=== PATIENT | female | born 1955 | race Caucasian/White ===

== ENCOUNTER 2019-12-06 | Outpatient (CLI) | payer MEDICARE, MEDICAID, SELFPAY ==
[2019-12-06 17:43] LABS: SARS-CoV-2 RNA PCR Negative
== END 2019-12-06 00:01 | disposition home or self-care (01) ==
LOC: ANHCOVIDDT 00:01
PROVIDERS: PCP Internal Medicine; Visit Provider Urology
DX: Z01.818 Encounter for other preprocedural examination (principal); Z11.59 Encounter for screening for other viral diseases
CPT/HCPCS: 87635; C9803; U0003

== ENCOUNTER 2019-12-06 08:00 | Outpatient (CLI) | payer MEDICARE, MEDICAID, SELFPAY ==
[2019-12-10 01:36] LABS: Carbamazepine Tegretol 8.7 mcg/mL (4.0-12.0)
== END 2019-12-06 08:01 | disposition home or self-care (01) ==
LOC: ANHSURGERY 08:05
PROVIDERS: Anesthesiology; PCP Internal Medicine; Visit Provider Urology
DX: Z01.818 Encounter for other preprocedural examination (principal); Z51.81 Encounter for therapeutic drug level monitoring; Z11.59 Encounter for screening for other viral diseases; N81.6 Rectocele
CPT/HCPCS: 36415; 80156; 87635; C9803; U0003

== ENCOUNTER 2019-12-08 01:36 | Day surgery (SDC) | payer MEDICARE, MEDICAID, SELFPAY ==
[2019-11-29 07:56] VITALS: BMI 50.3
[2019-12-08] VITALS (9 sets, daily range): BP systolic 100–151; BP diastolic 44–95; PULSE 77–92; RESP 10–20; TEMP 36.1–36.9; O2SAT 93–100
--- NOTE | 2019-12-08 07:19 | WPDHPUPDATE1 ---
History and Physical Update Update Date/Time: 12/08/19 07:19 History and Physical has been reviewed, including an updated exam of the patient. There are NO changes in the patient's condition. Risks, benefits, and alternatives have been discussed and questions answered. Patient agrees to proceed with procedure.
--- NOTE | 2019-12-08 07:38 | WPDANESEPP ---
Anes - Eval Pre Procedure Procedure: Operation Date: 12/08/19 09:30 Proposed Procedures p Rectocele Repair - Huseyin Hogue MD Date/Time: 12/08/19 07:38 Pre Op Diagnosis: Rectocele Patient Data Age: 64 Gender: F Height: 1.57 m Weight: 124.74 kg Allergies Allergy/AdvReac Type Severity Reaction Status Date / Time Penicillins AdvReac Unknown Unknown Verified 11/29/19 07:58 Home Medications Medication Instructions Recorded Confirmed Type blood sugar diagnostic #100 each 05/26/19 11/21/19 Rx blood sugar diagnostic #10 each 06/08/19 11/21/19 History blood-glucose meter #1 each 06/08/19 11/21/19 History carbamazepine 400 mg 400 mg PO BID 06/08/19 11/29/19 History tablet,extended release,12 hr cholecalciferol (vitamin D3) 125 5,000 unit PO DAILY 06/08/19 11/29/19 History mcg (5,000 unit) capsule lancets #50 each 06/08/19 11/21/19 History naproxen 500 mg tablet 500 mg PO BID PRN 06/08/19 11/29/19 History trazodone 100 mg tablet 100 mg PO QPM tablet 06/08/19 11/29/19 History duloxetine 30 mg capsule,delayed 60 mg PO QPM #180 cap 11/21/19 11/29/19 Rx release lisinopril 40 mg tablet 40 mg PO DAILY #90 tablet 11/21/19 11/29/19 Rx rosuvastatin 40 mg tablet 40 mg PO DAILY #90 tablet 11/21/19 11/29/19 Rx fluticasone propionate 50 1 spray NASAL DAILY #18.2 ml 11/23/19 11/29/19 Rx mcg/actuation nasal spray,suspension ascorbic acid (vitamin C) [Vitamin 1 g PO DAILY 11/29/19 11/29/19 History C] bimatoprost [Lumigan] 1 drp OPHTHALMIC (EYE) HS 11/29/19 11/29/19 History omega 7-aru-egs-fish oil [Fish Oil] 1 cap PO DAILY 11/29/19 11/29/19 History vitamins A,C,Y-qfvw-ekfepd 1 tablet PO DAILY 11/29/19 11/29/19 History [PreserVision AREDS] Patient hx anesthesia problems: none Family hx anesthesia problems: none PMFSH Past Medical History Medical History (Updated 12/08/19 @ 07:40 by Liam Preicado CRNA) Depression Diverticulitis Epilepsy Foot drop Former smoker GERD (gastroesophageal reflux disease) Hyperlipidemia Hypertension Knee pain Obesity Post-menopausal Prediabetes RSD (reflex sympathetic dystrophy) Seizure Vitamin D deficiency Surgical History Surgical History H/O neck surgery 1999 Family History Family History Mother Diabetes mellitus Hypertension Parkinsons disease Father Diabetes mellitus Hypertension Social History Social History Smoking status: Former smoker Alcohol intake: never Exam Day of Procedure 12/08/19 07:38
--- NOTE | 2019-12-08 08:28 | WPDANESEPPF ---
Anes - Initial Pre Proc Eval Procedure: Operation Date: 12/08/19 09:30 Proposed Procedures p Rectocele Repair - Huseyin Hogue MD Date/Time: 12/08/19 08:28 Surgeon: Huseyin Hogue MD Pre Op Diagnosis: Rectocele Patient Data Age: 64 Gender: F Height: 5 ft 2 in Weight: 124.74 kg Allergies Allergy/AdvReac Type Severity Reaction Status Date / Time Penicillins AdvReac Unknown DIVERTICULI Verified 12/08/19 08:27 TIS Home Medications Medication Instructions Recorded Confirmed Type blood sugar diagnostic #100 each 05/26/19 11/21/19 Rx blood sugar diagnostic #10 each 06/08/19 11/21/19 History blood-glucose meter #1 each 06/08/19 11/21/19 History carbamazepine 400 mg 400 mg PO BID 06/08/19 12/08/19 History tablet,extended release,12 hr cholecalciferol (vitamin D3) 125 5,000 unit PO DAILY 06/08/19 12/08/19 History mcg (5,000 unit) capsule lancets #50 each 06/08/19 11/21/19 History naproxen 500 mg tablet 500 mg PO BID PRN 06/08/19 12/08/19 History trazodone 100 mg tablet 100 mg PO QPM tablet 06/08/19 12/08/19 History duloxetine 30 mg capsule,delayed 60 mg PO QPM #180 cap 11/21/19 12/08/19 Rx release lisinopril 40 mg tablet 40 mg PO DAILY #90 tablet 11/21/19 12/08/19 Rx rosuvastatin 40 mg tablet 40 mg PO DAILY #90 tablet 11/21/19 12/08/19 Rx fluticasone propionate 50 1 spray NASAL DAILY #18.2 ml 11/23/19 12/08/19 Rx mcg/actuation nasal spray,suspension ascorbic acid (vitamin C) [Vitamin 1 g PO DAILY 11/29/19 12/08/19 History C] bimatoprost [Lumigan] 1 drp OPHTHALMIC (EYE) HS 11/29/19 12/08/19 History omega 2-zyo-xra-fish oil [Fish Oil] 1 cap PO DAILY 11/29/19 12/08/19 History vitamins A,C,P-nfda-bugmdt 1 tablet PO DAILY 11/29/19 12/08/19 History [PreserVision AREDS] Patient hx anesthesia problems: none Family hx anesthesia problems: none [facility] Past Medical History Medical History (Updated 12/08/19 @ 07:40 by Liam Preciado CRNA) Depression Diverticulitis Epilepsy Foot drop Former smoker GERD (gastroesophageal reflux disease) Hyperlipidemia Hypertension Knee pain Obesity Post-menopausal Prediabetes RSD (reflex sympathetic dystrophy) Seizure Vitamin D deficiency Surgical History Surgical History H/O neck surgery 1999 Family History Family History Mother Diabetes mellitus Hypertension Parkinsons disease Father Diabetes mellitus Hypertension Social History Social History Smoking status: Former smoker Alcohol intake: never Anes - Eval Final PreProcedure Day of Procedure 12/08/19 08:28 Patient weight: super morbidly obese Heart: regular rate and rhythm Lungs: clear to auscultation Airway: Mallampati scale class III Neurological: alert and oriented Last oral intake: >/= 8 hours ASA classification: IV Emergent: no Anesthetic plan: proceed Anesthesia type and monitoring: general LMA and standard monitoring Informed Consent: The patient's anesthetic plan and its attendant risks and benefits were discussed with the patient/family/POA. Questions were solicited and answers provided to the satisfaction of the patient/family/POA.
[2019-12-08] MEDS: LACTATED RINGERS 1,000 ML 30 ML IV CONT (08:45)
[2019-12-08] MEDS: KETOROLAC 30 MG/ML VIAL (*BKC) IV PUSH (09:24)
[2019-12-08] MEDS: BUPIVACAINE/EPINEPHRINE 0.25% 50 ML VIAL INFILTRATE (09:26)
--- NOTE | 2019-12-08 09:48 | P.OP_ITS ---
Procedure Note - Detailed Date of procedure: 12/08/19 Pre-op diagnosis: Rectocele Rectocele Female perineal laxity Post-op diagnosis: same Procedure performed: Rectocele repair/posterior colporrhaphy Perineal plasty Description of procedure: She understands the risks of bleeding, infection, damage to surrounding organs, dyspareunia, and recurrence of prolapse. She agrees to proceed. She was correctly identified and informed consent was obtained. She is brought to the operating room. She was given general anesthesia. She was placed in the dorsal lithotomy position. She was prepped and draped in a sterile fashion. She was given appropriate perioperative antibiotics. A time-out was performed. A [place] retractor was placed. A Jones catheter was in place. I grasped the rectocele with Allis clamps. I infiltrated the subcutaneous tissues with local mixed with saline. I made a midline incision on the posterior vaginal wall. I dissected the mucosa off the underlying fascial structures out laterally. And then ports he apex. There is no sign of any violation to surrounding organs. I then performed a standard rectocele repair. I used interrupted 0 Vicryl sutures. This reduced the rectocele. I then trimmed excess vaginal mucosa. I then closed the mucosa with a running 2 0 Vicryl suture. There was excellent hemostasis. There was reduction of the rectocele. I then marked out a dino- shaped area of skin in the perineum. I anesthetize this area of skin. I removed the skin. I then performed a perineoplasty with 0 Vicryl sutures. I used a 2 0 Vicryl to close the mucosa. There is excellent support of the perineum without undue narrowing of the vagina. I then removed the [place] retractor. A rectal exam confirmed no injury to the rectum. Implants: None Anesthesia: GLMA Surgeon: Huseyin Hogue MD Estimated blood loss (mL): 30 Drains: No Packing: No Pathology: none sent Complications: No immediate complications Condition: stable Disposition: PACU
[2019-12-08 10:29] LABS: Glucose Point of Care 114 (65-105)
--- NOTE | 2019-12-08 10:33 | SUR.PHASEI ---
BROTHER KAITLIN MENDEZ. UNABLE TO VISUALIZE SURGICAL SITE.
== END 2019-12-08 12:10 | disposition home or self-care (01) ==
PROVIDERS: PCP Internal Medicine; Visit Provider Urology
PROC: 0JQC0ZZ Repair Pelvic Region Subcutaneous Tissue and Fascia, Open Approach (ICD-10-PCS; CPT 45560; principal; 2019-12-08 09:30)
DX: N81.6 Rectocele (principal); I10 Essential (primary) hypertension; E78.5 Hyperlipidemia, unspecified; R73.03 Prediabetes; G40.909 Epilepsy, unspecified, not intractable, without status epilepticus; E55.9 Vitamin D deficiency, unspecified; G90.50 Complex regional pain syndrome I, unspecified; K21.9 Gastro-esophageal reflux disease without esophagitis; F32.9 Major depressive disorder, single episode, unspecified; E66.01 Morbid (severe) obesity due to excess calories; Z68.42 Body mass index [BMI] 45.0-49.9, adult; Z87.891 Personal history of nicotine dependence
CPT/HCPCS: 57250; A9270; J1100; J1885; J2250; J2405; J2704; J3010; J7030; J7120

== ENCOUNTER 2020-01-27 11:27 | Emergency (ER) | payer MEDICARE, MEDICAID, SELFPAY ==
--- NOTE | ~2020-01-27 | XR_ITS ---
XR foot RT min 3V DATE: 01/27/2020 12:32 INDICATION: Fall. Right foot injury, pain TECHNIQUE: 4 views COMPARISON: None FINDINGS: Plantar calcaneal enthesopathy. There is soft tissue swelling of the dorsum of the foot. No fracture or dislocation, periosteal reaction or bone destruction is detected. IMPRESSION: No fracture or dislocation Reviewed, dictated and finalized at location A. IMPRESSION: No fracture or dislocation
--- NOTE | ~2020-01-27 | XR_ITS ---
XR knee RT 3V DATE: 01/27/2020 12:32 INDICATION: Fall. Right knee injury, pain TECHNIQUE: Portable crosstable lateral, AP and oblique views COMPARISON: None FINDINGS: There is mild suprapatellar knee joint effusion. There is prominent patellofemoral joint periarticular spurring consistent with osteoarthritis. No fracture or dislocation, periosteal reaction or bone destruction. No radiopaque intra-articular lo ose body or chondrocalcinosis. IMPRESSION: Suprapatellar knee joint effusion Osteoarthritis involving primarily the patellofemoral joint Reviewed, dictated and finalized at location A.
--- NOTE | ~2020-01-27 | XR_ITS ---
XR shoulder LT min 2V DATE: 01/27/2020 14:05 INDICATION: Fall. Left shoulder pain. TECHNIQUE: 4 views COMPARISON: None FINDINGS: There is joint space narrowing and spurring at the acromion clavicular joint consistent wit h degenerative change. No apparent fracture or dislocation of the left shoulder is evident. No periosteal reaction or bone d estruction. IMPRESSION: Degenerative changes acromioclavicular joint Reviewed, dictated and finalized at location A.
--- NOTE | ~2020-01-27 | CT_ITS ---
CT lumbar spine wo con DATE: 01/27/2020 12:36 INDICATION: Low back pain following a fall TECHNIQUE: Axial views from T11 through the sacrum, sagittal and coronal reconstructions. Exam dose: 1343.16 mGy-cm total exam DLP. COMPARISON: 04/22/2019 MRI lumbar spine FINDINGS: There is borderline primary lumbar spinal stenosis. There is severe degenerative disc disease at L1-2, L2-3 and L5-S1. There is moderate degenerative dis c disease at L3-4 and L4-5. There is prominent degenerative change at the apophyseal joints, with associated grade 1 anterolisthe sis at L4-5. There is mild retrolisthesis at L2-3 and L5-S1 associated with degenerative disc disease. No recent fracture or bone destruction is evident. The sacroiliac joints are intact. IMPRESSION: Multilevel severe degenerative disc disease Reviewed, dictated and finalized at Location A. Reviewed, dictated and finalized at location A.
--- NOTE | ~2020-01-27 | XR_ITS ---
XR ankle RT min 3V DATE: 01/27/2020 12:32 INDICATION: Fall. Right ankle injury, pain TECHNIQUE: 4 views COMPARISON: None FINDINGS: There is prominent calcaneal enthesopathy. No fracture or dislocation of the ankle or disruption of the ankle mortise is detected. IMPRESSION: No fracture or dislocation detected Reviewed, dictated and finalized at location A.
--- NOTE | ~2020-01-27 | XR_ITS ---
XR elbow LT min 3V DATE: 01/27/2020 12:32 INDICATION: Fall. Left elbow injury, pain TECHNIQUE: 4 views COMPARISON: None FINDINGS: No fracture or dislocation or joint effusion. No periosteal reaction or bone destruction. T here is osteoarthritic change. IMPRESSION: No fracture or dislocation or joint effusion Reviewed, dictated and finalized at location A.
[2020-01-27 11:30] VITALS: BP 132/56; PULSE 80; RESP 18; TEMP 37.1; O2SAT 99
--- NOTE | 2020-01-27 12:10 | ECG_ITS ---
Measurements Intervals [place] Rate: 80 P: 9 RI: 173 QRS: 1 QRSD: 83 T: 23 QT: 352 QTc: 406 Interpretive Statements SINUS RHYTHM LOW QRS VOLTAGE IN PRECORDIAL LEADS VOLTAGE CRITERIA FOR LVH BORDERLINE ECG Electronically Signed On 01-27-2020 13:47:06 CDT by Sarabjit Childs D.O.
[2020-01-27] MEDS: SODIUM CHLORIDE 0.9% IV 1,000 ML 999 ML IV CONT ×2 (12:16→13:51)
[2020-01-27] MEDS: MECLIZINE HCL 25 MG TABLET PO (12:25)
[2020-01-27 12:31] LABS: Basophils Percent Auto 0.7 % (0.2-1.2); Eosinophils Absolute Auto 0.1 K/mm3 (0-0.3); Eosinophils Percent Auto 2.1 % (0-4.4); Hematocrit 37.3 % (37.0-47.0); Hemoglobin 11.7 g/dL (12.0-15.0); Immature Granulocyte Absolute 0.03 K/mm3 (0.00-0.031); Immature Granulocyte Percent A 0.5 % (0-0.5); Lymphocytes Percent Auto 29.7 % (18.3-44.2); Mean Corpuscular HGB Conc 31.4 g/dl (32-36); Mean Corpuscular Hemoglobin 30.1 pg (26-34); Mean Corpuscular Volume 95.9 fl (80-100); Mean Platelet Volume 10.6 fl (7.4-10.4); Monocytes Absolute Auto 0.6 K/mm3 (0.1-0.6); Monocytes Percent Auto 10.2 % (2.6-8.5); Neutrophils Absolute Auto 3.4 K/mm3 (1.3-6.7); Neutrophils Percent Auto 56.8 % (45.5-73.1); Platelet Count Result 198 k/mm3 (150-375); Red Blood Count 3.89 M/mm3 (4.2-5.4); Red Cell Distribution Width 14.4 % (11.5-14.5); White Blood Count 6.1 K/mm3 (4.5-10.0)
--- NOTE | 2020-01-27 12:31 | ED.FALL ---
HPI - Fall General Chief Complaint: Fall <HOLLEY Hernandez Last Filed: 01/27/20 15:55> Stated Complaint: fall, dizziness <HOLLEY Hernandez Last Filed: 01/27/20 15:55> Time Seen by Provider: 01/27/20 11:33 <HOLLEY Hernandez Last Filed: 01/27/20 15:55> Source: patient <HOLLEY Hernandez Last Filed: 01/27/20 15:55> Mode of arrival: ambulatory <HOLLEY Hernandez Last Filed: 01/27/20 15:55> Limitations: no limitations <HOLLEY Hernandez Last Filed: 01/27/20 15:55> History of Present Illness HPI Narrative: Patient is a 64-year-old female who presents to emergency department for evaluation of skeletal injuries and dizziness patient notes for the last 4 days she has been dizzy was ambulating when she had experienced dizziness also has a history of right dropfoot causing her to fall patient notes she injured the foot ankle and right knee. Also noting left elbow pain. Patient also notes she has had increasing low back pain during this. Noting that she fell to the right side patient lied on the ground for 45 minutes and was able to get herself up patient denies any syncope headache head injury neck pain and presents per private vehicle has not taken anything for her symptoms patient notes that she lives by herself. Patient notes history of dizziness and notes that she thought possibly it was related to bilateral ear discomfort but denies other URI symptoms <HOLLEY Hernandez Last Filed: 01/27/20 15:55> Related Data Home Medications: Home Medications Medication Instructions Recorded Confirmed carbamazepine 400 mg 400 mg PO BID 06/08/19 12/08/19 tablet,extended release,12 hr cholecalciferol (vitamin D3) 125 5,000 unit PO DAILY 06/08/19 12/08/19 mcg (5,000 unit) capsule naproxen 500 mg tablet 500 mg PO BID PRN 06/08/19 12/08/19 trazodone 100 mg tablet 100 mg PO QPM tablet 06/08/19 12/08/19 Lumigan 1 drp OPHTHALMIC (EYE) HS 11/29/19 12/08/19 PreserVision AREDS 1 tablet PO DAILY 11/29/19 12/08/19 ascorbic acid (vitamin C) [Vitamin 1 g PO DAILY 11/29/19 12/08/19 C] omega 7-axp-vhf-fish oil [Fish Oil] 1 cap PO DAILY 11/29/19 12/08/19 <Ludwig Rodriguez PA-C - Last Filed: 01/27/20 15:55> Allergies/Adverse Reactions: Allergies Allergy/AdvReac Type Severity Reaction Status Date / Time Penicillins AdvReac Unknown DIVERTICULI Verified 01/27/20 11:36 TIS <Ludwig Rodriguez PA-C - Last Filed: 01/27/20 15:55> Review of Systems Review of Systems: All systems reviewed & are unremarkable except as noted in HPI and below <Ludwig Rodriguez PA-C - Last Filed: 01/27/20 15:55> [facility] Past Medical History Medical History: Medical History Depression Diverticulitis Epilepsy Foot drop Former smoker GERD (gastroesophageal reflux disease) Hyperlipidemia Hypertension Knee pain Obesity Post-menopausal Prediabetes RSD (reflex sympathetic dystrophy) Seizure Vitamin D deficiency <Ludiwg Rodriguez PA-C - Last Filed: 01/27/20 15:55> Surgical History Surgical History: Surgical History H/O neck surgery 1999 <Ludwig Rodriguez PA-C - Last Filed: 01/27/20 15:55> Social History Social History: Social History Smoking status: Former smoker Alcohol intake: never <Ludwig Rodriguez PA-C - Last Filed: 01/27/20 15:55> Exam Narrative: Exam Narrative: GENERAL: Well-appearing, obese, and in no acute distress. HEAD: Normocephalic, atraumatic. EYES: PERRLA and EOMI. ENT: Nares clear, no rhinorrhea or epistaxis. Mucous membranes moist. Oropharynx without tonsillar hypertrophy exudate or other lesions. NECK: Supple. No adenopathy or masses. CHEST: Clear to auscultation. No respiratory distress. No wheezes rales or rhonchi HEART: Regular ra
[2020-01-27 12:45] LABS: Alanine Aminotransferase 16 U/L (4-35); Alkaline Phosphatase 77 U/L (38-126); Anion Gap 10.9 mmol/L (7-16); Aspartate Amino Transferase 27 U/L (14-36); Bilirubin,Total 0.3 mg/dL (0.2-1.3); Blood Urea Nitrogen 27 mg/dL (7-17); Calcium 8.9 mg/dL (8.4-10.2); Carbon Dioxide 30 mmol/L (22-30); Chloride 99 mmol/L (98-107); Creatine Kinase 172 U/L (30-135); Estimated CRCL calculation 79 ml/min; Estimated Glomerular Filt Rate > 60; Glucose 92 mg/dL (65-105); Lipase 85 U/L (23-300); Potassium 4.9 mmol/L (3.4-5.0); Sodium 135 mmol/L (137-145)
[2020-01-27 12:46] LABS: Prothrombin Time 12.8 Seconds (11.1-14.7)
[2020-01-27 12:48] LABS: Partial Thromboplastin Time 24.3 SECONDS (22.3-36.8)
[2020-01-27 13:13] LABS: Add Urine Microscopic? NO; Appearance Urine Clear (Clear); Bilirubin Urine Negative (Negative); Blood Urine Negative (Negative); Color Urine Straw (Yellow); Glucose Urine UA Negative (Negative); Ketones Urine Negative (Negative); Leukocyte Esterase Ur Negative LEU/UL (Negative); Nitrate Urine Negative (Negative); Protein Urine Negative (Negative); Specific Grav Ur 1.011 (1.001-1.035); Urobilinogen Urine Negative mg/dL (<2.0)
[2020-01-27 13:35] VITALS: BP 141/59; PULSE 81
[2020-01-27 13:37] VITALS: BP 157/88; PULSE 87
[2020-01-27 13:40] VITALS: BP 165/84; PULSE 85
[2020-01-27 16:02] VITALS: BP 158/76; PULSE 79; RESP 18; O2SAT 99
== END 2020-01-27 16:04 | disposition home or self-care (01) ==
PROVIDERS: Emergency Medicine Emergency Medical Services; Emergency Provider General Practice; PCP Internal Medicine
DX: M25.571 Pain in right ankle and joints of right foot (principal); M25.561 Pain in right knee; S50.02XA Contusion of left elbow, initial encounter; E86.0 Dehydration; R42 Dizziness and giddiness; G40.909 Epilepsy, unspecified, not intractable, without status epilepticus; F32.9 Major depressive disorder, single episode, unspecified; Z87.891 Personal history of nicotine dependence; K21.9 Gastro-esophageal reflux disease without esophagitis; E78.5 Hyperlipidemia, unspecified; I10 Essential (primary) hypertension; E66.9 Obesity, unspecified; Z68.43 Body mass index [BMI] 50.0-59.9, adult; R73.03 Prediabetes; E55.9 Vitamin D deficiency, unspecified; M51.36 Other intervertebral disc degeneration, lumbar region; M51.37 Other intervertebral disc degeneration, lumbosacral region; R94.31 Abnormal electrocardiogram [ECG] [EKG]; M21.371 Foot drop, right foot; W18.39XA Other fall on same level, initial encounter
CPT/HCPCS: 36415; 51701; 72131; 73030; 73080; 73562; 73610; 73630; 80053; 81003; 82550; 83690; 85025; 85610; 85730; 93005; 96361; 96374; 99284; A9270; J0131; J7030

== ENCOUNTER 2020-03-29 09:01 | Outpatient (CLI) | payer MEDICARE, MEDICAID, SELFPAY | END 2020-03-29 09:02 | disposition home or self-care (01) | LOC: ANHAUDIO 09:03 | PROVIDERS: PCP Internal Medicine; Visit Provider Otolaryngology | DX: H90.3 Sensorineural hearing loss, bilateral (principal) | CPT/HCPCS: 92557; 92567 ==

== ENCOUNTER 2020-05-13 08:27 | Outpatient (CLI) | payer MEDICARE, MEDICAID, SELFPAY ==
--- NOTE | 2020-06-14 13:57 | WPDHOMESLEEP ---
Sleep Study - Home Unattended Date of Study: 05/13/20 Ordering Provider: Scott Delvalle MD Interpreting Physician: Ce Hughes MD Home Sleep Study Type: Apnea Link Air Height: 1.55 m Weight: 130.181 kg Body Mass Index: 54.2 Neck Circumference (inches): 18 Central: 3 Reason for Sleep Study loud snoring, waking at night shaking and with a red face Sleep History Camille Orozco is a 65 year old female who says that while she is sleeping her face becomes red. She wakes up from loud snoring and she feels shaky. She has been snoring loudly for years. There is a family history with 2 brothers and 2 sons and her father all having sleep apnea. She has use trazodone to help initiate sleep. She constantly awakens at night with coughing. She does not awaken from sleep feeling short of breath. She rarely has trouble sleeping with a cold. She does not gasp for breath at night. She does not have breathing problems at night observed by others. She rarely sweats excessively at night. She does not notice her heart pounding or beating irregularly at night. She rarely falls asleep during the day. She does not fall asleep involuntarily, while driving or during physical effort. She does not have loss of muscle tone was drawn motion. She does not have daytime difficulties due to excessive sleepiness. She rarely feels paralyzed on waking or falling asleep and rarely has vivid dreamlike scenes upon awakening or falling asleep. She is not afraid to go to sleep. She occasionally has nightmares. She frequently remembers her dreams. She constantly has racing thoughts through her mind. She does not feel sad, depressed, anxious and does not have muscular tension. She constantly notices parts of her body jerking. She denies kicking at night. She does not have crawling and aching feelings in her legs. She occasionally has leg pain at night. She does not have morning jaw pain. She frequently grinds her teeth during sleep. She occasionally is bothered by pain during the day, occasionally awakened by pain at night and occasionally wakes up feeling stiff in the morning. She frequently wakes up with sore achy muscles and pain in her neck and spine. She has memory problems and concentration difficulties. She has nightmares and headaches. Normal bedtime is 9:00 p.m. falling asleep within 15 minutes waking multiple times at night. While awake, she will go to the bathroom. She returns to sleep a few minutes later. She wakes in the morning between 6 and 7:00 a.m. She takes naps. A short nap may be refreshing. She is drowsy in the morning for 1 hour or longer. Habits: Quit tobacco years ago. Caffeine - 1 soda a day. No alcohol. [facility] Past Medical History Medical History Depression Diverticulitis Epilepsy Foot drop Former smoker GERD (gastroesophageal reflux disease) Hyperlipidemia Hypertension Knee pain Obesity Post-menopausal Prediabetes RSD (reflex sympathetic dystrophy) Seizure Vitamin D deficiency Surgical History Surgical History H/O neck surgery 1999 Family History Family History Mother Diabetes mellitus Hypertension Parkinsons disease Father Diabetes mellitus Hypertension Social History Social History Smoking status: Former smoker Alcohol intake: never Medications Home Medications Medication Instructions Recorded Confirmed Type carbamazepine 400 mg 400 mg PO BID 06/08/19 01/29/20 History tablet,extended release,12 hr cholecalciferol (vitamin D3) 125 5,000 unit PO DAILY 06/08/19 01/29/20 History mcg (5,000 unit) capsule naproxen 500 mg tablet 500 mg PO BID PRN 06/08/19 01/29/20 History trazodone 100 mg tablet 100 mg PO QPM tablet 06/08/19 01/29/20 History Lumigan 1 drp OPHTHALMIC (EYE) H
[2020-06-14 14:18] VITALS: BMI 54.2
== END 2020-05-13 08:28 | disposition home or self-care (01) ==
LOC: ANHCSM 08:27
PROVIDERS: PCP Internal Medicine; Visit Provider Internal Medicine Critical Care Medicine
DX: G47.33 Obstructive sleep apnea (adult) (pediatric) (principal); R06.83 Snoring
CPT/HCPCS: 95806

== ENCOUNTER 2020-05-13 09:00 | Outpatient (RCR) | payer MEDICAID, SELFPAY | END 2020-05-13 23:59 | disposition home or self-care (01) | LOC: ANHAUDIO 09:00 | PROVIDERS: PCP Internal Medicine; Visit Provider Internal Medicine | DX: Z46.1 Encounter for fitting and adjustment of hearing aid (principal) | CPT/HCPCS: 99199; V5160; V5261 ==

== ENCOUNTER 2020-07-06 01:28 | Outpatient (CLI) | payer MEDICARE, MEDICAID, SELFPAY ==
[2020-07-06 20:09] LABS: SARS-CoV-2 RNA PCR Negative
== END 2020-07-06 01:29 | disposition home or self-care (01) ==
LOC: ANHCOVIDDT 01:28
PROVIDERS: PCP Internal Medicine; Visit Provider Internal Medicine Critical Care Medicine
DX: Z01.812 Encounter for preprocedural laboratory examination (principal); Z20.822 Contact with and (suspected) exposure to COVID-19
CPT/HCPCS: C9803; U0003

== ENCOUNTER 2020-07-09 09:21 | Outpatient (CLI) | payer MEDICARE, MEDICAID, SELFPAY ==
--- NOTE | 2020-08-14 10:29 | WPDSLEEPSTUD ---
Sleep Study Date of Study: 07/09/20 Ordering Provider: Scott Delvalle MD; primary is Mike Gautam MD Interpreting Physician: Ce Hughes MD Sleep Study Type: BiPAP Titration Height: 1.55 m Weight: 130.181 kg Body Mass Index: 54.2 Neck Circumference: 45.72 cm [place]: 3 Reason for Sleep Study Severe LANA on home sleep test May 13, 2020; returns for titration Sleep History Camille Oroczo is a 65 year old female who had a home sleep test on May 13, 2020. The AHI was 48, mainly obstructive events with loud snoring. Unfortunately the oximetry channel and heart rate channel did not work so the degree of desaturation was not clear. She returns at this time for CPAP titration which turned into a BiPAP titration. She has reported that while sleeping, her face becomes red. She wakes up from loud snoring, waking up feeling shaky. She has been snoring loudly for years. There is a family history with 2 brothers, 2 sons and her father all having sleep apnea. She has use trazodone to help initiate sleep. She constantly awakens at night with coughing. She does not awaken from sleep feeling short of breath. She rarely has trouble sleeping with a cold. She does not gasp for breath at night. She does not have breathing problems at night observed by others. She rarely sweats excessively at night. She does not notice her heart pounding or beating irregularly at night. She rarely falls asleep during the day. She does not fall asleep involuntarily, while driving or during physical effort. She does not have loss of muscle tone was drawn motion. She does not have daytime difficulties due to excessive sleepiness. She rarely feels paralyzed on waking or falling asleep and rarely has vivid dreamlike scenes upon awakening or falling asleep. She is not afraid to go to sleep. She occasionally has nightmares. She frequently remembers her dreams. She constantly has racing thoughts through her mind. She does not feel sad, depressed, anxious and does not have muscular tension. She constantly notices parts of her body jerking. She denies kicking at night. She does not have crawling and aching feelings in her legs. She occasionally has leg pain at night. She does not have morning jaw pain. She frequently grinds her teeth during sleep. She occasionally is bothered by pain during the day, occasionally awakened by pain at night and occasionally wakes up feeling stiff in the morning. She frequently wakes up with sore achy muscles and pain in her neck and spine. She has memory problems and concentration difficulties. She has nightmares and headaches. Normal bedtime is 9:00 p.m. falling asleep within 15 minutes waking multiple times at night. While awake, she will go to the bathroom. She returns to sleep a few minutes later. She wakes in the morning between 6 and 7:00 a.m. She takes naps. A short nap may be refreshing. She is drowsy in the morning for 1 hour or longer. Habits: Quit tobacco years ago. Caffeine - 1 soda a day. No alcohol. [facility] Past Medical History Medical History Depression Diverticulitis Epilepsy Essential (primary) hypertension Foot drop Former smoker GERD (gastroesophageal reflux disease) Hyperlipidemia Hyperlipidemia Hypertension Knee pain Obesity Post-menopausal Prediabetes RSD (reflex sympathetic dystrophy) Seizure Vitamin D deficiency Surgical History Surgical History H/O neck surgery 1999 Family History Family History Mother Diabetes mellitus Hypertension Parkinsons disease Father Diabetes mellitus Hypertension Social History Social History Smoking status: Former smoker Alcohol intake: never Medications Home Medications Medication Instructions Recorded Confirmed Typ
[2020-08-14 11:49] VITALS: BMI 54.2
== END 2020-07-09 09:22 | disposition home or self-care (01) ==
LOC: ANHCSM 09:27
PROVIDERS: PCP Internal Medicine; Visit Provider Internal Medicine Critical Care Medicine
DX: G47.33 Obstructive sleep apnea (adult) (pediatric) (principal)
CPT/HCPCS: 95811

== ENCOUNTER 2020-09-17 18:45 | Inpatient (IN) | payer MEDICARE, MEDICAID, SELFPAY ==
--- NOTE | ~2020-09-17 | CT_ITS ---
EXAMINATION: CT abdomen pelvis w con DATE: 09/17/2020 22:27 INDICATION: Generalized abdominal pain and distention TECHNIQUE: Computed tomography (CT) of the abdomen and pelvis was performed with 100 cc Omnipaque 350 intravenous contrast. Automated exposure control and iterative reconstruction technique were employe d. Exam dose: 1529.41 mGy-cm total exam DLP. COMPARISON: 04/14/2013 CT abdomen pelvis FINDINGS: Mild bilateral lower lobe dependent infiltrate and/or atelectasis. Heart size is within normal range. No pericardial or pleural effusion. Status post cholecystectomy. There is mild prominence of the common bile duct, likely due to the post cholecystectomy state. No pancreatic duct dilatation or abnormal pancreatic calcification. No hepatic, splenic, pancreatic, or adrenal space-occupying mass lesion is detected. There is a small exophytic cyst of the right kidney. Probable 8 mm lower pole left renal cyst. No urinary tract calculus or hydroureteronephrosis. Normal caliber abdominal aorta. No intraperitoneal or retroperitoneal or pelvic mass lesion or adenop athy or ascites. Status post hysterectomy. The urinary bladder is unremarkable, largely evacuated. Up to 2.8 cm diameter of multiple fluid containing small bowel segments with scattered air-fluid leve l. Findings may be due to enteritis or mild adynamic ileus, less likely partial obstruction. There is mild free fluid in the lower abdomen. Minimal perihepatic fluid. No evidence of appendicitis. There are numerous diverticula of the sigmoid colon and to a lesser extent descending colon; no CT ev idence of diverticulitis. Small fat and fluid containing umbilical hernia. Diffuse idiopathic skeletal hyperostosis of the thoracic spine. Severe multilevel degenerative disc disease of lumbar spine and prominent degenerative change at the apophyseal joints of the lumbar and lumbosacral area, with associated grade 1 anterolisthesis at L4-5 . IMPRESSION: Nonspecific fluid-containing nondilated small bowel segments with air-fluid levels; diff erential diagnosis includes enteritis, adynamic ileus, less likely partial small bowel obstruction Mild free fluid in the lower abdomen, minimal perihepatic fluid Diverticulosis of the sigmoid and descending colon; no CT evidence of diverticulitis is appreciated. Status post cholecystectomy Status post hysterectomy Small bilateral renal cysts Reviewed, dictated and finalized at [facility] Reviewed, dictated and finalized at [facility]. IMPRESSION: Nonspecific fluid-containing nondilated small bowel segments with air-fluid levels; differential diagnosis includes enteritis, adynamic ileus, le ss likely partial small bowel obstruction Mild free fluid in the lower abdomen, minimal perihepatic fluid Diverticulosis of the sigmoid and descending colon; no CT evidence of diverticu litis is appreciated. Status post cholecystectomy Status post hysterectomy Small bilateral renal cysts
[2020-09-17 18:56] VITALS: BP 125/84; PULSE 105; RESP 16; TEMP 36.2; O2SAT 95
[2020-09-17 21:50] VITALS: BP 130/60; PULSE 89; RESP 18; O2SAT 98
[2020-09-17 21:50] LABS: Basophils Absolute Auto 0.1 K/mm3 (0.0-0.1); Basophils Percent Auto 0.5 % (0.2-1.2); Eosinophils Absolute Auto 0.1 K/mm3 (0-0.3); Eosinophils Percent Auto 1.5 % (0-4.4); Hematocrit 40.2 % (37.0-47.0); Hemoglobin 12.9 g/dL (12.0-15.0); Immature Granulocyte Absolute 0.05 K/mm3 (0.00-0.031); Immature Granulocyte Percent A 0.5 % (0-0.5); Lymphocytes Absolute Auto 2.49 K/mm3 (0.9-3.2); Lymphocytes Percent Auto 26.8 % (18.3-44.2); Mean Corpuscular HGB Conc 32.1 g/dl (32-36); Mean Corpuscular Hemoglobin 30.8 pg (26-34); Mean Corpuscular Volume 95.9 fl (80-100); Mean Platelet Volume 10.7 fl (7.4-10.4); Monocytes Absolute Auto 0.7 K/mm3 (0.1-0.6); Monocytes Percent Auto 7.9 % (2.6-8.5); Neutrophils Absolute Auto 5.8 K/mm3 (1.3-6.7); Neutrophils Percent Auto 62.8 % (45.5-73.1); Platelet Count Result 196 k/mm3 (150-375); Red Blood Count 4.19 M/mm3 (4.2-5.4); Red Cell Distribution Width 14.1 % (11.5-14.5); White Blood Count 9.3 K/mm3 (4.5-10.0)
[2020-09-17 21:54] LABS: Add Urine Microscopic? YES; Appearance Urine Cloudy (Clear); Bacteria Urine Trace /hpf; Bilirubin Urine Negative (Negative); Blood Urine Negative (Negative); Color Urine Amber (Yellow); Glucose Urine UA Negative (Negative); Ketones Urine Trace mg/dL (Negative); Leukocyte Esterase Ur 2+ LEU/UL (Negative); Mucus Urine Moderate /lpf; Nitrate Urine Negative (Negative); Protein Urine 1+ mg/dL (Negative); Specific Grav Ur 1.018 (1.001-1.035); Squamous Epithelial Cell Urine Many /hpf (Few); WBC Urine 21-30 /hpf
[2020-09-17 22:00] LABS: Alanine Aminotransferase 17 U/L (4-35); Albumin Level 4.2 g/dL (3.5-5.1); Alkaline Phosphatase 84 U/L (38-126); Anion Gap 8 mmol/L (8-16); Aspartate Amino Transferase 24 U/L (14-36); Bilirubin,Total 0.3 mg/dL (0.2-1.3); Blood Urea Nitrogen 16 mg/dL (7-17); Calcium 9.5 mg/dL (8.4-10.2); Carbon Dioxide 28 mmol/L (22-30); Chloride 101 mmol/L (98-107); Estimated CRCL calculation 70 ml/min; Estimated Glomerular Filt Rate > 60; Glucose 112 mg/dL (65-105); Lipase 55 U/L (23-300); Potassium 4.1 mmol/L (3.4-5.0); Sodium 137 mmol/L (137-145)
[2020-09-17 22:01] VITALS: BP 133/110; PULSE 89; RESP 15; O2SAT 94
[2020-09-18] VITALS (10 sets, daily range): BP systolic 122–155; BP diastolic 50–76; PULSE 87–101; RESP 16–20; TEMP 36.4–37.3; O2SAT 95–100; BMI 52.0
--- NOTE | 2020-09-18 00:13 | ED.GENADULT ---
HPI - General Adult General Chief complaint: Unspecified Stated complaint: abd pain Time Seen by Provider: 09/17/20 20:34 Source: patient Mode of arrival: ambulatory History of Present Illness HPI narrative: 65-year-old with a history of hypertension hyperlipidemia here with complaints of abdominal bloating sensation associated with alternating bowel habits for last few days today she states that her abdomen is bloated and having a lot of pressure-like symptoms. Patient denies any nausea or vomiting. She states that she had a bowel movement early this morning. Patient states that symptoms started when she was started on oxybutynin. She denies any fever or chills. Onset (ago): day(s) (1) Location: abdomen Radiation: non-radiation Severity: moderate Quality: aching Pain Consistency: constant Relieving factors: none Exacerbating factors: none Associated symptoms: denies other symptoms Related Data Home Medications Medication Instructions Recorded Confirmed carbamazepine 400 mg 400 mg PO BID 06/08/19 09/10/20 tablet,extended release,12 hr cholecalciferol (vitamin D3) 125 5,000 unit PO DAILY 06/08/19 09/10/20 mcg (5,000 unit) capsule naproxen 500 mg tablet 500 mg PO BID PRN 06/08/19 09/10/20 trazodone 100 mg tablet 100 mg PO QPM tablet 06/08/19 09/10/20 Lumigan 1 drp OPHTHALMIC (EYE) HS 11/29/19 09/10/20 PreserVision AREDS 1 tablet PO DAILY 11/29/19 09/10/20 gabapentin 100 mg capsule 100 mg PO DAILY 02/15/20 09/10/20 Allergies Allergy/AdvReac Type Severity Reaction Status Date / Time Penicillins AdvReac Unknown DIVERTICULI Verified 09/17/20 21:01 TIS Review of Systems Review of Systems: All systems reviewed & are unremarkable except as noted in HPI and below Constitutional: Constitutional: Reports no additional constitutional complaints Eyes: Eyes: Reports no additional eye complaints ENT: Reports system reviewed and no additional complaints, except as documented Cardiovascular: Cardiovascular: Reports no additional cardiovascular complaints Respiratory: Respiratory: Reports as per HPI Gastrointestinal: Gastrointestinal: Reports as per HPI Genitourinary: Genitourinary: Reports no additional female genitourinary complaints Musculoskeletal: Musculoskeletal: Reports no additional musculoskeletal complaints [facility] Past Medical History Medical History Depression Epilepsy Essential (primary) hypertension Foot drop Former smoker GERD (gastroesophageal reflux disease) Hyperlipidemia Hyperlipidemia Hypertension Knee pain Obesity Post-menopausal Prediabetes RSD (reflex sympathetic dystrophy) Seizure Vitamin D deficiency Surgical History Surgical History H/O neck surgery 1999 Family History Family History Mother Diabetes mellitus Hypertension Parkinsons disease Father Diabetes mellitus Hypertension Social History Social History Smoking status: Former smoker Alcohol intake: never Exam Narrative: Exam Narrative: GENERAL: Well-appearing, Obese, and in no acute distress. HEAD: Normocephalic, atraumatic. EYES: PERRLA and EOMI. NECK: Supple. CHEST: Clear to auscultation. No respiratory distress. HEART: Regular rate and rhythm. No murmur heard. Normal peripheral pulses. ABDOMEN: Soft, diffuse tenderness , nondistended, normal active bowel sounds. EXTREMITIES: Normal range of motion. No edema. SKIN: Warm, dry, no rash. NEURO: No focal deficits. Alert and oriented x3. PSYCH: Normal mood and affect. Course Course Emergency Course: I discussed the lab and CT findings with the patient. Will admit to the hospital for observation meanwhile we will give her IV Rocephin for a UTI. Will consult surgery in the morning. Vital Signs Vital signs: Vital Signs Temperature
--- NOTE | 2020-09-18 01:11 | PM.IMHP ---
H&P: HPI History of Present Illness Date/Time: 09/18/20 01:11 Chief Complaint: Constipation with Abdominal distension and abdominal pain Narrative: This is a morbidly obese 65-year-old female with known history of RSD, diverticulosis, hypertension, and epilepsy who presented to the hospital with a complaint constipation for the past month as well as bloating and abdominal distension. The patient complains that she has had significant constipation ever since she started taking oxybutynin. She reports having very small amount of stool when she has a bowel movement. Over the past few days she has had significantly worsening abdominal bloating and abdominal distension. She presented to the hospital tonight with abdominal discomfort although she denies any recent nausea or vomiting. The patient complains that her abdomen is firm and uncomfortable. She denies any rectal bleeding, fever, chills, chest pain, palpitations, dysuria, hematuria, or rectal bleeding. The patient underwent abdominal pelvic CT in the ER tonight which showed nonspecific fluid containing nondilated small bowel segments with air-fluid levels which could signify an ileus versus a partial small-bowel obstruction. She does have a history of cholecystectomy and hysterectomy. She denies any past history of bowel obstructions. The patient's last bowel movement was this morning and was a very small amount. ER provider has consulted General surgery. We have been asked to admit the patient to the hospital for ongoing care. She has no other complaints this time. Review of Systems Review of Systems: All systems reviewed & are unremarkable except as noted in HPI and below PMFSH Past Medical History Medical History Depression Epilepsy Essential (primary) hypertension Foot drop Former smoker GERD (gastroesophageal reflux disease) Hyperlipidemia Hyperlipidemia Hypertension Knee pain Obesity Post-menopausal Prediabetes RSD (reflex sympathetic dystrophy) Seizure Vitamin D deficiency Surgical History Surgical History H/O neck surgery 1999 Family History Family History Mother Diabetes mellitus Hypertension Parkinsons disease Father Diabetes mellitus Hypertension Social History Social History Smoking status: Former smoker Alcohol intake: never Meds Home Medications and Allergies Home Medications Medication Instructions Recorded Confirmed Type carbamazepine 400 mg 400 mg PO BID 06/08/19 09/10/20 History tablet,extended release,12 hr cholecalciferol (vitamin D3) 125 5,000 unit PO DAILY 06/08/19 09/10/20 History mcg (5,000 unit) capsule naproxen 500 mg tablet 500 mg PO BID PRN 06/08/19 09/10/20 History trazodone 100 mg tablet 100 mg PO QPM tablet 06/08/19 09/10/20 History Lumigan 1 drp OPHTHALMIC (EYE) HS 11/29/19 09/10/20 History PreserVision AREDS 1 tablet PO DAILY 11/29/19 09/10/20 History meclizine 25 mg tablet 25 mg PO BID PRN #30 tablet 01/29/20 09/10/20 Rx gabapentin 100 mg capsule 100 mg PO DAILY 02/15/20 09/10/20 History fluticasone propionate 50 1 spray NASAL DAILY #18.2 ml 05/13/20 09/10/20 Rx mcg/actuation nasal spray,suspension furosemide 20 mg tablet 20 mg PO QAM #15 tablet 08/15/20 09/10/20 Rx rosuvastatin 40 mg tablet 40 mg PO DAILY #90 tablet 08/29/20 09/10/20 Rx duloxetine 30 mg capsule,delayed 60 mg PO QPM #180 cap 09/10/20 09/10/20 Rx release lisinopril 40 mg tablet 40 mg PO DAILY #90 tablet 09/10/20 09/10/20 Rx ondansetron HCl 4 mg tablet 4 mg PO Q6H PRN #30 tablet 09/10/20 09/10/20 Rx cyclosporine [Restasis MultiDose] drp 09/18/20 History cyclosporine [Restasis MultiDose] drp 09/18/20 09/18/20 History Allergies Allergy/AdvReac Type Severity Reaction Status Date / Time Penicillins AdvReac U
--- NOTE | 2020-09-18 01:42 | ADMGEN ---
This patient, Camille Orozco, was admitted to 2 Medical Room 243-01. Patient/family oriented to hospital policies and general routines including ID bracelet, bed and alarms, visiting hours, pain management, procedures, bathroom and other care routines, personal items, smoking policy, room service/diet, and visiting hours. Information on how to activate the Rapid Response Team has been discussed. Patient/Family are encouraged to report perceived risks to care and to ask questions if they do not understand what they are told or what they should do.
[2020-09-18] MEDS: SODIUM CHLORIDE 0.9% IV 1,000 ML 75 ML IV CONT ×2 (02:06→15:31)
[2020-09-18 02:14] LABS: Glucose Point of Care 128 (65-105)
[2020-09-18 08:20] LABS: Glucose Point of Care 103 (65-105)
--- NOTE | 2020-09-18 09:19 | PM.CNGS ---
Assessment and Plan Assessment and plan (1) Ileus: Code(s): K56.7 - Ileus, unspecified Status: Acute Assessment and Plan: CT suggesting ileus versus partial small bowel obstruction. There was no significantly dilated small bowel on the CT. She is moving her bowels and abdominal exam is benign. She is clinically improving already after having multiple bowel movements. There is no signs of a bowel obstruction at this time. Okay to start advancing her diet as tolerated and restart her home medications. Will initiate Miralax as a gentle laxative since she has started moving her bowels. Since there is no surgical indication, we will sign off the case. Thank you for allowing us to see the patient in consultation. Please let us know if there are any surgical needs in the future. (2) Abdominal pain: Qualifiers: Abdominal location: generalized Qualified Code(s): R10.84 - Generalized abdominal pain Code(s): R10.9 - Unspecified abdominal pain Status: Acute Assessment and Plan: She has been dealing with this abdominal pain for 8 weeks and seems to be associated with her constipation. She is already improving clinically after having multiple bowel movements. See plan above. (3) Abnormal urinalysis: Code(s): R82.90 - Unspecified abnormal findings in urine Status: Acute Assessment and Plan: Urinalysis abnormal in the ER. Patient has been asymptomatic. Could be a contaminate. Awaiting urine culture results. Currently receiving IV Rocephin for treatment of possible UTI. Management per Hospitalist. (4) Obstructive sleep apnea: Code(s): G47.33 - Obstructive sleep apnea (adult) (pediatric) Status: Chronic (5) Morbid obesity with BMI of 50.0-59.9, adult: Code(s): E66.01 - Morbid (severe) obesity due to excess calories; Z68.43 - Body mass index [BMI] 50.0-59.9, adult Status: Acute (6) Essential (primary) hypertension: Code(s): I10 - Essential (primary) hypertension Status: Chronic (7) Foot drop: Qualifiers: Laterality: bilateral Qualified Code(s): M21.371 - Foot drop, right foot; M21.372 - Foot drop, left foot Code(s): M21.379 - Foot drop, unspecified foot Status: Acute Additional Plan I discussed the patient's case and plan of care with Dr. Dalton. History of Present Illness Consult details Consult date: 09/18/20 Reason for consult: other (Ileus versus partial small bowel obstruction) Requesting physician: Amari Mauricio MD Narrative: This is a 65-year-old obese female who presented to the emergency department with complaints of constipation and abdominal cramping. She reports having onset of constipation about 8 weeks ago when starting oxybutynin for an overactive bladder. She ended up stopping the medication, but the constipation continued. She has seen her primary care physician twice for this in the past 2 months. She was started on a fiber supplement and stool softeners, with little relief. She reports taking Ex-Lax 2 weeks ago and subsequently having multiple large bowel movements. She states her symptoms resolved following this, but returned over the next few days. She also reports associated bloating and intermittent nausea, but no vomiting. She has has low oral intake due to the intermittent nausea and bloating sensation. Due to her persistent symptoms, she presented to the ER yesterday for further evaluation. CT scan of abdomen and pelvis showed nonspecific fluid containing nondilated small bowel with air-fluid levels, which could indicate enteritis, adynamic ileus, or less likely a partial small-bowel obstruction. Labs showed a normal white blood cell count and were otherwise unremarkable. Urinalysis showed 2+ leukocytes, 6-10 RBC, 21-30 WBC, trace bacteria, and many squamous epithelial cells. Her urine was sent for a culture and she was started on IV Rocephin. The patient was admitted to the hospitalist and made NPO. O
[2020-09-18] MEDS: polyethylene glycoL 3350 17 GM POWD.PACK PO (09:52)
[2020-09-18] MEDS: BETAMETHASONE/CLOTRIMAZOLE CR 15 GM TUBE 1 APPLIC TOPICAL ×2 (09:52→21:06)
[2020-09-18 09:55] LABS: Hematocrit 36.2 % (37.0-47.0); Hemoglobin 11.5 g/dL (12.0-15.0); Mean Corpuscular HGB Conc 31.8 g/dl (32-36); Mean Corpuscular Hemoglobin 30.3 pg (26-34); Mean Corpuscular Volume 95.3 fl (80-100); Mean Platelet Volume 10.6 fl (7.4-10.4); Platelet Count Result 189 k/mm3 (150-375); Red Cell Distribution Width 14.1 % (11.5-14.5); White Blood Count 7.7 K/mm3 (4.5-10.0)
[2020-09-18 10:04] LABS: Anion Gap 8 mmol/L (8-16); Blood Urea Nitrogen 14 mg/dL (7-17); Calcium 8.7 mg/dL (8.4-10.2); Carbon Dioxide 25 mmol/L (22-30); Chloride 104 mmol/L (98-107); Estimated CRCL calculation 79 ml/min; Estimated Glomerular Filt Rate > 60; Glucose 95 mg/dL (65-105); Sodium 137 mmol/L (137-145)
[2020-09-18 11:36] LABS: Glucose Point of Care 89 (65-105)
--- NOTE | 2020-09-18 14:24 | PM.PNGS ---
Progress Note: A&P Assessment and Plan (1) Constipation: Code(s): K59.00 - Constipation, unspecified Status: Acute Assessment and Plan: Improving since admission with numerous bowel movements and abdominal pain has improved. Recommend MiraLax daily dominique I. Consider GI consultation and colonoscopy. Do not see any suggestion of bowel obstruction or indication for surgery. We will sign off. (2) Abdominal pain: Qualifiers: Abdominal location: generalized Qualified Code(s): R10.84 - Generalized abdominal pain Code(s): R10.9 - Unspecified abdominal pain Status: Acute Assessment and Plan: Improving with bowel movement. Please see above. (3) Morbid obesity with BMI of 50.0-59.9, adult: Code(s): E66.01 - Morbid (severe) obesity due to excess calories; Z68.43 - Body mass index [BMI] 50.0-59.9, adult Status: Acute (4) Seizure: Code(s): R56.9 - Unspecified convulsions Status: Chronic Subjective Subjective Date/Time Seen: 09/18/20 14:24 Patient reports: feels better and bowel movement Interval history: Patient is a 65-year-old woman who came to the emergency room yesterday with abdominal pain and 2 month history of constipation. She had been taking numerous laxatives and other per get his trying to have a bowel movement. Her CT scan did not show much in the way of stool but did show fluid in the small intestine with some wall thickening suggestive most likely of enteritis. CT also was read as possibly a small bowel obstruction so we have been asked to see the patient. She has had several bowel movements since being admitted. She feels quite a bit better. She has had a previous appendectomy and hysterectomy. Medically, she has seizure disorder and extreme morbid obesity with BMI 52.1 Review of Systems Review of Systems: All systems reviewed & are unremarkable except as noted in HPI and below Constitutional: Constitutional: Denies body ache(s), Denies chills, Denies fever(s) and Denies headache(s) Cardiovascular: Cardiovascular: Denies chest pain and Denies dyspnea Respiratory: Respiratory: Denies cough and Denies dyspnea Gastrointestinal: Gastrointestinal: Reports as per HPI, Reports abdominal pain, Reports change in bowel habits, Reports constipation and Reports GI cramping Neurologic: Denies confusion and Denies headache(s) Exam Const: General: comfortable and no acute distress; No confusion Orientation/consciousness: patient oriented x3 and No confusion GI: Inspection: obesity (Protuberant) GI Palp: Yes Soft to palpation, Yes Tenderness to palpation present (GI) (Diffusely tender but no peritoneal signs), No Guarding due to palpation present (GI), Yes No hepatosplenomegaly present, No Hernia present, No Palpable mass present and No Rebound tenderness present Auscultation: normal bowel sounds Neuro: General: patient oriented x3, no focal motor deficits and No confusion Extrem: General: no calf tenderness and no edema Psych: Affect: normal affect Insight: Good insight present (Psych) Judgement: Good judgement present (Psych) Objective Data Vital Signs Vital Signs: Vital Signs - 24 hr 09/17/20 18:56 09/17/20 21:50 09/17/20 22:01 Temperature 36.2 C L Pulse Rate 105 H 89 89 Respiratory Rate 16 18 15 Blood Pressure 125/84 130/60 133/110 H Pulse Oximetry 95 98 94 09/18/20 01:00 09/18/20 02:00 09/18/20 05:54 Temperature 36.4 C L 36.5 C 36.4 C Pulse Rate 89 94 89 Respiratory Rate 16 20 20 Blood Pressure 130/76 122/50 L 148/63 H Pulse Oximetry 99 96 95 09/18/20 09:53 09/18/20 10:00 09/18/20 14:00 Temperature 36.8 C 36.8 C Pulse Rate 88 101 H Respiratory Rate 20 16 18 Blood Pressure 154/54 H 145/65 H Pulse Oximetry 96 98 96 Intake/Output Intake/Output: Intake & Output 09/15/20 09/16/20 09/17/20 09/18/20 23:59 23:59 23:59 23:59 Intake Total 50 Balance 50 Meds/Results Medications: Active Medications
--- NOTE | 2020-09-18 16:17 | PM.IMPN ---
Progress Note: A&P Assessment and Plan (1) Abdominal pain: Qualifiers: Abdominal location: generalized Qualified Code(s): R10.84 - Generalized abdominal pain Code(s): R10.9 - Unspecified abdominal pain Status: Acute Assessment and Plan: She presented with abdominal pain and bloating for several days. CT abdomen/pelvis showed dilated fluid-containing bowel segments. There is no evidence of obstruction or ileus. Pain is felt to be related to constipation and has improved after having several bowel movements. She has been seen in consultation by General surgery. No need for any further surgical evaluation or intervention at this time. Analgesics and antiemetics as needed Advance to full liquid diet. Monitor with serial exams. (2) Constipation: Code(s): K59.00 - Constipation, unspecified Status: Acute Assessment and Plan: Resolving. she has had several bowel movements today. Continue scheduled MiraLax and Colace She will need to remain on long-term bowel regimen (3) Abnormal urinalysis: Code(s): R82.90 - Unspecified abnormal findings in urine Status: Acute Assessment and Plan: Urinalysis abnormal upon presentation with 2+ leuk esterase and 21-30 WBC. Also with many squamous cells, therefore has potential for contamination. She denies urinary symptoms. She is afebrile and does not have leukocytosis. Continue IV Rocephin while awaiting urine culture results. Tailor antibiotics accordingly. (4) Essential (primary) hypertension: Code(s): I10 - Essential (primary) hypertension Status: Chronic Assessment and Plan: BP was significantly elevated upon presentation but has improved. Last BP 145/65. Continue lisinopril Monitor BP trends. Adjust medication regimen as needed (5) Obstructive sleep apnea: Code(s): G47.33 - Obstructive sleep apnea (adult) (pediatric) Status: Chronic Assessment and Plan: Continue CPAP titrated to home settings (6) Seizure: Code(s): R56.9 - Unspecified convulsions Status: Chronic Assessment and Plan: She reports she has not had a seizure in >25 years Continue carbamazepine (7) Diverticulosis large intestine w/o perforation or abscess w/bleeding: Code(s): K57.31 - Diverticulosis of large intestine without perforation or abscess with bleeding Status: Acute Assessment and Plan: Noted on CT abdomen/pelvis without evidence of diverticulitis. No evidence of acute infection at this time. She should follow-up with GI and will benefit from colonoscopy Subjective Date/time seen: 09/18/20 16:17 Interval history: Date of service: 09/18/2020 Camille Orozco is a 65-year-old female with history of reflex sympathetic dystrophy, seizure disorder, hypertension, and hyperlipidemia who is seen in follow-up for abdominal pain most likely related to constipation. She had previously been complaining of diffuse cramping abdominal pain. She has had several bowel movements today and her pain has improved. She reports looser stools. No nausea or vomiting. No fever or chills. Denies urinary symptoms. She has been NPO. She complains of a headache, concentrated behind her right eye which has improved with analgesics. She denies shortness of breath, chest pain, or palpitations. Review of Systems Review of Systems: All systems reviewed & are unremarkable except as noted in HPI and below Exam Narrative: Exam Narrative: Ms. Orozco is an obese, well-appearing 65-year-old female who is lying in the right lateral decubitus position in bed. She appears comfortable and is in NARD. Neuro: awake, alert and oriented x4, speech clear, no focal neuro deficits noted HEENMT: normocephalic, atraumatic, EOMI, sclerae anicteric, moist oral mucosa, tongue midline, nares patent Neck: supple, no lymphadenopathy Respiratory: clear to auscultatio
[2020-09-18] MEDS: DULoxetine HCL 60 MG CAPSULE.DR PO (17:50)
[2020-09-18] MEDS: CARBAMAZEPINE XR 200 MG TAB.ER.12H 400 MG PO (21:05)
[2020-09-18] MEDS: GABAPENTIN 300 MG CAPSULE 600 MG PO (21:06)
[2020-09-18] MEDS: LATANOPROST 0.005% OP SOLN 2.5 ML BTL 1 DROP EACH EYE (22:07)
[2020-09-18 22:28] LABS: Glucose Point of Care 101 (65-105)
[2020-09-18] MEDS: MORPHINE SULFATE (*CRX) 4 MG/ML INJ IV PUSH (23:24)
[2020-09-19] VITALS: BP 144/66; PULSE 87; RESP 16; TEMP 36.9; O2SAT 91
[2020-09-19 04:00] VITALS: BP 148/78; PULSE 103; RESP 20; TEMP 37.2; O2SAT 94
[2020-09-19 05:29] LABS: Hematocrit 33.5 % (37.0-47.0); Hemoglobin 10.6 g/dL (12.0-15.0); Mean Corpuscular HGB Conc 31.6 g/dl (32-36); Mean Corpuscular Hemoglobin 29.9 pg (26-34); Mean Corpuscular Volume 94.4 fl (80-100); Mean Platelet Volume 10.7 fl (7.4-10.4); Platelet Count Result 184 k/mm3 (150-375); Red Blood Count 3.55 M/mm3 (4.2-5.4); Red Cell Distribution Width 13.7 % (11.5-14.5); White Blood Count 6.1 K/mm3 (4.5-10.0)
[2020-09-19 06:01] LABS: Anion Gap 5 mmol/L (8-16); Blood Urea Nitrogen 12 mg/dL (7-17); Carbon Dioxide 24 mmol/L (22-30); Chloride 106 mmol/L (98-107); Estimated CRCL calculation 79 ml/min; Estimated Glomerular Filt Rate > 60; Glucose 99 mg/dL (65-105); Potassium 4.1 mmol/L (3.4-5.0); Sodium 135 mmol/L (137-145)
[2020-09-19] MEDS: ROSUVASTATIN 10 MG TABLET 40 MG PO (08:21)
[2020-09-19] MEDS: CHOLECALCIFEROL 1,000 UNITS TABLET 5000 UNITS PO (08:22)
[2020-09-19] MEDS: DOCUSATE SODIUM 100 MG CAPSULE PO (08:24)
[2020-09-19] MEDS: CARBAMAZEPINE XR 200 MG TAB.ER.12H 400 MG PO (08:24)
[2020-09-19] MEDS: polyethylene glycoL 3350 17 GM POWD.PACK PO (08:24)
[2020-09-19] MEDS: lisinopriL 20 MG TABLET 40 MG PO (08:24)
[2020-09-19] MEDS: BETAMETHASONE/CLOTRIMAZOLE CR 15 GM TUBE 1 APPLIC TOPICAL (08:25)
[2020-09-19] MEDS: SODIUM CHLORIDE 0.9% IV 1,000 ML 75 ML IV CONT (08:26)
[2020-09-19 10:59] VITALS: BP 127/75; PULSE 90; RESP 18; TEMP 36.3; O2SAT 97
[2020-09-19 14:52] VITALS: BP 136/56; PULSE 82; RESP 16; TEMP 36.4; O2SAT 98
--- NOTE | 2020-09-19 15:30 | PM.DS ---
DS: Admitting Diagnosis Admitting Diagnosis Admitting Diagnosis: Constipation DS: Discharge Diagnosis Discharge Diagnosis (1) Abdominal pain: Qualifiers: Abdominal location: generalized Qualified Code(s): R10.84 - Generalized abdominal pain Code(s): R10.9 - Unspecified abdominal pain Status: Acute Assessment and Plan: She presented with abdominal pain and bloating for several days. CT abdomen/pelvis showed dilated fluid-containing bowel segments. There wass no evidence of obstruction or ileus. Pain was felt to be related to constipation and improved after having several bowel movements. She was seen in consultation by General Surgery with no need for any further surgical evaluation or intervention. Diet was slowly advanced and she was able to tolerate bland diet. (2) Constipation: Code(s): K59.00 - Constipation, unspecified Status: Acute Assessment and Plan: Resolved. This was the source of her abdominal pain. She had several bowel movements following initiation of MiraLax and Colace. She should remain on long-term bowel regimen. Continue MiraLax and Colace with goal of soft, formed bowel movement every 1-2 days. She stated her constipation began at the time of her starting oxybutynin. Oxybutynin is not on her home medication list and she states she is no longer taking this. (3) Abnormal urinalysis: Code(s): R82.90 - Unspecified abnormal findings in urine Status: Acute Assessment and Plan: Urinalysis abnormal upon presentation with 2+ leuk esterase and 21-30 WBC. Also with many squamous cells, therefore likely contaminated. She did not have any urinary symptoms. She was afebrile and did not have leukocytosis. She was started on IV Rocephin, however this was discontinued following negative urine culture. (4) Essential (primary) hypertension: Code(s): I10 - Essential (primary) hypertension Status: Chronic Assessment and Plan: BP was significantly elevated upon presentation but improved with her usual BP regimen. Blood pressure stable, mostly in the 140s systolic. Continue lisinopril. (5) Obstructive sleep apnea: Code(s): G47.33 - Obstructive sleep apnea (adult) (pediatric) Status: Chronic Assessment and Plan: CPAP provided during hospitalization. (6) Seizure: Code(s): R56.9 - Unspecified convulsions Status: Chronic Assessment and Plan: She reports she has not had a seizure in >25 years. Continue carbamazepine (7) Diverticulosis large intestine w/o perforation or abscess w/bleeding: Code(s): K57.31 - Diverticulosis of large intestine without perforation or abscess with bleeding Status: Acute Assessment and Plan: Noted on CT abdomen/pelvis without evidence of diverticulitis. No evidence of acute infection at this time. She should follow-up with primary and will benefit from colonoscopy and referral to GI. DS: Summary Hospital Course Reason for hospitalization: Abdominal pain Hospital Course: Date of admission: 09/18/2020 Date of discharge: 09/19/2020 Camille Orozco is a 65-year-old female with history of reflex sympathetic dystrophy, seizure disorder, hypertension, and hyperlipidemia who presented to emergency department on 09/18/2020 with complaints of abdominal bloating for several days without associated nausea or vomiting. Upon presentation to the emergency department, her blood pressure was elevated with additional vital signs stable, CBC and BMP unremarkable, urinalysis abnormal with 2+ leuk esterase, and CT abdomen/pelvis with nonspecific fluid containing nondilated small bowel segments with air-fluid levels and diverticulosis of the sigmoid and descending colon without diverticulitis. She was admitted to the hospitalist service for further evaluation and management and seen in consultation by General surgery. Please see above for further details.
== END 2020-09-19 18:02 | disposition home or self-care (01) | DRG 391 ==
LOC: ANHED 09-18 00:19 → ANH2MED 09-18 08:29
PROVIDERS: Admitting Provider Family Medicine; Emergency Provider Family Medicine; PCP Internal Medicine; Visit Provider Physician Assistant
DX: R10.84 Generalized abdominal pain (principal); K57.31 Diverticulosis of large intestine without perforation or abscess with bleeding; Z68.43 Body mass index [BMI] 50.0-59.9, adult; G90.50 Complex regional pain syndrome I, unspecified; G40.909 Epilepsy, unspecified, not intractable, without status epilepticus; E66.01 Morbid (severe) obesity due to excess calories; K59.00 Constipation, unspecified; R82.90 Unspecified abnormal findings in urine; I10 Essential (primary) hypertension; G47.33 Obstructive sleep apnea (adult) (pediatric); E78.5 Hyperlipidemia, unspecified; Z79.899 Other long term (current) drug therapy; Z87.891 Personal history of nicotine dependence; Z88.0 Allergy status to penicillin
CPT/HCPCS: 36415; 74177; 80048; 80053; 81001; 82948; 83690; 85025; 85027; 87086; 87088; 97110; 97116; 97161; 99285; A9270; J0131; J0696; J2270; J7030; Q9967

== ENCOUNTER 2021-02-17 03:11 | Day surgery (SDC) | payer MEDICARE, MEDICAID, SELFPAY ==
[2021-02-06 11:55] VITALS: BMI 53.2
[2021-02-17] MEDS: LACTATED RINGERS 1,000 ML 150 ML IV CONT (11:09)
[2021-02-17 11:13] VITALS: BP 133/54; PULSE 92; RESP 18; TEMP 36.2; O2SAT 97; BMI 50.8
--- NOTE | 2021-02-17 11:22 | PM.HPGS ---
History of Present Illness History of Present Illness Consent: Risks, benefits, and alternatives have been discussed and questions answered. Patient agrees to proceed with procedure. Chief complaint: neoplasm screening Narrative: Camille Orozco is a 66 year old female with constipation, tried linzess but cause more diarrhea. She is due to have another colonoscopy. Review of Systems Constitutional: Constitutional: Denies headache(s) and Denies weakness Eyes: Eyes: Denies blurry vision ENT: Reports Normal hearing present, Denies headache(s) and Denies neck pain Cardiovascular: Cardiovascular: Denies chest pain and Denies dyspnea Respiratory: Respiratory: Denies dyspnea Gastrointestinal: Gastrointestinal: Reports no additional gastrointestinal complaints Genitourinary: Genitourinary: Denies dysuria Musculoskeletal: Musculoskeletal: Denies neck pain Integumentary/Breasts: Skin/Breast: Denies dry skin Neurologic: Reports Normal hearing present, Denies headache(s) and Denies weakness Psychiatric: Psychiatric: Denies anxiety Endocrine: Endocrine: Denies change in body appearance Hematologic/Lymphatic: Hematologic/Lymphatic: Denies easy bleeding Allergic/Immunologic: Allergic/Immunologic: Denies urticaria PMFSH Past Medical History Medical History Colon cancer screening Depression Epilepsy Essential (primary) hypertension Foot drop Former smoker GERD (gastroesophageal reflux disease) Hyperlipidemia Knee pain Obesity Post-menopausal Prediabetes RSD (reflex sympathetic dystrophy) Vitamin D deficiency Surgical History Surgical History H/O neck surgery 1999 History of cholecystectomy Laparoscopic cholecystectomy History of hysterectomy Partial hysterectomy History of repair of rectocele 12/08/19 rectocele repair/posterior colporrhaphy, perineal plasty Family History Family History Mother Diabetes mellitus Hypertension Parkinsons disease Heart attack Father Diabetes mellitus Hypertension Renal failure Heart attack Cerebrovascular accident Social History Social History Social History: Lives at home alone. Uses a walker for ambulation due to foot drop/decreased mobility. Smoking packs per day: 0.5 Smoking cigarettes per day: 10.0 Years smoked: 9 Smoking pack-years: 4.50 Smoking status: Former smoker Tobacco type: cigarettes Alcohol intake: never Substance use: current Substance use type: marijuana Other substance usage details: SMOKES MARIJUANA AND OILS FOR GLAUCOMA Living arrangements: alone Spiritual care concerns: No Meds Home Medications and Allergies Home Medications Medication Instructions Recorded Confirmed Type carbamazepine 400 mg 400 mg PO HS 06/08/19 02/06/21 History tablet,extended release,12 hr cholecalciferol (vitamin D3) 125 5,000 unit PO DAILY 06/08/19 02/06/21 History mcg (5,000 unit) capsule naproxen 500 mg tablet 500 mg PO DAILY PRN 06/08/19 02/06/21 History trazodone 100 mg tablet 100 mg PO QPM tablet 06/08/19 02/06/21 History Lumigan 1 drp OPHTHALMIC (EYE) HS 11/29/19 02/06/21 History PreserVision AREDS 1 tablet PO DAILY 11/29/19 02/06/21 History rosuvastatin 40 mg tablet 40 mg PO DAILY #90 tablet 08/29/20 02/06/21 Rx lisinopril 40 mg tablet 40 mg PO DAILY #90 tablet 09/10/20 02/06/21 Rx Restasis MultiDose 2 drp EACH EYE TID 09/18/20 02/06/21 History betamethasone valerate 1 applic TOPICAL TID 09/18/20 02/06/21 History cyclobenzaprine 5 mg PO BID 09/18/20 02/06/21 History estradiol 1 applic VAGINAL HS 09/18/20 02/06/21 History blood sugar diagnostic #100 ea 09/23/20 01/27/21 Rx blood-glucose meter #1 ea 09/23/20 01/27/21 Rx lancets 28 gauge #100 ea 09/23/20 01/27/21 Rx duloxetine 30 mg capsule,delayed 60
--- NOTE | 2021-02-17 11:22 | WPDANESEPPF ---
Anes - Initial Pre Proc Eval Procedure: Operation Date: 02/17/21 11:45 Proposed Procedures p Screening Colonoscopy - Jr Edouard MD Date/Time: 02/17/21 11:22 Surgeon: Jr Edouard MD Pre Op Diagnosis: neoplasm screening Patient Data Age: 66 Gender: F Height: 1.57 m Weight: 126 kg Last Vital Signs Temp 36.2 C L 02/17/21 11:13 Pulse 92 02/17/21 11:13 Resp 18 02/17/21 11:13 BP 133/54 L 02/17/21 11:13 Pulse Ox 97 02/17/21 11:13 Allergies Allergy/AdvReac Type Severity Reaction Status Date / Time Penicillins AdvReac Unknown DIVERTICULI Verified 02/17/21 11:10 TIS Home Medications Medication Instructions Recorded Confirmed Type carbamazepine 400 mg 400 mg PO HS 06/08/19 02/06/21 History tablet,extended release,12 hr cholecalciferol (vitamin D3) 125 5,000 unit PO DAILY 06/08/19 02/06/21 History mcg (5,000 unit) capsule naproxen 500 mg tablet 500 mg PO DAILY PRN 06/08/19 02/06/21 History trazodone 100 mg tablet 100 mg PO QPM tablet 06/08/19 02/06/21 History Lumigan 1 drp OPHTHALMIC (EYE) HS 11/29/19 02/06/21 History PreserVision AREDS 1 tablet PO DAILY 11/29/19 02/06/21 History rosuvastatin 40 mg tablet 40 mg PO DAILY #90 tablet 08/29/20 02/06/21 Rx lisinopril 40 mg tablet 40 mg PO DAILY #90 tablet 09/10/20 02/06/21 Rx Restasis MultiDose 2 drp EACH EYE TID 09/18/20 02/06/21 History betamethasone valerate 1 applic TOPICAL TID 09/18/20 02/06/21 History cyclobenzaprine 5 mg PO BID 09/18/20 02/06/21 History estradiol 1 applic VAGINAL HS 09/18/20 02/06/21 History blood sugar diagnostic #100 ea 09/23/20 01/27/21 Rx blood-glucose meter #1 ea 09/23/20 01/27/21 Rx lancets 28 gauge #100 ea 09/23/20 01/27/21 Rx duloxetine 30 mg capsule,delayed 60 mg PO QPM #180 cap 10/22/20 02/06/21 Rx release fluticasone propionate 50 1 spray NASAL HS #16 g 01/07/21 02/06/21 Rx mcg/actuation nasal spray,suspension linaclotide 72 mcg capsule 72 mcg PO DAILY #30 cap 01/16/21 02/06/21 Rx Patient hx anesthesia problems: none Family hx anesthesia problems: none PMFSH Past Medical History Medical History Colon cancer screening Depression Epilepsy Essential (primary) hypertension Foot drop Former smoker GERD (gastroesophageal reflux disease) Hyperlipidemia Knee pain Obesity Post-menopausal Prediabetes RSD (reflex sympathetic dystrophy) Vitamin D deficiency Surgical History Surgical History H/O neck surgery 1999 History of cholecystectomy Laparoscopic cholecystectomy History of hysterectomy Partial hysterectomy History of repair of rectocele 12/08/19 rectocele repair/posterior colporrhaphy, perineal plasty Family History Family History Mother Diabetes mellitus Hypertension Parkinsons disease Heart attack Father Diabetes mellitus Hypertension Renal failure Heart attack Cerebrovascular accident Social History Social History Social History: Lives at home alone. Uses a walker for ambulation due to foot drop/decreased mobility. Smoking packs per day: 0.5 Smoking cigarettes per day: 10.0 Years smoked: 9 Smoking pack-years: 4.50 Smoking status: Former smoker Tobacco type: cigarettes Alcohol intake: never Substance use: current Substance use type: marijuana Other substance usage details: SMOKES MARIJUANA AND OILS FOR GLAUCOMA Living arrangements: alone Spiritual care concerns: No Anes - Eval Final PreProcedure Day of Procedure 02/17/21 11:22 Patient weight: morbidly obese Heart: regular rate and rhythm Lungs: clear to auscultation Airway: Mallampati scale class II Neurological: alert and oriented Last oral intake: >/= 8 hours ASA classification: III Emergent: no Anesthetic plan: proceed Anes
[2021-02-17 12:00] VITALS: BP 145/68; PULSE 79; RESP 23; O2SAT 99
[2021-02-17 12:10] VITALS: BP 144/67; PULSE 78; RESP 20; O2SAT 99
[2021-02-17 12:18] VITALS: BP 147/60; PULSE 78; RESP 23; O2SAT 100
== END 2021-02-17 12:48 | disposition home or self-care (01) ==
PROVIDERS: PCP Internal Medicine; Visit Provider Internal Medicine Gastroenterology
PROC: 0DJD8ZZ Inspection of Lower Intestinal Tract, Via Natural or Artificial Opening Endoscopic (ICD-10-PCS; CPT 45378; principal; 2021-02-17 11:45)
DX: Z12.11 Encounter for screening for malignant neoplasm of colon (principal); D12.0 Benign neoplasm of cecum; D12.3 Benign neoplasm of transverse colon; K57.30 Diverticulosis of large intestine without perforation or abscess without bleeding; K64.8 Other hemorrhoids; F32.9 Major depressive disorder, single episode, unspecified; M21.379 Foot drop, unspecified foot; I10 Essential (primary) hypertension; K21.9 Gastro-esophageal reflux disease without esophagitis; E78.5 Hyperlipidemia, unspecified; R73.03 Prediabetes; E55.9 Vitamin D deficiency, unspecified; G90.50 Complex regional pain syndrome I, unspecified; Z87.891 Personal history of nicotine dependence; F12.90 Cannabis use, unspecified, uncomplicated; E66.01 Morbid (severe) obesity due to excess calories; Z68.43 Body mass index [BMI] 50.0-59.9, adult
CPT/HCPCS: 45385; 88305; J2001; J2704; J7120

== ENCOUNTER 2021-03-23 12:07 | Observation (INO) | payer MEDICARE, MEDICAID, SELFPAY ==
--- NOTE | ~2021-03-23 | US_ITS ---
EXAMINATION: US carotid duplex BI DATE: 03/24/2021 14:12 INDICATION: Acute confusion. TECHNIQUE: Grayscale, color Doppler, and pulsed Doppler images of the cervical carotid arteries were obtained. The degree of vessel stenosis is placed in one of the following categories: normal, <50%, 5 0-69%, >=70% but less than near-occlusion, near-occlusion, or total occlusion. Note that percent sten osis relative to normal distal artery lumen diameter is indirectly measured from velocity measurement s as described by Diallo, et al. Radiology 2003; [id number]. COMPARISON: None. FINDINGS: RIGHT: The right common carotid artery (CCA) peak systolic velocity (PSV) is 67 cm/s. The right internal car otid artery (ICA) PSV is 82 cm/s. The right ICA end-diastolic velocity (EDV) is 23 cm/s. The right IC A/CCA PSV ratio is 1.2. Grayscale and color Doppler images yield an estimate of <50% diameter reducti on from plaque in the ICA. There is antegrade flow in the right vertebral artery. LEFT: The left CCA PSV is 95 cm/s. The left ICA PSV is 67 cm/s. The left ICA EDV is 20 cm/s. The left ICA/C CA PSV ratio is 0.7. Grayscale and color Doppler images yield an estimate of <50% diameter reduction from plaque in the ICA. There is antegrade flow in the left vertebral artery. IMPRESSION: 1. <50% stenosis in the right internal carotid artery. 2. <50% stenosis in the left internal carotid artery. Reviewed, dictated and finalized at location A.
--- NOTE | ~2021-03-23 | US_ITS ---
EXAMINATION: US arterial ankle brachial ind EXAM DATE: 03/24/2021 14:10 INDICATION: Leg discoloration bilaterally, left side worse. TECHNIQUE: Segmental pressures and plethysmographic and Doppler waveforms of the brachial and lower e xtremity arteries were obtained. There is no prior study for comparison. FINDINGS: Right and left brachial artery pressures of 151 mm Hg and 143 mm Hg, respectively, are concordant (no rmal difference <= 30 mmHg). RIGHT LEG: The ankle-brachial index (HUE) is 1.13 (normal >= 0.9-1). The great toe-brachial index (TBI) is 0.89 (normal >= 0.65). The lower extremity ratios, segmental pressure gradients as follows; Dorsalis pedis: 1.09 (164 mmHg). Posterior tibial: 1.13 (170 mmHg). (Normal gradients <= 20-30 mmHg between adjacent levels on the same leg or the same levels on the two legs). Arterial waveforms are biphasic. LEFT LEG: The ankle-brachial index (HUE) is 1.20 (normal >= 0.9-1). The great toe-brachial index (TBI) is 0.77 (normal >= 0.65). The lower extremity ratios, segmental pressure gradients as follows; Dorsalis pedis: 1.10 (166 mmHg). Posterior tibial: 1.20 (181 mmHg). (Normal gradients <= 20-30 mmHg between adjacent levels on the same leg or the same levels on the two legs). Arterial waveforms are biphasic PT, monophasic DP. IMPRESSION: 1. Right ankle-brachial index 1.13, normal. 2. Left ankle-brachial index 1.20, normal. 3. Segmental pressures as above. Reviewed, dictated and finalized at location B.
--- NOTE | ~2021-03-23 | US_ITS ---
EXAMINATION: US venous doppler [facility] EXAM DATE: 03/24/2021 14:10 INDICATION: Lateral leg swelling. TECHNIQUE: Multiple grayscale, color flow and Doppler images of the lower extremity deep venous syste ms bilaterally were obtained and reviewed. Comparison is made to prior examination from 09/11/2016. FINDINGS: Right side: The right common femoral, femoral and profunda veins demonstrate normal color flow, respi ratory variation, augmentation and compressibility. Compressibility, color flow confirmed within the right popliteal, posterior tibial, peroneal, and greater saphenous veins. Left side: The left common femoral, femoral and profunda veins demonstrate normal color flow, respira tory variation, augmentation and compressibility. Compressibility, color flow confirmed within the l eft popliteal, posterior tibial, peroneal, and greater saphenous veins. IMPRESSION: 1. No lower extremity deep venous thrombosis bilaterally. Reviewed, dictated and finalized at location B.
--- NOTE | ~2021-03-23 | MR_ITS ---
EXAMINATION: MR brain/brain stem wo/w con DATE: 03/24/2021 13:16 INDICATION: Acute confusion. TECHNIQUE: Magnetic resonance imaging (MRI) of the brain and brainstem was performed without and with 20 mL MultiHance intravenous contrast. Sequences included sagittal and axial T1-weighted FSE, axial diffusion-weighted FS EPI, axial T2*-weighted GRE, axial T2-weighted FLAIR Propeller, and axial T2-we ighted Propeller. Postcontrast sequences included axial and coronal T1-weighted FSE. Apparent diffusi on coefficient (ADC) maps were created. COMPARISON: Head CT 03/23/2021 FINDINGS: There is no intracranial hemorrhage, acute infarction, or abnormal intracranial mass lesion . The ventricles are normal in size. There are likely changes of ocular lens replacement surgeries. T here is mild mucosal thickening in the paranasal sinuses. There are trace mastoid effusions. IMPRESSION: 1. Normal brain. Reviewed, dictated and finalized at location A. IMPRESSION: 1. Normal brain.
--- NOTE | ~2021-03-23 | CT_ITS ---
EXAMINATION: CT brain wo con INDICATION: Acute confusion COMPARISON: 06/23/2010 TECHNIQUE: Standard unenhanced head CT. The dose-length product (DLP) was 605.33 mGy-cm. The mA was a djusted according to patient size. Iterative reconstruction technique was employed. FINDINGS: There is no acute intraparenchymal hemorrhage. No evidence of mass lesion. No evidence of a cute infarction. There is mild periventricular and subcortical hypodensity probably related to small vessel ischemic disease. There is mild prominence of the sulci and ventricles related to cerebral atr ophy. Intracranial calcified cerebral atherosclerosis is noted. There are no extra-axial collections. There is no mass effect or midline shift. Changes in the globes are likely from ocular lens surgery. There is mild mucosal thickening of the paranasal sinuses. IMPRESSION: 1. No acute intracranial abnormality. 2. Age related findings. Reviewed, dictated and finalized at location A.
--- NOTE | ~2021-03-23 | XR_ITS ---
EXAMINATION: XR chest 1V portable INDICATION: Altered mental status TECHNIQUE: Portable AP chest at 1306 hours COMPARISON: 08/21/2015 FINDINGS: The lungs are free of acute opacities. There is no pleural effusion or pneumothorax. The ca rdiomediastinal silhouette is normal. Surgical changes are noted at the cervicothoracic junction. IMPRESSION: 1. No acute cardiopulmonary abnormality. Reviewed, dictated and finalized at location A.
[2021-03-23 12:10] VITALS: BP 168/82; PULSE 92; RESP 20; TEMP 36.6; O2SAT 98
--- NOTE | 2021-03-23 12:20 | ECG_ITS ---
Measurements Intervals [place] Rate: 84 P: 42 DC: 189 QRS: -9 QRSD: 86 T: 14 QT: 339 QTc: 401 Interpretive Statements SINUS RHYTHM LOW QRS VOLTAGE IN PRECORDIAL LEADS VOLTAGE CRITERIA FOR LVH BASELINE ARTIFACT- I, III, AVL, AVF BORDERLINE ECG Electronically Signed On 03-23-2021 13:14:39 CDT by Sarabjit Childs D.O.
--- NOTE | 2021-03-23 12:58 | ED.AMS ---
HPI - Altered Mental Status General Chief Complaint: Altered Mental Status Stated Complaint: confused Time Seen by Provider: 03/23/21 12:26 Source: patient, family and RN notes reviewed Mode of arrival: EMS Limitations: altered mental status History of Present Illness HPI narrative: This is a 66 year old female with history of morbid obesity, foot drop, seizures, and hypertension who presents for evaluation of altered mental status. Patient's brother is presents at bedside to assist with history. He states patient lives with a friend and he was told this morning she seemed to be having worsening confusion. They report she slept most of the day yesterday so she may have been confused yesterday. Patient is oriented to self, place, age but states she is getting confused again when asked the month. Patient admits to recently start smoking marijuana with her friends but denies other drug use. She also reports drinking alcohol but she denies drinking alot. She denies chest pain, sob but reports chronic cough. She also reports mild headache that start while she has been in ER. She denies any recent falls or head injuries. Related Data Home Medications Medication Instructions Recorded Confirmed carbamazepine 400 mg 400 mg PO HS 06/08/19 03/23/21 tablet,extended release,12 hr cholecalciferol (vitamin D3) 125 5,000 unit PO DAILY 06/08/19 03/23/21 mcg (5,000 unit) capsule naproxen 500 mg tablet 500 mg PO DAILY PRN 06/08/19 03/23/21 trazodone 100 mg tablet 100 mg PO QPM tablet 06/08/19 03/23/21 Lumigan 1 drp OPHTHALMIC (EYE) HS 11/29/19 03/23/21 PreserVision AREDS 1 tablet PO DAILY 11/29/19 03/23/21 Restasis MultiDose 1 drp EACH EYE HS 09/18/20 03/23/21 cyclobenzaprine 5 mg PO HS 09/18/20 03/23/21 fluticasone propionate [Flonase 1 spray NASAL DAILY 03/23/21 03/23/21 Allergy Relief] gabapentin 600 mg PO DAILY 03/23/21 03/23/21 rosuvastatin [Crestor] 40 mg PO HS 03/23/21 03/23/21 Allergies Allergy/AdvReac Type Severity Reaction Status Date / Time Penicillins AdvReac Unknown DIVERTICULI Verified 03/23/21 16:12 TIS Review of Systems Review of Systems: All systems reviewed & are unremarkable except as noted in HPI and below PMFSH Past Medical History Medical History (Updated 03/23/21 @ 23:00 by Aleja Goss MD) Anxiety Arthritis Bilateral foot-drop Depression Diverticulitis Essential hypertension Former smoker Gastroesophageal reflux disease Glaucoma History of rheumatic fever as a child Hyperlipidemia Macular degeneration Morbid obesity Obstructive sleep apnea Noncompliant with BiPAP. Prediabetes Hemoglobin A1c was 6.5% in January 2021. Reflex sympathetic dystrophy Seizure disorder Spinal stenosis Vitamin D deficiency Surgical History Surgical History (Updated 03/23/21 @ 16:33 by Savi Gonsales PA-C) History of bilateral breast reduction surgery History of bilateral cataract extraction History of colonoscopy with polypectomy History of fusion of cervical spine (1999) History of laparoscopic cholecystectomy History of partial hysterectomy History of repair of rectocele (12/08/19) Rectocele repair/posterior colporrhaphy and perineoplasty. History of sinus surgery History of tonsillectomy Family History Family History Mother Diabetes mellitus Hypertension Parkinsons disease Heart attack Father Diabetes mellitus Hypertension Renal failure Heart attack Cerebrovascular accident Social History Social History (Updated 03/23/21 @ 16:35 by Savi Gonsales PA-C) Social History: The patient lives in her own home in [place]. A friend is currently staying with her. She has 2 grown children. Ambulates with a walker or cane due to footdrop and decreased mobility. 5 pack-year smoking history, quit 1977. She drinks 1 to 2 glasses of wine a week. Smokes marijuana couple of times a week. She designates her son Ousmane
[2021-03-23 13:38] LABS: Basophils Absolute Auto 0.1 K/mm3 (0.0-0.1); Basophils Percent Auto 0.9 % (0.2-1.2); Eosinophils Absolute Auto 0.1 K/mm3 (0-0.3); Eosinophils Percent Auto 1.5 % (0-4.4); Hematocrit 40.8 % (37.0-47.0); Hemoglobin 12.9 g/dL (12.0-15.0); Immature Granulocyte Absolute 0.05 K/mm3 (0.00-0.031); Immature Granulocyte Percent A 0.9 % (0-0.5); Lymphocytes Absolute Auto 1.85 K/mm3 (0.9-3.2); Lymphocytes Percent Auto 31.6 % (18.3-44.2); Mean Corpuscular HGB Conc 31.6 g/dl (32-36); Mean Corpuscular Hemoglobin 30.6 pg (26-34); Mean Corpuscular Volume 96.7 fl (80-100); Mean Platelet Volume 10.4 fl (7.4-10.4); Monocytes Absolute Auto 0.4 K/mm3 (0.1-0.6); Monocytes Percent Auto 6.8 % (2.6-8.5); Neutrophils Absolute Auto 3.4 K/mm3 (1.3-6.7); Neutrophils Percent Auto 58.3 % (45.5-73.1); Platelet Count Result 211 k/mm3 (150-375); Red Blood Count 4.22 M/mm3 (4.2-5.4); Red Cell Distribution Width 14.1 % (11.5-14.5); White Blood Count 5.9 K/mm3 (4.5-10.0)
[2021-03-23 13:42] LABS: Add Urine Microscopic? YES; Appearance Urine Clear (Clear); Bilirubin Urine Negative (Negative); Blood Urine Negative (Negative); Color Urine Yellow (Yellow); Glucose Urine UA Negative (Negative); Ketones Urine 1+ mg/dL (Negative); Leukocyte Esterase Ur Negative LEU/UL (Negative); Nitrate Urine Negative (Negative); Protein Urine Negative (Negative); Specific Grav Ur 1.012 (1.001-1.035); Squamous Epithelial Cell Urine Rare /hpf (Few); Urobilinogen Urine Negative mg/dL (<2.0)
[2021-03-23 13:49] LABS: INR 0.9; Prothrombin Time 11.9 Seconds (11.1-14.7)
[2021-03-23 13:49] LABS: Alanine Aminotransferase 23 U/L (4-35); Albumin Level 4.5 g/dL (3.5-5.1); Alkaline Phosphatase 78 U/L (38-126); Anion Gap 7 mmol/L (8-16); Aspartate Amino Transferase 32 U/L (14-36); Bilirubin,Total 0.4 mg/dL (0.2-1.3); Blood Urea Nitrogen 13 mg/dL (7-17); Calcium 9.3 mg/dL (8.4-10.2); Carbon Dioxide 28 mmol/L (22-30); Chloride 104 mmol/L (98-107); Estimated CRCL calculation 76 ml/min; Estimated Glomerular Filt Rate > 60; Ethanol < 10 mg/dL (<10); Glucose 102 mg/dL (65-110); Potassium 4.4 mmol/L (3.4-5.0); Sodium 139 mmol/L (137-145)
[2021-03-23 13:50] LABS: Partial Thromboplastin Time 23.3 SECONDS (22.3-36.8)
[2021-03-23 13:55] LABS: Amphetamine Screen Urine Negative (Negative); Barbiturate Screen Urine Negative (Negative); Benzodiazepines Screen Urine Negative (Negative); Cannabinoid Screen Urine Positive (Negative); Cocaine Screen Urine Negative (Negative); Methadone Screen Urine Negative (Negative); Opiate Screen Urine Negative (Negative); Phencyclidine Screen Urine Negative (Negative)
[2021-03-23 14:00] LABS: Troponin I < 0.012 ng/mL (0.000-0.034)
--- NOTE | 2021-03-23 15:00 | PM.IMHP ---
H&P: HPI History of Present Illness Date/Time: 03/23/21 15:00 Chief Complaint: Altered mental status. Narrative: This is a pleasant 66-year-old female with history of seizures, prediabetes, hypertension, hyperlipidemia, untreated sleep apnea, morbid obesity, glaucoma, and macular degeneration who presented to the emergency department earlier today via EMS from home for evaluation of altered mental status. The patient is able to provide a fair history though her brother assists with to help fill in the gaps, with the patient's permission. She admits that she has developed mild short-term memory loss last couple of years however she was quite confused this morning prompting her friend call 911. It is my understanding that the patient slept nearly all day yesterday and when she woke this morning she seemed off, somewhat disoriented, and repetitive while not recalling the events of yesterday or this morning. Her workup in the emergency department has thus far been unrevealing although her urine drug screen was positive for cannabinoids. With further questioning she admits that she started smoking marijuana within the past couple of months as she thought it would perhaps help her with her vision. Typically she smokes marijuana a couple of times a week but 2 evenings ago on Wednesday she tried a THC pen for the 1st time though she was not told exactly what will it contained. She does not recall going to bed that evening nor does she recall any of the events that transpired yesterday, having slept the day away. In the emergency department she seems a bit disoriented and does repeat questions quite often. She did not recall coming to the ER in the ambulance and did not remember being CT scan earlier. Aside from marijuana she has also recently started taking a supplement called Focus Factor within the past 4 days ?to help my memory.? At this time the patient denies fever, chills, sweats, headache, vertigo, auditory and visual changes, focal weakness, paresthesias, facial droop, dysarthria, and dysphagia. She has chronic bilateral footdrop which is unchanged. No near syncope, syncope, recent falls, or head trauma. She has not had a seizure for over 20 years. No significant alcohol use, typically drinks 1 to 2 glasses of wine on the weekend. She does not believe that she took any extra medication than prescribed in goes on to say that she rarely takes cyclobenzaprine. Review of Systems Review of Systems: Twelve systems were reviewed with pertinent positives and negatives as per HPI. No recent cold or flu symptoms. She was vaccinated for COVID-19. No known exposure to those positive for COVID 19. She denies chest pain, pleuritic pain, palpitations, orthopnea, and PND. She has chronic lower extremity edema which is unchanged. She wears braces in uses a cane when out and about though she mainly uses a walker at home. Reports mild nausea but no vomiting. No diarrhea. She has had mild dysuria and reports having a difficult time urinating while down the emergency department, feeling as though she is unable to empty her bladder. She is not on any medication for her diabetes with a recent A1c of 6.5%. Patient admits to not checking her glucose at home. Except as documented, all other systems were reviewed and are negative. [facility] Past Medical History Medical History (Updated 03/23/21 @ 16:50 by Savi Gonsales PA-C) Anxiety Arthritis Bilateral foot-drop Depression Diverticulitis Essential hypertension Former smoker Gastroesophageal reflux disease Glaucoma History of rheumatic fever as a child Hyperlipidemia Macular degeneration Morbid obesity Obstructive sleep apnea Noncompliant with BiPAP. Prediabetes Hemoglobin A1c was 6.5% in January 2021. Reflex sympathetic dystrophy Seizure disorder Spinal stenosis Vitamin D deficiency Surgical History Surgical History (Updated 03/23/21 @ 16:33 by Savi Gonsales PA-C) History of bilateral breast reduction surgery History of
[2021-03-23 15:35] VITALS: BP 149/123; PULSE 98; RESP 16; O2SAT 95
--- NOTE | 2021-03-23 15:51 | ADMGEN ---
This patient, Camille Orozco, was admitted to 2 Medical Room 251-01. Patient/family oriented to hospital policies and general routines including ID bracelet, bed and alarms, visiting hours, pain management, procedures, bathroom and other care routines, personal items, smoking policy, room service/diet, and visiting hours. Information on how to activate the Rapid Response Team has been discussed. Patient/Family are encouraged to report perceived risks to care and to ask questions if they do not understand what they are told or what they should do.
[2021-03-23 16:00] VITALS: PULSE 93
--- NOTE | 2021-03-23 17:08 | PC.NURSE ---
Pt medication bottles have labels which are . [facility] called, pharmacist states they have filled only Clindamycin this year and that prescription should be also. Pt medication bottles reflect scripts from [facility]. These medications cannot be verified safely at this time. Attempts will be made with family or friends to obtain an accuate list of meds or will call [facility] mail-order tomorrow to clarify.
[2021-03-23 17:23] LABS: Ammonia < 9 umol/L (9-30)
[2021-03-23 18:05] LABS: Glucose Point of Care 87 mg/dl (65-105)
[2021-03-23 18:13] LABS: Alveolar/Arterial O2 Gradient 34.1 mmHg; Base Excess ABG 1.8 mEq/l (+/-2.0); Carboxyhemoglobin 0.2 % THb (0-2.0); Device ROOM AIR; Fractional Inspired Oxygen 21 %; HCO3 ABG 24.7 mEq/l (22.0-26.0); Methemoglobin ABG 0.3 %THb (0-1.5); Modified Allen's Test Pass; Oxygen Content ABG 16.6 %vol (16.0-22.0); Oxygen Saturation ABG 96.2 % (95.0-100.0); Oxyhemoglobin 94.4 % THb (90.0-100.0); PCO2 ABG 33.2 mmHg (35.0-45.0); PO2 ABG 75.9 mmHg (80.0-100.0); PO2 FiO2 Ratio Arterial Blood 3.61 %; Reduced Hemoglobin 5.1 %THb (0-5.0); Site Drawn LEFT RADIAL; Total Hemoglobin 12.5 g/dL (12.0-18.0); pH ABG 7.489 (7.350-7.450)
[2021-03-23 20:00] VITALS: PULSE 117
[2021-03-23 20:10] LABS: Glucose Point of Care 107 mg/dl (65-105)
[2021-03-23] MEDS: ACETAMINOPHEN 325 MG TABLET 650 MG PO (20:14)
[2021-03-23 22:00] VITALS: BP 150/68; PULSE 84; RESP 18; TEMP 36.5; O2SAT 94
[2021-03-24] VITALS (8 sets, daily range): BP systolic 150–151; BP diastolic 61–62; PULSE 73–122; RESP 16–18; TEMP 36.6–37; O2SAT 96–100
[2021-03-24] MEDS: LATANOPROST 0.005% OP SOLN 2.5 ML BTL 1 DROP EACH EYE (01:56)
[2021-03-24] MEDS: DULoxetine HCL 60 MG CAPSULE.DR PO (01:57)
[2021-03-24] MEDS: cycloSPORINE 0.4 ML OPHTH SOLUTION 1 DROP EACH EYE (01:57)
[2021-03-24] MEDS: ROSUVASTATIN 10 MG TABLET 40 MG PO (01:57)
[2021-03-24] MEDS: CARBAMAZEPINE XR 200 MG TAB.ER.12H 400 MG PO (01:57)
[2021-03-24] MEDS: traZODone HCL 50 MG TABLET 100 MG PO (01:57)
[2021-03-24] MEDS: ACETAMINOPHEN 325 MG TABLET 650 MG PO (05:10)
[2021-03-24 05:49] LABS: Anion Gap 6 mmol/L (8-16); Blood Urea Nitrogen 13 mg/dL (7-17); Calcium 9.3 mg/dL (8.4-10.2); Carbon Dioxide 29 mmol/L (22-30); Chloride 102 mmol/L (98-107); Estimated CRCL calculation 69 ml/min; Estimated Glomerular Filt Rate > 60; Glucose 117 mg/dL (65-110); Potassium 4.3 mmol/L (3.4-5.0); Sodium 137 mmol/L (137-145)
[2021-03-24] MEDS: CYANOCOBALAMIN INJ 1,000 MCG/ML VIAL 1000 MCG IM (06:28)
[2021-03-24] MEDS: GABAPENTIN 300 MG CAPSULE 600 MG PO (09:36)
[2021-03-24] MEDS: OPTI-GEN TAB 1 TABLET PO (09:37)
[2021-03-24] MEDS: ENOXAPARIN 40 MG/0.4 ML SYRINGE SUB-Q (09:37)
[2021-03-24] MEDS: CHOLECALCIFEROL 1,000 UNITS TABLET 5000 UNITS PO (09:37)
[2021-03-24] MEDS: lisinopriL 20 MG TABLET 40 MG PO (09:38)
--- NOTE | 2021-03-24 12:25 | WPDNEURCNPN ---
Assessment and Plan Additional Plan continue treat ment as such Consult date: 04/11/21 Time Seen: 09:21 HPI: Camille Orozco is a 66 year old female admitted to the hospital for the complaints of change in the mental status in addition to the ongoing diagnosis of 1. Seizures 2. Hypertension 3. Hyperlipidemia 4. Untreated sleep apnea 5. Morbid obesity 6. Glaucoma with macular degeneration and 7. Prediabetes as per the information available she slept all day day before and woke up in the morning somewhat disoriented and had difficulties in recalling the events of yesterday in the emergency room her urine was positive for cannabinoids she had started smoking marijuana within the past couple of months 2 evenings ago on Wednesday she tried a THC panel for the 1st time she did not recall going to the bed the evening before but she slept whole day and was noted Florian disoriented she has recently started taking a supplement called focus Factor within the last 4 days to help her memory there was no history of any other generalized symptomatology she has not had any seizures there is no history of alcohol significant use and her past history is also indicative of spinal stenosis, Donze deficiency, GERD, and history of rheumatic fever as a child evaluation up until now documented the negative x-ray of the chest, normal CT scan of the brain, Review of Systems Review of Systems: All systems reviewed & are unremarkable except as noted in HPI and below PMFSH Past Medical History Medical History Anxiety Arthritis Bilateral foot-drop Depression Diabetes mellitus type 2 in obese Diverticulitis Essential hypertension Former smoker Gastroesophageal reflux disease Glaucoma History of rheumatic fever as a child Hyperlipidemia Macular degeneration Morbid obesity Obstructive sleep apnea Noncompliant with BiPAP. Prediabetes Hemoglobin A1c was 6.5% in January 2021. Reflex sympathetic dystrophy Seizure disorder Spinal stenosis Vitamin D deficiency Surgical History Surgical History History of bilateral breast reduction surgery History of bilateral cataract extraction History of colonoscopy with polypectomy History of fusion of cervical spine (1999) History of laparoscopic cholecystectomy History of partial hysterectomy History of repair of rectocele (12/08/19) Rectocele repair/posterior colporrhaphy and perineoplasty. History of sinus surgery History of tonsillectomy Family History Family History Mother Diabetes mellitus Hypertension Parkinsons disease Heart attack Father Diabetes mellitus Hypertension Renal failure Heart attack Cerebrovascular accident Social History Social History (Updated 04/08/21 @ 09:28 by Georgie Cruz) Social History: The patient lives in her own home in [place]. A friend is currently staying with her. She has 2 grown children. Ambulates with a walker or cane due to footdrop and decreased mobility. 5 pack-year smoking history, quit 1977. She drinks 1 to 2 glasses of wine a week. Smokes marijuana couple of times a week. She designates her son Ousmane Orozco and her brother Mike Orozco as her surrogate decision makers and she wishes to be a full code. 1 cup caffeine daily Smoking status: Smoker, status unknown Alcohol intake: current Alcohol use details: rarely Meds Home Medications and Allergies Home Medications Medication Instructions Recorded Confirmed Type carbamazepine 400 mg 400 mg PO HS 06/08/19 04/08/21 History tablet,extended release,12 hr cholecalciferol (vitamin D3) 125 5,000 unit PO DAILY 06/08/19 04/08/21 History mcg (5,000 unit) capsule naproxen 500 mg tablet 500 mg PO DAILY PRN 06/08/19 04/08/21 History trazodone 100 mg tablet 100 mg PO QPM tablet 06/08/19 04/08/21 History Lucie 1 drp OPHTHALMIC (EYE) HS 11/29/19 1
[2021-03-24] MEDS: CYANOCOBALAMIN 1,000 MCG TABLET 1000 MCG PO (12:30)
[2021-03-24] MEDS: FLUTICASONE PROPIONATE 0.05% NA SPR 16 GM BTL (*BKC) 1 SPRAY NASAL (12:31)
--- NOTE | 2021-03-24 13:35 | PCOTNOTE ---
Attempted OT evaluation, Patient is currently off the unit for MRI, will follow and attempt at later time.
[2021-03-24] MEDS: PERFLUTREN LIPID MICROSPHERES 1.5 ML VIAL DILUTED TO 10 ML TOTAL VOLUME IV PUSH (15:30)
--- NOTE | 2021-03-24 16:53 | ECHO_ITS ---
Patient Info Name: Camille Orozco Age: 66 years : 1955 Gender: Female Ht: 62 in Wt: 270 lbs BSA: 2.39 m2 HR: 75 bpm BP: 151 / 61 mmHg Technical Quality: Poor Exam Date: 03/24/2021 2:33 PM Exam Location: [facility] Patient Status: Outpatient Admit Date: 03/23/2021 Staff Ordering Physician: Savi Gonsales PA-C Clinical Quality Assurance Specialist: Debi Peguero RDCS Attending Provider: My Penny PA-C Referring Physician: Dru BALLARD; Exam Type: CA echo dop color flow w con Study Info Indications I10 - Essential (primary) hypertension Complete two-dimensional, color flow and Doppler transthoracic echocardiogram is performed with contrast to opacify the left ventricle and to improve the deliniation of the left ventricle endocardial borders. Contrast/Agitated Saline Contrast/Ag. Saline: Definity Amount: 2.00 ml Administered By: Kandi Espitia RN New IV Access: Antecubital Space Site Condition: No extravasation Reason for Poor Study: patient body habitus Summary 1. Technically suboptimal study due to poor sonographic images. 2. Definity contrast administered improved wall motion interpretation. 3. Left ventricular chamber dimension is normal. 4. Left ventricular systolic function is normal, estimated at 55-60%. 5. The left ventricular diastolic function is grade II diastolic dysfunction. 6. E/e' 8 is minimally elevated. 7. There is trace mitral valve regurgitation. 8. No pulmonary hypertension, estimated pulmonary arterial systolic pressure is 16 mmHg. Left Ventricle E/e' 8 is minimally elevated. Definity contrast administered improved wall motion interpretation. Technically suboptimal study due to poor sonographic images. Left ventricular chamber dimension is normal. Left ventricular systolic function is normal, estimated at 55-60%. The left ventricular diastolic function is grade II diastolic dysfunction. Right Ventricle Right ventricular chamber dimension is normal. Right ventricular systolic function is normal. Left Atria Left atrial chamber dimension is normal. Right Atria Right atrial chamber dimension is normal. Aortic Valve The aortic valve is trileaflet. There is no aortic valve stenosis. There is no aortic valve regurgitation. Pulmonic Valve There is no pulmonic regurgitation. Mitral Valve There is no mitral valve stenosis. There is trace mitral valve regurgitation. Tricuspid Valve There is no tricuspid valve regurgitation. No pulmonary hypertension, estimated pulmonary arterial systolic pressure is 16 mmHg. Pericardium/Pleural There is no pericardial effusion. Inferior Vena Cava Normal inferior vena cava with >50% collapse upon inspiration consistent with normal right atrial pressure, 5 mmHg. Aorta The aortic root size at the sinus of Valsalva is normal. Left Ventricular Outflow Tract Name Value Normal LVOT 2D LVOT Diameter 2.05 cm LVOT Doppler LVOT Peak Gradient 4 mmHg LVOT Mean Gradient 3 mmHg LVOT VTI 23.7
--- NOTE | 2021-03-24 18:06 | PM.DS ---
DS: Admitting Diagnosis Discharge Date 03/24/21 Admitting Diagnosis Acute confusion DS: Discharge Diagnosis Discharge Diagnosis (1) Acute confusion: Code(s): R41.0 - Disorientation, unspecified Status: Acute (2) Essential hypertension: Code(s): I10 - Essential (primary) hypertension Status: Acute (3) Prediabetes: Code(s): R73.03 - Prediabetes Status: Acute (4) Obstructive sleep apnea: Code(s): G47.33 - Obstructive sleep apnea (adult) (pediatric) Status: Chronic (5) History of marijuana use: Code(s): Z87.898 - Personal history of other specified conditions Status: Acute (6) Seizure disorder: Code(s): G40.909 - Epilepsy, unspecified, not intractable, without status epilepticus Status: Acute DS: Summary Hospital Course Hospital Course: Date of service 03/24/2021 Patient is a 66-year-old female who was brought to the emergency room 03/23/21 for confusion and lethargy. Patient states that she did not take her Flexeril but did take her trazodone Wednesday night, drinks some alcohol this weekend, smoked marijuana and slept all day the next day. She was also noted to be confused when she woke up so she was brought to the emergency room. Vitals in the ER were temperature 98? F, pulse 92, respiratory rate 20, blood pressure 160/82, pulse ox 98 on room air. CBC and BMP within normal limits. UA not suspicious of UTI and she had no complaints of dysuria. Drug screen was positive for cannabis. Alcohol level less than 10. Chest x-ray was negative. CT of the brain was negative. Patient was admitted for observation and had no further symptoms. The next day she was alert oriented x4 with no neurological deficits. She underwent a brain MRI which was negative. She also was noted to have a bluish left foot that she said is chronic but it was slightly cold so a venous Doppler and HUE was performed which were normal. Carotid ultrasound done which showed less than 50% stenosis bilaterally. Echocardiogram was performed which showed grade 2 diastolic dysfunction and systolic function was normal. Day of discharge patient with no further symptoms throughout her hospital stay. Workup essentially negative. She did have low B12 which has been replaced. I recommend that she start taking 81 mg of aspirin daily and stop smoking marijuana and be cognisant about of her medications. She is to follow up with the neurologist in 6 weeks. She is to come back to emergency room if she has any additional symptoms or confusion. I spoke with Dr. Flynn, Neurology, who agrees with this plan. Time Spent with Patient Time attestation: Total time spent providing and/or coordinating discharge services: 38 minutes Exam Narrative: General: Overweight patient resting comfortably in bed in no acute distress HEENT: normocephalic Neck: supple Neuro: Alert and oriented x4. Cranial nerves 2-12 intact. Equal strength in the upper extremities. Sensation intact. Foot drop noted CV:RRR Resp:CTA, slightly decreased breath sounds likely due to body habitus Abd: Soft, non distended. No pain to palpation. Positive bowel sounds Extremities: Lower extremity chronic swelling. Some blue tenting to both legs. Left leg was cold but pulses were palpated. See above DS: Data Data Completed and Pending Labs on day of discharge: Labs from last 24 hours 03/24/21 03/24/21 03/23/21 05:23 05:23 20:08 Puncture Site ABG pH ABG pCO2 ABG pO2 ABG PO2/FiO2 Ratio ABG HCO3 ABG O2 Saturation ABG O2 Content ABG Base Excess A-a Gradient Oxyhemoglobin Carboxyhemoglobin Methemoglobin Reduced Hemoglobin Total Hemoglobin O2 Delivery Device O2 Liters/Min FiO2 Sodium 137 Potassium 4.3 Chloride 102 Carbon Dioxide 29 Anion Gap 6 L BUN 13 Creatinine 0.90 Estim Creat Clear Calc 69 Estimated GFR > 60 Glucose 117 H POC Capillary
[2021-03-28 09:03] LABS: Methylmalonic Acid 190 nmol/L (87-318)
[2021-03-28 23:04] LABS: Carbamazepine Tegretol 7.2 mcg/mL (4.0-12.0)
--- NOTE | 2021-04-08 11:10 | PC.NURSE ---
Methylmalonic acid- 190, Tegretol level- 7.2.
== END 2021-03-24 19:00 | disposition home or self-care (01) ==
LOC: ANHED 12:26 → ANH2MED 15:09
PROVIDERS: Family Medicine; Physician Assistant; Admitting Provider Internal Medicine; Emergency Provider General Practice; PCP Internal Medicine; Visit Provider Internal Medicine
DX: R41.82 Altered mental status, unspecified (principal); R73.03 Prediabetes; I10 Essential (primary) hypertension; E78.5 Hyperlipidemia, unspecified; E66.01 Morbid (severe) obesity due to excess calories; G47.33 Obstructive sleep apnea (adult) (pediatric); G40.909 Epilepsy, unspecified, not intractable, without status epilepticus; H53.8 Other visual disturbances; M21.372 Foot drop, left foot; M21.371 Foot drop, right foot; M79.89 Other specified soft tissue disorders; Z68.42 Body mass index [BMI] 45.0-49.9, adult; Z91.19 Patient's noncompliance with other medical treatment and regimen
CPT/HCPCS: 36415; 36600; 51701; 70450; 70553; 71045; 80048; 80053; 80156; 80307; 81001; 82140; 82375; 82607; 82805; 82948; 83050; 83735; 83921; 84443; 84484; 85025; 85610; 85730; 93005; 93880; 93922; 93970; 96372; 96374; 97165; 99285; A9270; A9577; C8929; G0378; J1650; J3420; Q9957

== ENCOUNTER 2021-03-27 22:21 | Emergency (ER) | payer MEDICARE, MEDICAID, SELFPAY ==
[2021-03-27] VITALS (10 sets, daily range): BP systolic 110–134; BP diastolic 54–71; PULSE 74–102; RESP 16–23; TEMP 36.4; O2SAT 93–97
[2021-03-27] MEDS: FAMOTIDINE 20 MG/2 ML VIAL IV PUSH (22:48)
[2021-03-27] MEDS: methylPREDNISolone SOD SUCC 125 MG VIAL IV PUSH (22:48)
[2021-03-27] MEDS: LORATADINE 10 MG TABLET PO (22:48)
--- NOTE | 2021-03-27 22:55 | ED.ALLEREA ---
HPI - Allergic Reaction General Chief complaint: Allergic Reaction Stated complaint: POSSIBLE ALLERGIC REACTION TO MACROBID Time Seen by Provider: 03/27/21 22:23 History of Present Illness HPI narrative: Patient is a 66-year-old female who presents ER with reports of allergic reaction. Reports she took her first dose of Macrobid this evening at 9 PM. An hour later she began feeling itchy across her back and her knees. She also feels like her voice is hoarse. No difficulty breathing or swallowing. No previous known allergic reaction to Macrobid. Reports she can to not take Benadryl because she had a petit mall seizure related to it. Patient does have known epilepsy and last seizure was 25 years ago. Patient reports she has been able to take other antihistamines such as Claritin. Related Data Home Medications Medication Instructions Recorded Confirmed carbamazepine 400 mg 400 mg PO HS 06/08/19 03/25/21 tablet,extended release,12 hr cholecalciferol (vitamin D3) 125 5,000 unit PO DAILY 06/08/19 03/25/21 mcg (5,000 unit) capsule naproxen 500 mg tablet 500 mg PO DAILY PRN 06/08/19 03/25/21 trazodone 100 mg tablet 100 mg PO QPM tablet 06/08/19 03/25/21 Lumigan 1 drp OPHTHALMIC (EYE) HS 11/29/19 03/25/21 PreserVision AREDS 1 tablet PO DAILY 11/29/19 03/25/21 Restasis MultiDose 1 drp EACH EYE HS 09/18/20 03/25/21 cyclobenzaprine 5 mg PO HS 09/18/20 03/25/21 fluticasone propionate [Flonase 1 spray NASAL DAILY 03/23/21 03/25/21 Allergy Relief] gabapentin 600 mg PO DAILY 03/23/21 03/25/21 rosuvastatin [Crestor] 40 mg PO HS 03/23/21 03/25/21 Allergies Allergy/AdvReac Type Severity Reaction Status Date / Time Penicillins AdvReac Unknown DIVERTICULI Verified 03/27/21 22:38 TIS diphenhydramine AdvReac Seizure Verified 03/27/21 22:38 [From Benadryl] Review of Systems Review of Systems: All systems reviewed & are unremarkable except as noted in HPI and below Constitutional: Constitutional: Denies chills, Denies fever(s) and Denies weakness ENT: Denies nasal congestion and Denies sore throat Comments: Hoarseness Cardiovascular: Cardiovascular: Denies chest pain, Denies rapid heart rate and Denies radiating jaw, neck or arm pain Respiratory: Respiratory: Denies cough and Denies dyspnea Integumentary/Breasts: Skin/Breast: Reports pruritus, Reports erythema and Denies skin ulcer PMFSH Past Medical History Medical History Anxiety Arthritis Bilateral foot-drop Depression Diverticulitis Essential hypertension Former smoker Gastroesophageal reflux disease Glaucoma History of rheumatic fever as a child Hyperlipidemia Macular degeneration Morbid obesity Obstructive sleep apnea Noncompliant with BiPAP. Prediabetes Hemoglobin A1c was 6.5% in January 2021. Reflex sympathetic dystrophy Seizure disorder Spinal stenosis Vitamin D deficiency Surgical History Surgical History History of bilateral breast reduction surgery History of bilateral cataract extraction History of colonoscopy with polypectomy History of fusion of cervical spine (1999) History of laparoscopic cholecystectomy History of partial hysterectomy History of repair of rectocele (12/08/19) Rectocele repair/posterior colporrhaphy and perineoplasty. History of sinus surgery History of tonsillectomy Family History Family History Mother Diabetes mellitus Hypertension Parkinsons disease Heart attack Father Diabetes mellitus Hypertension Renal failure Heart attack Cerebrovascular accident Social History Social History Social History: The patient lives in her own home in [place]. A friend is currently staying with her. She has 2 grown children. Ambulates with a walker or cane due to footdrop and decreased mobility
[2021-03-27] MEDS: EPINEPHrine HCL INJ 1 MG/ML AMPUL 0.3 MG IM (22:57)
--- NOTE | 2021-03-27 23:01 | PC.NURSE ---
Pt reported trouble swallowing when taken PO claritin, began sounding increasingly hoarse. Dr Saldana aware, placed order for injection of Epi.
[2021-03-28 00:06] LABS: Add Urine Microscopic? YES; Appearance Urine Clear (Clear); Bacteria Urine Trace /hpf; Bilirubin Urine Negative (Negative); Blood Urine 1+ (Negative); Color Urine Straw (Yellow); Glucose Urine UA Negative (Negative); Ketones Urine Negative (Negative); Leukocyte Esterase Ur 2+ LEU/UL (Negative); Nitrate Urine Negative (Negative); Protein Urine Negative (Negative); RBC Urine 0-2 /hpf (0-2); Specific Grav Ur 1.009 (1.001-1.035); Squamous Epithelial Cell Urine Occasional /hpf (Few); Urobilinogen Urine Negative mg/dL (<2.0); WBC Urine 31-50 /hpf
[2021-03-28 01:06] VITALS: BP 130/51; PULSE 92; RESP 16; O2SAT 94
[2021-03-28 05:11] VITALS: BP 144/67; PULSE 89; RESP 14; O2SAT 97
== END 2021-03-28 03:32 | disposition home or self-care (01) ==
PROVIDERS: Emergency Provider Emergency Medicine; PCP Internal Medicine
DX: T88.6XXA Anaphylactic reaction due to adverse effect of correct drug or medicament properly administered, initial encounter (principal); T37.8X5A Adverse effect of other specified systemic anti-infectives and antiparasitics, initial encounter; L29.9 Pruritus, unspecified; N39.0 Urinary tract infection, site not specified; G40.909 Epilepsy, unspecified, not intractable, without status epilepticus; I10 Essential (primary) hypertension; E78.5 Hyperlipidemia, unspecified; H35.30 Unspecified macular degeneration; G47.33 Obstructive sleep apnea (adult) (pediatric); R73.03 Prediabetes; K21.9 Gastro-esophageal reflux disease without esophagitis; G90.50 Complex regional pain syndrome I, unspecified; F41.9 Anxiety disorder, unspecified; E55.9 Vitamin D deficiency, unspecified; Z98.42 Cataract extraction status, left eye; Z98.41 Cataract extraction status, right eye; Z98.1 Arthrodesis status; M21.379 Foot drop, unspecified foot
CPT/HCPCS: 81001; 87077; 87086; 87088; 87186; 96372; 96374; 96375; 99284; A9270; J0171; J2930

== ENCOUNTER 2021-04-09 10:41 | Outpatient (CLI) | payer MEDICARE, MEDICAID, SELFPAY ==
--- NOTE | ~2021-04-09 | XR_ITS ---
XR foot RT min 3V DATE: 04/09/2021 11:17 INDICATION: Right leg pain TECHNIQUE: 4 views COMPARISON: None FINDINGS: There is soft tissue swelling of the right foot. There is plantar and posterior calcaneal enthesopathy. There is osteoarthritis at the first metatarsophalangeal joint and tarsal and tarsometatarsal joints. IMPRESSION: Soft tissue swelling Polyarticular osteoarthritis Plantar and posterior calcaneal enthesopathy Reviewed, dictated and finalized at location A.
--- NOTE | ~2021-04-09 | XR_ITS ---
XR foot LT min 3V DATE: 04/09/2021 11:17 INDICATION: Right foot pain TECHNIQUE: 4 views COMPARISON: None FINDINGS: There is soft tissue swelling. There is mild plantar calcaneal enthesopathy. No fracture or dislocation, periosteal reaction or bone destruction. IMPRESSION: Mild plantar calcaneal enthesopathy Soft tissue swelling Reviewed, dictated and finalized at location A.
== END 2021-04-09 10:42 | disposition home or self-care (01) ==
PROVIDERS: PCP Internal Medicine; Visit Provider Internal Medicine
DX: M77.32 Calcaneal spur, left foot (principal); M79.89 Other specified soft tissue disorders; M77.31 Calcaneal spur, right foot; M19.071 Primary osteoarthritis, right ankle and foot
CPT/HCPCS: 73630

== ENCOUNTER 2021-04-24 10:09 | Outpatient (CLI) | payer MEDICARE, SELFPAY ==
[2021-04-24 10:48] LABS: Hemoglobin A1C 6.1 % (<5.7)
== END 2021-04-24 10:10 | disposition home or self-care (01) ==
PROVIDERS: PCP Internal Medicine; Visit Provider Clinical Nurse Specialist
DX: R73.09 Other abnormal glucose (principal)
CPT/HCPCS: 36415; 83036

== ENCOUNTER 2021-05-28 08:50 | Outpatient (CLI) | payer OTHER, SELFPAY ==
--- NOTE | 2021-05-28 11:00 | NEURO_ITS ---
Impression: # Complains of inability to move feet. History of trauma long time ago. # No motor responses with no motor unit potentials on needle/EMG exam. # No acute or chronic neurogenic changes noted. 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 Nerve Conduction Studies Anti Sensory Summary Table Stim Site NR Peak (ms) P-T Amp (?V) Site1 Site2 Delta-P (ms) Dist (cm) Froylan (m/s) Left Sup Fibular Anti Sensory Run #3 (Ant Lat Mall) 14 cm 4.2 20.6 14 cm Ant Lat Mall 4.2 16.0 38 Right Sup Fibular Anti Sensory (Ant Lat Mall) 14 cm 4.0 15.1 14 cm Ant Lat Mall 4.0 16.0 40 Left Sural Anti Sensory (Lat Mall) Calf 3.8 7.4 Calf Lat Mall 3.8 16.0 42 Right Sural Anti Sensory (Lat Mall) Calf 3.6 10.9 Calf Lat Mall 3.6 16.0 44 Motor Summary Table Stim Site NR Onset (ms) O-P Amp (mV) Site1 Site2 Delta-0 (ms) Dist (cm) Froylan (m/s) Left Peroneal Motor (Vastus Med) NO RESPONSE Ankle NR Popit NR Right Peroneal Motor (Vastus Med) NO RESPONSE Ankle NR Popit NR Left Tibial Motor (Abd Roy Brev) NO RESPONSE Ankle NR Knee NR Right Tibial Motor (Abd Roy Brev) NO RESPONSE Ankle NR Knee NR F Wave Studies NR F-Lat (ms) L-R F-Lat (ms) Left Peroneal (Mrkrs) (EDB) NO RESPONSE NR Right Peroneal (Mrkrs) (EDB) DISPERSED RESPONSE NR Left Tibial (Mrkrs) (Abd Hallucis) NO RESPONSE NR Right Tibial (Mrkrs) (Abd Hallucis) NO RESPONSE NR EMG Side Muscle Nerve Root Ins Act Fibs Amp Dur Recrt Comment Right AntTibialis Dp Br Fibular L4-5 Nml Nml Nml Nml Nml Right Gastroc Tibial S1-2 Nml Nml Nml Nml Nml Right Fibularis Long Sup Br Fibular L5-S1 Nml Nml Nml Nml Nml Right Flex Dig Long Tibial L5-S2 Nml Nml Nml Nml Nml Right Ext Dig Brev Dp Br Fibular L5, S1 Nml Nml Nml Nml Nml Left AntTibialis Dp Br Fibular L4-5 Nml Nml Nml Nml Nml Left Gastroc Tibial S1-2 Nml Nml Nml Nml Nml Left Fibularis Long Sup Br Fibular L5-S1 Nml Nml Nml Nml Nml Left Flex Dig Long Tibial L5-S2 Nml Nml Nml Nml Nml Left Ext Dig Brev Dp Br Fibular L5, S1 Nml Nml Nml Nml Nml MTDD
== END 2021-05-28 08:51 | disposition home or self-care (01) ==
PROVIDERS: PCP Internal Medicine; Visit Provider Internal Medicine
DX: M21.379 Foot drop, unspecified foot (principal)
CPT/HCPCS: 95886; 95910

== ENCOUNTER 2021-08-26 09:17 | Outpatient (CLI) | payer MEDICARE, MEDICAID, SELFPAY ==
--- NOTE | ~2021-08-26 | MR_ITS ---
EXAMINATION: MR lumbar spine wo con DATE: 08/26/2021 10:52 INDICATION: Lumbago. Radiculopathy. TECHNIQUE: Magnetic resonance imaging (MRI) of the lumbar spine was performed without intravenous con trast. Sequences included sagittal T2-weighted FSE, sagittal T2-weighted FS FSE, sagittal T1-weighted FSE, and axial T2-weighted FSE. COMPARISON: 04/12/2019 FINDINGS: 2 mm retrolisthesis L2 on L3, 2 mm anterolisthesis L4 on L5 and 3 mm retrolisthesis L5 on S1. Vertebr al body heights are normal. Severe disc height loss with fibrovascular and degenerative endplate wolf ges at L2-L3. Moderate disc height loss at L1-L2. Severe disc height loss at L5-S1, also with degener ative fibrovascular endplate changes. Mild disc height loss of at L3 -L4 and L4-L5. Disc desiccation and new mild disc height loss at T11-T12. T1 and T2 hyperintense hemangioma at L5. Marrow signal is o therwise normal. The conus medullaris terminates at L2. There is normal signal in the caudal spinal c ord. Paravertebral soft tissues are unremarkable. The following disc levels are specifically discuss ed: T12-L1: The disc does not extend beyond the endplate margin. There is mild left and moderate right fa cet joint osteoarthritis. There is no neural foraminal stenosis. There is no central canal stenosis. L1-L2: Diffuse disc bulge with annular fissure and small right paracentral disc extrusion extending 5 mm cephalad from the inferior endplate of L1. There is severe bilateral facet joint osteoarthritis. There is moderate bilateral neural foraminal stenosis. There is moderate to severe central canal sten osis. L2-L3: Disc is bulging with annular fissure and prominent L2 inferior endplate osteophyte in the left paracentral region. There is severe bilateral facet joint osteoarthritis. There is moderate right an d moderate to severe left neural foraminal stenosis. There is moderate central canal stenosis. L3-L4: Disc is bulging. There is hypertrophy of the ligamentum flavum. There is severe bilateral face t joint osteoarthritis. There is moderate bilateral neural foraminal stenosis. There is moderate to s evere central canal stenosis. L4-L5: Disc is bulging with annular fissure and small left paracentral disc extrusion extending 3 mm cephalad to the inferior endplate of L4. There is hypertrophy of the ligamentum flavum. There is sev ere bilateral facet joint osteoarthritis. There is moderate bilateral neural foraminal stenosis. Ther e is severe central canal stenosis. L5-S1: Disc is bulging with annular fissure. There is severe bilateral facet joint osteoarthritis. Th ere is severe right and moderate to severe left neural foraminal stenosis. There is moderate central canal stenosis. IMPRESSION: 1. Mild progression of severe lumbar spondylosis. Reviewed, dictated and finalized at location A. [employer] SUPERVISOR
== END 2021-08-26 09:18 | disposition home or self-care (01) ==
LOC: ANHIMG 09:18
PROVIDERS: PCP Internal Medicine; Visit Provider Nurse Practitioner Family
DX: M47.25 Other spondylosis with radiculopathy, thoracolumbar region (principal); M48.05 Spinal stenosis, thoracolumbar region; M47.27 Other spondylosis with radiculopathy, lumbosacral region; M48.07 Spinal stenosis, lumbosacral region
CPT/HCPCS: 72148

== ENCOUNTER 2021-09-04 09:42 | Outpatient (CLI) | payer MEDICARE, MEDICAID, SELFPAY ==
[2021-09-04 10:24] LABS: Alanine Aminotransferase 18 U/L (4-35); Alkaline Phosphatase 83 U/L (38-126); Anion Gap 7 mmol/L (8-16); Aspartate Amino Transferase 24 U/L (14-36); Bilirubin,Total 0.3 mg/dL (0.2-1.3); Blood Urea Nitrogen 22 mg/dL (7-17); Calcium 8.8 mg/dL (8.4-10.2); Carbon Dioxide 26 mmol/L (22-30); Chloride 105 mmol/L (98-107); Cholesterol 285 mg/dL (0-200); Estimated Glomerular Filt Rate > 60; Glucose 107 mg/dL (65-110); HDL Direct 67 mg/dL; Potassium 4.6 mmol/L (3.4-5.0); Sodium 138 mmol/L (137-145); Triglycerides 96 mg/dL (<150)
[2021-09-04 10:36] LABS: LDL Cholesterol Direct 147 mg/dL
[2021-09-04 11:03] LABS: Vitamin D 25 Hydroxy 36.1 ng/mL
[2021-09-04 11:14] LABS: Basophils Percent Auto 0.7 % (0.2-1.2); Eosinophils Absolute Auto 0.2 K/mm3 (0-0.3); Eosinophils Percent Auto 3.5 % (0-4.4); Hematocrit 36.6 % (37.0-47.0); Hemoglobin 11.7 g/dL (12.0-15.0); Immature Granulocyte Absolute 0.05 K/mm3 (0.00-0.031); Immature Granulocyte Percent A 0.9 % (0-0.5); Lymphocytes Absolute Auto 1.69 K/mm3 (0.9-3.2); Lymphocytes Percent Auto 30.7 % (18.3-44.2); Mean Corpuscular Hemoglobin 31.4 pg (26-34); Mean Corpuscular Volume 98.1 fl (80-100); Mean Platelet Volume 10.3 fl (7.4-10.4); Monocytes Absolute Auto 0.5 K/mm3 (0.1-0.6); Monocytes Percent Auto 8.9 % (2.6-8.5); Neutrophils Percent Auto 55.3 % (45.5-73.1); Platelet Count Result 254 k/mm3 (150-375); Red Blood Count 3.73 M/mm3 (4.2-5.4); Red Cell Distribution Width 15.2 % (11.5-14.5); White Blood Count 5.5 K/mm3 (4.5-10.0)
[2021-09-04 11:29] LABS: Hemoglobin A1C 5.6 % (<5.7)
== END 2021-09-04 09:43 | disposition home or self-care (01) ==
LOC: ANHLAB 09:45
PROVIDERS: PCP Internal Medicine; Visit Provider Clinical Nurse Specialist
DX: E55.9 Vitamin D deficiency, unspecified (principal); E11.9 Type 2 diabetes mellitus without complications; I10 Essential (primary) hypertension
CPT/HCPCS: 36415; 80053; 80061; 82306; 83036; 85025

== ENCOUNTER 2021-09-22 12:40 | Emergency (ER) | payer MEDICARE, MEDICAID, SELFPAY ==
--- NOTE | ~2021-09-22 | XR_ITS ---
EXAMINATION: XR shoulder LT min 2V EXAM DATE: 09/22/2021 18:00 INDICATION: Fall 1 week ago persistent pain. TECHNIQUE: The following left shoulder projections obtained: frontal projection with internal rotatio n, frontal projection with external rotation, Grashey, and scapular Y view (4+ views). Comparison is made to prior examination from 01/27/2020. FINDINGS: No evidence of left shoulder rotator cuff calcific tendinosis. There is mild glenohumera l joint, moderate acromioclavicular joint primary osteoarthritis. There are no acute fractures or dis locations identified. There is no subcutaneous gas. The soft tissue is unremarkable. There are no radiopaque foreign bodies. IMPRESSION: No acute osseous findings. Osteoarthritis. Reviewed, dictated and finalized at location G.
--- NOTE | ~2021-09-22 | XR_ITS ---
EXAMINATION: XR tibia fibula RT 2V EXAM DATE: 09/22/2021 18:00 INDICATION: fall 1 WK, parker pain, Contusion To Mid Lle, Swelling/Redness . TECHNIQUE: Right tibia/fibula portable frontal and lateral projections obtained and reviewed. There is no prior study for comparison. FINDINGS: Fibular tip excluded from frontal projection. Right tibial and fibular shafts unremarkable. There is soft tissue swelling anterior to the lower 3rd of the tibia. There are no acute fractures i dentified. No radiopaque foreign bodies identified. IMPRESSION: Focal swelling anterior lower aspect right leg which could be edema or hematoma. No fract ure. Reviewed, dictated and finalized at location G. IMPRESSION: Focal swelling anterior lower aspect right leg which could be edema or hematoma. No fracture.
[2021-09-22 12:58] VITALS: BP 152/71; PULSE 83; RESP 16; TEMP 36.5; O2SAT 100
--- NOTE | 2021-09-22 17:18 | PC.NURSE ---
Dr. Restrepo at bedside for pt assessment.
--- NOTE | 2021-09-22 17:45 | PC.NURSE ---
xray at bedside.
--- NOTE | 2021-09-22 18:36 | ED.FALL ---
HPI - Fall General Chief Complaint: Fall Stated Complaint: Multiple Complaints - leg wound, shoulder pain Time Seen by Provider: 09/22/21 17:15 Source: patient History of Present Illness HPI Narrative: Patient presents after a fall. Patient reports she tripped on her walker approximately 1 week ago was trying to monitor her symptoms at home however she continued to have left shoulder pain and some redness on her right parker so she was convinced to come to the ER for further evaluation. Denies striking her head or any loss of consciousness. Her pain in her left shoulder is achy, constant, worse with moving the joint, no radiation. Patient also reports pain and erythema to the wound on her right parker she reports she did strike her parker on the heel. She also reports ecchymoses to the right lower abdomen but her pain has now resolved. Denies any focal numbness or weakness Related Data Home Medications Medication Instructions Recorded Confirmed carbamazepine 400 mg 400 mg PO HS 06/08/19 09/12/21 tablet,extended release,12 hr cholecalciferol (vitamin D3) 125 5,000 unit PO DAILY 06/08/19 09/12/21 mcg (5,000 unit) capsule trazodone 100 mg tablet 100 mg PO QPM tablet 06/08/19 09/12/21 Lumigan 1 drp OPHTHALMIC (EYE) HS 11/29/19 09/12/21 PreserVision AREDS 1 tablet PO DAILY 11/29/19 09/12/21 Restasis MultiDose 1 drp EACH EYE HS 09/18/20 09/12/21 cyclobenzaprine 5 mg PO HS 09/18/20 09/12/21 fluticasone propionate [Flonase 1 spray NASAL DAILY 03/23/21 09/12/21 Allergy Relief] rosuvastatin [Crestor] 40 mg PO HS 03/23/21 09/12/21 Allergies Allergy/AdvReac Type Severity Reaction Status Date / Time nitrofurantoin Allergy Hives Verified 04/08/21 09:33 [From Macrobid] Penicillins AdvReac Unknown DIVERTICULI Verified 04/08/21 09:30 TIS diphenhydramine AdvReac Seizure Verified 04/08/21 09:30 [From Benadryl] Review of Systems Review of Systems: CONSTITUTIONAL: Denies fever, chills, or sweats. EYES: Denies visual changes, redness, or discharge. ENT: Denies rhinorrhea, congestion, sore throat, or otalgia. CARDIOVASCULAR: Denies chest pain, palpitations, or edema. RESPIRATORY: Denies cough or dyspnea. GASTROINTESTINAL: Denies abdominal pain, nausea, vomiting, or diarrhea. GENITOURINARY: Denies dysuria or hematuria. SKIN: Denies rash or itching. MUSCULOSKELETAL: Denies back pain, or myalgia. NEUROLOGIC: Denies headache, numbness, dizziness, or weakness. PSYCHIATRIC: Denies anxiety or depression. [facility] Past Medical History Medical History Anxiety Arthritis Bilateral foot-drop Depression Diabetes mellitus type 2 in obese Diverticulitis Essential hypertension Former smoker Gastroesophageal reflux disease Glaucoma History of rheumatic fever as a child Hyperlipidemia Macular degeneration Morbid obesity Obstructive sleep apnea Noncompliant with BiPAP. Prediabetes Hemoglobin A1c was 6.5% in January 2021. Reflex sympathetic dystrophy Seizure disorder Spinal stenosis Vitamin D deficiency Surgical History Surgical History History of bilateral breast reduction surgery History of bilateral cataract extraction History of colonoscopy with polypectomy History of fusion of cervical spine (1999) History of laparoscopic cholecystectomy History of partial hysterectomy History of repair of rectocele (12/08/19) Rectocele repair/posterior colporrhaphy and perineoplasty. History of sinus surgery History of tonsillectomy Family History Family History Mother Diabetes mellitus Hypertension Parkinsons disease Heart attack Father Diabetes mellitus Hypertension Renal failure Heart attack Cerebrovascular accident Social History Social History Social History: The patient lives in her own home in [facility]
[2021-09-22 19:06] VITALS: BP 111/96; PULSE 84; RESP 18; O2SAT 99
== END 2021-09-22 19:10 | disposition home or self-care (01) ==
PROVIDERS: Emergency Provider Emergency Medicine; PCP Internal Medicine
DX: S49.92XA Unspecified injury of left shoulder and upper arm, initial encounter (principal); L03.115 Cellulitis of right lower limb; E11.9 Type 2 diabetes mellitus without complications; I10 Essential (primary) hypertension; E78.5 Hyperlipidemia, unspecified; G40.909 Epilepsy, unspecified, not intractable, without status epilepticus; K21.9 Gastro-esophageal reflux disease without esophagitis; H40.9 Unspecified glaucoma; H35.30 Unspecified macular degeneration; E66.01 Morbid (severe) obesity due to excess calories; G90.50 Complex regional pain syndrome I, unspecified; E55.9 Vitamin D deficiency, unspecified; Z98.42 Cataract extraction status, left eye; Z98.41 Cataract extraction status, right eye; Z98.1 Arthrodesis status; Z87.891 Personal history of nicotine dependence; F41.9 Anxiety disorder, unspecified; F32.A Depression, unspecified; M19.012 Primary osteoarthritis, left shoulder; W18.09XA Striking against other object with subsequent fall, initial encounter
CPT/HCPCS: 73030; 73590; 99284

== ENCOUNTER 2021-09-25 11:58 | Emergency (ER) | payer MEDICARE, MEDICAID, SELFPAY ==
[2021-09-25 12:07] VITALS: BP 119/67; PULSE 96; RESP 17; TEMP 36.3; O2SAT 95
[2021-09-25 13:01] LABS: Basophils Absolute Auto 0.1 K/mm3 (0.0-0.1); Basophils Percent Auto 0.7 % (0.2-1.2); Eosinophils Absolute Auto 0.2 K/mm3 (0-0.3); Hematocrit 35.3 % (37.0-47.0); Hemoglobin 11.1 g/dL (12.0-15.0); Immature Granulocyte Absolute 0.04 K/mm3 (0.00-0.031); Immature Granulocyte Percent A 0.6 % (0-0.5); Lymphocytes Absolute Auto 1.48 K/mm3 (0.9-3.2); Lymphocytes Percent Auto 21.1 % (18.3-44.2); Mean Corpuscular HGB Conc 31.4 g/dl (32-36); Mean Corpuscular Hemoglobin 31.3 pg (26-34); Mean Corpuscular Volume 99.4 fl (80-100); Mean Platelet Volume 9.8 fl (7.4-10.4); Monocytes Absolute Auto 0.6 K/mm3 (0.1-0.6); Monocytes Percent Auto 7.8 % (2.6-8.5); Neutrophils Absolute Auto 4.7 K/mm3 (1.3-6.7); Neutrophils Percent Auto 66.8 % (45.5-73.1); Platelet Count Result 230 k/mm3 (150-375); Red Blood Count 3.55 M/mm3 (4.2-5.4); Red Cell Distribution Width 14.8 % (11.5-14.5)
--- NOTE | 2021-09-25 13:02 | ED.LOWEXIN ---
HPI - Extremity Injury (Lower) General Chief Complaint: Extremity Injury, Lower Stated Complaint: cellulitis Time Seen by Provider: 09/25/21 12:11 History of Present Illness HPI Narrative: Patient is a 66-year-old female who presents ER with concerns for infection to her right parker. She was seen a couple days ago for evaluation of swelling after having a fall over a week ago. She was diagnosed with cellulitis. She has been taking cephalexin 4 times a day. She followed up with her PCP today and reported to them that it had been worsening so she was referred to the ER for further evaluation. Denies fevers or chills or sweats. She reports she does not really know what the wound looks like because she has very poor eyesight. No significant increase in pain. Patient is able to walk. Has history of chronic foot drop bilaterally. Related Data Home Medications Medication Instructions Recorded Confirmed carbamazepine 400 mg 400 mg PO HS 06/08/19 09/25/21 tablet,extended release,12 hr cholecalciferol (vitamin D3) 125 5,000 unit PO DAILY 06/08/19 09/25/21 mcg (5,000 unit) capsule trazodone 100 mg tablet 100 mg PO QPM tablet 06/08/19 09/25/21 Lumigan 1 drp OPHTHALMIC (EYE) HS 11/29/19 09/25/21 PreserVision AREDS 1 tablet PO DAILY 11/29/19 09/25/21 Restasis MultiDose 1 drp EACH EYE HS 09/18/20 09/25/21 cyclobenzaprine 5 mg PO HS 09/18/20 09/25/21 fluticasone propionate [Flonase 1 spray NASAL DAILY 03/23/21 09/25/21 Allergy Relief] rosuvastatin [Crestor] 40 mg PO HS 03/23/21 09/25/21 Allergies Allergy/AdvReac Type Severity Reaction Status Date / Time nitrofurantoin Allergy Hives Verified 09/25/21 12:28 [From Macrobid] Penicillins AdvReac Unknown DIVERTICULI Verified 09/25/21 12:28 TIS diphenhydramine AdvReac Seizure Verified 09/25/21 12:28 [From Benadryl] Review of Systems Review of Systems: All systems reviewed & are unremarkable except as noted in HPI and below Constitutional: Constitutional: Denies chills, Denies fever(s) and Denies weakness ENT: Denies nasal congestion and Denies sore throat Gastrointestinal: Gastrointestinal: Denies abdominal pain, Reports bloating, Reports diarrhea (Since starting antibiotics), Denies nausea and Denies vomiting Genitourinary: Genitourinary: Denies nocturia and Denies dysuria Integumentary/Breasts: Skin/Breast: Reports system reviewed and no additional complaints, except as docu [facility] Past Medical History Medical History Anxiety Arthritis Bilateral foot-drop Depression Diabetes mellitus type 2 in obese Diverticulitis Essential hypertension Former smoker Gastroesophageal reflux disease Glaucoma History of rheumatic fever as a child Hyperlipidemia Macular degeneration Morbid obesity Obstructive sleep apnea Noncompliant with BiPAP. Prediabetes Hemoglobin A1c was 6.5% in January 2021. Reflex sympathetic dystrophy Seizure disorder Spinal stenosis Vitamin D deficiency Surgical History Surgical History History of bilateral breast reduction surgery History of bilateral cataract extraction History of colonoscopy with polypectomy History of fusion of cervical spine (1999) History of laparoscopic cholecystectomy History of partial hysterectomy History of repair of rectocele (12/08/19) Rectocele repair/posterior colporrhaphy and perineoplasty. History of sinus surgery History of tonsillectomy Family History Family History Mother Diabetes mellitus Hypertension Parkinsons disease Heart attack Father Diabetes mellitus Hypertension Renal failure Heart attack Cerebrovascular accident Social History Social History Social History: The patient lives in her own home in [place]. A friend is currently staying with her. She has 2 grown
[2021-09-25 13:11] LABS: Anion Gap 4 mmol/L (8-16); Blood Urea Nitrogen 18 mg/dL (7-17); Calcium 8.4 mg/dL (8.4-10.2); Carbon Dioxide 31 mmol/L (22-30); Chloride 100 mmol/L (98-107); Estimated CRCL calculation 71 ml/min; Estimated Glomerular Filt Rate > 60; Glucose 136 mg/dL (65-110); Potassium 3.9 mmol/L (3.4-5.0); Sodium 135 mmol/L (137-145)
== END 2021-09-25 14:45 | disposition home or self-care (01) ==
PROVIDERS: Emergency Provider Emergency Medicine; PCP Internal Medicine
DX: S80.11XA Contusion of right lower leg, initial encounter (principal); L03.115 Cellulitis of right lower limb; E11.9 Type 2 diabetes mellitus without complications; G40.909 Epilepsy, unspecified, not intractable, without status epilepticus; I10 Essential (primary) hypertension; K21.9 Gastro-esophageal reflux disease without esophagitis; H40.9 Unspecified glaucoma; E78.5 Hyperlipidemia, unspecified; H35.30 Unspecified macular degeneration; G47.33 Obstructive sleep apnea (adult) (pediatric); E66.01 Morbid (severe) obesity due to excess calories; Z68.42 Body mass index [BMI] 45.0-49.9, adult; M19.90 Unspecified osteoarthritis, unspecified site; E55.9 Vitamin D deficiency, unspecified; G90.50 Complex regional pain syndrome I, unspecified; Z87.891 Personal history of nicotine dependence; Z98.42 Cataract extraction status, left eye; Z98.41 Cataract extraction status, right eye; Z98.1 Arthrodesis status; M21.379 Foot drop, unspecified foot; W19.XXXA Unspecified fall, initial encounter
CPT/HCPCS: 36415; 80048; 85025; 99283

== ENCOUNTER 2021-10-17 13:25 | Outpatient (CLI) | payer MEDICARE, MEDICAID, SELFPAY ==
[2021-10-17 14:10] LABS: Alanine Aminotransferase 17 U/L (4-35); Albumin Level 4.3 g/dL (3.5-5.1); Alkaline Phosphatase 56 U/L (38-126); Anion Gap 6 mmol/L (8-16); Aspartate Amino Transferase 29 U/L (14-36); Bilirubin,Total 0.3 mg/dL (0.2-1.3); Blood Urea Nitrogen 25 mg/dL (7-17); Calcium 9.1 mg/dL (8.4-10.2); Carbon Dioxide 27 mmol/L (22-30); Chloride 99 mmol/L (98-107); Estimated Glomerular Filt Rate > 60; Glucose 103 mg/dL (65-110); Sodium 132 mmol/L (137-145)
[2021-10-17 14:13] LABS: Rheumatoid Factor < 8.6 IU/ML (<12)
[2021-10-17 15:05] LABS: Erythrocyte Sedimentation Rate > 140 mm/hr (0-20)
== END 2021-10-17 13:26 | disposition home or self-care (01) ==
PROVIDERS: PCP Internal Medicine; Visit Provider Clinical Nurse Specialist
DX: M35.3 Polymyalgia rheumatica (principal); I10 Essential (primary) hypertension
CPT/HCPCS: 36415; 80053; 85652; 86038; 86430

== ENCOUNTER 2022-01-14 09:46 | Outpatient (CLI) | payer MEDICARE, MEDICAID, SELFPAY ==
[2022-01-14 10:30] LABS: Anion Gap 3 mmol/L (8-16); Blood Urea Nitrogen 22 mg/dL (7-17); Calcium 9.2 mg/dL (8.4-10.2); Carbon Dioxide 31 mmol/L (22-30); Chloride 100 mmol/L (98-107); Cholesterol 213 mg/dL (0-200); Estimated Glomerular Filt Rate > 60; Glucose 98 mg/dL (65-110); HDL Direct 75 mg/dL; Sodium 134 mmol/L (137-145); Triglycerides 81 mg/dL (<150)
[2022-01-14 10:40] LABS: LDL Cholesterol Direct 71 mg/dL
[2022-01-14 13:40] LABS: Hemoglobin A1C 5.9 % (<5.7)
== END 2022-01-14 09:47 | disposition home or self-care (01) ==
LOC: ANHLAB 09:50
PROVIDERS: PCP Internal Medicine; Visit Provider Clinical Nurse Specialist
DX: E78.5 Hyperlipidemia, unspecified (principal); E66.9 Obesity, unspecified; E11.69 Type 2 diabetes mellitus with other specified complication
CPT/HCPCS: 36415; 80048; 80061; 83036

== ENCOUNTER 2022-02-27 10:04 | Outpatient (CLI) | payer MEDICARE, MEDICAID, SELFPAY ==
[2022-02-27 19:23] LABS: Basophils Percent Auto 0.6 % (0.2-1.2); Eosinophils Absolute Auto 0.2 K/mm3 (0-0.3); Eosinophils Percent Auto 3.2 % (0-4.4); Hemoglobin 11.6 g/dL (12.0-15.0); Immature Granulocyte Absolute 0.03 K/mm3 (0.00-0.031); Immature Granulocyte Percent A 0.5 % (0-0.5); Lymphocytes Percent Auto 29.1 % (18.3-44.2); Mean Corpuscular HGB Conc 30.5 g/dl (32-36); Mean Corpuscular Hemoglobin 29.7 pg (26-34); Mean Corpuscular Volume 97.4 fl (80-100); Mean Platelet Volume 11.3 fl (7.4-10.4); Monocytes Absolute Auto 0.5 K/mm3 (0.1-0.6); Monocytes Percent Auto 8.3 % (2.6-8.5); Neutrophils Absolute Auto 3.8 K/mm3 (1.3-6.7); Neutrophils Percent Auto 58.3 % (45.5-73.1); Platelet Count Result 207 k/mm3 (150-375); Red Cell Distribution Width 14.8 % (11.5-14.5); White Blood Count 6.5 K/mm3 (4.5-10.0)
[2022-02-27 19:31] LABS: Alanine Aminotransferase 14 U/L (6-35); Albumin Level 4.1 g/dL (3.5-5.1); Alkaline Phosphatase 80 U/L (38-126); Anion Gap 7 mmol/L (8-16); Aspartate Amino Transferase 28 U/L (14-36); Bilirubin,Total 0.3 mg/dL (0.2-1.3); Blood Urea Nitrogen 19 mg/dL (7-17); Calcium 9.1 mg/dL (8.4-10.2); Carbon Dioxide 30 mmol/L (22-30); Chloride 99 mmol/L (98-107); Estimated Glomerular Filt Rate > 60; Glucose 98 mg/dL (65-110); Potassium 4.8 mmol/L (3.4-5.0); Sodium 136 mmol/L (137-145)
== END 2022-02-27 10:05 | disposition home or self-care (01) ==
LOC: ANHGOSHLAB 10:10
PROVIDERS: PCP Internal Medicine; Visit Provider Clinical Nurse Specialist
DX: I10 Essential (primary) hypertension (principal); E55.9 Vitamin D deficiency, unspecified; E66.9 Obesity, unspecified; E11.69 Type 2 diabetes mellitus with other specified complication
CPT/HCPCS: 36415; 80053; 82306; 84443; 85025

== ENCOUNTER 2022-03-28 22:16 | Emergency (ER) | payer MEDICARE, MEDICAID, SELFPAY ==
--- NOTE | ~2022-03-28 | XR_ITS ---
XR tibia fibula LT 2V 03/29/2022 01:36 INDICATION: Left leg pain PROCEDURE: 2 views left tibia/fibula COMPARISON: 04/09/2021 FINDINGS: Fracture, dislocation or subluxation is not identified. There is soft tissue swelling media lly and anteriorly. There is osteoarthritis of the left knee and ankle. No acute fracture, subluxatio n or dislocation. No foreign bodies. IMPRESSION: 1: NO ACUTE BONE OR JOINT ABNORMALITY IDENTIFIED. Reviewed, dictated and finalized at location A.
[2022-03-28 22:31] VITALS: BP 148/74; PULSE 87; RESP 17; TEMP 36.8; O2SAT 97
--- NOTE | 2022-03-29 00:32 | PC.NURSE ---
Patient assisted to the bathroom via airframe technician.
--- NOTE | 2022-03-29 01:23 | ED.LOWEXIN ---
HPI - Extremity Injury (Lower) General Chief Complaint: Extremity Injury, Lower Stated Complaint: L leg injury Time Seen by Provider: 03/29/22 01:11 Source: patient Mode of arrival: wheelchair Limitations: no limitations History of Present Illness HPI Narrative: This is a 67 year old female that presents to the ER for left lower extremity laceration sustained tonight. Reports a refrigerator door that was filled with soda cans. It hit her left parker. Reports a laceration to the area with bleeding. She is up-to-date on tetanus. Denies numbness. Related Data Home Medications Medication Instructions Recorded Confirmed carbamazepine 400 mg 400 mg PO HS 06/08/19 02/27/22 tablet,extended release,12 hr (Tegretol XR) cholecalciferol (vitamin D3) 125 5,000 unit PO DAILY 06/08/19 02/27/22 mcg (5,000 unit) capsule trazodone 100 mg tablet 100 mg PO QPM 06/08/19 02/27/22 bimatoprost 0.01 % eye drops 1 drp ophthalmic (eye) HS 11/29/19 02/27/22 (Lumigan) vitamins A,C,W-dkih-etljhz 2,148 1 tablet PO DAILY 11/29/19 02/27/22 mcg-113 mg-45 mg-17.4 mg tablet (PreserVision AREDS) cyclobenzaprine 5 mg tablet 5 mg PO HS 09/18/20 02/27/22 cyclosporine 0.05 % eye drops 1 drp EACH EYE HS 09/18/20 02/27/22 (Restasis MultiDose) fluticasone propionate 50 1 spray intranasal DAILY 03/23/21 02/27/22 mcg/actuation nasal spray,suspension (Flonase Allergy Relief) Allergies Allergy/AdvReac Type Severity Reaction Status Date / Time cephalexin [From Keflex] Allergy Itching Verified 02/27/22 09:16 Head nitrofurantoin Allergy Hives Verified 02/27/22 09:16 [From Macrobid] Penicillins AdvReac Unknown DIVERTICULI Verified 02/27/22 09:16 TIS diphenhydramine AdvReac Seizure Verified 02/27/22 09:16 [From Benadryl] Review of Systems Review of Systems: CONSTITUTIONAL: Denies fever SKIN: Reports laceration All systems reviewed & are unremarkable except as noted in HPI and below PMFSH Past Medical History Medical History Anxiety Arthritis Bilateral foot-drop Depression Diabetes mellitus type 2 in obese Diverticulitis Elevated erythrocyte sedimentation rate Essential hypertension Former smoker Gastroesophageal reflux disease Glaucoma History of rheumatic fever as a child Hyperlipidemia Macular degeneration Morbid obesity Obstructive sleep apnea Noncompliant with BiPAP. Prediabetes Hemoglobin A1c was 6.5% in January 2021. Reflex sympathetic dystrophy Seizure disorder Spinal stenosis Vitamin D deficiency Surgical History Surgical History History of bilateral breast reduction surgery History of bilateral cataract extraction History of colonoscopy with polypectomy History of fusion of cervical spine (1999) History of laparoscopic cholecystectomy History of partial hysterectomy History of repair of rectocele (12/08/19) Rectocele repair/posterior colporrhaphy and perineoplasty. History of sinus surgery History of tonsillectomy Family History Family History Mother Diabetes mellitus Hypertension Parkinsons disease Heart attack Father Diabetes mellitus Hypertension Renal failure Heart attack Cerebrovascular accident Social History Social History Social History: The patient lives in her own home in [place]. A friend is currently staying with her. She has 2 grown children. Ambulates with a walker or cane due to footdrop and decreased mobility. 5 pack-year smoking history, quit 1977. She drinks 1 to 2 glasses of wine a week. Smokes marijuana couple of times a week. She designates her son Ousmane Orozco and her brother Mike Orozco as her surrogate decision makers and she wishes to be a full code. 1 cup caffeine daily Smoking status: Former smoker Alcohol intake:
--- NOTE | 2022-03-29 01:56 | PC.NURSE ---
Verbal order per EDP Lisa Hernandez, I need 1% Lido with epi and a Lac tray and 3.0 Ethilon sutures.
[2022-03-29 03:25] VITALS: BP 157/77; PULSE 82; RESP 18; O2SAT 98
== END 2022-03-29 03:32 | disposition home or self-care (01) ==
PROVIDERS: Emergency Provider Emergency Medicine; PCP Internal Medicine
DX: S81.812A Laceration without foreign body, left lower leg, initial encounter (principal); E11.9 Type 2 diabetes mellitus without complications; I10 Essential (primary) hypertension; E78.5 Hyperlipidemia, unspecified; G40.909 Epilepsy, unspecified, not intractable, without status epilepticus; K21.9 Gastro-esophageal reflux disease without esophagitis; H40.9 Unspecified glaucoma; H35.30 Unspecified macular degeneration; G47.33 Obstructive sleep apnea (adult) (pediatric); E55.9 Vitamin D deficiency, unspecified; Z98.42 Cataract extraction status, left eye; Z98.41 Cataract extraction status, right eye; Z98.1 Arthrodesis status; Z90.711 Acquired absence of uterus with remaining cervical stump; Z87.891 Personal history of nicotine dependence; W22.8XXA Striking against or struck by other objects, initial encounter
CPT/HCPCS: 12001; 73590; 99283

== ENCOUNTER 2022-06-22 10:42 | Outpatient (CLI) | payer MEDICARE, MEDICAID, SELFPAY ==
[2022-06-22 19:02] LABS: Cholesterol 206 mg/dL (0-200); HDL Direct 83 mg/dL; Triglycerides 63 mg/dL (<150)
[2022-06-22 19:11] LABS: Hemoglobin A1C 6.2 % (<5.7)
[2022-06-22 19:13] LABS: LDL Cholesterol Direct 77 mg/dL
[2022-06-26 11:58] LABS: Carbamazepine Tegretol 8.2 mcg/mL (4.0-12.0)
== END 2022-06-22 10:43 | disposition home or self-care (01) ==
LOC: ANHGOSHLAB 10:46
PROVIDERS: PCP Internal Medicine; Visit Provider Clinical Nurse Specialist
DX: E11.69 Type 2 diabetes mellitus with other specified complication (principal); E66.9 Obesity, unspecified; G40.909 Epilepsy, unspecified, not intractable, without status epilepticus
CPT/HCPCS: 36415; 80061; 80156; 83036

== ENCOUNTER 2022-08-11 13:28 | Outpatient (CLI) | payer MEDICARE, MEDICAID, SELFPAY ==
--- NOTE | ~2022-08-11 | CT_ITS ---
EXAMINATION: CT abdomen pelvis wo con DATE: 08/11/2022 13:55 INDICATION: Left lower quadrant abdominal pain. TECHNIQUE: Computed tomography (CT) of the abdomen and pelvis was performed without intravenous contr ast. Automated exposure control and iterative reconstruction technique were employed. The dose-length product was 1541.20 mGy-cm. COMPARISON: CT abdomen and pelvis 09/17/2020 FINDINGS: The visualized portions of the lung bases demonstrate mild atelectasis. No pleural effusion . The heart size is normal. There are coronary artery calcifications. No pericardial effusion. There is a small sliding hiatal hernia. The liver is normal. There are changes of cholecystectomy. The sple en, pancreas, and adrenal glands are normal. There are cysts in the kidneys measuring up to 12 mm on the right. There is no urolithiasis. There are scattered diverticula in the colon. There is wall thic kening of the sigmoid colon. The appendix is normal. There are no dilated loops of bowel. There are n o pathologically enlarged lymph nodes. There is no free intraperitoneal fluid. There is severe lumbar spondylosis. IMPRESSION: 1. Wall thickening of the sigmoid colon, consistent with colitis. Reviewed, dictated and finalized at location A. PRESIDENT
== END 2022-08-11 13:29 | disposition home or self-care (01) ==
PROVIDERS: PCP Internal Medicine; Visit Provider Nurse Practitioner
DX: K57.92 Diverticulitis of intestine, part unspecified, without perforation or abscess without bleeding (principal); R10.9 Unspecified abdominal pain
CPT/HCPCS: 74176

== ENCOUNTER 2023-02-02 16:20 | Outpatient (CLI) | payer MEDICARE, MEDICAID, SELFPAY ==
--- NOTE | ~2023-02-02 | XR_ITS ---
EXAMINATION: XR chest 2V Exam Date/Time: 02/02/2023 16:30 CDT HISTORY: R05.9 - Cough, unspecified X 4 WEEKS Comparison: 03/23/2021. RESULT: Lines, tubes, and devices: Uncomplicated appearing ACDF hardware. Lungs and pleura: Clear. Cardiomediastinal silhouette: Stable. Other: No acute osseous or upper abdominal finding. IMPRESSION: No acute cardiopulmonary process. Reviewed, dictated and finalized at location K.
== END 2023-02-02 16:21 | disposition home or self-care (01) ==
PROVIDERS: PCP Internal Medicine; Visit Provider Otolaryngology
DX: R05.9 Cough, unspecified (principal)
CPT/HCPCS: 71046

== ENCOUNTER 2023-05-14 13:56 | Outpatient (CLI) | payer MEDICARE, MEDICAID, SELFPAY | END 2023-05-14 13:57 | disposition home or self-care (01) | LOC: ANHAUDIO 13:57 | PROVIDERS: PCP Internal Medicine; Visit Provider Clinical Nurse Specialist | DX: H90.3 Sensorineural hearing loss, bilateral (principal) | CPT/HCPCS: 92557; 92567 ==

== ENCOUNTER 2023-06-23 10:38 | Outpatient (CLI) | payer MEDICARE, MEDICAID, SELFPAY ==
--- NOTE | ~2023-06-23 | MMUS_ITS ---
EXAMINATION: MM diagnostic annetta BI w eric, US breast RT limited HISTORY: Right breast lump TECHNIQUE: ML, MLO and CC Tomosynthesis images of both breasts were performed and synthetic 2-D image s were generated. CAD analysis was submitted and interpreted. High resolution targeted right breast u ltrasound examination at the area of clinical complaint of breast lump was performed. COMPARISON: None BREAST PARENCHYMAL COMPOSITION: The breasts are almost entirely fatty. FINDINGS: MAMMOGRAPHIC FINDINGS: No suspicious mass or architectural distortion, malignant calcification, skin thickening or retractio n is detected. ULTRASOUND: Real-time imaging targeted at 12:00 at the area of complaint of breast lump reveals no abnormal mass lesion, shadowing, cyst or other sylvian sonographic abnormality. IMPRESSION: 1. No mammographic or sonographic evidence of malignancy 2. Routine annual mammographic screening is recommended BI-RADS Category 1: Negative Reviewed, dictated and finalized at location A. IOTHERAPY PRACTICE MANAGER IMPRESSION: 1. No mammographic or sonographic evidence of malignancy 2. Routine annual mammographic screening is recommended BI-RADS Category 1: Negative
== END 2023-06-23 10:39 | disposition home or self-care (01) ==
LOC: ANHIMG 10:39
PROVIDERS: PCP Internal Medicine; Visit Provider Clinical Nurse Specialist
DX: N63.10 Unspecified lump in the right breast, unspecified quadrant (principal); R92.8 Other abnormal and inconclusive findings on diagnostic imaging of breast
CPT/HCPCS: 76642; 77062; 77066; G0279

== ENCOUNTER 2023-09-22 08:16 | Outpatient (CLI) | payer MEDICARE, MEDICAID, SELFPAY ==
--- NOTE | ~2023-09-22 | NM_ITS ---
EXAMINATION: NM becca stress w perfusion DATE: 09/22/2023 10:52 CDT INDICATION: Shortness of breath TECHNIQUE: Rest images were obtained following intravenous administration of 10.5 mCi Tc99m tetrofosm in (Myoview). The patient was infused intravenously with Lexiscan (regadenoson). Then, 33 mCi Tc99m t etrofosmin (Myoview) was administered intravenously, and stress images were obtained. Data was recons tructed into short axis and horizontal and vertical long axis SPECT images. Gated SPECT images were a lso obtained. COMPARISON: None. FINDINGS: There is no definite reversible or fixed perfusion abnormality to suggest ischemia or infar ction. There is no segmental wall motion abnormality. Left ventricular ejection fraction measures 7 5%. IMPRESSION: 1. No definite ischemia or infarct. 2. Normal left ventricular ejection fraction measuring 75%. Reviewed, dictated and finalized at location A.
--- NOTE | 2023-09-22 08:25 | EST_ITS ---
Patient Info Name: Camille Orozco Age: 68 years : 1955 Gender: Female Ht: 62 in Wt: 230 lbs BSA: 2.20 m2 HR: 74 bpm BP: 155 / 82 mmHg Exam Date: 09/22/2023 9:23 AM Exam Location: [facility] Patient Status: Outpatient Admit Date: 09/22/2023 Staff Ordering Physician: Jelena Red Attending Provider: Jelena Red Exercise Technologist: Kiah Gallegos RDCS Exercise Physician: Sarabjit Childs DO Exam Type: CA stress becca w NM Study Info A regadenoson stress test was performed. Summary 1. 1. Negative lexiscan stress test for ischemic ST changes by ECG criteria. 2. 2. Baseline hypertension. 3. 3. Nuclear scan to follow and will be reported separately. Please correlate with it. 4. 4. Patient informed of the above results. Protocol: Lexiscan Stress ECG Details Stage: REST Duration (min): 2 min : 27 sec HR (bpm): 74 SBP (mmHg): 155 DBP (mmHg): 82 Stage: REST Duration (min): 10 min : 42 sec HR (bpm): 75 SBP (mmHg): 155 DBP (mmHg): 82 Stage: STAGE 1 Duration (min): 0 min : 59 sec HR (bpm): 94 SBP (mmHg): 141 DBP (mmHg): 64 Stage: RECOVERY Duration (min): 1 min : 0 sec HR (bpm): 98 SBP (mmHg): 141 DBP (mmHg): 64 Stage: RECOVERY Duration (min): 2 min : 0 sec HR (bpm): 91 SBP (mmHg): 141 DBP (mmHg): 64 Stage: RECOVERY Duration (min): 3 min : 0 sec HR (bpm): 94 SBP (mmHg): 138 DBP (mmHg): 73 Stage: RECOVERY Duration (min): 4 min : 0 sec HR (bpm): 98 SBP (mmHg): 138 DBP (mmHg): 73 Stage: RECOVERY Duration (min): 4 min : 11 sec HR (bpm): 93 SBP (mmHg): 138 DBP (mmHg): 73 Rest HR: 75 bpm Peak HR: 98 bpm Rest Sys BP: 155 mmHg Peak Sys BP: 141 mmHg Max Pred HR: 152 bpm % Max Pred HR: 64 % Target HR: 129 bpm Max RPP: 13,818 bpm*mmHg Termination Reason: Completed protocol Cardiac Symptoms: Shortness of breath Total Time: 1 min : 0 sec Rest Langston BP: 82 mmHg Peak Langston BP: 64 mmHg Total Dose: 0.4 mg Resting ECG Sinus rhythm. Stress ECG No ST changes. Arrhythmias None. Report Signatures
== END 2023-09-22 08:17 | disposition home or self-care (01) ==
PROVIDERS: PCP Clinical Nurse Specialist; Visit Provider Clinical Nurse Specialist
DX: R06.02 Shortness of breath (principal); I10 Essential (primary) hypertension; M21.379 Foot drop, unspecified foot; M13.80 Other specified arthritis, unspecified site
CPT/HCPCS: 78452; 93017; A9502; J2785

== ENCOUNTER 2023-10-15 09:19 | Outpatient (CLI) | payer MEDICARE, MEDICAID, SELFPAY ==
[2023-10-15 10:15] LABS: Basophils Percent Auto 0.7 % (0.2-1.2); Eosinophils Absolute Auto 0.2 K/mm3 (0-0.3); Eosinophils Percent Auto 2.7 % (0-4.4); Hematocrit 37.5 % (37.0-47.0); Immature Granulocyte Absolute 0.02 K/mm3 (0.00-0.031); Immature Granulocyte Percent A 0.4 % (0-0.5); Lymphocytes Absolute Auto 1.66 K/mm3 (0.9-3.2); Lymphocytes Percent Auto 30.3 % (18.3-44.2); Mean Corpuscular Hemoglobin 30.9 pg (26-34); Mean Corpuscular Volume 96.6 fl (80-100); Mean Platelet Volume 10.5 fl (7.4-10.4); Monocytes Absolute Auto 0.5 K/mm3 (0.1-0.6); Monocytes Percent Auto 9.5 % (2.6-8.5); Neutrophils Absolute Auto 3.1 K/mm3 (1.3-6.7); Neutrophils Percent Auto 56.4 % (45.5-73.1); Platelet Count Result 221 k/mm3 (150-375); Red Blood Count 3.88 M/mm3 (4.2-5.4); Red Cell Distribution Width 13.5 % (11.5-14.5); White Blood Count 5.5 K/mm3 (4.5-10.0)
[2023-10-15 10:28] LABS: Alanine Aminotransferase 19 U/L (6-35); Albumin Level 4.6 g/dL (3.5-5.1); Alkaline Phosphatase 75 U/L (38-126); Anion Gap 4 mmol/L (4-12); Aspartate Amino Transferase 29 U/L (14-36); Bilirubin,Total 0.5 mg/dL (0.2-1.3); Blood Urea Nitrogen 25 mg/dL (7-17); Calcium 9.4 mg/dL (8.4-10.2); Carbon Dioxide 29 mmol/L (22-30); Chloride 101 mmol/L (98-107); Cholesterol 207 mg/dL (0-200); Estimated Glomerular Filt Rate > 60; Glucose 103 mg/dL (65-110); HDL Direct 78 mg/dL; Potassium 4.8 mmol/L (3.4-5.0); Sodium 134 mmol/L (137-145); Triglycerides 108 mg/dL (<150)
[2023-10-15 10:29] LABS: Hemoglobin A1C 5.4 % (<5.7)
[2023-10-15 10:39] LABS: LDL Cholesterol Direct 92 mg/dL
[2023-10-15 10:45] LABS: Creatinine Urine 77.9 mg/dL
[2023-10-15 10:52] LABS: MALB Creatinine Ratio < 7.7 mg/g (0-30); Microalbumin Urine Random < 6.0 mg/L (0-16.7)
== END 2023-10-15 09:20 | disposition home or self-care (01) ==
PROVIDERS: PCP Clinical Nurse Specialist; Visit Provider Clinical Nurse Specialist
DX: R06.02 Shortness of breath (principal); I10 Essential (primary) hypertension; E11.69 Type 2 diabetes mellitus with other specified complication; E87.1 Hypo-osmolality and hyponatremia; E66.9 Obesity, unspecified; Z68.42 Body mass index [BMI] 45.0-49.9, adult
CPT/HCPCS: 36415; 80053; 80061; 82043; 83036; 84443; 85025

== ENCOUNTER 2023-11-23 14:20 | Emergency (ER) | payer MEDICARE, MEDICAID, SELFPAY ==
--- NOTE | ~2023-11-23 | CT_ITS ---
EXAMINATION: CT brain wo con DATE: 11/23/2023 14:57 INDICATION: Ground-level fall. Struck face and frontal area. TECHNIQUE: Computed tomography (CT) of the head was performed without intravenous contrast. The mA wa s adjusted according to patient size. Iterative reconstruction technique was employed. Exam dose: 60 5.33 mGy-cm total exam DLP. COMPARISON: 03/24/2021 MR brain/brainstem 03/23/2021 CT brain FINDINGS: Bilateral carotid siphon internal carotid artery calcifications are noted. No intracranial mass lesion or hemorrhage or cerebrovascular accident. No midline shift or mass effec t. Normal ventricular size. No subdural or epidural hematoma is detected. No fracture or bone destruction of the cranial vault. The mastoid air cells and paranasal sinuses are normally developed and aerated. The orbital contents are unremarkable. IMPRESSION: No skull fracture or acute intracranial finding Reviewed, dictated and finalized at [facility]. Reviewed, dictated and finalized at location [facility].
--- NOTE | ~2023-11-23 | CT_ITS ---
EXAMINATION: CT cervical spine wo con DATE: 11/23/2023 14:58 INDICATION: Head injury. TECHNIQUE: Computed tomography (CT) of the cervical spine was performed without intravenous contrast. Automated exposure control and iterative reconstruction technique were employed. The dose-length pro duct was 529.48 mGy-cm. COMPARISON: None FINDINGS: There are small bilateral mastoid effusions. There is hypolordosis of cervical spine. There are changes of anterior fusion procedure from C5 to C7 with healed interbody bone graft, C6 corpecto my, interbody device, and anterior plate and screws. There is severely decreased disc height at C2-C3 , C3-C4, C4-C5, and C7-T1. The following disc levels are specifically discussed: C2-C3: There is mild right and severe left uncovertebral joint osteoarthritis. There is ankylosis of the facet joints with moderate hypertrophy. There is mild bilateral neural foraminal stenosis. There is no central canal stenosis. C3-C4: There is ankylosis of the uncovertebral joints with severe hypertrophy. There is ankylosis of the facet joints with severe hypertrophy. There is moderate bilateral neural foraminal stenosis. Ther e is mild bilateral central canal stenosis. C4-C5: There is severe bilateral uncovertebral joint osteoarthritis. There is severe bilateral facet joint osteoarthritis. There is moderate bilateral neural foraminal stenosis. There is mild central ca nal stenosis. C5-C6: There is severe bilateral uncovertebral joint hypertrophy. There is mild bilateral facet joint hypertrophy. There is mild bilateral neural foraminal stenosis. There is mild central canal stenosis . C6-C7: There is severe bilateral uncovertebral joint hypertrophy. There is mild bilateral facet joint hypertrophy. There is moderate bilateral neural foraminal stenosis. There is mild central canal sten osis. C7-T1: There is mild bilateral uncovertebral joint osteoarthritis. There is ankylosis of the facet con ints with mild hypertrophy. There is mild bilateral neural foraminal stenosis. There is no central ca nal stenosis. IMPRESSION: 1. No fracture. 2. Severe cervical spondylosis. 3. Anterior fusion procedure from C5 to C7. Reviewed, dictated and finalized at location A.
[2023-11-23 14:38] VITALS: BP 138/56; PULSE 72; RESP 16; TEMP 36.1; O2SAT 99
--- NOTE | 2023-11-23 17:45 | ED.FALL ---
HPI - Fall General Chief Complaint: Fall Stated Complaint: fall Time Seen by Provider: 11/23/23 15:40 History of Present Illness HPI Narrative: Patient states that she was being clumsy and had tripped and fell hitting her face. She had no loss of consciousness, is not on blood thinners. No nausea or vomiting. She noticed that her forehead was bleeding. Related Data Home Medications Medication Instructions Recorded Confirmed carbamazepine 400 mg 400 mg PO HS 06/08/19 11/11/23 tablet,extended release,12 hr (Tegretol XR) cholecalciferol (vitamin D3) 125 5,000 unit PO DAILY 06/08/19 11/11/23 mcg (5,000 unit) capsule trazodone 100 mg tablet 100 mg PO QPM 06/08/19 11/11/23 bimatoprost 0.01 % eye drops 1 drp ophthalmic (eye) HS 11/29/19 11/11/23 (Lumigan) vitamins A,C,P-tysm-umtbrg 2,148 1 tablet PO DAILY 11/29/19 11/11/23 mcg-113 mg-45 mg-17.4 mg tablet (PreserVision AREDS) Allergies Allergy/AdvReac Type Severity Reaction Status Date / Time cephalexin [From Keflex] Allergy Itching Verified 11/23/23 15:33 Head nitrofurantoin Allergy Hives Verified 11/23/23 15:33 [From Macrobid] Penicillins AdvReac Unknown DIVERTICULI Verified 11/11/23 11:30 TIS diphenhydramine AdvReac Seizure Verified 11/23/23 15:33 [From Benadryl] Review of Systems Review of Systems: All systems reviewed & are unremarkable except as noted in HPI and below PMFSH Past Medical History Medical History Abdominal pain Abscess Acute UTI Altered mental status Altered mental status Anxiety Arthritis Bilateral foot-drop Bilateral sacroiliitis BPPV (benign paroxysmal positional vertigo) Callus of heel Depression Diabetes mellitus type 2 in obese Diverticulitis Diverticulosis large intestine w/o perforation or abscess w/bleeding Elevated erythrocyte sedimentation rate Elevated glucose level Essential hypertension Fatigue Former smoker Gastroesophageal reflux disease Glaucoma History of marijuana use History of rheumatic fever as a child Hospital discharge follow-up Hyperlipidemia Hypocalcemia Ileus Inflammatory arthritis Lump of breast, right Macular degeneration Marijuana use Morbid obesity Morbid obesity with BMI of 45.0-49.9, adult Morbid obesity with BMI of 50.0-59.9, adult Obstructive sleep apnea Noncompliant with BiPAP. Post-menopausal Prediabetes Hemoglobin A1c was 6.5% in January 2021. Rectocele Reflex sympathetic dystrophy Seizure Seizure disorder Shoulder pain, left Spinal stenosis Vitamin D deficiency Surgical History Surgical History History of bilateral breast reduction surgery History of bilateral cataract extraction History of colonoscopy with polypectomy History of fusion of cervical spine (1999) History of laparoscopic cholecystectomy History of partial hysterectomy History of repair of rectocele (12/08/19) Rectocele repair/posterior colporrhaphy and perineoplasty. History of sinus surgery History of tonsillectomy Family History Family History Mother Diabetes mellitus Hypertension Parkinsons disease Heart attack Father Diabetes mellitus Hypertension Renal failure Heart attack Cerebrovascular accident Social History Social History Social History: The patient lives in her own home in [place]. A friend is currently staying with her. She has 2 grown children. Ambulates with a walker or cane due to footdrop and decreased mobility. 5 pack-year smoking history, quit 1977. She drinks 1 to 2 glasses of wine a week. Smokes marijuana couple of times a week. She designates her son Ousmane Orozco and her brother Mike Orozco as her surrogate decision makers and she wishes to be a full code. 1 cup caffeine daily Smoking status: Former smoker Smo
== END 2023-11-23 17:06 | disposition home or self-care (01) ==
PROVIDERS: Emergency Provider Emergency Medicine; PCP Clinical Nurse Specialist
DX: S01.81XA Laceration without foreign body of other part of head, initial encounter (principal); W01.0XXA Fall on same level from slipping, tripping and stumbling without subsequent striking against object, initial encounter; F41.8 Other specified anxiety disorders; E11.9 Type 2 diabetes mellitus without complications; E66.9 Obesity, unspecified; Z68.37 Body mass index [BMI] 37.0-37.9, adult; I10 Essential (primary) hypertension; K21.9 Gastro-esophageal reflux disease without esophagitis; E78.5 Hyperlipidemia, unspecified; G47.33 Obstructive sleep apnea (adult) (pediatric); G40.909 Epilepsy, unspecified, not intractable, without status epilepticus; E55.9 Vitamin D deficiency, unspecified; Z87.891 Personal history of nicotine dependence
CPT/HCPCS: 12011; 70450; 72125; 99284

== ENCOUNTER 2024-02-09 13:04 | Outpatient (CLI) | payer MEDICARE, MEDICAID, SELFPAY ==
--- NOTE | ~2024-02-09 | MR_ITS ---
MRI of the lumbar spine Clinical History: Back pain Technique: Axial T2-weighted images, and sagittal T1-weighted, T2-weighted, and and T2 fat-sat images were acquired. COMPARISON: 08/26/2021 Findings: No acute fracture seen. Stable minimal grade 1 retrolisthesis of L2 over L3, and of L5 over S1. No suspicious bone marrow signal abnormality seen. There are reactive marrow signal changes due to underlying degenerative disc disease. At L1-L2, there is advanced degenerative disc 9. There is mild diffuse disc bulge and severe facet ar thropathy. There is mild central canal stenosis and moderate to advanced bilateral neural foraminal n arrowing. At L2-L3, there is severe degenerative disc narrowing. There is diffuse disc bulge with probable left foraminal protrusion, and severe facet arthropathy. There is minimal central canal stenosis. There i s severe left neural foraminal compromise, and moderate to severe right neural foraminal, otherwise. At L3-L4, there is diffuse disc bulge and severe facet arthropathy, which result in severe spinal can al stenosis/thecal sac compression. There is severe bilateral neural foraminal narrowing. At L4-L5, there is disc bulge and severe facet arthropathy, resulting in severe spinal canal stenosis /thecal sac compression. There is severe bilateral neural foraminal compress. At L5-S1, there is severe degenerative disc narrowing. Disc osteophyte complex and severe facet arthr opathy result in moderate spinal canal stenosis. There is severe bilateral neural foraminal, right. Paravertebral soft tissues are unremarkable. Impression: Severe degenerative spondylosis throughout the lumbar spine, with multilevel severe spinal canal sten osis and multilevel severe neural foraminal narrowing, as detailed above. Reviewed, dictated and finalized at [facility] Impression: Severe degenerative spondylosis throughout the lumbar spine, with multilevel se kayleigh spinal canal stenosis and multilevel severe neural foraminal narrowing, as detailed above.
== END 2024-02-09 13:05 | disposition home or self-care (01) ==
PROVIDERS: PCP Clinical Nurse Specialist; Visit Provider Nurse Practitioner Family
DX: M54.50 Low back pain, unspecified (principal); M43.06 Spondylolysis, lumbar region; M48.061 Spinal stenosis, lumbar region without neurogenic claudication
CPT/HCPCS: 72148

== ENCOUNTER 2024-04-19 09:00 | Outpatient (CLI) | payer MEDICARE, MEDICAID, SELFPAY ==
[2024-04-19 17:18] LABS: Anion Gap 6 mmol/L (4-12); Blood Urea Nitrogen 23 mg/dL (7-17); Calcium 8.9 mg/dL (8.4-10.2); Carbon Dioxide 31 mmol/L (22-30); Chloride 99 mmol/L (98-107); Estimated Glomerular Filt Rate > 60; Glucose 89 mg/dL (65-110); Potassium 4.4 mmol/L (3.4-5.0); Sodium 136 mmol/L (137-145)
[2024-04-19 22:03] LABS: Hemoglobin A1C 5.6 % (<5.7)
== END 2024-04-19 09:01 | disposition home or self-care (01) ==
LOC: ANHGOSHLAB 09:02
PROVIDERS: PCP Internal Medicine; Visit Provider Clinical Nurse Specialist
DX: R73.03 Prediabetes (principal); I10 Essential (primary) hypertension; R73.9 Hyperglycemia, unspecified
CPT/HCPCS: 36415; 80048; 83036

== ENCOUNTER 2024-09-19 11:45 | Outpatient (CLI) | payer MEDICARE, MEDICAID, SELFPAY ==
[2024-09-19 12:40] LABS: Anion Gap 10 mmol/L (4-12); Blood Urea Nitrogen 17 mg/dL (7-17); Calcium 9.3 mg/dL (8.4-10.2); Carbon Dioxide 27 mmol/L (22-30); Chloride 98 mmol/L (98-107); Estimated Glomerular Filt Rate > 60; Glucose 103 mg/dL (65-110); Potassium 4.4 mmol/L (3.4-5.0); Sodium 135 mmol/L (137-145)
[2024-09-19 13:11] LABS: Hemoglobin A1C 5.5 % (<5.7)
--- OUTSIDE RECORDS SUMMARY | 2024-09-19 13:22 | XMS_ITS | Clinical Summary ---
Author Organization [facility] Address [address] [place] [address] Care Team Providers Care Jacker Feeder Name Role Phone Mike Gautam DO Primary Care Provider [phone] Source Comments [facility],non-owned Affiliates and Associated Physician Practices is amultiple site organization consisting of ambulatory clinics and hospital sitesin [place], [place], [place] and [place]. This disclosure is being madepursuant to the Care Everywhere program and may not contain all information available regarding this patient. 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 Family History Medical History Relation Name Comments Diabetes Brother Diabetes Father Heart Disease Father Diabetes Mother Macular Degeneration Mother Relation Name Status Comments Brother Father Mother Social History Tobacco Use Types Packs/Day Years Used Date Smoking Tobacco: Former Cigarettes Q uit: 07/05/1979 Alcohol Use Standard Drinks/Week Comments No 0 (1 standard drink = 0.6 oz pur e alcohol) Sex and Gender Information Value Date Recorded Sex Assigned at Not on file Gender Identity Not on file Sexual Orientation Not on file Plan of Treatment Health Maintenance Due Date Last Done Comments BONE DENSITY TESTING 1955 COLOGUARD (AGES 45-75) - COL ON CA SCREENING [address] COLONOGRAPHY - COLON CA SCREENING 1955 FIT - COLON CA SCREENING 1955 FLEX SIG - COLON CA SCREENING 1955 LIPID TESTING 1955 MAMMOGRAM 1955 MEDICARE AWV 12 MONTHS 1955 HEPATITIS C SCREENING 01/30/1973 DTAP/TDAP/TD VACCINES (1 - Tdap) 1974 PNEUMOCOCCAL VACCINE 50+ (1 of 1 - PCV) 2005 ZOSTER VACCINE (1 of 2) 2005 COVID-19 VACCINE (1 - 2023-2 5 season) 2024 INFLUENZA VACCINE (#1) 2024 DEPRESSION SCREENING 07/05/2024 MEDICARE AWV CALENDAR YEAR 2024 Respiratory Syncytial Virus (RSV) Vaccine Pt: or over 60 yrs (1 - 1-dose 75+ series) 2030 COLONOSCOPY - COLON CA SCREENING 11/22/2031 11/22/19 22 Colorectal Cancer Screening 11/22/2031 HEPATITIS B VACCINE Aged Out No longe r eligible based on patient's age to complete this topic HIB VACCINE Aged Out No longer eligi ble based on patient's age to complete this topic HPV VACCINE Aged Out No longer eligi ble based on patient's age to complete this topic MENINGOCOCCAL (Group B) VACC INE SHARED DECISION-MAKING Aged Out No longer eligibl e based on patient's age to complete this topic MENINGOCOCCAL GROUPS A/C/Y/W VACCINE Aged Out No longer eligible b ased on patient's age to complete this topic Care Teams Jacker Feeder Relationship Specialty Start Date End Date Mike Gautam DO PCP - General 05/08/15
--- OUTSIDE RECORDS SUMMARY | 2024-09-19 13:22 | XMS_ITS | Clinical Summary ---
Author Organization [facility] Address [address] [place] [address] Care Team Providers Care Manager Global Communications Name Role Phone Mike Gautam DO Primary Care Provider [phone] Allergies Active Allergy Reactions Criticality Noted Date Comments Diphenhydramine Seizures High 09/28/2021 Pt state she took at home and had seizure Penicillins Diarrhea Low 03/29/2018 Vancomycin Itching Low 09/28/2021 Medications LUMIGAN 0.01 % ophthalmic drops 03/14/2018 Active lisinopril (PRINIVIL,ZESTR IL) 40 mg tablet 03/16/2018 Active rosuvastatin (CRESTOR) 5 mg tablet 03/26/2018 Active naproxen (NAPROSYN) 500 mg tablet 02/14/[address] (CYMBALTA) 30 mg capsule 12/21/2017 Active glucosamine-cho ndroit-vit C-Mn capsule Take by mouth. Active cholecalciferol (VITAMIN D-3) 1,000 unit tablet Take 1,000 Units by mouth daily. Active vitamin A-vitamin C-vit E-min tablet Take by mouth. Active ondansetron (ZOFRAN) 4 mg tablet Take 1 tablet (4 mg total) by mouth every 8 (eight) hours as needed for nausea or vomiting 20 tablet 10/03/2021 Active carBAMazepine (TEGretol) 200 mg tablet Take 2 tablets (400 mg total) by mouth 2 (two) times a day 120 tablet 10/03/2021 Active pregabalin (LYRICA) 75 mg capsule 10/11/2021 Active sodium, potassium & mag sulfates (SUPREP BOWEL KIT) 17.5-3.13-1.6 gram recon solnIndications :Bowel Evacuation Mix 1 bottle with water and take at 6 pm the day before test. Drink 2nd bottle 4 hours prior to arrival. 354 mL 10/16/2021 Active traZODone (DESYREL) 50 mg tablet Take 50 mg by mouth nightly Active polyethylene glycol (MIRALAX) 17 gram/dose powder Take 17 g by mouth 2 (two) times a day 507 g 1 08/17/2022 Active docusate sodium (COLACE) 100 mg capsuleIndicati ons:constipatio n Take 1 capsule (100 mg total) by mouth every 12 (twelve) hours 60 capsule 08/17/2022 Active Active Problems Problem Noted Date Diagnosed Date Diverticulosis of colon 10/16/2021 Overview (10/16/2021): Added automatically from request for surgery [id number] Diverticulitis 10/16/2021 Overview (10/16/2021): Added automatically from request for surgery [id number] Colitis 09/27/2021 Immunizations Immunization Administration Dates Next Due Tdap 09/28/2021 Surgical History Surgery Date Site/Laterality Comments CATARACT EXTRACTION 07/05/2012 - 07/04/2013 cataract surgery OTHER SURGICAL HISTORY Cataracts: Cataract extraction AUGMENTATION MAMMOPLASTY Breast Augmentation NECK SURGERY neck surgery TONSILLECTOMY Tonsillectomy CHOLECYSTECTOMY Cholecystectomy APPENDECTOMY GALLBLADDER SURGERY HYSTERECTOMY 07/05/1978 - 07/04/1979 Hysterectomy CATARACT EXTRACTION REDUCTION MAMMAPLASTY NECK SURGERY COLONOSCOPY 04/04/2021 - 05/04/2021 change in bowel habits. OTHER SURGICAL HISTORY prolapse bowel surgery Medical History Medical History Date Comments Hx Other Medical diverticulitis Hx Other Medical rsds Epilepsy (HCC) epilepsy Hx Other Medical foot drop bilat eral feet Hypertension Hypertension Hyperlipidemia Hyperlipidemia Hx Other Medical Cataracts Arthritis Arthritis Hx Other Medical Neurological pr oblems Heart murmur Osteoporosis Diverticulitis Blind Sleep apnea Family History Medical History Relation Name Comments Diabetes Father Heart disease Father Kidney failure Father Diabetes Mother Heart disease Mother Diabetes Other 1 Family history of Diabetes mellitus; Heart disease Other 2 Family history of Heart disease; Stroke Other 3 Family history of Stroke; Depression Other 4 Family history of Depression; Relation Name Status Comments Father Mother Other 1 Other 2 Other 3 Other 4 Social History Tobacco Use Types Packs/Day Years Used Date Smoking Tobacco: Former Smokeless Tobacco: Never Alcohol Use Standard Drinks/Week Comments No 0 (1 standard drink = 0.6 oz pur e alcohol) Social Connection and Isolat ion Panel [NHANES] Answer Date Recorded In a typical week, how many times do you talk on the phone with family, friends, or neighbors? More than three times a week 09/29/2021 How often do you get togethe r with friends or relatives? More than three times a week 09/29/2021 How often do you attend chur ch or islam services? More than 4 times per year 09/29/2021 Do you belong to any clubs o r organizations such as nondenominational groups, unions, fraternal or athletic groups, or school groups? No 09/29/2021 How often do you attend meet ings of the clubs or organizations you belong to? Never 09/29/2021 Are you , , di vorced, , never , or living with a partner? 09/29/2021 AUDIT-C Answer Date Recorded Q1: How often do you have a drink containing alc ohol? Never 11/21/2021 Average Number of Drinks Not on file 022 Frequency of Binge Drinking Not on file 11/03 Overall Financial Resource Strain (CARDIA) Answe r Date Recorded How hard is it for you to pa y for the very basics like food, housing, medical care, and heating? Somewhat hard 09/29/2021 PHQ-2 Answer Date Recorded PHQ-2 Total Score (If total score is 3 or more points, staff should administer the PHQ-9) 0 10/16/2021 Hunger Vital Sign Answer Date Recorded Within the past 12 months, y ou worried that your food would run out before you got the money to buy more. Never true 09/30/19 22 Within the past 12 months, t he food you bought just didn't last and you didn't have money to get more. Never true 09/29/2021 PRAPARE - Transportation Answer Date Re corded In the past 12 months, has l ack of transportation kept you from medical appointments or from getting medications? No 09/03 In the past 12 months, has l ack of transportation kept you from meetings, work, or from getting things needed for daily living? No 09/29/2021 Housing Stability Vital Sign Answer Papito e Recorded In the last 12 months, was t here a time when you were not able to pay the mortgage or rent on time? No 09/29/2021 In the last 12 months, how many places have you lived? 1 09/29/2021 In the last 12 months, was t here a time when you did not have a steady place to sleep or slept in a penitentiary (including now)? No 09/29/2021 Comments No Sex and Gender Information Value Date Recorded Sex Assigned at Not on file Legal Sex Female 12:14 AM BARYTES GRINDER Gender Identity Not on file Sexual Orientation Not on file Obstetrics History Para Term AB IAB SAB Ectopic Multiple Livin g Live Births 2 2 2 2 2 Date Outcome GA Total Labor Labor/2nd/3rd Weight Sex Type Anes PTL Polina A1 A5 Name Clin Term Vag-S pont Living Term Vag-S pont Living Last Filed Vital Signs Vital Sign Reading Time Taken Comments Blood Pressure 160/98 08/17/2022 9:38 AM BARYTES GRINDER Pulse 83 08/17/2022 9:38 AM BARYTES GRINDER Temperature 37 C (98.6 F) 08/17/2022 9:38 AM BARYTES GRINDER Respiratory Rate 18 08/17/2022 9:38 AM BARYTES GRINDER Oxygen Saturation 95% 08/17/2022 9:38 AM BARYTES GRINDER Inhaled Oxygen Concentration - - Weight 120.7 kg (266 lb) 08/17/2022 9:38 AM BARYTES GRINDER Height 154.9 cm (5' 1 ) 08/17/2022 9:38 AM BARYTES GRINDER Body Mass Index 50.26 08/17/2022 9:38 AM BARYTES GRINDER Plan of Treatment Health Maintenance Due Date Last Done Comments Breast Cancer Screening-Mammogram 1955 Hepatitis C Screening 1955 Osteoporosis Screening-Bone Density Scan 1955 Hepatitis B Screening 1973 Well Visit 65+ 02/05/2020 Pneumococcal vaccine 65+ (3 of 3 - PCV20 or PCV21) 03/02/2022 03/02/2017, 06/07/2012 Depression Screening 10/16/2022 10/16/2021 Fall Risk Assessment 11/21/2022 11/21/2021 Covid-19 Vaccine (4 - 2023-2 5 season) 2024 07/28/2021, 09/28/2020, 08/30/2020 Influenza Vaccine (#1) 2024 , 03/08/2020, 03/13/2019, Additional history exists DTaP/Tdap/Td Vaccine (3 - Td or Tdap) 09/29/2031 09/28/2021, 12/21/2014 Colon Cancer Screening-Colonoscopy 11/22/2031 11/21/2021, 09/21/2013 Zoster Vaccine Completed 05/11/2019, 01/31/2019 Colon Cancer Screening-CT Colonography Discontinued 11/21/2021, 09/21/2013 Colon Cancer Screening-DNA Stool Discontinued 11/22/19, 09/21/2013 Colon Cancer Screening-FIT Discontinued 11/21/2021, Colon Cancer Screening-Sigmoidoscopy Discontinued 11/21/2021, 09/21/2013 Medical Devices Implanted Type Area Credit Card Analyst Device Identifier Shelf Expiration Date Model / Serial / Lot Integra MENA PRESTIGE Earl [id number] Integra 5x4in Mesh Dressing Biological Bovine Collagen - [id number] Implanted:Qty: 1 on 09/29/2021 by Leo Boone Jr., MD at [facility] Right: Leg Integra [employer] Earl 06/03/2022 [id number] / / [id number] Procedures Procedure Name Priority Date/Time Associated Diagnosis Comments COLONOSCOPY 11/21/2021 9:21 AM CDT from Last 3 Months or Most Recently Relevant to Health Maintenance Results * COLONOSCOPY (11/21/2021 9:21 AM CDT) Anatomical Region Laterality Modality Other Narrative Procedure Note Zenon Barcenas MD - 11/21/2021 9:21 AM CDT - [facility] Endoscopy Lab Patient Name: Camille Orozco Procedure Date: 11/21/2021 9:21 AM Date of : 1955 Admit Type: Outpatient Age: 66 Gender: Female Note Status: Finalized Attending MD: Zenon Barcenas M.D. Procedure Date: 11/21/2021 Procedure: Colonoscopy Indications: Screening for colorectal malignant neoplasm Patient Profile: This is a 66 year old female. History of diverticulosis. No family history of coloncancer. Providers: Zenon Barcenas M.D., Jaycob Marin MD, PHD (Anesthesia Staff), Nina Hedrick RN, Beena Kathleen RN Referring MD: Mike Gautam DO Medicines: Monitored Anesthesia Care Complications: No immediate complications. Estimated Blood Loss: Estimated blood loss was minimal. Procedure: Pre-Anesthesia Assessment: - ASA Grade Assessment: II - A patient with mild systemic disease. - The risks and benefits of the procedure and the sedation options and risks were discussed with the patient. All questions were answered and informed consent was obtained. After I obtained informed consent, the scope was passed under direct vision. Throughout theprocedure, the patient's blood pressure, pulse, and oxygen saturations were monitored continuously. The scopewas passed under direct vision. The Colonoscope was introduced through the anus and advanced to thececum, identified by appendiceal orifice and ileocecalvalve. The colonoscopy was performed without difficulty.The patient tolerated the procedure well. The qualityof the bowel preparation was evaluated using the BBPS ([place] Bowel Preparation Scale) with scores of:Right Colon = 3, Transverse Colon = 3 and Left Colon = 3 (entire mucosa seen well with no residual staining, small fragments of stool or opaque liquid). Thetotal BBPS score equals 9. The quality of the bowel preparation was good. The bowel preparation usedwas SUPREP via extended prep with split doseinstruction. Bowel prep was administered using a split dose. Findings: The perianal and digital rectal examinations were normal. Scattered small and large-mouthed diverticula were found in the descending colon. Three sessile polyps were found in the cecum. The polyps were 4 to 6mm in size. These polyps were removed with a jumbo cold forceps.Resection and retrieval were complete. The retroflexed view of the distal rectum and anal verge was normaland showed no anal or rectal abnormalities. Impression: - Diverticulosis in the descending colon. - Three 4 to 6 mm polyps in the cecum, removed witha jumbo cold forceps. Resected and retrieved. - The distal rectum and anal verge are normal on retroflexion view. Recommendation: - Discharge patient to home. - Await pathology results. - Repeat colonoscopy in 3 years for surveillance. Electronically signed by Zenon Barcenas MD Zenon Barcenas M.D. 11/21/2021 10:12:58 AM Number of Addenda: 0 Note Initiated On: 11/21/2021 9:21 AM Zenon Barcenas MD ENDOSCOPY PROCEDURES Final Re sult from Last 3 Months or Most Recently Relevant to Health Maintenance Additional Health Concerns Infection Onset Date Last Indicated MDR gram neg/ESBL Comment:Backloaded April 23, 2011 01/29/2007 01/29/2007 Insurance MEDICARE [place] MEDICARE [facility] MEDICARE [facility] MEDICARE [place] Advance Directives For more information, please contact: [phone] * Full Code (Latest Code Status on File) Date Activated Date Inactivated Comments 09/27/2021 11:16 PM 10/03/2021 7:15 PM Care Teams Manager Global Communications Relationship Specialty Start Date End Date Mike Gautam DO PCP - General 09/27/21
--- OUTSIDE RECORDS SUMMARY | 2024-09-19 13:23 | XMS_ITS | Referral Summary ---
Author Organization [facility] Address [address] [place] [address] Care Team Providers Care Carpet Repairer Name Role Phone Mike Gautam DO Primary Care Provider [phone]- [phone] Allergies Active Allergy Reactions Criticality Noted Date [...] (10/16/2021): Added automatically from request for surgery [id number] Diverticulitis 10/16/2021 Overview (10/16/2021): Added automatically from request for surgery [id number] Colitis 09/27/2021 Immunizations Immunization Administration Dates Next Due Tdap 09/28/2021 Social History Tobacco Use Types Packs/Day Years [...] often do you attend chur ch or anabaptism services? More than 4 times per year 09/29/2021 Do you belong to any clubs o r organizations such as spiritism groups, unions, fraternal or athletic groups, or [...] place to sleep or slept in a custodial (including now)? No 09/29/2021 Comments No Sex and Gender Information Value Date Recorded Sex Assigned at Not on file Legal Sex Female 12:14 AM SENIOR CISCO NETWORK ENGINEER Gender Identity Not on file Sexual Orientation Not on file Last Filed Vital Signs Vital Sign Reading Time Taken Comments Blood Pressure 160/98 08/17/2022 9:38 AM SENIOR CISCO NETWORK ENGINEER Pulse 83 08/17/2022 9:38 AM SENIOR CISCO NETWORK ENGINEER Temperature 37 C (98.6 F) 08/17/2022 9:38 AM SENIOR CISCO NETWORK ENGINEER Respiratory Rate 18 08/17/2022 9:38 AM SENIOR CISCO NETWORK ENGINEER Oxygen Saturation 95% 08/17/2022 9:38 AM SENIOR CISCO NETWORK ENGINEER Inhaled Oxygen Concentration - - Weight 120.7 kg (266 lb) 08/17/2022 9:38 AM SENIOR CISCO NETWORK ENGINEER Height 154.9 cm (5' 1 ) 08/17/2022 9:38 AM SENIOR CISCO NETWORK ENGINEER Body Mass Index 50.26 08/17/2022 9:38 AM SENIOR CISCO NETWORK ENGINEER Plan of Treatment Not on file Medical Devices Implanted Type Area Nipple Maker Device Identifier Shelf Expiration Date Model / Serial / Lot Integra [employer] [id number] Integra 5x4in Mesh Dressing Biological Bovine Collagen - [id number] Implanted:Qty: 1 on 09/29/2021 by Leo Boone Jr., MD at [facility] Right: Leg Integra [employer] Earl 06/03/2022 [id number] / / [id number] Procedures Procedure Name Priority Date/Time Associated Diagnosis Comments COLONOSCOPY 11/21/2021 9:21 AM CDT from Last 3 Months or Most Recently Relevant to Health Maintenance Results * COLONOSCOPY (11/21/2021 9:21 AM CDT) Anatomical Region Laterality Modality Other Narrative Procedure Note Zenon Barcenas MD - 11/21/2021 9:21 AM CDT [facility] Endoscopy Lab Patient Name: Camille Orozco Procedure [...] Jaycob Marin MD, PHD (Anesthesia Staff), Nina Hedrick, JOSEPH, Beena Kathleen RN Referring MD: Mike Gautam [...] bowel preparation was evaluated using the BBPS ([place] Bowel Preparation Scale) with scores of:Right Colon [...] April 23, 2011 01/29/2007 01/29/2007 Insurance MEDICARE [facility] MEDICARE [facility] [employer] MEDICARE [facility] Advance Directives For more information, please contact: [phone] * Full Code (Latest Code Status on File) Date Activated Date Inactivated Comments 09/27/2021 11:16 PM 10/03/2021 7:15 PM Care Teams Carpet Repairer Relationship Specialty Start Date End Date Mike Gautam DO PCP - General 09/27/21
== END 2024-09-19 11:46 | disposition home or self-care (01) ==
LOC: ANHLAB 11:47
PROVIDERS: PCP Internal Medicine; Visit Provider Clinical Nurse Specialist
DX: R73.01 Impaired fasting glucose (principal); R94.4 Abnormal results of kidney function studies
CPT/HCPCS: 36415; 80048; 83036

== ENCOUNTER 2024-10-11 12:39 | Emergency (ER) | payer MEDICARE, MEDICAID, SELFPAY ==
[2024-10-11] VITALS (10 sets, daily range): BP systolic 135–157; BP diastolic 72–81; PULSE 78–98; RESP 12–24; TEMP 36.6; O2SAT 94–98
--- NOTE | ~2024-10-11 | CT_ITS ---
EXAMINATION: CT abdomen pelvis w con DATE: 10/11/2024 13:56 INDICATION: Left lower quadrant abdominal pain TECHNIQUE: Computed tomography (CT) of the abdomen and pelvis was performed with 100 mL Omnipaque-350 intravenous contrast. Automated exposure control and iterative reconstruction technique were employe d. The dose-length product was 1234.92 mGy-cm. COMPARISON: 08/11/2022 FINDINGS: Lung bases are clear. Heart size is normal. Aortic valve calcific location. No pericardial or pleural effusion. Unchanged mild dilation the common bile duct likely related to prior cholecystectomy with cholecystectomy clips at the gallbladder fossa. Spleen, pancreas and bilateral adrenal glands are nor mal. There are bilateral renal cysts, the largest on the left measuring 1.5 cm. Normal appendix. Pers istent wall thickening along the sigmoid colon where there are numerous diverticula in this could be related to acute colitis or more likely scarring related to chronic diverticulitis. No surrounding in flammatory stranding to suggest acute diverticulitis. No bowel obstruction. Bladder is normal. The ut erus is not identified and has likely been surgically resected. Bilateral ovaries are unremarkable. N o free intraperitoneal gas or fluid. No pathologically enlarged abdominal or pelvic lymphadenopathy. Small fat-containing umbilical hernia. Moderate lower thoracic and severe lumbar spondylosis. IMPRESSION: 1. Persistent wall thickening along the sigmoid colon where there are numerous diverticula in this co uld represent either acute colitis or scarring related to chronic diverticulitis. Reviewed, dictated and finalized at location B. IMPRESSION: 1. Persistent wall thickening along the sigmoid colon where there are numerous diverticula in this could represent either acute colitis or scarring related to chronic diverticulitis.
[2024-10-11 12:58] LABS: Basophils Percent Auto 0.6 % (0.2-1.2); Eosinophils Absolute Auto 0.1 K/mm3 (0-0.3); Eosinophils Percent Auto 2.1 % (0-4.4); Hematocrit 33.5 % (37.0-47.0); Hemoglobin 10.8 g/dL (12.0-15.0); Immature Granulocyte Absolute 0.03 K/mm3 (0.00-0.031); Immature Granulocyte Percent A 0.5 % (0-0.5); Lymphocytes Absolute Auto 1.64 K/mm3 (0.9-3.2); Lymphocytes Percent Auto 26.1 % (18.3-44.2); Mean Corpuscular HGB Conc 32.2 g/dl (32-36); Mean Corpuscular Hemoglobin 30.8 pg (26-34); Mean Corpuscular Volume 95.4 fl (80-100); Mean Platelet Volume 9.4 fl (7.4-10.4); Monocytes Absolute Auto 0.6 K/mm3 (0.1-0.6); Monocytes Percent Auto 9.6 % (2.6-8.5); Neutrophils Absolute Auto 3.8 K/mm3 (1.3-6.7); Neutrophils Percent Auto 61.1 % (45.5-73.1); Platelet Count Result 225 k/mm3 (150-375); Red Blood Count 3.51 M/mm3 (4.2-5.4); Red Cell Distribution Width 12.7 % (11.5-14.5); White Blood Count 6.3 K/mm3 (4.5-10.0)
--- NOTE | 2024-10-11 12:59 | ED.ABDPAIN ---
HPI - Abdominal Pain General Chief Complaint: Abdominal Pain Stated Complaint: ?diverticulitis Time Seen by Provider: 10/11/24 12:58 Source: patient and family Mode of arrival: ambulatory Limitations: no limitations History of Present Illness HPI narrative: 69 YEARS OLD WHITE FEMALE CAME FROM HOME BY PRIVATE CAR COMPLAINING OF LOWER ABDOMINAL PAIN MAINLY ON THE LEFT SIZE OFTEN ON FOR THE LAST 4 DAYS ASSOCIATED WITH INTERMITTENT NAUSEA. SHE DENIES ANY FEVER OR CHILLS OR VOMITING OR DIARRHEA OR CONSTIPATION. HISTORY OF DIVERTICULITIS, HYPERTENSION, HYPERLIPIDEMIA, DEPRESSION, CHOLECYSTECTOMY AND APPENDECTOMY. Related Data Home Medications ?Medication ?Instructions ?Recorded ?Confirmed ?Last Taken ?Type carbamazepine 400 mg 400 mg PO HS 06/08/19 09/29/24 02/16/21 History tablet,extended release,12 hr (Tegretol XR) cholecalciferol (vitamin D3) 125 5,000 unit PO DAILY 06/08/19 09/29/24 02/16/21 History mcg (5,000 unit) capsule trazodone 100 mg tablet 100 mg PO QPM 06/08/19 09/29/24 02/16/21 History bimatoprost 0.01 % eye drops 1 drp ophthalmic (eye) HS 11/29/19 09/29/24 02/16/21 History (Lumigan) vitamins A,C,E-lwcm-gptcha 2,148 1 tablet PO DAILY 11/29/19 09/29/24 02/16/21 History mcg-113 mg-45 mg-17.4 mg tablet (PreserVision AREDS) Allergies Allergy/AdvReac Type Severity Reaction Status Date / Time cephalexin (From Keflex) Allergy Itching Verified 10/11/24 12:40 Head nitrofurantoin (From Allergy Hives Verified 10/11/24 12:40 Macrobid) Penicillins AdvReac Unknown DIVERTICULI Verified 10/11/24 12:40 TIS diphenhydramine (From AdvReac Seizure Verified 10/11/24 12:40 Benadryl) Review of Systems Review of Systems: All systems reviewed & are unremarkable except as noted in HPI and below PMFSH Past Medical History Medical History Post-menopausal Lump of breast, right Abdominal pain Inflammatory arthritis Bilateral sacroiliitis Elevated erythrocyte sedimentation rate Morbid obesity with BMI of 45.0-49.9, adult Shoulder pain, left Callus of heel Diabetes mellitus type 2 in obese Hospital discharge follow-up Marijuana use Altered mental status Seizure disorder History of marijuana use Altered mental status Anxiety Spinal stenosis Arthritis Diverticulitis Obstructive sleep apnea Noncompliant with BiPAP. Glaucoma Macular degeneration History of rheumatic fever as a child Morbid obesity Gastroesophageal reflux disease Reflex sympathetic dystrophy Essential hypertension Bilateral foot-drop BPPV (benign paroxysmal positional vertigo) Hypocalcemia Abscess Fatigue Elevated glucose level Diverticulosis large intestine w/o perforation or abscess w/bleeding Morbid obesity with BMI of 50.0-59.9, adult Acute UTI Ileus Former smoker Seizure Rectocele Prediabetes Hemoglobin A1c was 6.5% in January 2021. Depression Hyperlipidemia Vitamin D deficiency Surgical History Surgical History History of sinus surgery History of tonsillectomy History of bilateral cataract extraction History of bilateral breast reduction surgery History of colonoscopy with polypectomy History of laparoscopic cholecystectomy History of partial hysterectomy History of fusion of cervical spine (1999) History of repair of rectocele (12/08/19) Rectocele repair/posterior colporrhaphy and perineoplasty. Family History Family History Mother Diabetes mellitus Hypertension Parkinsons disease Heart attack Father Diabetes mellitus Hypertension Renal failure Heart attack Cerebrovascular accident Social History Social History Social History: The patient lives in her own home in [place]. A friend is currently staying with her. She has 2 grown children. Ambulates with a walker or cane due to footdrop and decreased mobility. 5 pack-year smoking history, quit 1977. She drinks 1 to 2 glasses of wine a week. Smokes marijuana couple of times a week. She designates her son Ousmane Orozco and her brother Mike Orozco as her surrogate decision makers and she wishes to be a full code. 1 cup caffeine daily Smoking status: Former smoker Smoking end date: 07/05/78 Alcohol intake: former Substance use: current Substance use type: marijuana Lack of Transportation: No Lack of Food: Never True Current Housing: I Have Housing Concerned About Future Housing: No Difficulty Paying Gas/Electric Bills: No Difficulty Paying for Meds: No Currently Unemployed: No Education: Grade School Difficulty w/ Childcare or Family Care: No Living arrangements: alone Exam Narrative: GENERAL APPEARANCE: WELL-DEVELOPED, WELL-NOURISHED SKIN: NORMAL COLOR HEAD: NORMOCEPHALIC, NONTRAUMATIC EYES: CLEAR CONJUNCTIVA ENT: OROPHARYNX NORMAL, EARS NORMAL, NOSE NORMAL NECK: SUPPLE, NONTENDER CHEST AND RESPIRATORY: AIRWAY PATENT, NO RESPIRATORY DISTRESS, NO ACCESSORY MUSCLE USE HEART: REGULAR RATE/RHYTHM ABDOMEN: SOFT, DIFFUSE TENDERNESS LOWER ABDOMEN MAINLY LEFT LOWER QUADRANT, NO GUARDING OR REBOUND, NO ORGANOMEGALY, QUIET BOWEL SOUNDS VASCULAR: NORMAL PERIPHERAL PULSES, NORMAL CAPILLARY REFILL. MUSCULOSKELETAL: NORMAL RANGE OF MOTION, NONTENDER BACK NEUROLOGIC: ALERT AND ORIENTED ?3, SYSTEMS INTEGRATION ANALYST IS NORMAL TESTED, NO GROSS MOTOR DEFICIT Course Vital Signs Vital signs: Vital Signs Temperature 36.6 C 10/11/24 12:45 Pulse Rate 98 10/11/24 12:45 Respiratory Rate 16 10/11/24 12:45 Blood Pressure 138/75 10/11/24 12:45 Pulse Oximetry 98 10/11/24 12:45 Oxygen Delivery Room Air 10/11/24 12:45 Temperature 36.6 C 10/11/24 12:45 Pulse Rate 98 10/11/24 12:45 Respiratory Rate 16 10/11/24 12:45 Blood Pressure 138/75 10/11/24 12:45 Pulse Oximetry 98 10/11/24 12:45 Oxygen Delivery Room Air 10/11/24 12:45 MDM - Abdominal Pain MDM Narrative Medical decision making narrative: PATIENT PRESENTS WITH LOWER ABDOMINAL PAIN VITAL SIGNS ARE STABLE PHYSICAL EXAMINATION CONSISTENT WITH LEFT LOWER QUADRANT TENDERNESS DIFFERENTIAL DIAGNOSIS INCLUDE DIVERTICULITIS, URINARY TRACT INFECTION, CONSTIPATION BLOOD WORKUP TODAY INCLUDES CBC, CMP, LIPASE SHOWED WBC OF 6.3, HEMOGLOBIN 10.8, SODIUM 130, OTHERWISE WITHIN NORMAL LIMIT URINALYSIS SHOWED NO EVIDENCE OF INFECTION CT ABDOMEN AND PELVIS WITH IV CONTRAST SHOWED DIVERTICULITIS DIAGNOSIS DIVERTICULITIS DISCHARGED ON LEVAQUIN, FLAGYL, CLEAR LIQUID DIET THE PT WAS DISCHARGED TO HOME.THE PT,S CONDITION UPON DISCHARGE WAS FAIR,EDUCATION WAS PROVIDED TO THE PT IN REFERENCE TO THE FINAL IMPRESSION,DISCHARGE STUDY RESULTS,TREATMENT,PROGNOSIS AND NEED FOR FOLLOW UP . Differential Diagnosis Differential diagnosis: Likely other ( ABOVE) Medical Records Attestation: I reviewed the patient's medical records. Lab Data Attestation: I reviewed the patient's lab results. 10/11/24 12:53 10/11/24 12:53 Labs: Lab Results 10/11/24 10/11/24 Range/Units 12:53 13:23 WBC 6.3 (4.5-10.0) K/mm3 RBC 3.51 L (4.2-5.4) M/mm3 Hgb 10.8 L (12.0-15.0) g/dL Hct 33.5 L (37.0-47.0) % MCV 95.4 (80-100) fl MCH 30.8 (26-34) pg MCHC 32.2 (32-36) g/dl RDW 12.7 (11.5-14.5) % Plt Count 225 (150-375) k/mm3 MPV 9.4 (7.4-10.4) fl Immature Gran % (Auto) 0.5 (0-0.5) % Neut % (Auto) 61.1 (45.5-73.1) % Lymph % (Auto) 26.1 (18.3-44.2) % [place] % (Auto) 9.6 H (2.6-8.5) % Eos % (Auto) 2.1 (0-4.4) % Baso % (Auto) 0.6 (0.2-1.2) % Lymph # (Auto) 1.64 (0.9-3.2) K/mm3 [place] # (Auto) 0.6 (0.1-0.6) K/mm3 Eos # (Auto) 0.1 (0-0.3) K/mm3 Baso # (Auto) 0.0 (0.0-0.1) K/mm3 Abs Immat Gran (auto) 0.03 (0.00-0.031) K/mm3 Absolute Neuts (auto) 3.8 (1.3-6.7) K/mm3 Absolute Nucleated RBC 0.000 (0.0-0.012) K/mm3 Nucleated RBC % 0.0 (0.0-0.2) % Sodium 130 L (137-145) mmol/L Potassium 4.3 (3.4-5.0) mmol/L Chloride 96 L (98-107) mmol/L Carbon Dioxide 25 (22-30) mmol/L Anion Gap 9 (4-12) mmol/L BUN 15 (7-17) mg/dL Creatinine 0.81 (0.7-1.0) mg/dL Estim Creat Clear Calc 67 ml/min Estimated GFR > 60 (59 - ) Glucose 109 (65-110) mg/dL Calcium 8.8 (8.4-10.2) mg/dL Total Bilirubin 0.3 (0.2-1.3) mg/dL AST 23 (14-36) U/L ALT 17 (6-35) U/L Alkaline Phosphatase 75 (38-126) U/L Total Protein 7.0 (6.3-8.2) g/dL Albumin 4.2 (3.5-5.1) g/dL Lipase 76 (23-300) U/L Urine Color Yellow (Yellow) Urine Appearance Clear (Clear) Urine pH 7.5 (5.0-9.0) Ur Specific [place] 1.008 (1.001-1.035) Urine Protein Negative (Negative) mg/dL Urine Glucose (UA) Negative (Negative) mg/dL Urine Ketones Negative (Negative) mg/dL Ur Blood (Man) Negative (Negative) Urine Nitrate Negative (Negative) Urine Bilirubin Negative (Negative) Urine Urobilinogen 0.2 (<2.0) mg/dL Leukocyte Esterase Rfl Negative (Negative) JOSE/UL Imaging Data Radiologist's impression: ITS Impressions Abdomen/Pelvis CT 10/11/24 14:01 IMPRESSION: 1. Persistent wall thickening along the sigmoid colon where there are numerous diverticula in this could represent either acute colitis or scarring related to chronic diverticulitis. Critical Care Time Critical Care Time Critical Care Time: No Discharge Plan Discharge Clinical Impression: Diverticulitis Patient Disposition: Home Condition: Stable Instructions: Antibiotic Form, Diverticulitis (ED), Diverticulitis Diet (ED) Additional Instructions: RETURN IF SYMPTOMS ARE WORSENING , CALL YOUR FAMILY PHYSICIAN FOR APPOINTMENT, TAKE TYLENOL NEEDED FOR ACHES AND PAIN, CONTINUE HOME MEDICATIONS. HOLD TRAZODONE FOR 1 WEEK BECAUSE INTERACTION WITH LEVAQUIN Patient Language: Welsh Prescriptions: New levofloxacin 750 mg tablet 750 mg PO DAILY Qty: 7 5RF metronidazole 500 mg tablet 500 mg PO Q8H 7 Days Qty: 21 0RF No Action carbamazepine [Tegretol XR] 400 mg tablet extended release 12 hr 400 mg PO HS trazodone 100 mg tablet 100 mg PO QPM cholecalciferol (vitamin D3) 5,000 unit capsule 5,000 unit PO DAILY fluconazole 150 mg tablet 150 mg PO DAILY Qty: 1 0RF Rx Instructions: administer on day 1 of therapy bacitracin zinc-polymyxin B 500-10,000 unit/gram ointment 1 applic topical DAILY Qty: 28.3 1RF PreserVision AREDS 7,160-113-100 [id number] Tablet 1 tablet PO DAILY Lumigan 0.01 % drops 1 drp ophthalmic (eye) HS (DME) Rollator Walker with seat See Rx Instructions .Route .MEDSUPPLY Qty: 1 0RF Rx Instructions: As directed fluticasone propionate [Flonase Allergy Relief] 50 mcg/actuation spray,suspension 1 spray NASAL DAILY Qty: 48 1RF Rx Instructions: administer into each nostril bacitracin zinc-polymyxin B 500-10,000 unit/gram ointment 1 applic topical DAILY Qty: 14.2 0RF lisinopril 40 mg tablet 40 mg PO DAILY Qty: 90 1RF Rx Instructions: NEEDS APPOINTMENT IN OCTOBER duloxetine 30 mg capsule,delayed release(DR/EC) See Rx Instructions .ROUTE .COMPLEX Qty: 180 0RF Dose Instruction: TAKE 2 CAPSULES EVERY EVENING Rx Instructions: TAKE 2 CAPSULES EVERY EVENING pimecrolimus [Elidel] 1 % cream 1 applic topical BID PRN (Reason: atopic dermatitis) Qty: 60 0RF naproxen 500 mg tablet See Rx Instructions .ROUTE .COMPLEX Qty: 90 1RF Dose Instruction: TAKE 1 TABLET DAILY NEEDED FOR PAIN. TAKE WITH FOOD Rx Instructions: TAKE 1 TABLET DAILY NEEDED FOR PAIN. TAKE WITH FOOD rosuvastatin [Crestor] 40 mg tablet 40 mg PO HS Qty: 90 1RF furosemide [Lasix] 20 mg tablet 20 mg PO QAM Qty: 90 1RF Follow-up/Referrals: Mike Gautam, [Primary Care Provider] -
[2024-10-11 13:11] LABS: Alanine Aminotransferase 17 U/L (6-35); Albumin Level 4.2 g/dL (3.5-5.1); Alkaline Phosphatase 75 U/L (38-126); Anion Gap 9 mmol/L (4-12); Aspartate Amino Transferase 23 U/L (14-36); Bilirubin,Total 0.3 mg/dL (0.2-1.3); Blood Urea Nitrogen 15 mg/dL (7-17); Calcium 8.8 mg/dL (8.4-10.2); Carbon Dioxide 25 mmol/L (22-30); Chloride 96 mmol/L (98-107); Estimated CRCL calculation 67 ml/min; Estimated Glomerular Filt Rate > 60; Glucose 109 mg/dL (65-110); Lipase 76 U/L (23-300); Potassium 4.3 mmol/L (3.4-5.0); Sodium 130 mmol/L (137-145)
[2024-10-11 13:36] LABS: Add Urine Microscopic? NO; Appearance Urine Clear (Clear); Bilirubin Urine Negative (Negative); Blood Urine Negative (Negative); Color Urine Yellow (Yellow); Glucose Urine UA Negative (Negative); Ketones Urine Negative (Negative); Leukocyte Esterase Ur Negative LEU/UL (Negative); Nitrate Urine Negative (Negative); Protein Urine Negative (Negative); Specific Grav Ur 1.008 (1.001-1.035); Urobilinogen Urine 0.2 mg/dL (<2.0); pH Urine 7.5 (5.0-9.0)
--- OUTSIDE RECORDS SUMMARY | 2024-10-11 13:49 | XMS_ITS | Referral Summary ---
Author Organization [facility] Address [address] [place] [address] Care Team Providers Care Gum Sprayer Name Role Phone Mike Gauatm DO Primary Care Provider [phone]- [phone] Allergies Active Allergy Reactions Criticality Noted Date [...] (10/16/2021): Added automatically from request for surgery [id number] Diverticulitis 10/16/2021 Overview (10/16/2021): Added automatically from request for surgery [id number] Colitis 09/27/2021 Immunizations Immunization Administration Dates Next [...] often do you attend chur ch or orthodox services? More than 4 times per year 09/29/2021 Do you belong to any clubs o r organizations such as restoration groups, unions, fraternal or athletic groups, or [...] on file Legal Sex Female 12:14 AM REGISTERED SALES ASSISTANT Gender Identity Not on file Sexual Orientation Not on file Last Filed Vital Signs Vital Sign Reading Time Taken Comments Blood Pressure 160/98 08/17/2022 9:38 AM REGISTERED SALES ASSISTANT Pulse 83 08/17/2022 9:38 AM REGISTERED SALES ASSISTANT Temperature 37 C (98.6 F) 08/17/2022 9:38 AM REGISTERED SALES ASSISTANT Respiratory Rate 18 08/17/2022 9:38 AM REGISTERED SALES ASSISTANT Oxygen Saturation 95% 08/17/2022 9:38 AM REGISTERED SALES ASSISTANT Inhaled Oxygen Concentration - - Weight 120.7 kg (266 lb) 08/17/2022 9:38 AM REGISTERED SALES ASSISTANT Height 154.9 cm (5' 1 ) 08/17/2022 9:38 AM REGISTERED SALES ASSISTANT Body Mass Index 50.26 08/17/2022 9:38 AM REGISTERED SALES ASSISTANT Plan of Treatment Not on file Medical Devices Implanted Type Area Refinish Technician Device Identifier Shelf Expiration Date Model / Serial / Lot Integra Lifesciences Earl [id number] Integra 5x4in Mesh Dressing Biological Bovine Collagen - [id number] Implanted:Qty: 1 on 09/29/2021 by Leo Boone Jr., MD at [facility] Right: Leg Integra [employer] Earl 06/03/2022 [id number] / / [id number] Procedures Procedure Name Priority Date/Time Associated Diagnosis Comments COLONOSCOPY 11/21/2021 9:21 AM CDT from Last 3 Months or Most Recently Relevant to Health Maintenance Results * COLONOSCOPY (11/21/2021 9:21 AM CDT) Anatomical Region Laterality Modality Other Narrative Procedure Note Zenon Barcenas MD - 11/21/2021 9:21 AM CDT [facility] Patient Name: Camille Orozco [...] bowel preparation was evaluated using the BBPS ([place] Bowel Preparation Scale) with scores of:Right Colon [...] April 23, 2011 01/29/2007 01/29/2007 Insurance MEDICARE [facility] Address: [facility] [address] [place] [address] [facility] MEDICARE [facility] Address: [address] [address] [facility] [place] MEDICARE [facility] Address: [address] [address] [place] [address] [facility] Advance Directives For more information, please contact: [phone] * Full Code (Latest Code Status on File) Date Activated Date Inactivated Comments 09/27/2021 11:16 PM 10/03/2021 7:15 PM Care Teams Gum Sprayer Relationship Specialty Start Date End Date Mike Gautam DO PCP - General 09/27/21
--- OUTSIDE RECORDS SUMMARY | 2024-10-11 13:49 | XMS_ITS | Clinical Summary ---
Author Organization [facility] Address [address] [place] [address] Care Team Providers Care Mat Linker Name Role Phone Mike Gautam DO Primary Care Provider [phone]- [phone] Allergies Active Allergy Reactions Criticality Noted Date [...] (10/16/2021): Added automatically from request for surgery [id number] Diverticulitis 10/16/2021 Overview (10/16/2021): Added automatically from request for surgery [id number] Colitis 09/27/2021 Immunizations Immunization Administration Dates Next [...] often do you attend chur ch or scientology services? More than 4 times per year 09/29/2021 Do you belong to any clubs o r organizations such as catholic groups, unions, fraternal or athletic groups, or [...] place to sleep or slept in a group home (including now)? No 09/29/2021 Comments No Sex and Gender Information Value Date Recorded Sex Assigned at Not on file Legal Sex Female 12:14 AM DRINK MIXER Gender Identity Not on file Sexual Orientation [...] Comments Blood Pressure 160/98 08/17/2022 9:38 AM DRINK MIXER Pulse 83 08/17/2022 9:38 AM DRINK MIXER Temperature 37 C (98.6 F) 08/17/2022 9:38 AM DRINK MIXER Respiratory Rate 18 08/17/2022 9:38 AM DRINK MIXER Oxygen Saturation 95% 08/17/2022 9:38 AM DRINK MIXER Inhaled Oxygen Concentration - - Weight 120.7 kg (266 lb) 08/17/2022 9:38 AM DRINK MIXER Height 154.9 cm (5' 1 ) 08/17/2022 9:38 AM DRINK MIXER Body Mass Index 50.26 08/17/2022 9:38 AM DRINK MIXER Plan of Treatment Health Maintenance Due Date [...] 11/21/2021, 09/21/2013 Medical Devices Implanted Type Area Tank Storage Supervisor Device Identifier Shelf Expiration Date Model / Serial / Lot Integra 99dresses Earl [id number] Integra 5x4in Mesh Dressing Biological Bovine Collagen - [id number] Implanted:Qty: 1 on 09/29/2021 by Leo Boone Jr., MD at [facility] Right: Leg Integra [employer] Earl 06/03/2022 [id number] / / [id number] Procedures Procedure Name Priority Date/Time Associated Diagnosis Comments COLONOSCOPY 11/21/2021 9:21 AM CDT from Last 3 Months or Most Recently Relevant to Health Maintenance Results * COLONOSCOPY (11/21/2021 9:21 AM CDT) Anatomical Region Laterality Modality Other Narrative Procedure Note Zenon Barcenas MD - 11/21/2021 9:21 AM CDT - [facility] Patient Name: Camille Orozco Procedure [...] bowel preparation was evaluated using the BBPS ([place] Bowel Preparation Scale) with scores of:Right Colon [...] April 23, 2011 01/29/2007 01/29/2007 Insurance MEDICARE [place] MEDICARE [facility] MEDICARE [facility] MEDICARE [employer] Advance Directives For more information, please contact: [phone] * Full Code (Latest Code Status on File) Date Activated Date Inactivated Comments 09/27/2021 11:16 PM 10/03/2021 7:15 PM Care Teams Mat Linker Relationship Specialty Start Date End Date Mike Gautam DO PCP - General 09/27/21
--- OUTSIDE RECORDS SUMMARY | 2024-10-11 13:49 | XMS_ITS | Data Portability ---
Author Organization [place] [facility], Main Office Address [address] [place] [address] Assessment Encounter Date Assessment Date Assessment LastModified by Organization Details LastModified Time 07/27/2023 07/27/2023 This note is dictated and transcribed by [employer]. Scale Balancer variances may occur. Despite proofreading, typographical errors may occur. Occasional wrong-word or 'eawca-a-gysz' substitutions may have occurred due to the inherent limitations of voice recording. Read the chart carefully and recognize, using context, where substitutions have occurred. Not available 07/29/2023 11:37:02 02/08/2024 02/08/2024 This note is dictated and transcribed by [employer]. Scale Balancer variances may occur. Despite proofreading, typographical errors may occur. Occasional wrong-word or 'yqpfs-e-syzd' substitutions may have occurred due to the inherent limitations of voice recording. Read the chart carefully and recognize, using context, where substitutions have occurred. Not available 02/08/2024 14:43:06 08/01/2024 08/01/2024 This note is dictated and transcribed by [employer]. Scale Balancer variances may occur. Despite proofreading, typographical errors may occur. Occasional wrong-word or 'mreuw-p-cklf' substitutions may have occurred due to the inherent limitations of voice recording. Read the chart carefully and recognize, using context, where substitutions have occurred. Not available 08/01/2024 16:24:11 Plan of Treatment Reminders Order Date Submit Date Provider Last Modified By Organization Details Last Modified Time Details Appointments Establish ed Patient 15 2024 02:30P M Victor Hugo Robison DPM Not available Not available Not available Lab None recorded. Referral None recorded. Procedures None recorded. Surgeries None recorded. Imaging None recorded. Medication Orders None recorded. Patient TargetsNo targets recorded. Patient Instructions Encounter Date Encounter Id Patient Instructions Last Modified By Organization Details Last Modified Time 08/05/2023 [id number] paronychia: care instructions Not available 08/05/2023 15:04:50 02/08/2024 [id number] diabetic foot care education Not available 02/08/2024 14:43:17 Reason for Referral None Reported. Problems Name Problem SNOMED Code Status Onset Date Resolution Date Notes Provider Name and Address Organization Details Recorded Time Paronychia of toe of right foot 9759332608955 9102 Active 2019 Not Available [facility] 3 19:30:16 Hyperchole sterolemia 43739075 Active 2016 Not Available [facility] 3 19:30:16 Pressure injury of heel 309455997 Active 2018 Not Available [facility] 3 19:30:16 Foot callus 280090018 Active 2021 Not Available [facility] 3 19:30:17 Unable to cut own toenails 764815092 Active 2017 Not Available [facility] 3 19:30:17 Hypertensi ve disorder 60935407 Active 2016 Not Available [facility] 3 19:30:17 Neuropathy 552289844 Active 2016 Not Available [facility] 3 19:30:17 Foot-drop 3045915 Active 2016 Not Available [facility] 3 19:30:17 Foot-drop 5271106 Active 2021 Not Available [facility] 3 19:30:17 Epilepsy 51115806 Active 2016 Not Available [facility] 3 19:30:17 Dystrophia unguium 58188055 Active 2020 Not Available [facility] 3 19:30:18 Diabetes mellitus 41047154 Active 2022 Victor Hugo Robison DPColin [address] [facility], [facility] [address], [place], [address] , [facility] [employer] [facility] 3 09:26:45 Problem Notes None recorded. Procedures Surgical History Date Name Laterality Status Provider Name and Address Organization Details Recorded Time 5 Nail Debridement completed Victor Hugo Robison DPM [address], [place], [address], [employer] [facility] [employer] 08/01/2024 16:23:57 4 Nail Debridement completed Victor Hugo Robison DPM [address], [place], [address], [email or web address] [facility] 02/08/2024 14:42:11 4 Partial Nail [employer] Matrixectomy-Ri ght completed Victor Hugo Robison DPM [address], [place], [address], [place] 08/05/2023 15:02:42 3 Nail Debridement completed Victor Hugo Robison DPM [address], [place], [address], [place] 12/07/2022 09:23:03 Imaging Results None recorded. Procedure Notes None recorded. Medical Equipment None Reported. Allergies Allergen ID Allergen Name Allergen Category Reaction Reaction Severity Criticality Documentation Date Start Date Code Code System Note Provider Name and Address Organization Details Recorded Time 49800 Product containin g penicilli n (product) medicatio n Not available Not available Not available 09/02/2022 09885 8001 SNOMED Not Available [facility] 3 19:32:45 Medications Name Sig Start Date Stop Date Status Note LastModified by Organization Details LastModified Time cyclobenzap rine 10 mg tablet active Not Available Not Available Not Available betamethaso ne valerate 0.1 % topical ointment active Not Available Not Available Not Available prednisone 10 mg tablet 11/15 completed Not Available Not Available Not Available gabapentin 600 mg tablet 11/10 completed Not Available Not Available Not Available doxycycline hyclate 100 mg capsule 100 MG ORALLY TWICE A DAY active Not Available Not Available No t Available ketoconazol e 2 % shampoo APPLY TOPICALLY TO THE SCALP 2 TIMES A WEEK. LEAVE ON FOR 5 MINUTES BEFORE RINSING active Not Available Not Available No t Available clindamycin HCl 300 mg capsule 11/10 completed Not Available Not Available Not Available ammonium lactate 12 % lotion APPLY 1 APPLICATI ON TOPICALLY TWICE A DAY NEEDED active Not Available Not Available No t Available trazodone 50 mg tablet 11/15 completed Not Available Not Available Not Available fexofenadin e 60 mg tablet TAKE 1 TABLET BY MOUTH EVERY DAY active Not Available Not Available No t Available oxybutynin chloride ER 10 mg tablet,exte nded release 24 hr active Not Available Not Available Not Available fluconazole 150 mg tablet TAKE ONE TABLET BY MOUTH A ONE-TIME DOSE ON DAY 1 OF THERAPY active Not Available Not Available No t Available hydrocodone 5 mg-acetamin ophen 325 mg tablet TAKE 1 TABLET BY MOUTH THREE TIMES DAILY NEEDED FOR PAIN active Not Available Not Available No t Available Nystop 100,000 unit/gram topical powder active Not Available Not Available Not Available naltrexone 50 mg tablet active Not Available Not Available Not Available ondansetron HCl 4 mg tablet TAKE 1 TABLET BY MOUTH EVERY 6 HOURS NEEDED FOR NAUSEA OR VOMITING active Not Available Not Available No t Available prednisone 20 mg tablet TAKE 1 TABLET BY MOUTH TWICE A DAY FOR 5 DAYS active Not Available Not Available No t Available prednisone 5 mg tablet TAKE 1-3 TABS ONCE DAILY FOR IMMEDIATE ARTHRITIS CONTROL, USE LOWEST DOSE NEEDED & STOP WHEN BETTER active Not Available Not Available No t Available clobetasol 0.05 % topical cream active Not Available Not Available Not Available clindamycin HCl 150 mg capsule TAKE 4 CAPSULES BY MOUTH ONE HOUR PRIOR TO THE APPOINTME NT OR WITHIN 2 HOURS OF APPOINTME NT END. 12/07 completed Not Available Not Available Not Available metronidazo le 500 mg tablet TAKE ONE TABLET MOUTH EVERY 8 HOURS NEEDED FOR 7 DAYS active Not Available Not Available No t Available acetaminoph en 300 mg-codeine 30 mg tablet 11/10 completed Not Available Not Available Not Available ciprofloxac in 500 mg tablet TAKE 1 TABLET BY MOUTH EVERY 12 HOURS active Not Available Not Available No t Available sulfamethox azole 800 mg-trimetho prim 160 mg tablet TAKE 1 TABLET BY MOUTH EVERY 12 HOURS 12/07 completed Not Available Not Available Not Available hydrocodone 10 mg-acetamin ophen 325 mg tablet TAKE 1 TABLET BY MOUTH EVERY DAY NEEDED active Not Available Not Available No t Available tramadol 50 mg tablet TAKE 1-2 TABLETS BY MOUTH 3 TIMES DAILY FOR PAIN 12/07 completed Not Available Not Available Not Available triamcinolo ne acetonide 0.1 % topical cream active Not Available Not Available Not Available bupropion HCl SR 100 mg tablet,12 hr sustained-r elease 11/10 completed Not Available Not Available Not Available ketorolac 10 mg tablet 11/10 completed Not Available Not Available Not Available carbamazepi ne ER 400 mg tablet,exte nded release,12 hr active Not Available Not Available Not Available meloxicam 7.5 mg tablet TAKE 1 TABLET BY MOUTH EVERY DAY active Not Available Not Available No t Available carbamazepi ne 200 mg tablet active Not Available Not Available Not Available methenamine hippurate 1 gram tablet TAKE 1 TABLET BY MOUTH TWICE DAILY TAKE WITH 500 MG OF VITAMIN C DAILY active Not Available Not Available No t Available linezolid 600 mg tablet TAKE 1 TABLET BY MOUTH TWICE DAILY FOR 11 DAYS active Not Available Not Available No t Available trazodone 100 mg tablet active Not Available Not Available Not Available dicyclomine 20 mg tablet TAKE 1 TABLET BY MOUTH 4 TIMES DAILY active Not Available Not Available No t Available imiquimod 5 % topical cream packet active Not Available Not Available Not Available benzonatate 100 mg capsule 100 MG ORALLY THREE TIMES A DAY NEEDED FOR COUGH active Not Available Not Available No t Available prednisone 2.5 mg tablet TAKE 1-3 TABLETS BY MOUTH ONCE DAILY active Not Available Not Available No t Available cephalexin 500 mg capsule TAKE 1 CAPSULE BY MOUTH FOUR TIMES DAILY FOR 7 DAYS 12/07 completed Not Available Not Available Not Available telmisartan 40 mg tablet TAKE 1 TABLET BY MOUTH EVERY DAY active Not Available Not Available No t Available neomycin-po lymyxin-dex ameth 3.5 mg/mL-10,00 0 unit/mL-0.1 % eye drops active Not Available Not Available Not Available triamcinolo ne acetonide 0.1 % topical ointment APPLY TO RASH EVERY NIGHT AT BEDTIME AND COVER WITH BANDAGE UNTIL FLAT AND SMOOTH DIRECTED active Not Available Not Available No t Available trazodone 300 mg tablet 11/15 completed Not Available Not Available Not Available docusate sodium 100 mg capsule TAKE ONE CAPSULE BY MOUTH EVERY 12 HOURS active Not Available Not Available No t Available gabapentin 300 mg capsule active Not Available Not Available Not Available mupirocin 2 % topical ointment APPLY TO OPEN SORE ON LEG THREE TIMES DAILY UNTIL HEALED active Not Available Not Available No t Available furosemide 20 mg tablet TAKE 1 TABLET BY MOUTH EVERY DAY IN THE MORNING active Not Available Not Available No t Available ergocalcife rol (vitamin D2) 1,250 mcg (50,000 unit) capsule TK 1 C PO Q WK FOR 8 WKS active Not Available Not Available No t Available fluocinolon e 0.01 % topical solution active Not Available Not Available Not Available polyethylen e glycol 3350 17 gram/dose oral powder PLACE 17G INTO A GLASS A WATER DAILY FOR 30 DAYS active Not Available Not Available No t Available levofloxaci n 500 mg tablet TAKE 1 TABLET BY MOUTH ONCE DAILY 12/07 completed Not Available Not Available Not Available estradiol 0.01% (0.1 mg/gram) vaginal cream active Not Available Not Available Not Available methylpredn isolone 4 mg tablets in a dose pack 11/15 completed Not Available Not Available Not Available timolol maleate 0.5 % eye drops INSTILL 1 DROP INTO BOTH EYES EVERY MORNING active Not Available Not Available No t Available ketoconazol e 2 % topical cream APPLY TO RASH AREAS ON EYEBROWS/ FOREHEAD/ EARS TWICE DAILY FOR 4 WEEKS FOR FLARES active Not Available Not Available No t Available clobetasol 0.05 % scalp solution APPLY TOPICALLY TO THE AFFECTED AREA TWICE DAILY NEEDED FOR ITCHING OR FLAKING. DO NOT USE ON THE FACE active Not Available Not Available No t Available lisinopril 40 mg tablet TK 1 T PO QD active Not Available Not Available No t Available losartan 100 mg tablet active Not Available Not Available Not Available fluticasone propionate 50 mcg/actuati on nasal spray,suspe nsion active Not Available Not Available Not Available naproxen 500 mg tablet TK 1 T PO BID WF active Not Available Not Available No t Available amoxicillin 875 mg-potassiu m clavulanate 125 mg tablet TAKE 1 TABLET BY MOUTH TWICE DAILY FOR 10 DAYS 12/07 completed Not Available Not Available Not Available cyclobenzap rine 5 mg tablet TAKE 1-2 TABLETS BY MOUTH ONCE NIGHTLY active Not Available Not Available No t Available cyclosporin e 0.05 % eye drops in a dropperette active Not Available Not Available Not Available rosuvastati n 5 mg tablet active Not Available Not Available Not Available rosuvastati n 20 mg tablet active Not Available Not Available Not Available rosuvastati n 40 mg tablet TAKE 1 TABLET BY MOUTH EVERYDAY AT BEDTIME active Not Available Not Available No t Available topiramate 50 mg tablet 11/10 completed Not Available Not Available Not Available nitrofurant oin monohydrate /macrocryst als 100 mg capsule TAKE 1 CAPSULE BY MOUTH EVERY 12 HOURS FOR 5 DAYS active Not Available Not Available No t Available duloxetine 30 mg capsule,del ayed release active Not Available Not Available Not Available duloxetine 60 mg capsule,del ayed release TAKE 1 CAPSULE BY MOUTH EVERY DAY IN THE MORNING active Not Available Not Available No t Available lactulose 10 gram/15 mL oral solution TAKE 15ML BY MOUTH ONCE DAILY active Not Available Not Available No t Available pregabalin 75 mg capsule TAKE 1 CAPSULE BY MOUTH TWICE DAILY active Not Available Not Available No t Available Prodigy Voice Glucose Meter kit USE TO CHECK BLOOD SUGAR ONCE DAILY DIRECTED active Not Available Not Available No t Available Prodigy No Coding strips USE TO CHECK BLOOD SUGAR TWICE DAILY active Not Available Not Available No t Available Prevnar 13 (PF) 0.5 mL intramuscul ar syringe ADM 0.5ML IM UTD active Not Available Not Available No t Available Suprep Bowel Prep Kit 17.5 gram-3.13 gram-1.6 gram oral solution MIX 1 BOTTLE WITH WATER AND TAKE AT 6 PM THE DAY BEFORE TEST DRINK 2ND BOTTLE 4 HOURS PRIOR TO ARRIVAL active Not Available Not Available No t Available Lumigan 0.01 % eye drops INSTILL 1 DROP IN BOTH EYES EVERY EVENING AT BEDTIME DIRECTED active Not Available Not Available No t Available Accu-Chek FastClix Lancing Device kit USE TO CHECK BLOOD SUGAR active Not Available Not Available No t Available Accu-Chek Ember Plus Meter USE TO TEST BLOOD SUGAR ONCE DAILY active Not Available Not Available No t Available Ultra Thin Lancets 30 gauge USE TO CHECK BLOOD SUGAR ONCE DAILY active Not Available Not Available No t Available Super Thin Lancets 28 gauge USE TO CHECK BLOOD SUGAR ONCE DAILY active Not Available Not Available No t Available Restasis MultiDose 0.05 % eye drops active Not Available Not Available Not Available Fluvirin 45 mcg (15 mcg x 3)/0.5 mL intramuscul ar suspension ADM 0.5ML IM UTD active Not Available Not Available No t Available Shingrix (PF) 50 mcg/0.5 mL intramuscul ar suspension, kit active Not Available Not Available Not Available Accu-Chek Fastclix Lancet Drum USE TO TEST BLOOD SUGAR ONCE D active Not Available Not Available No t Available Afluria Quad (PF) 60 mcg (15 mcg x 4)/0.5 mL IM syringe ADM 0.5ML IM UTD active Not Available Not Available No t Available Afluria Qd 2018- (36 mos up)(PF)60 mcg (15 mcg x4)/0.5 mL IM syringe ADM 0.5ML IM UTD active Not Available Not Available No t Available Vitals Date Recorded Heart rate Respiratory rate Oxygen saturation Oxygen saturation in Arterial blood by Pulse oximetry Systolic blood pressure Diastolic blood pressure Provider Name and Address Organization Details Last Updated DateTime 4 87 /min 14 /min 98 % 98 % 118 mm[Hg] 66 mm[Hg] Jaye Chauhan [place] 4 14:41:27 Date Recorded Body height Body mass index (BMI) Body weight Heart rate Respiratory rate Body temperature Oxygen saturation Oxygen saturation in Arterial blood by Pulse oximetry Systolic blood pressure Diastolic blood pressure Provider Name and Address Organization Details Last Updated DateTime 4 157.48 cm 44.6 kg/m2 297788. 54 g 87 /min 16 /min 98 [degF] 98 % 98 % 118 mm[Hg] 66 mm[Hg] Cathy Clements [place] 4 15:23:18 Date Recorded Body height Body mass index (BMI) Body weight Heart rate Oxygen saturation Oxygen saturation in Arterial blood by Pulse oximetry Systolic blood pressure Diastolic blood pressure Provider Name and Address Organization Details Last Updated DateTime 4 157.48 cm 44.6 kg/m2 523483. 54 g 86 /min 99 % 99 % 120 mm[Hg] 68 mm[Hg] CASA Wynn [place] 4 14:28:02 Date Recorded Body height Body mass index (BMI) Body weight Heart rate Respiratory rate Oxygen saturation Oxygen saturation in Arterial blood by Pulse oximetry Systolic blood pressure Diastolic blood pressure Provider Name and Address Organization Details Last Updated DateTime 5 157.48 cm 44.6 kg/m2 220499. 54 g 89 /min 14 /min 98 % 98 % 132 mm[Hg] 73 mm[Hg] Jaye Chauhan [place] 15:52:27 Social History None recorded. Functional Status None recorded. Mental Status None recorded. Family History Nothing Reported. Medical History No medical history recorded. Gynecological HistoryNo gynecological history recorded. Obstetrics History GPAL:G 0 P 0 0 0 0 Past Encounters Encounter ID Performer Location Encounter Start Date Encounter Closed Date Diagnosis/Indication Diagnosis SNOMED-CT Code Diagnosis ICD10 Code Diagnosis Note [id number] [facility] [address] [place] [address], [address] [address] 02/06/2021 00:00:00 02/21/2021 13:56:12 [id number] [facility] [address] [place] [address], [address] [address] 09/02/2021 00:00:00 09/02/2021 09:48:24 [id number] [facility] [address], [address] [address] 04/16/2022 00:00:00 04/16/2022 10:33:39 [id number] Victor Hugo Robison DPM [facility] [place] [address] [facility] [address] [place] [address] 12/07/2022 08:54:11 12/07/2022 09:35:34 Diabetes mellitus 70560942 E11.9 continue with PCP recommenda tionsCheck feet daily for wounds infectionC ontinue bracingFol low-up in 3 months for routine foot care Paronychia of toe of right foot 7597942317 4621010 L03.031 bilateral cornersSla nt back procedure performedF ollow-up as needed Dystrophia unguium 08508 009 L60.3 Nails 1 through 10 were debrided with sharp mechanical debridemen t without incident. Nails were debrided and greater than 50% length and thickness where needed. Foot callus 835674083 L8 4 right sub 5th mildContin ue supportive shoe gearFollow -up as needed [id number] Victor Hugo Robison DPM [facility] [address], [address] [address] 07/29/2023 09:01:17 08/04/2023 08:00:54 Paronychia of toe of right foot 1587034124 0095223 L03.031 Dystrophia unguium 69764 009 L60.3 Unable to cut own toenails 172140378 Z74.1 [id number] Victor Hugo Robison DPM [facility] [address], [address] [address] 08/05/2023 14:36:30 08/05/2023 15:30:35 Paronychia of toe of right foot 0412245907 6638270 L03.031 lateralpar tial matrix todaywound care and dressing instructio n reviewedmo nitor for infection if presents seek medical attention immediatel yfollow up in 2 weeks [id number] Victor Hugo Robison DPM [facility] Pod[facility] [address], [address] [address] 08/10/2023 15:07:03 08/17/2023 14:36:53 Paronychia of toe of right foot 3023743246 7722598 L03.031 lateralpar tial matrix - healedwoun d care and dressing instructio n reviewedmo nitor for infection if presents seek medical attention immediatel yfollow up as needed [id number] Victor Hugo Robison DPM [facility] Pod[facility] [address], [address] [address] 02/08/2024 14:22:18 02/08/2024 14:57:06 Diabetes mellitus 35293081 E11.9 continue with PCP recommenda tionsCheck feet daily for wounds infectionC ontinue bracingFol low-up in 3 months for routine foot care Dystrophia unguium 42710 009 L60.3 nails debrided without incident Foot-drop 5008070 M21.37 1 M21.372 Continue bracing [id number] Victor Hugo Robison DPM [facility] Pod[facility] [address], [address] [address] 08/01/2024 15:43:20 08/02/2024 16:38:07 Diabetes mellitus 21049378 E11.9 continue with PCP recommenda tionsCheck feet daily for wounds infectionC ontinue bracingFol low-up in 3 months for routine foot care Dystrophia unguium 23239 009 L60.3 nails debrided without incident Health Concerns Section Related Observation LastModified by Organization Detai ls LastModified Time None Recorded Concern Status LastModified by Organization Details LastModified Time None Recorded Advance Directives Directive None Recorded Payers Encounter Date Sequence Insurance Name Policy Number Policy Garcia Covered Member ID Garcia Member ID Guarantor Name 07/27/2023 1 [place] Camille Orozco [id number] Camille Linda Pam 07/27/2023 2 [employer] [place] ON [place] AFTER 2020 (MEDICAID REPLACEMENT - O) Camille Orozco [id number] Camille Linda [place] 08/05/2023 1 [place] Camille Orozco [id number] Camille Linda [place] 08/05/2023 2 [employer] [place] 2020 [place] REPLAC[place] - O) Camille Orozco [id number] Camille Linda [place] 08/10/2023 1 [place] Camille Warreney [id number] Camille Linda Pam 08/10/2023 2 [employer] [place] 2020 ([place]PLAC[place] - O) Camille Orozco [id number] Camille Linda [place] 02/08/2024 1 [place] Camille Warreney [id number] Camille Linda [place] 02/08/2024 2 [employer] [place] 2020 ([place]ICA[place] REPLAC[place] - HMO) Camille Orozco [id number] Camille Linda Pam 08/01/2024 1 [place] Camille Warreney [id number] Camille Orozco 08/01/2024 2 [employer] BETTER [facility] OF [facility] ON OR AFTER 06/04/2020 (MEDICAID REPLACEMENT - HMO) Camille Orozco [id number] Camille Orozco Notes Date Note Type Note Provider Name and Address Organization Details Recorded Time 08/05/2023 text/html Patient returns to the office for toenail procedure. Denies any infection. Patient understands all risks, benefits, complications and elects to continue. No guarantees given. Victo rHugo Robison DPM [address], [employer], [place], [address], [employer] 08/05/2023 15:29:47 08/10/2023 text/html Patient is 68-year-old female, who returns the office for follow-up on lateral partial matrix ectomy of the great toenail, which is healed. Patient said she is not having any signs of infection. Patient states she did have some mild discomfort but that has resolved. Patient denies any of the complaints. Victor Hugo Robison DPM [address], [place], [address], [employer] 08/10/2023 16:14:20 02/08/2024 text/html . Patient is a 69-year-old female diabetic who returns the office for routine diabetic foot care she denies any new complaints she continues wearing her braces or foot drop bilateral. Patient states she is doing well she did have a fall which she was seen in the emergency room for cut on her forehead which is completely healed she denies any further complications and would like her toenails cut. Victor Hugo Robison DPM [address] [employer] [employer], [place], [address], [employer] 02/08/2024 14:43:29 08/01/2024 text/html . Patient is 69-year-old female diabetic she states that she is no longer diabetic she returns for follow-up on nail procedure which she has no continued issues with the toenails. Patient states that she has elongated toenails to the right foot nails and would like to have them cut as she can not bend over to cut them. Patient continues bilateral AFOs with weight-bearing she states she is doing well. Patient denies any other complaints. Victor Hugo Robison, [facility] [address] [facility], [facility] [address], [place], [address], [facility] - [facility] 08/01/2024 16:24:30 OBGyn Episode No OBEpisode recorded.
--- OUTSIDE RECORDS SUMMARY | 2024-10-11 13:49 | XMS_ITS | Clinical Summary ---
Author Organization [facility] Address [address] [place] [address] Care Team Providers Care Broadcast Correspondent Name Role Phone Mike Gautam DO Primary Care Provider +1 [phone] Source Comments [facility],non-owned Affiliates and Associated Physician Practices is amultiple site organization consisting of ambulatory clinics and hospital sitesin [place], [place], [place] and [place]. This disclosure is being madepursuant to the Care Everywhere program and may not contain all information available regarding this patient. Last updated 18.[facility] 39 Health Allergies Active Allergy Reactions Criticality Noted Date [...] VACCINE (1 - 2023-2 5 season) 2024 DEPRESSION SCREENING 07/05/2024 MEDICARE AWV CALENDAR YEAR 2024 INFLUENZA VACCINE (Season Ended) 2025 Respiratory Syncytial Virus (RSV) Vaccine Pt: or [...] age to complete this topic Care Teams Broadcast Correspondent Relationship Specialty Start Date End Date Mike Gautam DO PCP - General 05/08/15
[2024-10-11] MEDS: SODIUM CHLORIDE 0.9% IV 1,000 ML 999 ML IV CONT (14:00)
[2024-10-11] MEDS: MORPHINE SULFATE (*CRX) 4 MG/ML INJ IV PUSH ×2 (14:00→15:14)
[2024-10-11] MEDS: ONDANSETRON INJ 4 MG/2 ML VIAL IV PUSH ×2 (14:00→15:14)
--- OUTSIDE RECORDS SUMMARY | 2024-10-11 14:30 | XMS_ITS | Clinical Summary ---
Author Organization [facility] Address [address] [place] [address] Care Team Providers Care Paleology Teacher Name Role Phone Mike Gautam DO Primary Care Provider +1 [phone] Source Comments [facility],non-owned Affiliates and Associated Physician Practices is amultiple site organization consisting of ambulatory clinics and hospital sitesin [place], [place], [place] and [place]. This disclosure is being madepursuant to the Care Everywhere program and may not contain all information available regarding this patient. Last updated 18.[facility] [employer] Allergies Active Allergy Reactions Criticality Noted Date [...] age to complete this topic Care Teams Paleology Teacher Relationship Specialty Start Date End Date Mike Gautam DO PCP - General 05/08/15
--- OUTSIDE RECORDS SUMMARY | 2024-10-11 14:30 | XMS_ITS | Referral Summary ---
Author Organization [facility] Address [address] [place] [address] Care Team Providers Care Key Filer Name Role Phone Mike Gautam DO Primary Care Provider +1- [phone] Allergies Active Allergy Reactions Criticality Noted Date [...] (10/16/2021): Added automatically from request for surgery [id number] Diverticulitis 10/16/2021 Overview (10/16/2021): Added automatically from request for surgery [id number] Colitis 09/27/2021 Immunizations Immunization Administration Dates Next [...] often do you attend chur ch or taoist services? More than 4 times per year 09/29/2021 Do you belong to any clubs o r organizations such as quaker groups, unions, fraternal or athletic groups, or [...] place to sleep or slept in a assisted (including now)? No 09/29/2021 Comments No Sex and Gender Information Value Date Recorded Sex Assigned at Not on file Legal Sex Female 12:14 AM EXHIBIT PREPARATOR Gender Identity Not on file Sexual Orientation Not on file Last Filed Vital Signs Vital Sign Reading Time Taken Comments Blood Pressure 160/98 08/17/2022 9:38 AM EXHIBIT PREPARATOR Pulse 83 08/17/2022 9:38 AM EXHIBIT PREPARATOR Temperature 37 C (98.6 F) 08/17/2022 9:38 AM EXHIBIT PREPARATOR Respiratory Rate 18 08/17/2022 9:38 AM EXHIBIT PREPARATOR Oxygen Saturation 95% 08/17/2022 9:38 AM EXHIBIT PREPARATOR Inhaled Oxygen Concentration - - Weight 120.7 kg (266 lb) 08/17/2022 9:38 AM EXHIBIT PREPARATOR Height 154.9 cm (5' 1 ) 08/17/2022 9:38 AM EXHIBIT PREPARATOR Body Mass Index 50.26 08/17/2022 9:38 AM EXHIBIT PREPARATOR Plan of Treatment Not on file Medical Devices Implanted Type Area Repair Specialist Device Identifier Shelf Expiration Date Model / Serial / Lot Integra Lifesciences Earl [id number] Integra 5x4in Mesh Dressing Biological Bovine Collagen - [id number] Implanted:Qty: 1 on 09/29/2021 by Leo Boone Jr., MD at [facility] Right: Leg Integra [employer] Earl 06/03/2022 [id number] / / [id number] Procedures Procedure Name Priority Date/Time Associated Diagnosis Comments COLONOSCOPY 11/21/2021 9:21 AM CDT from Last 3 Months or Most Recently Relevant to Health Maintenance Results * COLONOSCOPY (11/21/2021 9:21 AM CDT) Anatomical Region Laterality Modality Other Narrative Procedure Note Zenon Barcenas MD - 11/21/2021 9:21 AM CDT [facility] End[facility] Patient Name: Camille Orozco [...] bowel preparation was evaluated using the BBPS ([place] Bowel Preparation Scale) with scores of:Right Colon [...] April 23, 2011 01/29/2007 01/29/2007 Insurance MEDICARE [facility] MEDICARE [facility] [employer] MEDICARE [facility] Advance Directives For more information, please contact: [phone] * Full Code (Latest Code Status on File) Date Activated Date Inactivated Comments 09/27/2021 11:16 PM 10/03/2021 7:15 PM Care Teams Key Filer Relationship Specialty Start Date End Date Mike Gautam DO PCP - General 09/27/21
--- OUTSIDE RECORDS SUMMARY | 2024-10-11 14:30 | XMS_ITS | Clinical Summary ---
Author Organization [facility][1] Address [address] [place] [address] Care Team Providers Care Floor Winder Name Role Phone Mike Gautam DO Primary Care Provider +1- [phone] Allergies Active Allergy Reactions Criticality Noted Date [...] (10/16/2021): Added automatically from request for surgery [id number] Diverticulitis 10/16/2021 Overview (10/16/2021): Added automatically from request for surgery [id number] Colitis 09/27/2021 Immunizations Immunization Administration Dates Next [...] often do you attend chur ch or protestant services? More than 4 times per year 09/29/2021 Do you belong to any clubs o r organizations such as episcopalian groups, unions, fraternal or athletic groups, or [...] place to sleep or slept in a longterm (including now)? No 09/29/2021 Comments No Sex and Gender Information Value Date Recorded Sex Assigned at Not on file Legal Sex Female 12:14 AM WATCH INSPECTOR FINAL MOVEMENT Gender Identity Not on file Sexual Orientation [...] Comments Blood Pressure 160/98 08/17/2022 9:38 AM WATCH INSPECTOR FINAL MOVEMENT Pulse 83 08/17/2022 9:38 AM WATCH INSPECTOR FINAL MOVEMENT Temperature 37 C (98.6 F) 08/17/2022 9:38 AM WATCH INSPECTOR FINAL MOVEMENT Respiratory Rate 18 08/17/2022 9:38 AM WATCH INSPECTOR FINAL MOVEMENT Oxygen Saturation 95% 08/17/2022 9:38 AM WATCH INSPECTOR FINAL MOVEMENT Inhaled Oxygen Concentration - - Weight 120.7 kg (266 lb) 08/17/2022 9:38 AM WATCH INSPECTOR FINAL MOVEMENT Height 154.9 cm (5' 1 ) 08/17/2022 9:38 AM WATCH INSPECTOR FINAL MOVEMENT Body Mass Index 50.26 08/17/2022 9:38 AM WATCH INSPECTOR FINAL MOVEMENT Plan of Treatment Health Maintenance Due Date [...] 11/21/2021, 09/21/2013 Medical Devices Implanted Type Area Mash Processing Operator Device Identifier Shelf Expiration Date Model / Serial / Lot Integra [employer] [id number] Integra 5x4in Mesh Dressing Biological Bovine Collagen - [id number] Implanted:Qty: 1 on 09/29/2021 by Leo Boone Jr., MD at [facility] Right: Leg Integra Lif[employer] Earl 06/03/2022 [id number] / / [id number] Procedures Procedure Name Priority Date/Time Associated Diagnosis Comments COLONOSCOPY 11/21/2021 9:21 AM CDT from Last 3 Months or Most Recently Relevant to Health Maintenance Results * COLONOSCOPY (11/21/2021 9:21 AM CDT) Anatomical Region Laterality Modality Other Narrative Procedure Note Zenon Barcenas MD - 11/21/2021 9:21 AM CDT - [facility] Endoscopy Lab Patient Name: Camille Orozco [...] bowel preparation was evaluated using the BBPS ([place] Bowel Preparation Scale) with scores of:Right Colon [...] April 23, 2011 01/29/2007 01/29/2007 Insurance MEDICARE [facility] MEDICARE [facility] MEDICARE [facility] MEDICARE [facility] Advance Directives For more information, please contact: [phone] * Full Code (Latest Code Status on File) Date Activated Date Inactivated Comments 09/27/2021 11:16 PM 10/03/2021 7:15 PM Care Teams Floor Winder Relationship Specialty Start Date End Date Mike Gautam DO PCP - General 09/27/21
== END 2024-10-11 15:49 | disposition home or self-care (01) ==
PROVIDERS: Student in an Organized Health Care Education/Training Program; Emergency Provider Emergency Medicine; PCP Internal Medicine
DX: K57.92 Diverticulitis of intestine, part unspecified, without perforation or abscess without bleeding (principal); E11.9 Type 2 diabetes mellitus without complications; G40.909 Epilepsy, unspecified, not intractable, without status epilepticus; F41.9 Anxiety disorder, unspecified; G47.30 Sleep apnea, unspecified; K21.9 Gastro-esophageal reflux disease without esophagitis; F32.A Depression, unspecified; M21.372 Foot drop, left foot; M21.371 Foot drop, right foot
CPT/HCPCS: 36415; 74177; 80053; 81003; 83690; 85025; 96361; 96374; 96375; 96376; 99284; J2270; J2405; J7030; Q9967

== ENCOUNTER 2024-10-12 12:19 | Emergency (ER) | payer MEDICARE, MEDICAID, SELFPAY ==
[2024-10-12 12:29] VITALS: BP 156/66; PULSE 80; RESP 18; TEMP 36.7; O2SAT 100
--- OUTSIDE RECORDS SUMMARY | 2024-10-12 12:44 | XMS_ITS | Referral Summary ---
Author Organization [facility] Address [address] [place] [address] Care Team Providers Care Liquefaction And Regasification Helper Name Role Phone Mike Gautam DO Primary Care Provider +1- [phone] Allergies Active Allergy Reactions Criticality Noted Date [...] (10/16/2021): Added automatically from request for surgery [id number] Diverticulitis 10/16/2021 Overview (10/16/2021): Added automatically from request for surgery [id number] Colitis 09/27/2021 Immunizations Immunization Administration Dates Next [...] often do you attend chur ch or tenriism services? More than 4 times per year 09/29/2021 Do you belong to any clubs o r organizations such as restorationism groups, unions, fraternal or athletic groups, or [...] place to sleep or slept in a alf (including now)? No 09/29/2021 Comments No Sex and Gender Information Value Date Recorded Sex Assigned at Not on file Legal Sex Female 12:14 AM DATA CONSULTANT Gender Identity Not on file Sexual Orientation Not on file Last Filed Vital Signs Vital Sign Reading Time Taken Comments Blood Pressure 160/98 08/17/2022 9:38 AM DATA CONSULTANT Pulse 83 08/17/2022 9:38 AM DATA CONSULTANT Temperature 37 C (98.6 F) 08/17/2022 9:38 AM DATA CONSULTANT Respiratory Rate 18 08/17/2022 9:38 AM DATA CONSULTANT Oxygen Saturation 95% 08/17/2022 9:38 AM DATA CONSULTANT Inhaled Oxygen Concentration - - Weight 120.7 kg (266 lb) 08/17/2022 9:38 AM DATA CONSULTANT Height 154.9 cm (5' 1 ) 08/17/2022 9:38 AM DATA CONSULTANT Body Mass Index 50.26 08/17/2022 9:38 AM DATA CONSULTANT Plan of Treatment Not on file Medical Devices Implanted Type Area Pay Clerk Device Identifier Shelf Expiration Date Model / Serial / Lot Integra Lifesciences Earl [id number] Integra 5x4in Mesh Dressing Biological Bovine Collagen - [id number] Implanted:Qty: 1 on 09/29/2021 by Leo Boone Jr., MD at [facility] Right: Leg Integra [employer] Earl 06/03/2022 [id number] / / [id number] Procedures Procedure Name Priority Date/Time Associated Diagnosis Comments COLONOSCOPY 11/21/2021 9:21 AM CDT from Last 3 Months or Most Recently Relevant to Health Maintenance Results * COLONOSCOPY (11/21/2021 9:21 AM CDT) Anatomical Region Laterality Modality Other Narrative Procedure Note Zenon Barcenas MD - 11/21/2021 9:21 AM CDT [facility] Endoscopy Lab Patient Name: Camille Orozco [...] bowel preparation was evaluated using the BBPS ([place] Bowel Preparation Scale) with scores of:Right Colon [...] April 23, 2011 01/29/2007 01/29/2007 Insurance MEDICARE [facility] MEDICARE [facility] [employer]PA MEDICARE [facility] Advance Directives For more information, please contact: [phone] * Full Code (Latest Code Status on File) Date Activated Date Inactivated Comments 09/27/2021 11:16 PM 10/03/2021 7:15 PM Care Teams Liquefaction And Regasification Helper Relationship Specialty Start Date End Date Mike Gautam DO PCP - General 09/27/21
--- OUTSIDE RECORDS SUMMARY | 2024-10-12 12:44 | XMS_ITS | Clinical Summary ---
Author Organization [facility] Address [address] [place] [address] Care Team Providers Care Customs Compliance Manager Name Role Phone Mike Gautam DO Primary Care Provider +1- [phone] Allergies Active Allergy Reactions Criticality Noted Date [...] (10/16/2021): Added automatically from request for surgery [id number] Diverticulitis 10/16/2021 Overview (10/16/2021): Added automatically from request for surgery [id number] Colitis 09/27/2021 Immunizations Immunization Administration Dates Next [...] often do you attend chur ch or latter day services? More than 4 times per year [...] place to sleep or slept in a jail (including now)? No 09/29/2021 Comments No Sex and Gender Information Value Date Recorded Sex Assigned at Not on file Legal Sex Female 12:14 AM MANAGER GAS Gender Identity Not on file Sexual Orientation [...] Comments Blood Pressure 160/98 08/17/2022 9:38 AM MANAGER GAS Pulse 83 08/17/2022 9:38 AM MANAGER GAS Temperature 37 C (98.6 F) 08/17/2022 9:38 AM MANAGER GAS Respiratory Rate 18 08/17/2022 9:38 AM MANAGER GAS Oxygen Saturation 95% 08/17/2022 9:38 AM MANAGER GAS Inhaled Oxygen Concentration - - Weight 120.7 kg (266 lb) 08/17/2022 9:38 AM MANAGER GAS Height 154.9 cm (5' 1 ) 08/17/2022 9:38 AM MANAGER GAS Body Mass Index 50.26 08/17/2022 9:38 AM MANAGER GAS Plan of Treatment Health Maintenance Due Date [...] season) 2024 07/28/2021, 09/28/2020, 08/30/2020 Influenza Vaccine (Season Ended) 2025 04/14/2021, 03/08/2020, 03/13/2019, Additional history exists DTaP/Tdap/Td Vaccine (3 - Td or Tdap) 09/29/2031 09/28/2021, 12/21/2014 Colon Cancer Screening-Colonoscopy 11/22/2031 11/21/2021, 09/21/2013 Zoster Vaccine Completed 05/11/2019, 01/31/2019 Colon Cancer Screening-CT Colonography Discontinued 11/21/2021, 09/21/2013 Colon Cancer Screening-DNA Stool Discontinued 11/22/19, 09/21/2013 Colon Cancer Screening-FIT Discontinued 11/21/2021, Colon Cancer Screening-Sigmoidoscopy Discontinued 11/21/2021, 09/21/2013 Medical Devices Implanted Type Area Senior Erp Consultant Device Identifier Shelf Expiration Date Model / Serial / Lot Integra [employer] Earl [id number] Integra 5x4in Mesh Dressing Biological Bovine Collagen - [id number] Implanted:Qty: 1 on 09/29/2021 by Leo Boone Jr., MD at [facility] Right: Leg Integra [employer] Earl 06/03/2022 [id number] / / [id number] Procedures Procedure Name Priority Date/Time Associated Diagnosis Comments COLONOSCOPY 11/21/2021 9:21 AM CDT from Last 3 Months or Most Recently Relevant to Health Maintenance Results * COLONOSCOPY (11/21/2021 9:21 AM CDT) Anatomical Region Laterality Modality Other Narrative Procedure Note Zenon Barcenas MD - 11/21/2021 9:21 AM CDT - [facility] Endoscopy Lab Patient Name: Camille Orozco Procedure [...] bowel preparation was evaluated using the BBPS ([place] Bowel Preparation Scale) with scores of:Right Colon [...] April 23, 2011 01/29/2007 01/29/2007 Insurance MEDICARE [facility] MEDICARE [facility] MEDICARE [facility] MEDICARE [facility] Advance Directives For more information, please contact: [phone] * Full Code (Latest Code Status on File) Date Activated Date Inactivated Comments 09/27/2021 11:16 PM 10/03/2021 7:15 PM Care Teams Customs Compliance Manager Relationship Specialty Start Date End Date Mike Gautam DO PCP - General 09/27/21
--- OUTSIDE RECORDS SUMMARY | 2024-10-12 12:44 | XMS_ITS | Clinical Summary ---
Author Organization [facility] Address [address] [place] [address] Care Team Providers Care Mine Inspector Name Role Phone Mike Gautam DO Primary Care Provider +1 [phone] Source Comments [facility],non-owned Affiliates and Associated Physician Practices is amultiple site organization consisting of ambulatory clinics and hospital sitesin [place], [place], [place] and [place]. This disclosure is being madepursuant to the Care Everywhere program and may not contain all information available regarding this patient. Last updated 18.[facility] [place] Allergies Active Allergy Reactions Criticality Noted Date [...] age to complete this topic Care Teams Mine Inspector Relationship Specialty Start Date End Date Mike Gautam DO PCP - General 05/08/15
[2024-10-12] MEDS: LORazepam (*CRX) 0.5 MG TABLET PO (13:18)
--- OUTSIDE RECORDS SUMMARY | 2024-10-12 13:20 | XMS_ITS | Referral Summary ---
Author Organization [facility] Address [address] [place] [address] Care Team Providers Care Jig Maker Name Role Phone Mike Gautam DO Primary Care Provider +1- [phone] Allergies Active Allergy Reactions Criticality Noted Date [...] (10/16/2021): Added automatically from request for surgery [id number] Diverticulitis 10/16/2021 Overview (10/16/2021): Added automatically from request for surgery [id number] Colitis 09/27/2021 Immunizations Immunization Administration Dates Next [...] often do you attend chur ch or yazdanism services? More than 4 times per year 09/29/2021 Do you belong to any clubs o r organizations such as advent groups, unions, fraternal or athletic groups, or [...] place to sleep or slept in a chcf (including now)? No 09/29/2021 Comments No Sex and Gender Information Value Date Recorded Sex Assigned at Not on file Legal Sex Female 12:14 AM SUB PRIOR Gender Identity Not on file Sexual Orientation Not on file Last Filed Vital Signs Vital Sign Reading Time Taken Comments Blood Pressure 160/98 08/17/2022 9:38 AM SUB PRIOR Pulse 83 08/17/2022 9:38 AM SUB PRIOR Temperature 37 C (98.6 F) 08/17/2022 9:38 AM SUB PRIOR Respiratory Rate 18 08/17/2022 9:38 AM SUB PRIOR Oxygen Saturation 95% 08/17/2022 9:38 AM SUB PRIOR Inhaled Oxygen Concentration - - Weight 120.7 kg (266 lb) 08/17/2022 9:38 AM SUB PRIOR Height 154.9 cm (5' 1 ) 08/17/2022 9:38 AM SUB PRIOR Body Mass Index 50.26 08/17/2022 9:38 AM SUB PRIOR Plan of Treatment Not on file Medical Devices Implanted Type Area Baker Chef Device Identifier Shelf Expiration Date Model / Serial / Lot Integra [employer]esciences Earl [id number] Integra 5x4in Mesh Dressing Biological Bovine Collagen - [id number] Implanted:Qty: 1 on 09/29/2021 by Leo Boone Jr., MD at [facility] Right: Leg Integra [employer] 06/03/2022 [id number] / / [id number] Procedures Procedure Name Priority Date/Time Associated Diagnosis Comments COLONOSCOPY 11/21/2021 9:21 AM CDT from Last 3 Months or Most Recently Relevant to Health Maintenance Results * COLONOSCOPY (11/21/2021 9:21 AM CDT) Anatomical Region Laterality Modality Other Narrative Procedure Note Zenon Barcenas MD - 11/21/2021 9:21 AM CDT [facility] Endoscopy Lab Patient Name: Camille Orozco [...] bowel preparation was evaluated using the BBPS ([place] Bowel Preparation Scale) with scores of:Right Colon [...] April 23, 2011 01/29/2007 01/29/2007 Insurance MEDICARE [facility] MEDICARE [facility] [employer]PA MEDICARE [facility] Advance Directives For more information, please contact: [phone] * Full Code (Latest Code Status on File) Date Activated Date Inactivated Comments 09/27/2021 11:16 PM 10/03/2021 7:15 PM Care Teams Jig Maker Relationship Specialty Start Date End Date Mike Gautam DO PCP - General 09/27/21
--- OUTSIDE RECORDS SUMMARY | 2024-10-12 13:20 | XMS_ITS | Clinical Summary ---
Author Organization [facility] Address [address] [place] [address] Care Team Providers Care Livestock Haulier Name Role Phone Mike Gautam DO Primary Care Provider +1 [phone] Source Comments [facility],non-owned Affiliates and Associated Physician Practices is amultiple site organization consisting of ambulatory clinics and hospital sitesin [place], [place], [place] and [place]. This disclosure is being madepursuant to the Care Everywhere program and may not contain all information available regarding this patient. Last updated 18.[facility] [place] Allergies Active Allergy Reactions Criticality Noted Date [...] age to complete this topic Care Teams Livestock Haulier Relationship Specialty Start Date End Date Mike Gautam DO PCP - General 05/08/15
--- OUTSIDE RECORDS SUMMARY | 2024-10-12 13:20 | XMS_ITS | Clinical Summary ---
Author Organization [facility] Address [address] [place] [address] Care Team Providers Care Access Manager Name Role Phone Mike Gautam DO Primary Care Provider [phone] Allergies Active Allergy Reactions Criticality Noted Date [...] (10/16/2021): Added automatically from request for surgery [id number] Diverticulitis 10/16/2021 Overview (10/16/2021): Added automatically from request for surgery [id number] Colitis 09/27/2021 Immunizations Immunization Administration Dates Next [...] often do you attend chur ch or adventist services? More than 4 times per year 09/29/2021 Do you belong to any clubs o r organizations such as judaism groups, unions, fraternal or athletic groups, or [...] place to sleep or slept in a prison (including now)? No 09/29/2021 Comments No Sex and Gender Information Value Date Recorded Sex Assigned at Not on file Legal Sex Female 12:14 AM SYSTEM ARCHIVE ANALYST Gender Identity Not on file Sexual Orientation [...] Comments Blood Pressure 160/98 08/17/2022 9:38 AM SYSTEM ARCHIVE ANALYST Pulse 83 08/17/2022 9:38 AM SYSTEM ARCHIVE ANALYST Temperature 37 C (98.6 F) 08/17/2022 9:38 AM SYSTEM ARCHIVE ANALYST Respiratory Rate 18 08/17/2022 9:38 AM SYSTEM ARCHIVE ANALYST Oxygen Saturation 95% 08/17/2022 9:38 AM SYSTEM ARCHIVE ANALYST Inhaled Oxygen Concentration - - Weight 120.7 kg (266 lb) 08/17/2022 9:38 AM SYSTEM ARCHIVE ANALYST Height 154.9 cm (5' 1 ) 08/17/2022 9:38 AM SYSTEM ARCHIVE ANALYST Body Mass Index 50.26 08/17/2022 9:38 AM SYSTEM ARCHIVE ANALYST Plan of Treatment Health Maintenance Due Date [...] 11/21/2021, 09/21/2013 Medical Devices Implanted Type Area Otr [employer] Truck Driver Device Identifier Shelf Expiration Date Model / Serial / Lot Integra [employer] Earl [id number] Integra 5x4in Mesh Dressing Biological Bovine Collagen - [id number] Implanted:Qty: 1 on 09/29/2021 by Leo Boone Jr., MD at [facility] Right: Leg Integra [employer] Earl 06/03/2022 [id number] / / [id number] Procedures Procedure Name Priority Date/Time Associated Diagnosis Comments COLONOSCOPY 11/21/2021 9:21 AM CDT from Last 3 Months or Most Recently Relevant to Health Maintenance Results * COLONOSCOPY (11/21/2021 9:21 AM CDT) Anatomical Region Laterality Modality Other Narrative Procedure Note Zenon Barcenas MD - 11/21/2021 9:21 AM CDT - [facility] Patient Name: Camille [...] bowel preparation was evaluated using the BBPS ([place] Bowel Preparation Scale) with scores of:Right Colon [...] April 23, 2011 01/29/2007 01/29/2007 Insurance MEDICARE [employer] MEDICARE [facility] MEDICARE [facility] MEDICARE [employer] Advance Directives For more information, please contact: [phone] * Full Code (Latest Code Status on File) Date Activated Date Inactivated Comments 09/27/2021 11:16 PM 10/03/2021 7:15 PM Care Teams Access Manager Relationship Specialty Start Date End Date Mike Gautam DO PCP - General 09/27/21
--- NOTE | 2024-10-12 13:35 | ED_ITS ---
HPI - Headache General Chief Complaint: Headache Stated Complaint: Vomiting ,headache, cramping-seen yesterday Time Seen by Provider: 10/12/24 12:51 Source: patient and old records reviewed Mode of arrival: ambulatory Limitations: no limitations History of Present Illness HPI Narrative: Patient is a 69 y/o female who presents to the ED with c/o N/V. Patient was seen in the ED here yesterday for abdominal pain, diagnosed with colitis/diverticulitis. She does have history of previous diverticulitis. Started on Flagyl and Levaquin. Patient has been taking antibiotics as prescribed. Today developed nausea and vomiting, has had several episodes of emesis. Reports she feels very shaky and having cramps and tingling in her extremities. She does feel anxious. She still feels nauseous currently. Denies fever, severe abdominal pain. Related Data Home Medications ?Medication ?Instructions ?Recorded ?Confirmed ?Last Taken ?Type carbamazepine 400 mg 400 mg PO HS 06/08/19 09/29/24 02/16/21 History tablet,extended release,12 hr (Tegretol XR) cholecalciferol (vitamin D3) 125 5,000 unit PO DAILY 06/08/19 09/29/24 02/16/21 History mcg (5,000 unit) capsule trazodone 100 mg tablet 100 mg PO QPM 06/08/19 09/29/24 02/16/21 History bimatoprost 0.01 % eye drops 1 drp ophthalmic (eye) HS 11/29/19 09/29/24 02/16/21 History ([place]) vitamins A,C,A-yytq-imfowr 2,148 1 tablet PO DAILY 11/29/19 09/29/24 02/16/21 History mcg-113 mg-45 mg-17.4 mg tablet (PreserVision AREDS) Allergies Allergy/AdvReac Type Severity Reaction Status Date / Time cephalexin (From Keflex) Allergy Itching Verified 10/12/24 12:34 Head nitrofurantoin (From Allergy Hives Verified 10/12/24 12:34 Macrobid) Penicillins AdvReac Unknown DIVERTICULI Verified 10/12/24 12:34 TIS diphenhydramine (From AdvReac Seizure Verified 10/12/24 12:34 Benadryl) Review of Systems 2 Review of Systems: All systems reviewed & are unremarkable except as noted in HPI. All systems reviewed & are unremarkable except as noted in HPI and below PMFSH Past Medical History Medical History Post-menopausal Lump of breast, right Abdominal pain Inflammatory arthritis Bilateral sacroiliitis Elevated erythrocyte sedimentation rate Morbid obesity with BMI of 45.0-49.9, adult Shoulder pain, left Callus of heel Diabetes mellitus type 2 in obese Hospital discharge follow-up Marijuana use Altered mental status Seizure disorder History of marijuana use Altered mental status Anxiety Spinal stenosis Arthritis Diverticulitis Obstructive sleep apnea Noncompliant with BiPAP. Glaucoma Macular degeneration History of rheumatic fever as a child Morbid obesity Gastroesophageal reflux disease Reflex sympathetic dystrophy Essential hypertension Bilateral foot-drop BPPV (benign paroxysmal positional vertigo) Hypocalcemia Abscess Fatigue Elevated glucose level Diverticulosis large intestine w/o perforation or abscess w/bleeding Morbid obesity with BMI of 50.0-59.9, adult Acute UTI Ileus Former smoker Seizure Rectocele Prediabetes Hemoglobin A1c was 6.5% in January 2021. Depression Hyperlipidemia Vitamin D deficiency Surgical History Surgical History History of sinus surgery History of tonsillectomy History of bilateral cataract extraction History of bilateral breast reduction surgery History of colonoscopy with polypectomy History of laparoscopic cholecystectomy History of partial hysterectomy History of fusion of cervical spine (1999) History of repair of rectocele (12/08/19) Rectocele repair/posterior colporrhaphy and perineoplasty. Family History Family History Mother Diabetes mellitus Hypertension Parkinsons disease Heart attack Father Diabetes mellitus Hypertension Renal failure Heart attack Cerebrovascular accident Social History Social History Social History: The patient lives in her own home in [place]. A friend is currently staying with her. She has 2 grown children. Ambulates with a walker or cane due to footdrop and decreased mobility. 5 pack-year smoking history, quit 1977. She drinks 1 to 2 glasses of wine a week. Smokes marijuana couple of times a week. She designates her son Ousmane Orozco and her brother Mike Orozco as her surrogate decision makers and she wishes to be a full code. 1 cup caffeine daily Smoking status: Former smoker Smoking end date: 07/05/78 Alcohol intake: former Substance use: current Substance use type: marijuana Lack of Transportation: No Lack of Food: Never True Current Housing: I Have Housing Concerned About Future Housing: No Difficulty Paying Gas/Electric Bills: No Difficulty Paying for Meds: No Currently Unemployed: No Education: Grade School Difficulty w/ Childcare or Family Care: No Living arrangements: alone Exam 2 Narrative: GENERAL: Well appearing, morbidly obese with BMI 47.6, non-toxic, in no acute distress. HEAD: Normocephalic, atraumatic. RESPIRATORY: Airway patent, respirations nonlabored. Clear to auscultation bilaterally, no rales, rhonchi, wheezing. CARDIOVASCULAR: Regular rate and rhythm without murmurs, rubs, or gallops. ABDOMINAL: Soft, minimal tenderness in left lower abdomen, no rebound tenderness, nondistended. Normoactive BS. MUSCULOSKELETAL: Moves all extremities. No gross deformities. SKIN: Warm, dry, normal color. NEURO: A&O X3. Speech clear. Cranial nerves II-XII grossly intact. Steady gait. No ataxic movements. No focal deficits. PSYCHIATRIC: Anxious, tearful. Normal interaction. Course Vital Signs Vital signs: Vital Signs Temperature 98.1 F 10/12/24 12: Pulse Rate 80 10/12/24 12: Respiratory Rate 18 10/12/24 12:29 Blood Pressure 156/66 H 10/12/24 12:29 Pulse Oximetry 100 10/12/24 12:29 Oxygen Delivery Room Air 10/12/24 12:29 Temperature 98.1 F 10/12/24 12:29 Pulse Rate 80 10/12/24 12:29 Respiratory Rate 18 10/12/24 12:29 Blood Pressure 156/66 H 10/12/24 12:29 Pulse Oximetry 100 10/12/24 12: Oxygen Delivery Room Air 10/12/24 12:29 MDM - Headache MDM Narrative Medical decision making narrative: Patient presented to ED with known nausea, vomiting, seen in the ED here yesterday and diagnosed with colitis/diverticulitis. Started on appropriate antibiotics. Reported vomiting began today. She reports she was not sent home with any nausea medication. Denies fevers or significant abdominal pain today. Vital signs are stable. She is afebrile here. She does appear very anxious. Complaining of paresthesias in her extremities, hyperventilating, tremulous. Given small dose of Ativan. Given fluids and Zofran. Cbc is unremarkable. No leukocytosis. H&H is stable. CMP with hyponatremia, fluids ongoing. Stable kidney function. Minimal transaminitis. Magnesium borderline, given IV replacement. CT imaging from yesterday: IMPRESSION: 1. Persistent wall thickening along the sigmoid colon where there are numerous diverticula in this could represent either acute colitis or scarring related to chronic diverticulitis. Patient without worsening abdominal pain compared to yesterday. No significant focal tenderness on repeat exams. No indication for repeat imaging today given otherwise reassuring workup. Patient feeling much better with supportive therapy. She states she feels comfortable going home at this time. Able to tolerate PO intake. Advised to push fluids at home. Will discharge with nausea medicine and short course of pain medication to be used as needed. Advised to continue antibiotics, given strict return precautions. Recommended follow-up with PCP for further evaluation. Patient voiced understanding, in agreement with plan. Discharged in stable condition. Medical Records Attestation: I reviewed the patient's medical records. Lab Data Attestation: I reviewed the patient's lab results. 10/12/24 13:29 10/12/24 13:29 Labs: Lab Results 10/12/24 Range/Units 13:29 WBC 5.5 (4.5-10.0) K/mm3 RBC 3.43 L (4.2-5.4) M/mm3 Hgb 10.6 L (12.0-15.0) g/dL Hct 32.4 L (37.0-47.0) % MCV 94.5 (80-100) fl MCH 30.9 (26-34) pg MCHC 32.7 (32-36) g/dl RDW 12.7 (11.5-14.5) % Plt Count 216 (150-375) k/mm3 MPV 9.8 (7.4-10.4) fl Immature Gran % (Auto) 0.4 (0-0.5) % Neut % (Auto) 71.5 (45.5-73.1) % Lymph % (Auto) 19.5 (18.3-44.2) % [place] % (Auto) 7.6 (2.6-8.5) % Eos % (Auto) 0.5 (0-4.4) % Baso % (Auto) 0.5 (0.2-1.2) % Lymph # (Auto) 1.08 (0.9-3.2) K/mm3 [place] # (Auto) 0.4 (0.1-0.6) K/mm3 Eos # (Auto) 0.0 (0-0.3) K/mm3 Baso # (Auto) 0.0 (0.0-0.1) K/mm3 Abs Immat Gran (auto) 0.02 (0.00-0.031) K/mm3 Absolute Neuts (auto) 4.0 (1.3-6.7) K/mm3 Absolute Nucleated RBC 0.000 (0.0-0.012) K/mm3 Nucleated RBC % 0.0 (0.0-0.2) % Sodium 128 L (137-145) mmol/L Potassium 4.9 (3.4-5.0) mmol/L Chloride 94 L (98-107) mmol/L Carbon Dioxide 25 (22-30) mmol/L Anion Gap 9 (4-12) mmol/L BUN 13 (7-17) mg/dL Creatinine 0.84 (0.7-1.0) mg/dL Estim Creat Clear Calc 65 ml/min Estimated GFR > 60 (59 - ) Glucose 101 (65-110) mg/dL Calcium 9.0 (8.4-10.2) mg/dL Magnesium 1.6 (1.6-2.3) mg/dL Total Bilirubin 0.5 (0.2-1.3) mg/dL AST 73 H (14-36) U/L ALT 52 H (6-35) U/L Alkaline Phosphatase 75 (38-126) U/L Total Protein 7.0 (6.3-8.2) g/dL Albumin 4.2 (3.5-5.1) g/dL Discharge Plan Discharge Clinical Impression: Colitis, Hyponatremia Nausea and vomiting Qualifiers: Vomiting type: unspecified Qualified Code(s): R11.2 - Nausea with vomiting, unspecified Patient Disposition: Home Condition: Stable Instructions: Antibiotic Form, Diverticulitis (ED), Acute Nausea and Vomiting (ED), Diverticulitis Diet (ED), Colitis (ED) Additional Instructions: Continue antibiotics as prescribed. It is important you finish both courses of antibiotics. Utilize zofran as needed for further nausea. Continue Tylenol as needed for pain. Utilize tramadol as needed for more severe pain. Increase fluid intake. Recommend electrolyte rich fluids, gatorade, pedialyte, body armour. Recommend clear liquids or bland diet until symptoms improve, such as bananas, rice, applesauce, toast, or crackers. Follow up with your primary care doctor for further evaluation. Return to the ED if you experience worsening or severe symptoms, unable to keep down food or drink, severe pain, fevers, rectal bleeding, vomiting blood, or any other symptoms of concern. Patient Language: Bruneian Prescriptions: New tramadol 50 mg tablet 50 mg PO Q6H PRN (Reason: pain) Qty: 10 0RF ondansetron 4 mg tablet,disintegrating 4 mg PO Q8H PRN (Reason: nausea and vomiting) Qty: 15 0RF No Action carbamazepine [Tegretol XR] 400 mg tablet extended release 12 hr 400 mg PO HS trazodone 100 mg tablet 100 mg PO QPM cholecalciferol (vitamin D3) 5,000 unit capsule 5,000 unit PO DAILY fluconazole 150 mg tablet 150 mg PO DAILY Qty: 1 0RF Rx Instructions: administer on day 1 of therapy bacitracin zinc-polymyxin B 500-10,000 unit/gram ointment 1 applic topical DAILY Qty: 28.3 1RF PreserVision AREDS [id number] Tablet 1 tablet PO DAILY Lumigan 0.01 % drops 1 drp ophthalmic (eye) HS levofloxacin 750 mg tablet 750 mg PO DAILY Qty: 7 5RF metronidazole 500 mg tablet 500 mg PO Q8H 7 Days Qty: 21 0RF (DME) Rollator Walker with seat See Rx Instructions .Route .MEDSUPPLY Qty: 1 0RF Rx Instructions: As directed fluticasone propionate [Flonase Allergy Relief] 50 mcg/actuation spray,suspension 1 spray NASAL DAILY Qty: 48 1RF Rx Instructions: administer into each nostril bacitracin zinc-polymyxin B 500-10,000 unit/gram ointment 1 applic topical DAILY Qty: 14.2 0RF lisinopril 40 mg tablet 40 mg PO DAILY Qty: 90 1RF Rx Instructions: NEEDS APPOINTMENT IN OCTOBER duloxetine 30 mg capsule,delayed release(DR/EC) See Rx Instructions .ROUTE .COMPLEX Qty: 180 0RF Dose Instruction: TAKE 2 CAPSULES EVERY EVENING Rx Instructions: TAKE 2 CAPSULES EVERY EVENING pimecrolimus [Elidel] 1 % cream 1 applic topical BID PRN (Reason: atopic dermatitis) Qty: 60 0RF naproxen 500 mg tablet See Rx Instructions .ROUTE .COMPLEX Qty: 90 1RF Dose Instruction: TAKE 1 TABLET DAILY NEEDED FOR PAIN. TAKE WITH FOOD Rx Instructions: TAKE 1 TABLET DAILY NEEDED FOR PAIN. TAKE WITH FOOD rosuvastatin [Crestor] 40 mg tablet 40 mg PO HS Qty: 90 1RF furosemide [Lasix] 20 mg tablet 20 mg PO QAM Qty: 90 1RF Follow-up/Referrals: Mike Gautam DO [Primary Care Provider] - Time of Disposition: 15:51
[2024-10-12 13:36] LABS: Basophils Percent Auto 0.5 % (0.2-1.2); Eosinophils Percent Auto 0.5 % (0-4.4); Hematocrit 32.4 % (37.0-47.0); Hemoglobin 10.6 g/dL (12.0-15.0); Immature Granulocyte Absolute 0.02 K/mm3 (0.00-0.031); Immature Granulocyte Percent A 0.4 % (0-0.5); Lymphocytes Absolute Auto 1.08 K/mm3 (0.9-3.2); Lymphocytes Percent Auto 19.5 % (18.3-44.2); Mean Corpuscular HGB Conc 32.7 g/dl (32-36); Mean Corpuscular Hemoglobin 30.9 pg (26-34); Mean Corpuscular Volume 94.5 fl (80-100); Mean Platelet Volume 9.8 fl (7.4-10.4); Monocytes Absolute Auto 0.4 K/mm3 (0.1-0.6); Monocytes Percent Auto 7.6 % (2.6-8.5); Neutrophils Percent Auto 71.5 % (45.5-73.1); Platelet Count Result 216 k/mm3 (150-375); Red Blood Count 3.43 M/mm3 (4.2-5.4); Red Cell Distribution Width 12.7 % (11.5-14.5); White Blood Count 5.5 K/mm3 (4.5-10.0)
[2024-10-12] MEDS: SODIUM CHLORIDE 0.9% IV 1,000 ML 999 ML IV CONT (13:53)
[2024-10-12] MEDS: ONDANSETRON INJ 4 MG/2 ML VIAL IV PUSH (13:53)
[2024-10-12 13:57] LABS: Alanine Aminotransferase 52 U/L (6-35); Albumin Level 4.2 g/dL (3.5-5.1); Alkaline Phosphatase 75 U/L (38-126); Anion Gap 9 mmol/L (4-12); Aspartate Amino Transferase 73 U/L (14-36); Bilirubin,Total 0.5 mg/dL (0.2-1.3); Blood Urea Nitrogen 13 mg/dL (7-17); Carbon Dioxide 25 mmol/L (22-30); Chloride 94 mmol/L (98-107); Estimated CRCL calculation 65 ml/min; Estimated Glomerular Filt Rate > 60; Glucose 101 mg/dL (65-110); Magnesium 1.6 mg/dL (1.6-2.3); Potassium 4.9 mmol/L (3.4-5.0); Sodium 128 mmol/L (137-145)
[2024-10-12] MEDS: MAGNESIUM SULF 2 GM/WATER 50ML 2 GM/50 ML BAG IVPB (14:19)
== END 2024-10-12 16:06 | disposition home or self-care (01) ==
PROVIDERS: Emergency Provider Physician Assistant; PCP Internal Medicine
DX: K52.9 Noninfective gastroenteritis and colitis, unspecified (principal); I10 Essential (primary) hypertension; E11.9 Type 2 diabetes mellitus without complications; E66.01 Morbid (severe) obesity due to excess calories; Z68.42 Body mass index [BMI] 45.0-49.9, adult; E55.9 Vitamin D deficiency, unspecified; G47.33 Obstructive sleep apnea (adult) (pediatric); G40.909 Epilepsy, unspecified, not intractable, without status epilepticus; H40.9 Unspecified glaucoma; H35.30 Unspecified macular degeneration; K21.9 Gastro-esophageal reflux disease without esophagitis; M19.90 Unspecified osteoarthritis, unspecified site; F41.9 Anxiety disorder, unspecified; F32.A Depression, unspecified; Z98.1 Arthrodesis status; Z86.0100 Personal history of colon polyps, unspecified; Z87.891 Personal history of nicotine dependence; Z98.42 Cataract extraction status, left eye; Z98.41 Cataract extraction status, right eye; Z90.711 Acquired absence of uterus with remaining cervical stump; Z79.899 Other long term (current) drug therapy
CPT/HCPCS: 36415; 80053; 83735; 85025; 96361; 96365; 96375; 99284; A9270; J2405; J3475; J7030

== ENCOUNTER 2024-11-30 11:50 | Observation (INO) | payer MEDICARE, MEDICAID, SELFPAY ==
--- NOTE | ~2024-11-30 | CT_ITS ---
CLINICAL INDICATION: Abdominal pain COMPARISON: 10/11/2024 TECHNIQUE: Multiple contiguous axial images of the abdomen and pelvis were performed following the ad ministration of with 100 mL Omnipaque-350 intravenous contrast The dose-length product (DLP) was 1427.01 mGy-cm. Automated exposure control and iterative reconstruction technique were employed. FINDINGS/OBSERVATIONS: Visualized lower thorax: The bilateral lung bases are clear. The heart is of normal size, without pericardial effusion. Small hiatal hernia is present. Liver: The liver demonstrates homogeneous enhancement and is not enlarged. Gallbladder and biliary system: The gallbladder is surgically absent. Pancreas: The pancreas enhances homogeneously without ductal dilatation. Spleen: The spleen enhances homogeneously and is not enlarged measuring 8 cm in longitudinal dimension. Kidneys: Rounded subcentimeter focus of fluid attenuation within the interpolar region of the left ki dney, too small to definitively characterize for which a cyst is suspected. The remainder of the bilateral kidneys otherwise enhance symmetrically without hydronephrosis or lennox l calculi. Adrenal glands: Unremarkable. Gastrointestinal tract: Redemonstration of mural thickening within the proximal sigmoid colon with trace surrounding inflamma tory change and interloop fluid. These findings, taken together suggest the presence of acute diverti culitis, for which clinical correlation is needed. Follow-up to resolution is recommended, as a malignancy may have a similar appearance. Appendix: The appendix is not definitively visualized. However, no pericecal inflammatory change is identified suggest the presence of acute appendicitis. Vasculature: Unremarkable. Lymph nodes: No pathologically enlarged or morphologically suspicious lymph nodes within the retroperitoneum or at the root of the mesentery. Pelvic structures: The bladder is minimally distended, and demonstrates surrounding inflammatory change for which cystit is is suspected. The uterus is either surgically absent or markedly atrophic. Body wall and musculoskeletal: Age-appropriate degenerative disease within the lower thoracic and lumbosacral spine. IMPRESSION: Redemonstration of mural thickening within the proximal sigmoid colon with surrounding inflammatory c hange and interloop fluid, for which acute diverticulitis is suspected. Follow-up to resolution is recommended as a malignancy may have a similar appearance. Given that these findings are similar to previous examination performed more than one month earlier, direct visualization is recommended, if not already performed. Reviewed, dictated and finalized at location A. IMPRESSION: Redemonstration of mural thickening within the proximal sigmoid colon with surr ounding inflammatory change and interloop fluid, for which acute diverticulitis is suspected. Follow-up to resolution is recommended as a malignancy may have a similar appea jessie. Given that these findings are similar to previous examination performed more th an one month earlier, direct visualization is recommended, if not already perfo rmed.
[2024-11-30 11:50] VITALS: BP 139/76; PULSE 86; RESP 16; TEMP 36.9; O2SAT 98
--- OUTSIDE RECORDS SUMMARY | 2024-11-30 11:52 | XMS_ITS | Data Portability ---
Author Organization [facility] [place], Main Office Address [address] [place] [address] Assessment Encounter Date Assessment Date Assessment LastModified by Organization Details LastModified Time 02/08/2024 02/08/2024 This note is dictated and transcribed by [employer]. Assurance Senior variances may occur. Despite proofreading, typographical errors may occur. Occasional wrong-word or 'ahvvl-f-ptge' substitutions may have occurred due to the inherent limitations of voice recording. Read the chart carefully and recognize, using context, where substitutions have occurred. hernán Not available 02/08/2024 14:43:06 08/01/2024 08/01/2024 This note is dictated and transcribed by [employer]. Assurance Senior variances may occur. Despite proofreading, typographical errors may occur. Occasional wrong-word or 'qxfwh-d-auwk' substitutions may have occurred due to the inherent limitations of voice recording. Read the chart carefully and recognize, using context, where substitutions have occurred. hernán Not available 08/01/2024 16:24:11 Plan of Treatment Reminders Order Date Submit Date Provider Last Modified By Organization Details Last Modified Time Details Appointments Establish ed Patient 15 2024 01:00P Colin Robison DPM Not available Not available Not available Lab None recorded. Referral None recorded. Procedures None recorded. Surgeries None recorded. Imaging None recorded. Medication Orders None recorded. Patient TargetsNo targets recorded. Patient Instructions Encounter Date Encounter Id Patient Instructions Last Modified By Organization Details Last Modified Time 08/05/2023 [id number] paronychia: care instructions [email or web address] Not available 08/05/2023 15:04:50 02/08/2024 [id number] diabetic foot care education hernán Not available 02/08/2024 14:43:17 Reason for Referral None Reported. Problems Name Problem SNOMED Code Status Onset Date Resolution Date Notes Provider Name and Address Organization Details Recorded Time Paronychia of toe of right foot 2807839528703 9102 Active 2019 Not Available [facility] 3 19:30:16 Hyperchole sterolemia 89150088 Active 2016 Not Available [facility] 3 19:30:16 Pressure injury of heel 349005068 Active 2018 Not Available [facility] 3 19:30:16 Foot callus 450220759 Active 2021 Not Available [facility] 3 19:30:17 Unable to cut own toenails 653461305 Active 2017 Not Available [facility] 3 19:30:17 Hypertensi ve disorder 15152126 Active 2016 Not Available [facility] 3 19:30:17 Neuropathy 735208138 Active 2016 Not Available [facility] 3 19:30:17 Foot-drop 8922875 Active 2016 Not Available [facility] 3 19:30:17 Foot-drop 7416615 Active 2021 Not Available [facility] 3 19:30:17 Epilepsy 02978294 Active 2016 Not Available [facility] 3 19:30:17 Dystrophia unguium 32647702 Active 2020 Not Available [facility] 3 19:30:18 Diabetes mellitus 12180686 Active 2022 Victor Hugo Robison DPM [address], [address], [place], [address] , [employer] 3 09:26:45 Problem Notes None recorded. Procedures Surgical History Date Name Laterality Status Provider Name and Address Organization Details Recorded Time 5 Nail Debridement active Victor Hugo Robison DPM [address], [address], [place], [address], [employer] 11/14/2024 14:38:23 5 Nail Debridement completed Victor Hugo Robison DPM [address], [address], [place], [address], [facility] 08/01/2024 16:23:57 4 Nail Debridement completed Victor Hugo Robison DPM [address], [address], [place], [address], [facility] 02/08/2024 14:42:11 4 Partial Nail Avulsion Chemical Matrixectomy-Ri ght completed Victor Hugo Robison DPM [address], [address], [place], [address], [employer] [facility] 08/05/2023 15:02:42 3 Nail Debridement completed Victor Hugo Robison DPM [address], [address], [place], [address], [facility] 12/07/2022 09:23:03 Imaging Results None recorded. Procedure Notes None recorded. Medical Equipment None Reported. Allergies Allergen ID Allergen Name Allergen Category Reaction Reaction Severity Criticality Documentation Date Start Date Code Code System Note Provider Name and Address Organization Details Recorded Time 54774 Product containin g penicilli n (product) medicatio n Not available Not available Not available 09/02/2022 97612 8001 SNOMED Not Available [facility] 3 19:32:45 Medications Name Sig Start Date Stop Date Status Note LastModified by Organization Details LastModified Time cyclobenzap rine 10 mg tablet active Not Available Not Available Not Available betamethaso ne valerate 0.1 % topical ointment active Not Available Not Available Not Available potassium chloride ER 10 mEq capsule,ext ended release TAKE 1 CAPSULE BY MOUTH ONCE DAILY active Not Available Not Available No t Available prednisone 10 mg tablet 11/15 completed [...] t Available clobetasol 0.05 % topical cream APPLY TOPICALLY TO RASH TWICE DAILY FOR UP TO 4 WEEKS THEN TAKE A 2 WEEK BREAK (NO FACE) ONCE RESOLVED THEN USE TWICE WEEKLY FOR 6 MONTHS active Not Available Not Available No t Available clindamycin HCl 150 mg capsule TAKE 4 CAPSULES BY MOUTH ONE HOUR PRIOR TO THE APPOINTME NT OR WITHIN 2 HOURS OF APPOINTME NT END. 12/07 completed Not Available Not Available Not Available metronidazo le 500 mg tablet TAKE 1 TABLET BY MOUTH THREE TIMES DAILY FOR 10 DAYS active Not Available Not Available No t Available acetaminoph en 300 mg-codeine 30 mg tablet 11/10 completed Not Available Not Available Not Available ciprofloxac in 500 mg tablet TAKE 1 TABLET BY MOUTH TWICE DAILY FOR 10 DAYS active Not Available Not Available No t Available sulfamethox azole 800 mg-trimetho prim 160 mg tablet TAKE 1 TABLET BY MOUTH TWICE DAILY FOR 5 DAYS active Not Available Not Available No t Available hydrocodone 10 mg-acetamin ophen 325 mg tablet TAKE 1 TABLET BY MOUTH EVERY DAY NEEDED active Not Available Not Available No t Available tramadol 50 mg tablet TAKE 1 TABLET BY MOUTH EVERY 6 HOURS NEEDED FOR PAIN active Not Available Not Available No t Available triamcinolo ne acetonide 0.1 % topical [...] Available mupirocin 2 % topical ointment APPLY 1 THIN LAYER TOPICALLY TO THE AFFECTED AREA TWICE DAILY AND COVER WITH BANDAID WHILE HEALING active Not Available Not Available No t [...] active Not Available Not Available Not Available levofloxaci n 750 mg tablet TAKE 1 TABLET BY MOUTH ONCE DAILY active Not Available Not Available No t Available methylpredn isolone 4 mg tablets in [...] Not Available Not Available No t Available ondansetron 4 mg disintegrat ing tablet DISSOLVE 1 TABLET IN MOUTH EVERY 8 HOURS NEEDED FOR NAUSEA AND VOMITING active Not Available Not Available No [...] Available No t Available Vitals Date Recorded Body height Body mass index (BMI) Body weight Heart rate Respiratory rate Oxygen saturation Oxygen saturation in Arterial blood by Pulse oximetry Systolic blood pressure Diastolic blood pressure Provider Name and Address Organization Details Last Updated DateTime 5 157.48 cm 44.6 kg/m2 950998. 54 g 89 /min 14 /min 98 % 98 % 132 mm[Hg] 73 mm[Hg] Jaye Chauhan [employer] 5 15:52:27 Date Recorded Heart rate Respiratory rate Oxygen saturation Oxygen saturation in Arterial blood by Pulse oximetry Systolic blood pressure Diastolic blood pressure Provider Name and Address Organization Details Last Updated DateTime 4 87 /min 14 /min 98 % 98 % 118 mm[Hg] 66 mm[Hg] Jaye Chauhan [employer] 4 14:41:27 Date Recorded Body height Body mass index (BMI) Body weight Heart rate Respiratory rate Body temperature Oxygen saturation Oxygen saturation in Arterial blood by Pulse oximetry Systolic blood pressure Diastolic blood pressure Provider Name and Address Organization Details Last Updated DateTime 4 157.48 cm 44.6 kg/m2 303641. 54 g 87 /min 16 /min 98 [degF] 98 % 98 % 118 mm[Hg] 66 mm[Hg] Cathy Clements [employer] [facility] [employer] 4 15:23:18 Date Recorded Body height Body mass index (BMI) Body weight Body temperature Oxygen saturation Oxygen saturation in Arterial blood by Pulse oximetry Heart rate Systolic blood pressure Diastolic blood pressure Provider Name and Address Organization Details Last Updated DateTime 5 157.48 cm 44.6 kg/m2 061605. 54 g 97.7 [degF] 94 % 94 % 80 /min 128 mm[Hg] 77 mm[Hg] Jhonny Montgomery Carlos [place] [facility] [employer] [facility] 5 14:06:29 Date Recorded Body height Body mass index (BMI) Body weight Heart rate Oxygen saturation Oxygen saturation in Arterial blood by Pulse oximetry Systolic blood pressure Diastolic blood pressure Provider Name and Address Organization Details Last Updated DateTime 4 157.48 cm 44.6 kg/m2 064819. 54 g 86 /min 99 % 99 % 120 mm[Hg] 68 mm[Hg] Nicholas Hazelsley Carlos [place] [facility] [employer] [facility] 4 14:28:02 Social History None recorded. Functional Status None recorded. Mental Status None recorded. Family History Nothing Reported. Medical History No medical history recorded. Gynecological HistoryNo gynecological history recorded. Obstetrics History GPAL:G 0 P 0 0 0 0 Past Encounters Encounter ID Performer Location Encounter Start Date Encounter Closed Date Diagnosis/Indication Diagnosis SNOMED-CT Code Diagnosis ICD10 Code Diagnosis Note [id number] Victor Hugo Robison DPM [facility] [place] [address] [place] [address] 02/06/2021 00:00:00 02/21/2021 13:56:12 [id number] Victor Hugo Robison DPM [facility] [place] [address] [address] 09/02/2021 00:00:00 09/02/2021 09:48:24 [id number] Victor Hugo Robison DPM [facility] [place] [address] [address] 04/16/2022 00:00:00 04/16/2022 10:33:39 [id number] Victor Hugo Robison DPM [facility] [place] [address] [facility] [address] [place] [address] 12/07/2022 08:54:11 12/07/2022 09:35:34 Diabetes mellitus 99136228 E11.9 continue with PCP recommenda tionsCheck feet daily for wounds infectionC ontinue bracingFol low-up in 3 months for routine foot care Paronychia of toe of right foot 3708183332 1976812 L03.031 bilateral cornersSla nt back procedure performedF ollow-up as needed Dystrophia unguium 79039 009 L60.3 Nails 1 through 10 were debrided with sharp mechanical debridemen t without incident. Nails were debrided and greater than 50% length and thickness where needed. Foot callus 710586656 L8 4 right sub 5th mildContin ue supportive shoe gearFollow -up as needed [id number] [employer] Hugo Robison DPM [facility] [place] [address] [place] [address] 0 07/29/2023 09:01:17 08/04/2023 08:00:54 Paronychia of toe of right foot 8248718156 0822937 L03.031 Dystrophia unguium 59450 009 L60.3 Unable to cut own toenails 944442516 Z74.1 [id number] Victor Hugo Robison DPM [place] [place] [address] [place] [address] 0 08/05/2023 14:36:30 08/05/2023 15:30:35 Paronychia of toe of right foot 5344455770 1253446 L03.031 lateralpar tial matrix todaywound care and dressing instructio n reviewedmo nitor for infection if presents seek medical attention immediatel yfollow up in 2 weeks [id number] Victor Hugo Robison DPM [facility] [place] [address] [place] [address] 0 08/10/2023 15:07:03 08/17/2023 14:36:53 Paronychia of toe of right foot 7973301927 1686686 L03.031 lateralpar tial matrix - healedwoun d care and dressing instructio n reviewedmo nitor for infection if presents seek medical attention immediatel yfollow up as needed [id number] Victor Hugo Robison DPM [facility] [place] [address] [address] 02/08/2024 14:22:18 02/08/2024 14:57:06 Diabetes mellitus 21236288 E11.9 continue with PCP recommenda tionsCheck feet daily for wounds infectionC ontinue bracingFol low-up in 3 months for routine foot care Dystrophia unguium 18094 009 L60.3 nails debrided without incident Foot-drop 1538238 M21.37 1 M21.372 Continue bracing [id number] Victor Hugo Robison DPM [facility] [place] [address] [address] 08/01/2024 15:43:20 08/02/2024 16:38:07 Diabetes mellitus 70006406 E11.9 continue with PCP recommenda tionsCheck feet daily for wounds infectionC ontinue bracingFol low-up in 3 months for routine foot care Dystrophia unguium 72808 009 L60.3 nails debrided without incident Health Concerns Section Related Observation LastModified by Organization Detai ls LastModified Time None Recorded Concern Status LastModified by Organization Details LastModified Time None Recorded Advance Directives Directive None Recorded Payers Encounter Date Sequence Insurance Name Policy Number Policy Garcia Covered Member ID Garcia Member ID Guarantor Name 08/05/2023 1 [place] Camille Orozco [id number] Camille Orozco 08/05/2023 2 [employer] [place] ON [place] AFTER 2020 (MEDICAID REPLACEMENT - HMO) Camille Orozco [id number] Camille Orozco 08/10/2023 1 [place] Camille Orozco [id number] Camille Orozco 08/10/2023 2 [employer] [place] 2020 ([place]ICA[place] REPLACEMENT - [place]MO) Camille Orozco [id number] Camille Orozco 02/08/2024 1 [place] Camille Warreney [id number] Camille Warreney 02/08/2024 2 [employer] [place] ([place] RE[place] - [place]MO) Camille Orozco [id number] Camille Warreney 08/01/2024 1 [place] Camille Warreney [id number] Camille Warreney 08/01/2024 2 [employer] ([place]ID REPLAC[place] - [place]MO) Camille Linda Blanco [id number] Camille Waldenmley Notes Date Note Type Note Provider Name and Address Organization Details Recorded Time 08/05/2023 text/html Patient returns to the office for toenail procedure. Denies any infection. Patient understands all risks, benefits, complications and elects to continue. No guarantees given. Victor Hugo Robison DPM [address], [address], [place], [address], [employer] 08/05/2023 15:29:47 08/10/2023 text/html Patient is 68-year-old female, who returns the office for follow-up on lateral partial matrix ectomy of the great toenail, which is healed. Patient said she is not having any signs of infection. Patient states she did have some mild discomfort but that has resolved. Patient denies any of the complaints. Victor Hugo Robison DPM [address], [place], [address], [employer] 08/10/2023 16:14:20 02/08/2024 text/html . Patient is [...] her toenails cut. Victor Hugo Robison DPM [address], [place], [address], [employer] 02/08/2024 14:43:29 08/01/2024 text/html . Patient is [...] Patient denies any other complaints. Victor Hugo Robison DPM [address] [facility] [address], [place], [address], [employer] 08/01/2024 16:24:30 OBGyn Episode No OBEpisode recorded."
--- OUTSIDE RECORDS SUMMARY | 2024-11-30 11:52 | XMS_ITS | Clinical Summary ---
Author Organization [facility] Address [address] [place] [address] Care Team Providers Care Fill Technician Name Role Phone Mike Gautam DO Primary Care Provider [phone] Source Comments [facility],non-owned Affiliates and Associated Physician Practices is amultiple site organization consisting of ambulatory clinics and hospital sitesin [place], [place] and [place]. This disclosure is being madepursuant to the Care Everywhere program and may not contain all information available regarding this patient. 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
--- OUTSIDE RECORDS SUMMARY | 2024-11-30 11:53 | XMS_ITS | Referral Summary ---
Author Organization [facility] Address [address] [place] [address] Care Team Providers Care Carriage Feeder Name Role Phone GrisMike tamez Primary Care Provider [phone]- [phone] Encounters Date Type Department Care Team Description 11/23/2024 Plan of Care Documentation [facility] Occupational Therapy [address] [place] [id number] 11/22/2024 Plan of Care Documentation [facility] Physical Therapy [address] [place] [id number] 11/22/2024 2:00 PM CDT Therapy [facility] Physical Therapy [address] [place] [id number] Hailey Calderon, LUCRECIA Foot drop, right foot (Primary Dx); Foot drop, left foot; Spinal stenosis, unspecified spinal region 11/22/2024 1:00 PM CDT Therapy [facility] Occupational Therapy [address] [place] [id number] Renetta Oleary OT Lymphedema, not elsewhere classified 10/16/2024 10:30 PM CDT - 10/19/2024 4:30 PM CDT Hospital Encounter [facility] Oncology [address] [place] [address] Donna Michael MD Perez Porcel, Jose Daniel, MD Ogunremi, Olumide Omolulu, MD Dehydration (Primary Dx); Hypokalemia Discharge Disposition: Discharge to home or self care from Last 3 Months Allergies Active Allergy Reactions Criticality Noted Date [...] cholecalciferol (VITAMIN D-3) 1,000 unit tablet Take 1 tablet (1,000 Units total) by mouth daily Active carBAMazepine (TEGretol) 200 mg tablet Take 2 tablets (400 mg total) by mouth 2 (two) times a day 120 tablet 10/03/2021 Active traZODone (DESYREL) 50 mg tablet Take [...] Active Problems Problem Noted Date Diagnosed Date Dehydration 10/17/2024 Diabetes mellitus 12/07/2022 Diverticulosis of colon 10/16/2021 Overview (10/16/2021): Added automatically from request for surgery [id number] Diverticulitis 10/16/2021 Overview (10/16/2021): Added automatically from request for surgery [id number] Colitis 09/27/2021 Dystrophia unguium 02/21/2021 Epilepsy 05/13/2017 Foot-drop 05/13/2017 Hypercholesterolemia 05/13/2017 Neuropathy 05/13/2017 Hypertensive disorder 05/13/2017 Exudative age-related macular degeneration of le ft eye 05/08/2015 Retinal hemorrhage of left eye 03/27/2015 Immunizations Immunization Administration Dates Next Due Influenza, Quadrivalent, Split, Intramuscular Influenza, Trivalent, IM (MDV) 03/02/2017 Tdap 09/28/2021 Social History Tobacco Use Types Packs/Day Years Used Date Smoking Tobacco: Former Smokeless Tobacco: Never Alcohol Use Standard Drinks/Week Comments No 0 (1 standard drink = 0.6 oz pur e alcohol) [facility] Utilities Answer Date Recorded In the past 12 months has th e electric, gas, oil, or water company threatened to shut off services in your home? No 10/17/2024 Social Connection and Isolat ion Panel [NHANES] Answer Date Recorded In a typical week, how many times do you talk on the phone with family, friends, or neighbors? More than three times a week 10/17/2024 How often do you get togethe r with friends or relatives? More than three times a week 10/17/2024 How often do you attend chur ch or faith services? More than 4 times per year 10/17/2024 Do you belong to any clubs o r organizations such as protestant groups, unions, fraternal or athletic groups, or school groups? No 10/17/2024 How often do you attend meet ings of the clubs or organizations you belong to? Never 10/17/2024 Are you , , di vorced, , never , or living with a partner? 10/17/2024 AUDIT-C Answer Date Recorded Q1: How often [...] housing, medical care, and heating? Somewhat hard 10/17/2024 PHQ-2 Answer Date Recorded PHQ-2 Total Score (If total score is 3 or more points, staff should administer the PHQ-9) 0 10/16/2021 Hunger Vital Sign Answer Date Recorded Within the past 12 months, y ou worried that your food would run out before you got the money to buy more. Never true 10/18/19 25 Within the past 12 months, t he food you bought just didn't last and you didn't have money to get more. Never true 10/17/2024 PRAPARE - Transportation Answer Date Re corded In the past 12 months, has l ack of transportation kept you from medical appointments or from getting medications? No 10/03 In the past 12 months, has l ack of transportation kept you from meetings, work, or from getting things needed for daily living? No 10/17/2024 Housing Stability Vital Sign Answer Papito e [...] in a penitentiary (including now)? No 09/29/2021 Housing Stability Vital Sign Answer Papito e Recorded In the last 12 months, was t here a time when you were not able to pay the mortgage or rent on time? No 10/17/2024 In the past 12 months, how m any times have you moved where you were living? 0 10/17/2024 At any time in the past 12 m [facility], were you homeless or living in a penitentiary (including now)? No 10/17/2024 Personal Safety Answer Date Recorded Have you ever been in or are you currently in a harmful physical or emotional relationship or is someone making you feel afraid or unsafe? Denies 10/16/2024 Comments No Sex and Gender Information Value Date Recorded Sex Assigned at Not on file Legal Sex Female 12:14 AM [employer] STRAIGHT[employer] Gender Identity Not on file Sexual Orientation Not on file Last Filed Vital Signs Vital Sign Reading Time Taken Comments Blood Pressure 138/57 10/19/2024 7:34 AM CDT Pulse 77 10/19/2024 7:34 AM CDT Temperature 36.7 C (98.1 F) 10/19/2024 7:34 AM CDT Respiratory Rate 18 10/19/2024 7:34 AM CDT Oxygen Saturation 99% 10/19/2024 7:34 AM CDT Inhaled Oxygen Concentration - - Weight 114.3 kg (251 lb 15.8 oz) 10/18/2024 9:45 AM CDT Height 154.9 cm (5' 0.98) 10/17/2024 2:45 AM CD T Body Mass Index 47.64 10/17/2024 2:45 AM CDT Plan of Treatment Not on file Medical Devices Implanted Type Area Organizational Effectiveness Consultant Device Identifier Shelf Expiration Date Model / Serial / Lot Integra Gigya Earl [id number] Integra 5x4in Mesh Dressing Biological Bovine Collagen - [id number] Implanted:Qty: 1 on 09/29/2021 by Leo Boone Jr., MD at [facility] Right: Leg Integra LifesciZeus Earl 06/03/2022 [id number] / / [id number] Procedures Procedure Name Priority Date/Time Associated Diagnosis Comments CO CRITICAL CARE ILL/INJURED PATIENT INIT 30-74 MIN Routine 10/17/2024 5:57 AM CDT EGFR Routine 10/17/2024 5:09 AM CDT DIFFERENTIAL AUTO Routine 10/17/2024 5:0 9 AM CDT COMPREHENSIVE METABOLIC PANEL Routine 10/17/2024 5:09 AM CDT CBC WITH AUTO DIFFERENTIAL Routine 10/17/2024 5:09 AM CDT URINALYSIS, MICROSCOPIC ONLY STAT 10/17/2024 4:06 AM CDT URINE CULTURE STAT 10/17/2024 4:06 AM CDT URINALYSIS AND REFLEX TO MICROSCOPIC AND CULTURE STAT 10/17/2024 4:[address] ABDOMEN PELVIS W CONTRAST ED 10/16/2024 11:42 PM CDT EGFR STAT 10/16/2024 9:50 PM CDT DIFFERENTIAL AUTO STAT 10/16/2024 9:5 0 PM CDT LIPASE STAT 10/16/2024 9:50 PM CDT COMPREHENSIVE METABOLIC PANEL STAT 10/16/2024 9:50 PM CDT CBC WITH AUTO DIFFERENTIAL STAT 10/16/2024 9:50 PM CDT POCT GLUCOSE DEVICE Routine 10/16/2024 7 :04 PM CDT COLONOSCOPY 11/21/2021 9:21 AM CDT from Last 3 Months or Most Recently Relevant to Health Maintenance Results * CO CRITICAL CARE ILL/INJURED PATIENT INIT 30-74 MIN (10/17/2024 5:57 AM CDT) Narrative Donna Michael MD - 10/17/2024 5:57 AM CDT Donna Michael MD 10/17/2024 5:57 AM Critical Care Performed by: Donna Michael MD Authorized by: Donna Michael MD Critical care provider statement: As reflected in the history, physical exam, orders, notes, and/or MDM, I was personally present while the patient was critically ill and provided critical care services for 30 minutes, excluding time involved in separately billable procedures. Critical care was necessary to treat or prevent imminent or life-threatening deterioration of the following condition(s): dehydration and acute electrolyte derangement Critical care was time spent by me providing the following: active repletion of electrolytes I provided emergent necessary critical care medicine services to this patient. I ordered and reviewed test results and/or imaging studies. Donna Henley MD IN CLINIC/BEDSIDE ORDERABLES Final Result * (ABNORMAL) eGFR (10/17/2024 5:09 AM CDT) eGFR 54(L) >=60 mL/min/1. 73 m2 Comment: Interpretive Data Reference Interval Normal >/= 90 mL/min/1.73m2 Mildly decreased* 60 - 89 mL/min/1.73m2 Mildly to moderately decreased 45 - 59 mL/min/1.73m2 Moderately to severely decreased 30 - 44 mL/min/1.73m2 Severely decreased 15 - 29 mL/min/1.73m2 Kidney Failure < 15 mL/min/1.73m2 *Relative to young adult level Estimated glomerular filtration rate is determined by the 2020 CKD-EPI equation recommended by the National Kidney Foundation (A Unifying Approach to GFR Estimation: Recommendations of the NKF-ASK Task Force on Reassessing the Inclusion of Race in Diagnosing Kidney Disease, JASN 2020). The CKD-EPI equation should not be used for patients with unstable renal function and has not been validated in children and those over 70. Current interpretive data was last reviewed 2021. Blood 10/17/2024 5:09 AM CDT 10/17/2024 5:29 AM CDT us Willie Nevarez NP LAB BLOOD ORDERABLES Final R esult [facility] [id number] Department [place] [address] * (ABNORMAL) Differential, auto (10/17/2024 5:09 AM CDT) Neutrophil abs 4.85 1.50 - 6.50 K/cumm Imm gran abs 0.05 0.00 - 0.10 K/cumm [facility] Lymphocyte abs 1.51 0.80 - 3.30 K/cumm [facility] Monocyte abs 0.83(H) 0.20 - 0.80 K/cumm [facility] Eosinophil abs 0.11 0.00 - 0.50 K/cumm [facility] Basophil abs 0.04 0.00 - 0.10 K/cumm [facility] Neutrophil pct 65.7 % [facility] Comment: Interpretive Data Percent cell count reference ranges are not reported, since discordance with absolute values may lead to misinterpretation of CBC data. Current Interpretive Data was last revised on 2017. Imm gran pct 0.7 % [facility] Comment: Interpretive Data Percent cell count reference ranges are not reported, since discordance with absolute values may lead to misinterpretation of CBC data. Current Interpretive Data was last revised on 2017. Lymphocyte pct 20.4 % [facility] Comment: Interpretive Data Percent cell count reference ranges are not reported, since discordance with absolute values may lead to misinterpretation of CBC data. Current Interpretive Data was last revised on 2017. Monocyte pct 11.2 % [facility] Comment: Interpretive Data Percent cell count reference ranges are not reported, since discordance with absolute values may lead to misinterpretation of CBC data. Current Interpretive Data was last revised on 2017. Eosinophil pct 1.5 % [facility] Comment: Interpretive Data Percent cell count reference ranges are not reported, since discordance with absolute values may lead to misinterpretation of CBC data. Current Interpretive Data was last revised on 2017. Basophil pct 0.5 % [facility] Comment: Interpretive Data Percent cell count reference ranges are not reported, since discordance with absolute values may lead to misinterpretation of CBC data. Current Interpretive Data was last revised on 2017. Blood 10/17/2024 5:09 AM CDT 10/17/2024 5:28 AM CDT us Willie Nevarez NP LAB BLOOD ORDERABLES Final R esult [facility] [id number] Department [place] [address] * (ABNORMAL) CBC with auto differential (10/17/2024 5:09 AM CDT) WBC 7.39 3.80 - 9.90 K/cumm Hgb 10.5(L) 11.9 - 15.5 g/dL [facility] Hct 32.3(L) 35.6 - 45.5 % [facility] Plt 211 150 - 400 K/cumm [facility] MPV 10.1 9.1 - 12.3 fL [facility] RBC 3.43(L) 3.90 - 5.20 M/cumm [facility] MCV 94.2 81.3 - 96.4 fL [facility] MCH 30.6 27.1 - 33.3 pg [facility] MCHC 32.5 32.3 - 35.7 g/dL [facility] RDW CV 12.9 11.1 - 14.9 % [facility] RDW SD 44.6 35.7 - 48.1 fL [facility] NRBC abs 0.00 0.00 - 0.01 K/cumm [facility] Blood 10/17/2024 5:09 AM CDT 10/17/2024 5:28 AM CDT Willie Nevarez NP LAB [place]LOOD [place] [id number] [address] [place] [address] * (ABNORMAL) Comprehensive metabolic panel (10/17/2024 5:09 AM CDT) Sodium 130(L) 135 - 145 mmol/L Potassium, pl 4.4 3.3 - 4.9 mmol/L [facility] Chloride 95(L) 97 - 110 mmol/L [facility] CO2 25 22 - 32 mmol/L [facility] Anion gap 10 2 - 15 mmol/L [facility] BUN 10 6 - 25 mg/dL [facility] Creatinine 1.10 0.60 - 1.10 mg/dL [facility] Glucose 111 70 - 199 mg/dL [facility] Comment: Interpretive Data Fasting glucose >/= 126 mg/dl is diagnostic for diabetes. Fasting is defined as no caloric intake for at least 8 hours. Fasting glucose between 100 mg/dl to 125 mg/dl is diagnostic of prediabetes. In a patient with classic symptoms of hyperglycemia or hyperglycemic crisis, a random glucose >/= 200 mg/dl is diagnostic for diabetes. In the absence of unequivocal hyperglycemia, results should be confirmed by repeat testing. The classification and Diagnosis of Diabetes Diabetes Care 2021; 46: S19-S40. Current interpretive data was last revised 2022. Calcium 9.5 8.5 - 10.3 mg/dL [facility] Bilirubin, total 0.2 0.1 - 1.2 mg/dL [facility] Protein, pl 6.3(L) 6.5 - 8.5 g/dL [facility] Albumin 3.6 3.5 - 5.0 g/dL [facility] Alk phos 76 40 - 130 Units/L [facility] ALT 25 7 - 45 Units/L [facility] AST 34 10 - 45 Units/L [facility] Blood 10/17/2024 5:09 AM CDT 10/17/2024 5:29 AM CDT Willie Nevarez PLATING OPERATOR LAB BLOOD ORDERABLES Final R esult Performing Organization Address City/[facility] [place] [address] [address] [place] [address] * (ABNORMAL) Urinalysis reflex to microscopic and culture Urine (10/17/2024 4:06 AM CDT) Color, ur Yellow Yellow Clarity, ur Turbid(A) Clear [facility] Specific gravity, ur 1.033(H) 1.003 - 1.030 [facility] pH, urine 6.0 [facility] Comment: Interpretive Data U rine pH is affected by diet, medications, systemic acid-base disturbances, and renal tubular function. pH may affect urinary stone formation. For example, urine pH below 6.0 may help reduce the tendency for calcium phosphate stones and pH greater than 6.0 may reduce the tendency for uric acid stone formation. Source: [facility] [employer] Current Interpretive Data was last revised on 2017 Protein, ur ql Negative Negative [facility] Glucose, ur ql Negative Negative [facility] Ketones, ur Negative Negative [facility] Bilirubin, ur Negative Negative [facility] Blood, ur Negative Negative [facility] Urobilinogen, ur <2.0 <2.0 mg/dL [facility] Nitrite, ur Negative Negative [facility] Leukocyte esterase, ur 4+(A) Negative [facility] UA reflex comment Reflex to microscopic UA will be performed. [facility] Urine 10/17/2024 4:06 AM CDT 10/17/2024 4:13 AM CDT Altaf Wilhelm PLATING OPERATOR LAB MICROBIOLOGY - GENERAL ORDERABLES Final Result Performing Organization Address City/[facility]/ZIP Co de Phone Number [facility] [address] [place] [address] * (ABNORMAL) Urinalysis, microscopic only (10/17/2024 4:06 AM CDT) WBC, ur >50(A) 0 - 5 /HPF RBC, ur 6-10(A) 0 - 2 /HPF [facility] Epithelial cells, squamous, ur 21-50(A) 0 - 5 /HPF [facility] Bacteria, ur Trace(A) [facility] Culture Reflex Comment Reflex to urine culture will be performed. [facility] Urine 10/17/2024 4:06 AM CDT 10/17/2024 4:13 AM CDT Altaf Wilhelm NP LAB URINE ORDERABLES Final Result Performing Organization Address [facility] de Phone Number [facility] [id number] [employer] [place] [address] * Urine culture Urine (10/17/2024 4:06 AM CDT) Report Final Report: Less than 100,000 colonies/mL (clinically insignificant growth based on current clinical standards) Comment:Testing performed by : [facility], [address] [place]., [address] Organism (CLINICALLY INSIGNIFICANT GROWTH [facility] Urine 10/17/2024 4:06 AM CDT 10/17/2024 8:58 AM CDT Narrative [facility] - 10/18/2024 12:13 PM CDT Urine culture reflexed based upon urinalysis results. Testing performed by [facility] ([phone]) Altaf Wilhelm NP LAB MICROBIOLOGY - GENERAL ORDERABLES Final Result Performing Organization Address [facility] Co de Phone Number [facility] [id number] [address] [facility] [place] [address] * CT Abdomen Pelvis W Contrast (10/16/2024 11:42 PM CDT) Anatomical Region Laterality Modality Body N/A Computed Tomogra phy 10/16/2024 11:3 6 PM CDT Impressions 10/17/2024 8:45 AM CDT Chronic sigmoid diverticulosis with marked mural thickening, without definite acute inflammation. Proximal to this is extensive colonic liquid stool which may relate to viral/diarrheal disease. Advanced lumbar spine degenerative changes with neural compromise as detailed. Stat report by [facility] Electronically signed by: Fredy Haskins M.D. Narrative 10/17/2024 8:45 AM CDT EXAMINATION: CT ABDOMEN PELVIS W CONTRAST DATE: 10/16/2024 11:35 PM CLINICAL HISTORY: abdominal pain, recent dx of diverticulitis TECHNIQUE: Axial CT imaging of the abdomen and pelvis performed with 93mL of Optiray 350 intravenous contrast. 2-D Reformatted images are obtained. COMPARISON: CT ABDOMEN PELVIS W CONTRAST 17/08/2022 FINDINGS: Liver: Normal. No mass. Gallbladder and biliary ducts: Prior cholecystectomy. Prominent extrahepatic biliary ducts which taper distally, the proximal common bile duct measuring 13 mm, similar to prior. Pancreas: Normal. No ductal dilation. Spleen: Normal. No splenomegaly. Adrenal glands: Normal. No mass. Kidneys and ureters: Small bilateral renal cysts. No urinary obstruction. Stomach and bowel: There is an approximately 12 cm segment of proximal sigmoid colon demonstrating diverticulosis and significant mural thickening. No pericolonic inflammation noted however. Liquid stool is present throughout the colon proximal to this. Appendix: No evidence of appendicitis. Intraperitoneal space: Unremarkable. No free air. No significant fluid collection. Vasculature: Unremarkable. No abdominal aortic aneurysm. Lymph nodes: Unremarkable. No enlarged lymph nodes. Urinary bladder: Unremarkable as visualized. Reproductive: Prior hysterectomy. Bones/joints: Advanced lumbar spine degenerative changes including prominent posterior disc/osteophyte complex at L2-L3. Severe degenerative spinal canal narrowing at L3-L4. Facet related grade 1 spondylolisthesis at L4-L5 with associated severe spinal canal narrowing. Moderate-severe bilateral neural foraminal narrowing at L5-S1. Soft tissues: A small fat containing umbilical hernia. Procedure Note Fredy Haskins MD - 10/17/2024 EXAMINATION: CT ABDOMEN PELVIS W CONTRAST DATE: 10/16/2024 11:35 PM CLINICAL HISTORY: abdominal pain, recent dx of diverticulitis TECHNIQUE: Axial CT imaging of the abdomen and pelvis performed with 93mL of Optiray 350 intravenous contrast. 2-D Reformatted images are obtained. COMPARISON: CT ABDOMEN PELVIS W CONTRAST 17/08/2022 FINDINGS: Liver: Normal. No mass. Gallbladder and biliary ducts: Prior cholecystectomy. Prominent extrahepatic biliary ducts which taper distally, the proximal common bile duct measuring 13 mm, similar to prior. Pancreas: Normal. No ductal dilation. Spleen: Normal. No splenomegaly. Adrenal glands: Normal. No mass. Kidneys and ureters: Small bilateral renal cysts. No urinary obstruction. Stomach and bowel: There is an approximately 12 cm segment of proximal sigmoid colon demonstrating diverticulosis and significant mural thickening. No pericolonic inflammation noted however. Liquid stool is present throughout the colon proximal to this. Appendix: No evidence of appendicitis. Intraperitoneal space: Unremarkable. No free air. No significant fluid collection. Vasculature: Unremarkable. No abdominal aortic aneurysm. Lymph nodes: Unremarkable. No enlarged lymph nodes. Urinary bladder: Unremarkable as visualized. Reproductive: Prior hysterectomy. Bones/joints: Advanced lumbar spine degenerative changes including prominent posterior disc/osteophyte complex at L2-L3. Severe degenerative spinal canal narrowing at L3-L4. Facet related grade 1 spondylolisthesis at L4-L5 with associated severe spinal canal narrowing. Moderate-severe bilateral neural foraminal narrowing at L5-S1. Soft tissues: A small fat containing umbilical hernia. IMPRESSION: Chronic sigmoid diverticulosis with marked mural thickening, without definite acute inflammation. Proximal to this is extensive colonic liquid stool which may relate to viral/diarrheal disease. Advanced lumbar spine degenerative changes with neural compromise as detailed. Stat report by [facility] Electronically signed by: Fredy Haskins M.D. Donna Henley MD [facility] CT PROCEDURES Final Resul t * eGFR (10/16/2024 9:50 PM CDT) eGFR 86 >=60 mL/min/1. 73 m2 Comment: Interpretive Data Reference Interval Normal >/= 90 mL/min/1.73m2 Mildly decreased* 60 - 89 mL/min/1.73m2 Mildly to moderately decreased 45 - 59 mL/min/1.73m2 Moderately to severely decreased 30 - 44 mL/min/1.73m2 Severely decreased 15 - 29 mL/min/1.73m2 Kidney Failure < 15 mL/min/1.73m2 *Relative to young adult level Estimated glomerular filtration rate is determined by the 2020 CKD-EPI equation recommended by the National Kidney Foundation (A Unifying Approach to GFR Estimation: Recommendations of the NKF-ASK Task Force on Reassessing the Inclusion of Race in Diagnosing Kidney Disease, JASN 2020). The CKD-EPI equation should not be used for patients with unstable renal function and has not been validated in children and those over 70. Current interpretive data was last reviewed 2021. Blood 10/16/2024 9:50 PM CDT 10/16/2024 9:59 PM CDT us Altaf Wilhelm NP LAB BLOOD ORDERABLES Final Result [facility] [address] [address] Department [place] [address] * Differential, auto (10/16/2024 9:50 PM CDT) Neutrophil abs 4.02 1.50 - 6.50 K/cumm Imm gran abs 0.04 0.00 - 0.10 K/cumm [facility] Lymphocyte abs 1.84 0.80 - 3.30 K/cumm [facility] Monocyte abs 0.66 0.20 - 0.80 K/cumm [facility] Eosinophil abs 0.12 0.00 - 0.50 K/cumm [facility] Basophil abs 0.02 0.00 - 0.10 K/cumm [facility] Neutrophil pct 59.9 % [facility] Comment: Interpretive Data Percent cell count reference ranges are not reported, since discordance with absolute values may lead to misinterpretation of CBC data. Current Interpretive Data was last revised on 2017. Imm gran pct 0.6 % [facility] Comment: Interpretive Data Percent cell count reference ranges are not reported, since discordance with absolute values may lead to misinterpretation of CBC data. Current Interpretive Data was last revised on 2017. Lymphocyte pct 27.5 % [facility] Comment: Interpretive Data Percent cell count reference ranges are not reported, since discordance with absolute values may lead to misinterpretation of CBC data. Current Interpretive Data was last revised on 2017. Monocyte pct 9.9 % [facility] Comment: Interpretive Data Percent cell count reference ranges are not reported, since discordance with absolute values may lead to misinterpretation of CBC data. Current Interpretive Data was last revised on 2017. Eosinophil pct 1.8 % [facility] Comment: Interpretive Data Percent cell count reference ranges are not reported, since discordance with absolute values may lead to misinterpretation of CBC data. Current Interpretive Data was last revised on 2017. Basophil pct 0.3 % [facility] Comment: Interpretive Data Percent cell count reference ranges are not reported, since discordance with absolute values may lead to misinterpretation of CBC data. Current Interpretive Data was last revised on 2017. Blood 10/16/2024 9:50 PM CDT 10/16/2024 9:59 PM CDT us Altaf Wilhelm NP LAB BLOOD ORDERABLES Final Result [facility] [address] Department [place] [address] * (ABNORMAL) CBC with auto differential (10/16/2024 9:50 PM CDT) WBC 6.70 3.80 - 9.90 K/cumm Hgb 9.0(L) 11.9 - 15.5 g/dL [facility] Hct 27.6(L) 35.6 - 45.5 % [facility] Plt 169 150 - 400 K/cumm [facility] MPV 9.6 9.1 - 12.3 fL [facility] RBC 2.87(L) 3.90 - 5.20 M/cumm [facility] MCV 96.2 81.3 - 96.4 fL [facility] MCH 31.4 27.1 - 33.3 pg [facility] MCHC 32.6 32.3 - 35.7 g/dL [facility] RDW CV 13.1 11.1 - 14.9 % [facility] RDW SD 46.3 35.7 - 48.1 fL [facility] NRBC abs 0.00 0.00 - 0.01 K/cumm [facility] Blood 10/16/2024 9:50 PM CDT 10/16/2024 9:59 PM CDT Altaf Wilhelm PLATING OPERATOR LAB BLOOD ORDERABLES Final Result Performing Organization Address City/[facility] Co de Phone Number [facility] [address] [facility] [place] [address] * Lipase (10/16/2024 9:50 PM CDT) Pathologist [facility] Lipase 14 10 - 99 Units/L Blood 10/16/2024 9:50 PM CDT 10/16/2024 9:59 PM CDT Altaf Wilhelm PLATING OPERATOR LAB BLOOD ORDERABLES Final Result Performing Organization Address [facility] Phone Number [facility] [address] [place] [address] * (ABNORMAL) Comprehensive metabolic panel (10/16/2024 9:50 PM CDT) Pathologist [facility] Sodium 131(L) 135 - 145 mmol/L Potassium, pl 3.0(L) 3.3 - 4.9 mmol/L [facility] Chloride 100 97 - 110 mmol/L [facility] CO2 18(L) 22 - 32 mmol/L [facility] Anion gap 13 2 - 15 mmol/L [facility] BUN 9 6 - 25 mg/dL [facility] Creatinine 0.75 0.60 - 1.10 mg/dL [facility] Glucose 87 70 - 199 mg/dL [facility] Comment: Interpretive Data Fasting glucose >/= 126 mg/dl is diagnostic for diabetes. Fasting is defined as no caloric intake for at least 8 hours. Fasting glucose between 100 mg/dl to 125 mg/dl is diagnostic of prediabetes. In a patient with classic symptoms of hyperglycemia or hyperglycemic crisis, a random glucose >/= 200 mg/dl is diagnostic for diabetes. In the absence of unequivocal hyperglycemia, results should be confirmed by repeat testing. The classification and Diagnosis of Diabetes Diabetes Care 202; 46: S19-S40. Current interpretive data was last revised 2022. Calcium 7.3(L) 8.5 - 10.3 mg/dL [facility] Bilirubin, total <0.2 0.1 - 1.2 mg/dL [facility] Protein, pl 5.3(L) 6.5 - 8.5 g/dL [facility] Albumin 3.2(L) 3.5 - 5.0 g/dL [facility] Alk phos 60 40 - 130 Units/L [facility] ALT 21 7 - 45 Units/L [facility] AST 25 10 - 45 Units/L [facility] Blood 10/16/2024 9:50 PM CDT 10/16/2024 9:59 PM CDT Altaf Wilhelm PLATING OPERATOR LAB BLOOD ORDERABLES Final Result Performing Organization Address [facility]/ZIP Co de Phone Number [facility] [address] Department of [employer] [place], [place] [id number] * POCT glucose (10/16/2024 7:04 PM CDT) Glucose, POC 114 70 - 199 mg/dL POC Performer [id number] [facility] Blood 10/16/2024 7:04 PM CDT 10/16/2024 7:04 PM CDT Notinfile Unknown LAB POCT ORDERABLES - DEVICE F inal Result Performing Organization Address [facility] Co de Phone Number GRACIE HODGSON [address] [place] [address] * COLONOSCOPY (11/21/2021 9:21 AM CDT) Anatomical Region Laterality Modality Other Narrative Procedure Note Zenon Barcenas MD - 11/21/2021 9:21 AM CDT - [facility] Endoscopy Lab Patient Name: Camille [...] bowel preparation was evaluated using the BBPS ([place] Bowel Preparation Scale) with scores of:Right Colon [...] 0 Note Initiated On: 11/21/2021 9:21 AM us Zenon Barcenas MD ENDOSCOPY PROCEDURES Final Re sult from Last 3 Months or Most Recently Relevant to Health Maintenance Insurance IDPA HUMANA CHOICE MEDICARE PPO MEDICARE [facility] Address: [address] [address] [place] [address] IDMS MEDICARE [facility] Address: [address] [address] [place] [address] IDMS [facility] MEDICARE [facility] Address: [address] [address] [place] [address] Advance Directives For more information, please contact: [phone] * Full Code (Latest Code Status on File) Date Activated Date Inactivated Comments 10/17/2024 1:21 AM 10/19/2024 8:35 PM * Full Code Date Activated Date Inactivated Comments 09/27/2021 11:16 PM 10/03/2021 7:15 PM Care Teams Carriage Feeder Relationship Specialty Start Date End Date Mike Gautam, PCP - General 09/27/21
--- OUTSIDE RECORDS SUMMARY | 2024-11-30 11:53 | XMS_ITS | Clinical Summary ---
Author Organization [facility] Address [address] [place] [address] Care Team Providers Care Wire Winding Machine Operator Name Role Phone Miek Gautam DO Primary Care Provider [phone] Allergies Active Allergy Reactions Criticality Noted Date [...] (10/16/2021): Added automatically from request for surgery [id number] Diverticulitis 10/16/2021 Overview (10/16/2021): Added automatically from request for surgery [id number] Colitis 09/27/2021 Dystrophia unguium 02/21/2021 Epilepsy 05/13/2017 Foot-drop 05/13/2017 Hypercholesterolemia 05/13/2017 Neuropathy 05/13/2017 Hypertensive disorder 05/13/2017 Exudative age-related macular degeneration of le ft eye 05/08/2015 Retinal hemorrhage of left eye 03/27/2015 Encounters Date Type Department Care Team Description 11/23/2024 Plan of Care Documentation [facility] Occupational Therapy [address] [place] [address] 11/22/2024 2:00 PM CDT Therapy [facility] Physical Therapy [address] [place] [id number] Hailey Calderon, LUCRECIA Foot drop, right foot (Primary Dx); Foot drop, left foot; Spinal stenosis, unspecified spinal region 11/22/2024 1:00 PM CDT Therapy [facility]ational Therapy [address] [place] [address] Renetta Oleary, OT Lymphedema, not elsewhere classified 11/22/2024 Plan of Care Documentation [facility] Physical Therapy [address] [place] [address] 10/16/2024 10:30 PM CDT - 10/19/2024 4:30 PM CDT Hospital Encounter [facility] Oncology [address] [place] [address] Donna Michael MD Perez Porcel, MD Twila Kim Olumide Omolulu, MD Dehydration (Primary Dx); Hypokalemia Discharge Disposition: Discharge to home or self care from Last 3 Months Immunizations Immunization Administration Dates Next Due Influenza, Quadrivalent, Split, Intramuscular Influenza, Trivalent, IM (MDV) 03/02/2017 Tdap 09/28/2021 Surgical History Surgery Date Site/Laterality [...] drink = 0.6 oz pur e alcohol) [facility] Utilities Answer Date Recorded In the past 12 months has [employer], oil, or water [employer] threatened to shut off services in your [...] week 10/17/2024 How often do you attend [facility] or anabaptism services? More than 4 times per year 10/17/2024 Do you belong to any clubs o r organizations such as scientologist groups, unions, fraternal or athletic groups, or [...] money to buy more. Never true 10/18/19 Within the past 12 months, t he [...] place to sleep or slept in a retirement (including now)? No 09/29/2021 Housing Stability Vital Sign Answer Papito e Recorded In the last 12 months, was t here a time when you were not able to pay the mortgage or rent on time? No 10/17/2024 In the past 12 months, how m any times have you moved where you were living? 0 10/17/2024 At any time in the past 12 m [facility], were you homeless or living in a retirement (including now)? No 10/17/2024 Personal Safety Answer Date Recorded Have you ever been in or are you currently in a harmful physical or emotional relationship or is someone making you feel afraid or unsafe? 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 Gender Identity Not on file Sexual Orientation [...] 10/17/2024 2:45 AM CDT Plan of Treatment Health Maintenance Due Date Last Done Comments Albumin Creatinine Ratio, Urine 1955 Breast Cancer Screening-Mammogram 1955 Hemoglobin A1C 1955 Hepatitis C Screening 1955 Osteoporosis Screening-Bone Density Scan 1955 Dilated Eye Exam 1955 Foot Exam 1955 Lipid Panel 1955 Hepatitis B Screening 1973 Well Visit 65+ 02/05/2020 Pneumococcal vaccine 65+ (3 of 3 - PCV20 or PCV21) 03/02/2022 03/02/2017, 06/07/2012 Depression Screening 10/16/2022 10/16/2021 Covid-19 Vaccine (2023-08 5 season) 2024 07/28/2021, 09/28/2020, 08/30/2020 Influenza Vaccine (Season Ended) 2025 04/14/2021, 03/08/2020, 03/13/2019, Additional history exists eGFR 10/17/2025 10/17/2024, 10/03, 08/17/2022, Additional history exists Fall Risk Assessment 10/19/2025 10/19/2024 DTaP/Tdap/Td Vaccine (3 - Td or Tdap) 09/29/2031 09/28/2021, 12/21/2014 Colon Cancer Screening-Colonoscopy 11/22/2031 11/21/2021, 09/21/2013 Zoster Vaccine Completed 05/11/2019, 01/31/2019 Colon Cancer Screening-CT Colonography Discontinued 11/21/2021, 09/21/2013 Colon Cancer Screening-DNA Stool Discontinued 11/22/19, 09/21/2013 Colon Cancer Screening-FIT Discontinued 11/21/2021, Colon Cancer Screening-Sigmoidoscopy Discontinued 11/21/2021, 09/21/2013 Medical Devices Implanted Type Area Sleeve Fixer Device Identifier Shelf Expiration Date Model / Serial / Lot Integra [id number] [employer] [id number] Integra 5x4in Mesh Dressing Biological Bovine Collagen - [id number] Implanted:Qty: 1 on 09/29/2021 by Leo Boone Jr., MD at [facility] Right: Leg Integra [employer] Earl 06/03/2022 [id number] / / [id number] Procedures Procedure Name Priority Date/Time Associated Diagnosis Comments NH CRITICAL CARE ILL/INJURED PATIENT INIT 30-74 MIN [...] Recently Relevant to Health Maintenance Results * NH CRITICAL CARE ILL/INJURED PATIENT INIT 30-74 MIN [...] and reviewed test results and/or imaging studies. us Donna Henley MD IN CLINIC/BEDSIDE ORDERABLES Final [...] of Race in Diagnosing Kidney Disease, JASN 202). The CKD-EPI equation should not be used for patients with unstable renal function and has not been validated in children and those over 70. Current interpretive data was last reviewed 2021. Blood 10/17/2024 5:09 AM CDT 10/17/2024 5:29 AM CDT us Willie Nevarez NP LAB BLOOD ORDERABLES Final R esult [facility] [address] [place] [address] * (ABNORMAL) Differential, auto (10/17/2024 5:09 AM CDT) Neutrophil abs 4.85 1.50 - 6.50 K/cumm Imm gran abs 0.05 0.00 - 0.10 K/cumm [facility] Lymphocyte abs 1.51 0.80 - 3.30 K/cumm [facility] Monocyte abs 0.83(H) 0.20 - 0.80 K/cumm [facility] Eosinophil abs 0.11 0.00 - 0.50 K/cumm [facility] Basophil abs 0.04 0.00 - 0.10 K/cumm [facility] Neutrophil pct 65.7 % [facility] Comment: Interpretive Data Percent cell count reference ranges are not reported, since discordance with absolute values may lead to misinterpretation of CBC data. Current Interpretive Data was last revised on 2017. Imm gran pct 0.7 % [facility] Comment: Interpretive Data Percent cell count reference ranges are not reported, since discordance with absolute values may lead to misinterpretation of CBC data. Current Interpretive Data was last revised on 2017. Lymphocyte pct 20.4 % [facility] Comment: Interpretive Data Percent cell count reference ranges are not reported, since discordance with absolute values may lead to misinterpretation of CBC data. Current Interpretive Data was last revised on 2017. Monocyte pct 11.2 % [facility] Comment: Interpretive Data Percent cell count reference ranges are not reported, since discordance with absolute values may lead to misinterpretation of CBC data. Current Interpretive Data was last revised on 2017. Eosinophil pct 1.5 % [facility] Comment: Interpretive Data Percent cell count reference ranges are not reported, since discordance with absolute values may lead to misinterpretation of CBC data. Current Interpretive Data was last revised on 2017. Basophil pct 0.5 % [facility] Comment: Interpretive Data Percent cell count reference ranges are not reported, since discordance with absolute values may lead to misinterpretation of CBC data. Current Interpretive Data was last revised on 2017. Blood 10/17/2024 5:09 AM CDT 10/17/2024 5:28 AM CDT us Willie Nevarez NP LAB BLOOD ORDERABLES Final R esult [facility] [address] [place] [address] * (ABNORMAL) CBC with auto differential (10/17/2024 5:09 AM CDT) Pathologist [facility] WBC 7.39 3.80 - 9.90 K/cumm Hgb 10.5(L) 11.9 - 15.5 g/dL [facility] Hct 32.3(L) 35.6 - 45.5 % [facility] Plt 211 150 - 400 K/cumm [facility] MPV 10.1 9.1 - 12.3 fL [facility] RBC 3.43(L) 3.90 - 5.20 M/cumm [facility] MCV 94.2 81.3 - 96.4 fL [facility] MCH 30.6 27.1 - 33.3 pg [facility] MCHC 32.5 32.3 - 35.7 g/dL [facility] RDW CV 12.9 11.1 - 14.9 % [facility] RDW SD 44.6 35.7 - 48.1 fL [facility] NRBC abs 0.00 0.00 - 0.01 K/cumm [facility] Blood 10/17/2024 5:09 AM CDT 10/17/2024 5:28 AM CDT Willie Nevarez NP LAB BLOOD ORDERABLES Final R esult [facility] [address] [place] [address] * (ABNORMAL) Comprehensive metabolic panel (10/17/2024 5:09 AM CDT) Pathologist [facility] Sodium 130(L) 135 - 145 mmol/L Potassium, pl 4.4 3.3 - 4.9 mmol/L [facility] Chloride 95(L) 97 - 110 mmol/L [facility] CO2 25 22 - 32 mmol/L [facility] Anion gap 10 2 - 15 mmol/L [facility] BUN 10 6 - 25 mg/dL [facility] Creatinine 1.10 0.60 - 1.10 mg/dL [facility] Glucose 111 70 - 199 mg/dL [facility] Comment: Interpretive Data Fasting glucose >/= [...] NP LAB BLOOD ORDERABLES Final R esult [facility] [id number] [place] [address] * (ABNORMAL) Urinalysis reflex to microscopic and culture Urine (10/17/2024 4:06 AM CDT) Color, ur Yellow Yellow Clarity, ur Turbid(A) Clear [facility] Specific gravity, ur 1.033(H) 1.003 - 1.030 [facility] pH, urine 6.0 [facility] Comment: Interpretive Data U rine pH is affected by diet, medications, systemic acid-base disturbances, and renal tubular function. pH may affect urinary stone formation. For example, urine pH below 6.0 may help reduce the tendency for calcium phosphate stones and pH greater than 6.0 may reduce the tendency for uric acid stone formation. Source: [facility] [employer] Current Interpretive Data was last revised on [...] to microscopic UA will be performed. [facility] Urine 10/17/2024 4:06 AM CDT 10/17/2024 4:13 AM CDT Altaf Wilhelm NP LAB MICROBIOLOGY - GENERAL ORDERABLES Final Result Performing Organization Address [facility] Co de Phone Number GRACIE HODGSON [address] [employer] [place] [address] * (ABNORMAL) Urinalysis, microscopic only (10/17/2024 4:06 AM CDT) WBC, ur >50(A) 0 - 5 /HPF RBC, ur 6-10(A) 0 - 2 /HPF [facility] Epithelial cells, squamous, ur 21-50(A) 0 - 5 /HPF [facility] Bacteria, ur Trace(A) [facility] Culture Reflex Comment Reflex to urine culture will be performed. [facility] Urine 10/17/2024 4:06 AM CDT 10/17/2024 4:13 AM CDT Altaf Wilhelm NP LAB URINE ORDERABLES Final Result Performing Organization Address [facility] Co de Phone Number GRACIE HODGSON [address] [employer] [place] [address] * Urine culture Urine (10/17/2024 4:06 AM CDT) Report Final Report: Less than 100,000 colonies/mL (clinically insignificant growth based on current clinical standards) Comment:Testing performed by : [facility], [address] [place]., [address] Organism (CLINICALLY INSIGNIFICANT GROWTH [facility] Urine 10/17/2024 4:06 AM CDT 10/17/2024 8:58 AM CDT Narrative [facility] - 10/18/2024 12:13 PM CDT Urine culture reflexed based upon urinalysis results. Testing performed by [facility] Microbiology Laboratory ([phone]) us Altaf Wilhelm NP LAB MICROBIOLOGY - GENERAL ORDERABLES Final Result [facility] [address] [place] [address] * CT Abdomen Pelvis W Contrast (10/16/2024 [...] neural compromise as detailed. Stat report by [facility] Electronically signed by: Fredy Haskins M.D. Narrative [...] neural compromise as detailed. Stat report by [facility] Electronically signed by: Fredy Haskins M.D. Donna Henley MD IMG CT PROCEDURES Final Resul t * eGFR [...] CDT 10/16/2024 9:59 PM CDT Altaf Wilhelm CIVIL ENGINEER HELPER LAB BLOOD ORDERABLES Final Result [facility] [address] [place] [address] * Differential, auto (10/16/2024 9:50 PM CDT) Neutrophil abs 4.02 1.50 - 6.50 K/cumm Imm gran abs 0.04 0.00 - 0.10 K/cumm [facility] Lymphocyte abs 1.84 0.80 - 3.30 K/cumm [facility] Monocyte abs 0.66 0.20 - 0.80 K/cumm [facility] Eosinophil abs 0.12 0.00 - 0.50 K/cumm [facility] Basophil abs 0.02 0.00 - 0.10 K/cumm [facility] Neutrophil pct 59.9 % [facility] Comment: Interpretive Data Percent cell count reference ranges are not reported, since discordance with absolute values may lead to misinterpretation of CBC data. Current Interpretive Data was last revised on 2017. Imm gran pct 0.6 % [facility] Comment: Interpretive Data Percent cell count reference ranges are not reported, since discordance with absolute values may lead to misinterpretation of CBC data. Current Interpretive Data was last revised on 2017. Lymphocyte pct 27.5 % [facility] Comment: Interpretive Data Percent cell count reference ranges are not reported, since discordance with absolute values may lead to misinterpretation of CBC data. Current Interpretive Data was last revised on 2017. Monocyte pct 9.9 % [facility] Comment: Interpretive Data Percent cell count reference ranges are not reported, since discordance with absolute values may lead to misinterpretation of CBC data. Current Interpretive Data was last revised on 2017. Eosinophil pct 1.8 % [facility] Comment: Interpretive Data Percent cell count reference ranges are not reported, since discordance with absolute values may lead to misinterpretation of CBC data. Current Interpretive Data was last revised on 2017. Basophil pct 0.3 % [facility] Comment: Interpretive Data Percent cell count reference ranges are not reported, since discordance with absolute values may lead to misinterpretation of CBC data. Current Interpretive Data was last revised on 2017. Blood 10/16/2024 9:50 PM CDT 10/16/2024 9:59 PM CDT us Altaf Wilhelm NP LAB BLOOD ORDERABLES Final Result [facility] [address] Department [place] [address] * (ABNORMAL) CBC with auto differential (10/16/2024 9:50 PM CDT) WBC 6.70 3.80 - 9.90 K/cumm Hgb 9.0(L) 11.9 - 15.5 g/dL [facility] Hct 27.6(L) 35.6 - 45.5 % [facility] Plt 169 150 - 400 K/cumm [facility] MPV 9.6 9.1 - 12.3 fL [facility] RBC 2.87(L) 3.90 - 5.20 M/cumm [facility] MCV 96.2 81.3 - 96.4 fL [facility] MCH 31.4 27.1 - 33.3 pg [facility] MCHC 32.6 32.3 - 35.7 g/dL [facility] CH RDW CV 13.1 11.1 - 14.9 % [facility] RDW SD 46.3 35.7 - 48.1 fL [facility] NRBC abs 0.00 0.00 - 0.01 K/cumm [facility] Blood 10/16/2024 9:50 PM CDT 10/16/2024 9:59 PM CDT Altaf Wilhelm CIVIL ENGINEER HELPER LAB BLOOD ORDERABLES Final Result [facility] [address] Department of [employer] [place], [place] [id number] * Lipase (10/16/2024 9:50 PM CDT) [facility] Lipase 14 10 - 99 Units/L Blood 10/16/2024 9:50 PM CDT 10/16/2024 9:59 PM CDT Altaf Wilhelm CIVIL ENGINEER HELPER LAB BLOOD ORDERABLES Final Result [facility] [address] [place] [address] * (ABNORMAL) Comprehensive metabolic panel (10/16/2024 9:50 PM CDT) [facility] Sodium 131(L) 135 - 145 mmol/L Potassium, pl 3.0(L) 3.3 - 4.9 mmol/L [facility] Chloride 100 97 - 110 mmol/L [facility] CO2 18(L) 22 - 32 mmol/L [facility] Anion gap 13 2 - 15 mmol/L [facility] BUN 9 6 - 25 mg/dL [facility] Creatinine 0.75 0.60 - 1.10 mg/dL [facility] Glucose 87 70 - 199 mg/dL [facility] Comment: [...] CDT 10/16/2024 9:59 PM CDT Altaf Wilhelm NP LAB BLOOD ORDERABLES Final Result [facility] [address] [place] [address] * POCT glucose (10/16/2024 7:04 PM CDT) [facility] Signature Glucose, POC 114 70 - 199 mg/dL POC Performer [id number] [facility] Blood 10/16/2024 7:04 PM CDT 10/16/2024 7:04 PM CDT us Notinfile Unknown LAB POCT ORDERABLES - DEVICE F inal Result [facility] [address] [facility] [place] [address] * COLONOSCOPY (11/21/2021 9:21 AM CDT) Anatomical Region Laterality Modality Other Narrative Procedure Note Zenon Barcenas MD - 11/21/2021 9:[address] [facility] Patient Name: Camille Orozco Procedure [...] bowel preparation was evaluated using the BBPS ([place] Bowel Preparation Scale) with scores of:Right Colon [...] Most Recently Relevant to Health [place] [address] [employer]NA CHOICE MEDICARE PPO MEDICARE IDPA IDPA [facility] MEDICARE ADVANTAGE Advance Directives For more information, please contact: [phone] * Full Code (Latest Code Status on File) Date Activated Date Inactivated Comments 10/17/2024 1:21 AM 10/19/2024 8:35 PM * Full Code Date Activated Date Inactivated Comments 09/27/2021 11:16 PM 10/03/2021 7:15 PM Care Teams Wire Winding Machine Operator Relationship Specialty Start Date End Date Mike Gautam DO PCP - General 09/27/21
--- NOTE | 2024-11-30 12:53 | ED.NAVMDI ---
HPI - Nausea/Vomiting/Diarrhea General Chief complaint: Nausea/Vomiting/Diarrhea <Lisa Hernandez PA-C - Last Filed: 12/01/24 09:22> Stated complaint: diverticulitis or colitis <Lisa Hernandez PA-C - Last Filed: 12/01/24 09:22> Time Seen by Provider: 11/30/24 12:54 <Lisa Hernandez PA-C - Last Filed: 12/01/24 09:22> Focused HPI: This is a 69 year old female that presents to the ER for lower abdominal pain. Ongoing over the last couple of days. Reports nausea and vomiting. Reports loose stools. Reports history of diverticulitis. She has been taking some left over Flagyl and Levofloxacin over the last couple of days. Denies fevers, dysuria. GENERAL: Uncomfortable, well-nourished, and in no acute distress. HEAD: Normocephalic, atraumatic. CHEST: Clear to auscultation. ?No respiratory distress. HEART: Regular rate and rhythm.? NEURO: ?Alert and oriented x3. Patient screened in triage and initial orders placed.? ?Additional care and disposition to be based upon?diagnostic testing and treatment. <Lisa Hernandez PA-C - Last Filed: 12/01/24 09:22> History of Present Illness HPI Narrative: Patient is 69-year-old female who presents emergency department chief complaint of abdominal pain. Patient reports he has prior history of diverticulitis reports he sees Dr. Snowden the patient reports that she started Flagyl 3 days ago and then was started on Levaquin yesterday by Dr. Snowden patient states that she has been really nauseated and reports that she is having diffuse discomfort throughout her abdomen the patient reports last time she had an episode like this she was seen in the emergency department started on oral antibiotics and then ended up in the hospital several days later. The patient reports symptoms today feel similar to whenever she has had diverticulitis in the past <Wilmar Alford MD - Last Filed: 11/30/24 16:51> Related Data Home medications: Home Medications ?Medication ?Instructions ?Recorded ?Confirmed ?Last Taken ?Type carbamazepine 400 mg 400 mg PO HS 06/08/19 11/30/24 11/29/24 History tablet,extended release,12 hr (Tegretol XR) cholecalciferol (vitamin D3) 125 5,000 unit PO DAILY 06/08/19 11/30/24 11/29/24 History mcg (5,000 unit) capsule trazodone 100 mg tablet 100 mg PO QPM 06/08/19 11/30/24 11/29/24 History bimatoprost 0.01 % eye drops 1 drp ophthalmic (eye) HS 11/29/19 11/30/24 11/29/24 History (Lumigan) vitamins A,C,M-habh-eejvaa 2,148 1 tablet PO DAILY 11/29/19 11/30/24 11/29/24 History mcg-113 mg-45 mg-17.4 mg tablet (PreserVision AREDS) <Lisa Hernandez PA-C - Last Filed: 12/01/24 09:22> Allergies/Adverse reactions: Allergies Allergy/AdvReac Type Severity Reaction Status Date / Time cephalexin (From Keflex) Allergy Itching Verified 11/30/24 14:46 Head nitrofurantoin (From Allergy Hives Verified 11/30/24 14:46 Macrobid) Penicillins AdvReac Unknown DIVERTICULI Verified 11/30/24 14:46 TIS diphenhydramine (From AdvReac Seizure Verified 11/30/24 14:46 Benadryl) <Lisa Hernandez PA-C - Last Filed: 12/01/24 09:22> Review of Systems Review of Systems: A 10 system review of systems was completed on the patient and is negative except for what is stated in the HPI. Nursing and ancillary documentation was reviewed. <Wilmar Alford MD - Last Filed: 11/30/24 16:51> [facility] Past Medical History Medical History: Medical History Reflex sympathetic dystrophy Hyperlipidemia Essential hypertension Depression Vitamin D deficiency Diverticulitis Adenomatous colon polyp BPPV (benign paroxysmal positional vertigo) Post-menopausal Lump of breast, right Inflammatory arthritis Bilateral sacroiliitis Marijuana use Seizure disorder Anxiety Spinal stenosis Obstructive sleep apnea Noncompliant with BiPAP. Glaucoma Macular degeneration History of rheumatic fever as a child Gastroesophageal reflux disease Bilateral foot-drop Diverticulosis large intestine w/o perforation or abscess w/bleeding Former smoker Rectocele Prediabetes A1C 5.5% 09/2024 <HOLLEY Gonzalez Last Filed: 12/01/24 09:22> Surgical History Surgical History: Surgical History History of sinus surgery History of tonsillectomy History of bilateral cataract extraction History of bilateral breast reduction surgery History of colonoscopy with polypectomy History of laparoscopic cholecystectomy History of partial hysterectomy History of fusion of cervical spine (1999) History of repair of rectocele (12/08/19) Rectocele repair/posterior colporrhaphy and perineoplasty. <HOLLEY Gonzalez Last Filed: 12/01/24 09:22> Family History Family History: Family History Mother Diabetes mellitus Hypertension Parkinsons disease Heart attack Father Diabetes mellitus Hypertension Renal failure Heart attack Cerebrovascular accident <HOLLEY Gonzalez Last Filed: 12/01/24 09:22> Social History Social History: Social History Social History: The patient lives in her own home in [place]. A friend is currently staying with her. She has 2 grown children. Ambulates with a walker or cane due to footdrop and decreased mobility. 5 pack-year smoking history, quit 1977. She drinks 1 to 2 glasses of wine a week. Smokes marijuana couple of times a week. She designates her son Ousmane Orozco and her brother Mike Orozco as her surrogate decision makers and she wishes to be a full code. 1 cup caffeine daily Smoking status: Never smoker Smoking end date: 07/05/78 Alcohol intake: never Substance use: never Substance use type: does not use Do You Feel Safe in your Home?: Yes Lack of Transportation: No Lack of Food: Never True Current Housing: I Have Housing Concerned About Future Housing: No Difficulty Paying Gas/Electric Bills: No Difficulty Paying for Meds: No Currently Unemployed: No Education: Decline to Answer Difficulty w/ Childcare or Family Care: No Living arrangements: alone Spiritual care concerns: No <HOLLEY Gonzalez Filed: 12/01/24 09:22> Exam Narrative: GENERAL: ill-appearing, well-nourished, and in no acute distress. HEAD: Normocephalic, atraumatic. EYES: PERRLA and EOMI. ENT: Nares clear, no rhinorrhea or epistaxis. Mucous membranes moist. NECK: Supple. CHEST: Clear to auscultation. No respiratory distress. HEART: Regular rate and rhythm. No murmur heard. Normal peripheral pulses. ABDOMEN: Soft, Diffuse tenderness to palpation, nondistended, normal active bowel sounds. EXTREMITIES: Normal range of motion. No edema. SKIN: Warm, dry, no rash. NEURO: No focal deficits. Alert and oriented x3. PSYCH: Normal mood and affect. <Wilmar Alford MD - Last Filed: 11/30/24 16:51> Course Vital Signs Vital signs: Vital Signs Temperature 98.4 F 11/30/24 11:50 Pulse Rate 86 11/30/24 11:50 Respiratory Rate 16 11/30/24 11:50 Blood Pressure 139/76 11/30/24 11:50 Pulse Oximetry 98 11/30/24 11:50 Oxygen Delivery Room Air 11/30/24 11:50 Temperature 97.7 F 12/01/24 04:45 Pulse Rate 101 H 12/01/24 04:45 Respiratory Rate 18 12/01/24 04:45 Blood Pressure 159/63 H 12/01/24 04:45 Pulse Oximetry 99 12/01/24 04:45 Oxygen Delivery Room Air 11/30/24 22:00 Fraction of Inspired Oxygen 21 11/30/24 22:00 <Lisa Hernandez PA-C - Last Filed: 12/01/24 09:22> Vital Signs Temperature 98.4 F 11/30/24 11:50 Pulse Rate 86 11/30/24 11:50 Respiratory Rate 16 11/30/24 11:50 Blood Pressure 139/76 11/30/24 11:50 Pulse Oximetry 98 11/30/24 11:50 Oxygen Delivery Room Air 11/30/24 11:50 Temperature 97.7 F 12/01/24 04:45 Pulse Rate 101 H 12/01/24 04:45 Respiratory Rate 18 12/01/24 04:45 Blood Pressure 159/63 H 12/01/24 04:45 Pulse Oximetry 99 12/01/24 04:45 Oxygen Delivery Room Air 11/30/24 22:00 Fraction of Inspired Oxygen 21 11/30/24 22:00 <Wilmar Alford MD - Last Filed: 11/30/24 16:51> MDM - Nausea/Vomiting/Diarrhea MDM Narrative Medical decision making narrative: differential diagnosis includes diverticulitis, intra-abdominal abscess, dehydration, colitis laboratory studies were obtained the patient which showed a white count of 8.3 electrolytes are within normal limits CT scan of the abdomen pelvis did show evidence of acute diverticulitis patient was started on IV Levaquin and Flagyl the case was discussed with the patient's video production intern Dr. Snowden who will consult on the patient he did recommend placing a nonemergent consult for surgery <Wilmar Alford MD - Last Filed: 11/30/24 16:51> Lab Data Result diagrams: 12/01/24 06:05 12/01/24 06:05 <Lisa Hernandez PA-C - Last Filed: 12/01/24 09:22> Labs: Lab Results 11/30/24 11/30/24 11/30/24 Range/Units 13:26 14:18 14:39 WBC 8.3 (4.5-10.0) K/mm3 RBC 3.67 L (4.2-5.4) M/mm3 Hgb 11.2 L (12.0-15.0) g/dL Hct 34.4 L (37.0-47.0) % MCV 93.7 (80-100) fl MCH 30.5 (26-34) pg MCHC 32.6 (32-36) g/dl RDW 13.5 (11.5-14.5) % Plt Count 260 (150-375) k/mm3 MPV 10.8 H (7.4-10.4) fl Immature Gran % (Auto) 0.6 H (0-0.5) % Neut % (Auto) 71.6 (45.5-73.1) % Lymph % (Auto) 19.0 (18.3-44.2) % [facility] % (Auto) 7.7 (2.6-8.5) % Eos % (Auto) 0.6 (0-4.4) % Baso % (Auto) 0.5 (0.2-1.2) % Lymph # (Auto) 1.57 (0.9-3.2) K/mm3 [facility] # (Auto) 0.6 (0.1-0.6) K/mm3 Eos # (Auto) 0.1 (0-0.3) K/mm3 Baso # (Auto) 0.0 (0.0-0.1) K/mm3 Abs Immat Gran (auto) 0.05 H (0.00-0.031) K/mm3 Absolute Neuts (auto) 5.9 (1.3-6.7) K/mm3 Absolute Nucleated RBC 0.000 (0.0-0.012) K/mm3 Nucleated RBC % 0.0 (0.0-0.2) % Sodium 128 L (137-145) mmol/L Potassium 4.8 (3.4-5.0) mmol/L Chloride 95 L (98-107) mmol/L Carbon Dioxide 23 (22-30) mmol/L Anion Gap 10 (4-12) mmol/L BUN 19 H (7-17) mg/dL Creatinine 0.94 (0.7-1.0) mg/dL Estim Creat Clear Calc 55 ml/min Estimated GFR 59 (59 - ) Glucose 106 (65-110) mg/dL Calcium 9.4 (8.4-10.2) mg/dL Total Bilirubin 0.6 (0.2-1.3) mg/dL AST 31 (14-36) U/L ALT 17 (6-35) U/L Alkaline Phosphatase 73 (38-126) U/L Total Protein 7.0 (6.3-8.2) g/dL Albumin 4.2 (3.5-5.1) g/dL Lipase 79 (23-300) U/L Urine Color Yellow (Yellow) Urine Appearance Clear (Clear) Urine pH 6.0 (5.0-9.0) Ur Specific Holstein 1.011 (1.001-1.035) Urine Protein Negative (Negative) mg/dL Urine Glucose (UA) Negative (Negative) mg/dL Urine Ketones 1+ H (Negative) mg/dL Ur Blood (Man) Negative (Negative) Urine Nitrate Negative (Negative) Urine Bilirubin Negative (Negative) Urine Urobilinogen 0.2 (<2.0) mg/dL Leukocyte Esterase Rfl 1+ H (Negative) JOSE/UL Urine RBC 0-2 (0-2) /hpf Urine WBC 6-10 H (0-3) /hpf Ur Squamous Epith Cells Few (Few) /hpf Urine Bacteria None seen /hpf Urine Casts 0-2 <Lisa Hernandez PA-C - Last Filed: 12/01/24 09:22> Lab Results 11/30/24 11/30/24 11/30/24 Range/Units 13:26 14:18 14:39 WBC 8.3 (4.5-10.0) K/mm3 RBC 3.67 L (4.2-5.4) M/mm3 Hgb 11.2 L (12.0-15.0) g/dL Hct 34.4 L (37.0-47.0) % MCV 93.7 (80-100) fl MCH 30.5 (26-34) pg MCHC 32.6 (32-36) g/dl RDW 13.5 (11.5-14.5) % Plt Count 260 (150-375) k/mm3 MPV 10.8 H (7.4-10.4) fl Immature Gran % (Auto) 0.6 H (0-0.5) % Neut % (Auto) 71.6 (45.5-73.1) % Lymph % (Auto) 19.0 (18.3-44.2) % [facility] % (Auto) 7.7 (2.6-8.5) % Eos % (Auto) 0.6 (0-4.4) % Baso % (Auto) 0.5 (0.2-1.2) % Lymph # (Auto) 1.57 (0.9-3.2) K/mm3 [facility] # (Auto) 0.6 (0.1-0.6) K/mm3 Eos # (Auto) 0.1 (0-0.3) K/mm3 Baso # (Auto) 0.0 (0.0-0.1) K/mm3 Abs Immat Gran (auto) 0.05 H (0.00-0.031) K/mm3 Absolute Neuts (auto) 5.9 (1.3-6.7) K/mm3 Absolute Nucleated RBC 0.000 (0.0-0.012) K/mm3 Nucleated RBC % 0.0 (0.0-0.2) % Sodium 128 L (137-145) mmol/L Potassium 4.8 (3.4-5.0) mmol/L Chloride 95 L (98-107) mmol/L Carbon Dioxide 23 (22-30) mmol/L Anion Gap 10 (4-12) mmol/L BUN 19 H (7-17) mg/dL Creatinine 0.94 (0.7-1.0) mg/dL Estim Creat Clear Calc 55 ml/min Estimated GFR 59 (59 - ) Glucose 106 (65-110) mg/dL Calcium 9.4 (8.4-10.2) mg/dL Total Bilirubin 0.6 (0.2-1.3) mg/dL AST 31 (14-36) U/L ALT 17 (6-35) U/L Alkaline Phosphatase 73 (38-126) U/L Total Protein 7.0 (6.3-8.2) g/dL Albumin 4.2 (3.5-5.1) g/dL Lipase 79 (23-300) U/L Urine Color Yellow (Yellow) Urine Appearance Clear (Clear) Urine pH 6.0 (5.0-9.0) Ur Specific Holstein 1.011 (1.001-1.035) Urine Protein Negative (Negative) mg/dL Urine Glucose (UA) Negative (Negative) mg/dL Urine Ketones 1+ H (Negative) mg/dL Ur Blood (Man) Negative (Negative) Urine Nitrate Negative (Negative) Urine Bilirubin Negative (Negative) Urine Urobilinogen 0.2 (<2.0) mg/dL Leukocyte Esterase Rfl 1+ H (Negative) JOSE/UL Urine RBC 0-2 (0-2) /hpf Urine WBC 6-10 H (0-3) /hpf Ur Squamous Epith Cells Few (Few) /hpf Urine Bacteria None seen /hpf Urine Casts 0-2 <Wilmar Alford MD - Last Filed: 11/30/24 16:51> Imaging Data Radiologist's impression: ITS Impressions Abdomen/Pelvis CT 11/30/24 15:57 IMPRESSION: Redemonstration of mural thickening within the proximal sigmoid colon with surrounding inflammatory change and interloop fluid, for which acute diverticulitis is suspected. Follow-up to resolution is recommended as a malignancy may have a similar appearance. Given that these findings are similar to previous examination performed more than one month earlier, direct visualization is recommended, if not already performed. <Lisa Hernandez PA-C - Last Filed: 12/01/24 09:22> Critical Care Time Critical Care Time Critical Care Time: No <Lisa Hernandez PA-C - Last Filed: 12/01/24 09:22> Discharge Plan Discharge Clinical Impression: Acute diverticulitis Abdominal pain Qualifiers: Abdominal location: lower abdomen, unspecified Qualified Code(s): R10.30 - Lower abdominal pain, unspecified Nausea & vomiting Qualifiers: Vomiting type: unspecified Qualified Code(s): R11.2 - Nausea with vomiting, unspecified <Lisa Hernandez PA-C - Last Filed: 12/01/24 09:22> Patient Disposition: Still a Patient <HOLLEY Gonzalez Last Filed: 12/01/24 09:22> Condition: Stable <HOLLEY Gonzalez Last Filed: 12/01/24 09:22>
[2024-11-30 13:39] LABS: Basophils Percent Auto 0.5 % (0.2-1.2); Eosinophils Absolute Auto 0.1 K/mm3 (0-0.3); Eosinophils Percent Auto 0.6 % (0-4.4); Hematocrit 34.4 % (37.0-47.0); Hemoglobin 11.2 g/dL (12.0-15.0); Immature Granulocyte Absolute 0.05 K/mm3 (0.00-0.031); Immature Granulocyte Percent A 0.6 % (0-0.5); Lymphocytes Absolute Auto 1.57 K/mm3 (0.9-3.2); Mean Corpuscular HGB Conc 32.6 g/dl (32-36); Mean Corpuscular Hemoglobin 30.5 pg (26-34); Mean Corpuscular Volume 93.7 fl (80-100); Mean Platelet Volume 10.8 fl (7.4-10.4); Monocytes Absolute Auto 0.6 K/mm3 (0.1-0.6); Monocytes Percent Auto 7.7 % (2.6-8.5); Neutrophils Absolute Auto 5.9 K/mm3 (1.3-6.7); Neutrophils Percent Auto 71.6 % (45.5-73.1); Platelet Count Result 260 k/mm3 (150-375); Red Blood Count 3.67 M/mm3 (4.2-5.4); Red Cell Distribution Width 13.5 % (11.5-14.5); White Blood Count 8.3 K/mm3 (4.5-10.0)
[2024-11-30 14:25] LABS: Add Urine Microscopic? YES; Appearance Urine Clear (Clear); Bacteria Urine None Seen /hpf; Bilirubin Urine Negative (Negative); Blood Urine Negative (Negative); Color Urine Yellow (Yellow); Glucose Urine UA Negative (Negative); Ketones Urine 1+ mg/dL (Negative); Leukocyte Esterase Ur 1+ LEU/UL (Negative); Nitrate Urine Negative (Negative); Non Pathogenic Casts 0-2; Protein Urine Negative (Negative); RBC Urine 0-2 /hpf (0-2); Specific Grav Ur 1.011 (1.001-1.035); Squamous Epithelial Cell Urine Few /hpf (Few); Urobilinogen Urine 0.2 mg/dL (<2.0)
--- OUTSIDE RECORDS SUMMARY | 2024-11-30 14:32 | XMS_ITS | Clinical Summary ---
Author Organization [facility]IEvolutionsaint joseph hospitalDearLocal [facility] Address [address] [place] [address] Care Team Providers Care Property Coordinator Name Role Phone Mike Gautam DO Primary Care Provider [phone] Allergies Active Allergy Reactions Criticality Noted Date [...] (10/16/2021): Added automatically from request for surgery [id number] Diverticulitis 10/16/2021 Overview (10/16/2021): Added automatically from request for surgery [id number] Colitis 09/27/2021 Dystrophia unguium 02/21/2021 Epilepsy 05/13/2017 Foot-drop 05/13/2017 Hypercholesterolemia 05/13/2017 Neuropathy 05/13/2017 Hypertensive disorder 05/13/2017 Exudative age-related macular degeneration of le ft eye 05/08/2015 Retinal hemorrhage of left eye 03/27/2015 Encounters Date Type Department Care Team Description 11/23/2024 Plan of Care Documentation [facility] Occupational Therapy [address] [place] [id number] 11/22/2024 2:00 PM CDT Therapy [facility] Physical Therapy [address] [place] [id number] Hailey Calderon, LUCRECIA Foot drop, right foot (Primary Dx); Foot drop, left foot; Spinal stenosis, unspecified spinal region 11/22/2024 1:00 PM CDT Therapy [facility] Occupational Therapy [address] [place] [id number] Renetta Oleary, OT Lymphedema, not elsewhere classified 11/22/2024 Plan of Care Documentation [facility] Physical Therapy [address] [place] [address] 10/16/2024 10:30 PM CDT - 10/19/2024 4:30 PM CDT Hospital Encounter [facility] Oncology [address] [place] [address] Donna Michael MD Perez Porcel, MD Twila [...] drink = 0.6 oz pur e alcohol) [facility] Utilities Answer Date Recorded In the past 12 months has [employer], oil, or water [employer] threatened to shut off services in your [...] How often do you attend [facility] or [employer] services? More than 4 times per year 10/17/2024 Do you belong to any clubs o r organizations such as shinto groups, unions, fraternal or athletic groups, or [...] place to sleep or slept in a long term (including now)? No 09/29/2021 Housing Stability Vital Sign Answer Papito e Recorded In the last 12 months, was t here a time when you were not able to pay the mortgage or rent on time? No 10/17/2024 In the past 12 months, how m any times have you moved where you were living? 0 10/17/2024 At any time in the past 12 m [facility], were you homeless or living in a long term (including now)? No 10/17/2024 Personal Safety Answer Date Recorded Have you ever been in or are you currently in a harmful physical or emotional relationship or is someone making you feel afraid or unsafe? 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 Gender Identity Not on file Sexual Orientation [...] 11/21/2021, 09/21/2013 Medical Devices Implanted Type Area Front Office Associate Device Identifier Shelf Expiration Date Model / Serial / Lot Integra [employer] Earl [id number] Integra 5x4in Mesh Dressing Biological Bovine Collagen - [id number] Implanted:Qty: 1 on 09/29/2021 by Leo Boone Jr., MD at [facility] Right: Leg Integra [employer] Earl 06/03/2022 [id number] / / [id number] Procedures Procedure Name Priority Date/Time Associated Diagnosis Comments SC CRITICAL CARE ILL/INJURED PATIENT INIT 30-74 MIN [...] Recently Relevant to Health Maintenance Results * SC CRITICAL CARE ILL/INJURED PATIENT INIT 30-74 MIN [...] BLOOD ORDERABLES Final R esult [facility] [address] Department [place] [address] * (ABNORMAL) Differential, auto (10/17/2024 5:09 AM CDT) Neutrophil abs 4.85 1.50 - 6.50 K/cumm Imm gran abs 0.05 0.00 - 0.10 K/cumm [facility] Lymphocyte abs 1.51 0.80 - 3.30 K/cumm [facility] Monocyte abs 0.83(H) 0.20 - 0.80 K/cumm [facility] Eosinophil abs 0.11 0.00 - 0.50 K/cumm [facility] Basophil abs 0.04 0.00 - 0.10 K/cumm [facility] Neutrophil pct 65.7 % [facility] Comment: Interpretive Data Percent cell count reference ranges are not reported, since discordance with absolute values may lead to misinterpretation of CBC data. Current Interpretive Data was last revised on 2017. Imm gran pct 0.7 % [facility] Comment: Interpretive Data Percent cell count reference ranges are not reported, since discordance with absolute values may lead to misinterpretation of CBC data. Current Interpretive Data was last revised on 2017. Lymphocyte pct 20.4 % [facility] Comment: Interpretive Data Percent cell count reference ranges are not reported, since discordance with absolute values may lead to misinterpretation of CBC data. Current Interpretive Data was last revised on 2017. Monocyte pct 11.2 % [facility] Comment: Interpretive Data Percent cell count reference ranges are not reported, since discordance with absolute values may lead to misinterpretation of CBC data. Current Interpretive Data was last revised on 2017. Eosinophil pct 1.5 % [facility] Comment: Interpretive Data Percent cell count reference ranges are not reported, since discordance with absolute values may lead to misinterpretation of CBC data. Current Interpretive Data was last revised on 2017. Basophil pct 0.5 % [facility] Comment: Interpretive Data Percent cell count reference ranges are not reported, since discordance with absolute values may lead to misinterpretation of CBC data. Current Interpretive Data was last revised on 2017. Blood 10/17/2024 5:09 AM CDT 10/17/2024 5:28 AM CDT us Willie Nevarez NP LAB BLOOD ORDERABLES Final R esult [facility] [address] Department [place] [address] * (ABNORMAL) CBC with auto differential (10/17/2024 5:09 AM CDT) Pathologist [facility] WBC 7.39 3.80 - 9.90 K/cumm Hgb 10.5(L) 11.9 - 15.5 g/dL [facility] Hct 32.3(L) 35.6 - 45.5 % [facility] Plt 211 150 - 400 K/cumm [facility] MPV 10.1 9.1 - 12.3 fL [facility] RBC 3.43(L) 3.90 - 5.20 M/cumm [facility] MCV 94.2 81.3 - 96.4 fL [facility] CH MCH 30.6 27.1 - 33.3 pg [facility] MCHC 32.5 32.3 - 35.7 g/dL [facility] RDW CV 12.9 11.1 - 14.9 % [facility] RDW SD 44.6 35.7 - 48.1 fL [facility] NRBC abs 0.00 0.00 - 0.01 K/cumm [facility] Blood 10/17/2024 5:09 AM CDT 10/17/2024 5:28 AM CDT Willie Nevarez NP LAB BLOOD ORDERABLES Final R esult [facility] [address] Department [place] [address] * (ABNORMAL) Comprehensive metabolic panel (10/17/2024 5:09 AM CDT) Pathologist [facility] Sodium 130(L) 135 - 145 mmol/L Potassium, pl 4.4 3.3 - 4.9 mmol/L [facility] Chloride 95(L) 97 - 110 mmol/L [facility] CO2 25 22 - 32 mmol/L [facility] Anion gap 10 2 - 15 mmol/L [facility] BUN 10 6 - 25 mg/dL [facility] Creatinine 1.10 0.60 - 1.10 mg/dL [facility] Glucose 111 70 - 199 mg/dL [facility] Comment: Interpretive Data Fasting glucose [...] NP LAB BLOOD ORDERABLES Final R esult [facility] [address] Department [place] [address] * (ABNORMAL) Urinalysis reflex to microscopic and [...] tendency for uric acid stone formation. Source: [facility] Struq Current Interpretive Data was last revised on [...] GENERAL ORDERABLES Final Result Performing Organization Address [facility] Co de Phone Number [facility] [address] [place] [address] * (ABNORMAL) Urinalysis, microscopic only (10/17/2024 4:06 AM CDT) WBC, ur >50(A) 0 - 5 /HPF RBC, ur 6-10(A) 0 - 2 /HPF [facility] Epithelial cells, squamous, ur 21-50(A) 0 - 5 /HPF [facility] Bacteria, ur Trace(A) [facility] Culture Reflex Comment Reflex to urine culture will be performed. [facility] Urine 10/17/2024 4:06 AM CDT 10/17/2024 4:13 AM CDT Altaf Wilhelm NP LAB URINE ORDERABLES Final Result Performing Organization Address [facility] Co de Phone Number [facility] [address] [place] [address] * Urine culture Urine (10/17/2024 4:06 AM CDT) Report Final Report: Less than 100,000 colonies/mL (clinically insignificant growth based on current clinical standards) Comment:Testing performed by : [facility], [address] [facility] [place]., [address] Organism (CLINICALLY INSIGNIFICANT GROWTH [facility] Urine 10/17/2024 4:06 AM CDT 10/17/2024 8:58 AM CDT Narrative [facility] - 10/18/2024 12:13 PM CDT Urine culture reflexed based upon urinalysis results. Testing performed by [facility] Microbiology Laboratory ([phone]) us Altaf Wilhelm NP LAB MICROBIOLOGY - GENERAL ORDERABLES Final Result [facility] [address] Department [place] [address] * CT Abdomen Pelvis W Contrast (10/16/2024 [...] neural compromise as detailed. Stat report by [facility] Electronically signed by: Fredy Haskins [...] neural compromise as detailed. Stat report by [facility] Electronically signed by: Fredy Haskins [...] CDT 10/16/2024 9:59 PM CDT Altaf Wilhelm ROTARY DRILLER PROSPECTING LAB BLOOD ORDERABLES Final Result [facility] [address] Department [place] [address] * Differential, auto (10/16/2024 9:50 PM CDT) Neutrophil abs 4.02 1.50 - 6.50 K/cumm Imm gran abs 0.04 0.00 - 0.10 K/cumm [facility] Lymphocyte abs 1.84 0.80 - 3.30 K/cumm [facility] Monocyte abs 0.66 0.20 - 0.80 K/cumm [facility] Eosinophil abs 0.12 0.00 - 0.50 K/cumm [facility] Basophil abs 0.02 0.00 - 0.10 K/cumm [facility] Neutrophil pct 59.9 % [facility] Comment: Interpretive Data Percent cell count reference ranges are not reported, since discordance with absolute values may lead to misinterpretation of CBC data. Current Interpretive Data was last revised on 2017. Imm gran pct 0.6 % [facility] Comment: Interpretive Data Percent cell count reference ranges are not reported, since discordance with absolute values may lead to misinterpretation of CBC data. Current Interpretive Data was last revised on 2017. Lymphocyte pct 27.5 % [facility] Comment: Interpretive Data Percent cell count reference ranges are not reported, since discordance with absolute values may lead to misinterpretation of CBC data. Current Interpretive Data was last revised on 2017. Monocyte pct 9.9 % [facility] Comment: Interpretive Data Percent cell count reference ranges are not reported, since discordance with absolute values may lead to misinterpretation of CBC data. Current Interpretive Data was last revised on 2017. Eosinophil pct 1.8 % [facility] Comment: Interpretive Data Percent cell count reference ranges are not reported, since discordance with absolute values may lead to misinterpretation of CBC data. Current Interpretive Data was last revised on 2017. Basophil pct 0.3 % [facility] Comment: Interpretive Data Percent cell count reference ranges are not reported, since discordance with absolute values may lead to misinterpretation of CBC data. Current Interpretive Data was last revised on 2017. Blood 10/16/2024 9:50 PM CDT 10/16/2024 9:59 PM CDT us Altaf Wilhelm NP LAB BLOOD ORDERABLES Final Result [facility] [address] Department [place] [address] * (ABNORMAL) CBC with auto differential (10/16/2024 9:50 PM CDT) WBC 6.70 3.80 - 9.90 K/cumm Hgb 9.0(L) 11.9 - 15.5 g/dL [facility] Hct 27.6(L) 35.6 - 45.5 % [facility] Plt 169 150 - 400 K/cumm [facility] MPV 9.6 9.1 - 12.3 fL [facility] RBC 2.87(L) 3.90 - 5.20 M/cumm [facility] MCV 96.2 81.3 - 96.4 fL [facility] MCH 31.4 27.1 - 33.3 pg [facility] MCHC 32.6 32.3 - 35.7 g/dL [facility] CH RDW CV 13.1 11.1 - 14.9 % [facility] RDW SD 46.3 35.7 - 48.1 fL [facility] NRBC abs 0.00 0.00 - 0.01 K/cumm [facility] Blood 10/16/2024 9:50 PM CDT 10/16/2024 9:59 PM CDT Altaf Wilhelm ROTARY DRILLER PROSPECTING LAB BLOOD ORDERABLES Final Result [facility] [address] Department of [employer] [place], [place] [id number] * Lipase (10/16/2024 9:50 PM CDT) [facility] Lipase 14 10 - 99 Units/L Blood 10/16/2024 9:50 PM CDT 10/16/2024 9:59 PM CDT Altaf Wilhelm ROTARY DRILLER PROSPECTING LAB BLOOD ORDERABLES Final Result [facility] [address] Department [place] [address] * (ABNORMAL) Comprehensive metabolic panel (10/16/2024 9:50 PM CDT) [facility] Sodium 131(L) 135 - 145 mmol/L Potassium, [...] Wilhelm NP LAB BLOOD ORDERABLES Final Result [facility] [address] [place] [address] * POCT glucose (10/16/2024 7:04 PM CDT) [facility] Signature Glucose, POC 114 70 - 199 mg/dL POC Performer [id number] [facility] Blood 10/16/2024 7:04 PM CDT 10/16/2024 7:04 PM CDT us Notinfile Unknown LAB POCT ORDERABLES - DEVICE F inal Result [facility] [address] [facility] Department [place] [address] * COLONOSCOPY (11/21/2021 9:21 AM CDT) Anatomical Region Laterality Modality Other Narrative Procedure Note Zenon Barcenas MD - 11/21/2021 9:21 AM CDT [facility] Endoscopy Lab Patient Name: Camille Orozco [...] bowel preparation was evaluated using the BBPS ([place] Bowel Preparation Scale) with scores of:Right Colon [...] Most Recently Relevant to Health Maintenance Insurance [employer] CHOICE MEDICARE PPO MEDICARE IDPA IDPA [facility] MEDICARE ADVANTAGE [facility] MEDICARE Address: [address] [address] [place] [address] Advance Directives For more information, please contact: [phone] * Full Code (Latest Code Status on File) Date Activated Date Inactivated Comments 10/17/2024 1:21 AM 10/19/2024 8:35 PM * Full Code Date Activated Date Inactivated Comments 09/27/2021 11:16 PM 10/03/2021 7:15 PM Care Teams Property Coordinator Relationship Specialty Start Date End Date Mike Gautam DO PCP - General 09/27/21
--- OUTSIDE RECORDS SUMMARY | 2024-11-30 14:32 | XMS_ITS | Clinical Summary ---
Author Organization [facility] Address [address] [place] [address] Care Team Providers Care Release Coordinator Name Role Phone Mike Gautam DO Primary Care Provider [phone] Source Comments [facility],non-owned Affiliates and Associated Physician Practices is amultiple site organization consisting of ambulatory clinics and hospital sitesin [place], [place], [place] and [place]. This disclosure is being madepursuant to the Care Everywhere program and may not contain all information available regarding this patient. 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
--- OUTSIDE RECORDS SUMMARY | 2024-11-30 14:33 | XMS_ITS | Referral Summary ---
Author Organization [facility] Address [address] [place] [address] Care Team Providers Care Superintendent Transmission Name Role Phone GrisMike tamez Primary Care Provider [phone]- [phone] Encounters Date Type Department Care Team Description 11/23/2024 Plan of Care Documentation [facility] Occupational Therapy [address] [place] [id number] 11/22/2024 Plan of Care Documentation [facility] Physical Therapy [address] [place] [phone] 11/22/2024 2:00 PM CDT Therapy [facility] [address] [place] [address] Hailey Calderon, LUCRECIA Foot drop, right foot (Primary Dx); Foot drop, left foot; Spinal stenosis, unspecified spinal region 11/22/2024 1:00 PM CDT Therapy [facility] Occupational [facility] [address] [place] [phone] Renetta Oleary OT Lymphedema, not elsewhere classified 10/16/2024 10:30 PM CDT - 10/19/2024 4:30 PM CDT Hospital Encounter [facility] On[facility] [address] [place] [address] Donna Michael MD Perez Porcel, Jose Daniel, [...] (10/16/2021): Added automatically from request for surgery [id number] Diverticulitis 10/16/2021 Overview (10/16/2021): Added automatically from request for surgery [id number] Colitis 09/27/2021 Dystrophia unguium 02/21/2021 Epilepsy 05/13/2017 [...] drink = 0.6 oz pur e alcohol) [facility] Utilities Answer Date Recorded In the past [...] any clubs o r organizations such as jewish groups, unions, fraternal or athletic groups, or [...] place to sleep or slept in a correction (including now)? No 09/29/2021 Housing Stability Vital Sign Answer Papito e Recorded In the last 12 months, was t here a time when you were not able to pay the mortgage or rent on time? No 10/17/2024 In the past 12 months, how m any times have you moved where you were living? 0 10/17/2024 At any time in the past 12 m [facility], were you homeless or living in a correction (including now)? No 10/17/2024 Personal Safety Answer Date Recorded Have you ever been in or are you currently in a harmful physical or emotional relationship or is someone making you feel afraid or unsafe? Denies 10/16/2024 Comments No Sex and Gender Information Value Date Recorded Sex Assigned at Not on file Legal Sex Female 12:14 AM SHEET HEATER Gender Identity Not on file Sexual Orientation [...] on file Medical Devices Implanted Type Area Manager Post Device Identifier Shelf Expiration Date Model / Serial / Lot Integra [employer] Earl [id number] Integra 5x4in Mesh Dressing Biological Bovine Collagen - [id number] Implanted:Qty: 1 on 09/29/2021 by Leo Boone Jr., MD at [facility] Right: Leg Integra [employer] Earl 06/03/2022 [id number] / / [id number] Procedures Procedure Name Priority Date/Time Associated Diagnosis [...] NP LAB BLOOD ORDERABLES Final R esult [facility] [address] [address] Department [place] [address] * (ABNORMAL) Differential, auto (10/17/2024 5:09 AM CDT) Neutrophil abs 4.85 1.50 - 6.50 K/cumm Imm gran abs 0.05 0.00 - 0.10 K/cumm [facility] Lymphocyte abs 1.51 0.80 - 3.30 K/cumm [facility] Monocyte abs 0.83(H) 0.20 - 0.80 K/cumm [facility] Eosinophil abs 0.11 0.00 - 0.50 K/cumm [facility] Basophil abs 0.04 0.00 - 0.10 K/cumm [facility] Neutrophil pct 65.7 % [facility] Comment: Interpretive Data Percent cell count reference ranges are not reported, since discordance with absolute values may lead to misinterpretation of CBC data. Current Interpretive Data was last revised on 2017. Imm gran pct 0.7 % [facility] Comment: Interpretive Data Percent cell count reference ranges are not reported, since discordance with absolute values may lead to misinterpretation of CBC data. Current Interpretive Data was last revised on 2017. Lymphocyte pct 20.4 % [facility] Comment: Interpretive Data Percent cell count reference ranges are not reported, since discordance with absolute values may lead to misinterpretation of CBC data. Current Interpretive Data was last revised on 2017. Monocyte pct 11.2 % [facility] Comment: Interpretive Data Percent cell count reference ranges are not reported, since discordance with absolute values may lead to misinterpretation of CBC data. Current Interpretive Data was last revised on 2017. Eosinophil pct 1.5 % [facility] Comment: Interpretive Data Percent cell count reference [...] NP LAB BLOOD ORDERABLES Final R esult [facility] [address] [address] Department [place] [address] * (ABNORMAL) CBC with auto differential (10/17/2024 5:09 AM CDT) WBC 7.39 3.80 - 9.90 K/cumm Hgb 10.5(L) 11.9 - 15.5 g/dL [facility] Hct 32.3(L) 35.6 - 45.5 % [facility] Plt 211 150 - 400 K/cumm [facility] MPV 10.1 9.1 - 12.3 fL [facility] RBC 3.43(L) 3.90 - 5.20 M/cumm [facility] MCV 94.2 81.3 - 96.4 fL [facility] MCH 30.6 27.1 - 33.3 pg [facility] MCHC 32.5 32.3 - 35.7 g/dL [facility] RDW CV 12.9 11.1 - 14.9 % [facility] RDW SD 44.6 35.7 - 48.1 fL [facility] NRBC abs 0.00 0.00 - 0.01 K/cumm [facility] Blood 10/17/2024 5:09 AM CDT 10/17/2024 5:28 AM CDT Willie Nevarez NP LAB [place]LOOD [place] [address] [address] Department [place] [address] * (ABNORMAL) Comprehensive metabolic panel (10/17/2024 5:09 [...] CDT 10/17/2024 5:29 AM CDT Willie Nevarez SUPERVISOR COOK ROOM LAB BLOOD ORDERABLES Final R esult Performing Organization Address City/[facility] [place] [address] [address] Department [place] [address] * (ABNORMAL) Urinalysis reflex to microscopic and [...] tendency for uric acid stone formation. Source: [facility] [employer] Current Interpretive Data was last revised on [...] CDT 10/17/2024 4:13 AM CDT Altaf Wilhelm SUPERVISOR COOK ROOM LAB MICROBIOLOGY - GENERAL ORDERABLES Final Result Performing Organization Address City/[facility]/ZIP Co de Phone Number [facility] [address] [address] Department [place] [address] * (ABNORMAL) Urinalysis, microscopic only (10/17/2024 4:06 AM CDT) WBC, ur >50(A) 0 - 5 /HPF RBC, ur 6-10(A) 0 - 2 /HPF [facility] Epithelial cells, squamous, ur 21-50(A) 0 - 5 /HPF [facility] Bacteria, ur Trace(A) [facility] Culture Reflex Comment Reflex to urine culture will be performed. [facility] Urine 10/17/2024 4:06 AM CDT 10/17/2024 4:13 AM CDT Altaf Wilhelm NP LAB URINE ORDERABLES Final Result Performing Organization Address [facility] de Phone Number [facility] [address] [address] [employer] [place] [address] * Urine culture Urine (10/17/2024 4:06 AM CDT) Report Final Report: Less than 100,000 colonies/mL (clinically insignificant growth based on current clinical standards) Comment:Testing performed by : [facility], [address] [place]., [address] Organism (CLINICALLY INSIGNIFICANT GROWTH [facility] Urine 10/17/2024 4:06 AM CDT 10/17/2024 8:58 AM CDT Narrative [facility] - 10/18/2024 12:13 PM CDT Urine culture reflexed based upon urinalysis results. Testing performed by [facility] Microbiology Laboratory ([phone]) Altaf Wilhelm NP LAB MICROBIOLOGY - GENERAL ORDERABLES Final Result Performing Organization Address [facility] Co de Phone Number [facility] [address] [address] [facility] [place] [address] * CT Abdomen Pelvis W Contrast (10/16/2024 [...] neural compromise as detailed. Stat report by [facility] Electronically signed by: Fredy Haskins [...] neural compromise as detailed. Stat report by [facility] Electronically signed by: Fredy Haskins M.D. Donna Henley MD [facility] CT PROCEDURES Final Resul t * eGFR [...] NP LAB BLOOD ORDERABLES Final Result [facility] [address] [address] Department [place] [address] * Differential, auto (10/16/2024 9:50 PM CDT) Neutrophil abs 4.02 1.50 - 6.50 K/cumm Imm gran abs 0.04 0.00 - 0.10 K/cumm [facility] Lymphocyte abs 1.84 0.80 - 3.30 K/cumm [facility] Monocyte abs 0.66 0.20 - 0.80 K/cumm [facility] Eosinophil abs 0.12 0.00 - 0.50 K/cumm [facility] Basophil abs 0.02 0.00 - 0.10 K/cumm [facility] Neutrophil pct 59.9 % [facility] Comment: Interpretive Data Percent cell count reference [...] revised on 2017. Monocyte pct 9.9 % [facility] Comment: Interpretive Data Percent cell count reference ranges are not reported, since discordance with absolute values may lead to misinterpretation of CBC data. Current Interpretive Data was last revised on 2017. Eosinophil pct 1.8 % [facility] Comment: Interpretive Data Percent cell count reference ranges are not reported, since discordance with absolute values may lead to misinterpretation of CBC data. Current Interpretive Data was last revised on 2017. Basophil pct 0.3 % [facility] Comment: Interpretive Data Percent cell count reference ranges are not reported, since discordance with absolute values may lead to misinterpretation of CBC data. Current Interpretive Data was last revised on 2017. Blood 10/16/2024 9:50 PM CDT 10/16/2024 9:59 PM CDT us Altaf Wilhelm NP LAB BLOOD ORDERABLES Final Result [facility] [address] [address] Department [place] [address] * (ABNORMAL) CBC with auto differential (10/16/2024 9:50 PM CDT) WBC 6.70 3.80 - 9.90 K/cumm Hgb 9.0(L) 11.9 - 15.5 g/dL [facility] Hct 27.6(L) 35.6 - 45.5 % [facility] Plt 169 150 - 400 K/cumm [facility] MPV 9.6 9.1 - 12.3 fL [facility] RBC 2.87(L) 3.90 - 5.20 M/cumm [facility] MCV 96.2 81.3 - 96.4 fL [facility] MCH 31.4 27.1 - 33.3 pg [facility] MCHC 32.6 32.3 - 35.7 g/dL [facility] RDW CV 13.1 11.1 - 14.9 % [facility] RDW SD 46.3 35.7 - 48.1 fL [facility] NRBC abs 0.00 0.00 - 0.01 K/cumm [facility] Blood 10/16/2024 9:50 PM CDT 10/16/2024 9:59 PM CDT Altaf Wilhelm SUPERVISOR COOK ROOM LAB BLOOD ORDERABLES Final Result Performing Organization Address City/[facility] Co de Phone Number [facility] [address] [address] [facility] [place] [address] * Lipase (10/16/2024 9:50 PM CDT) Pathologist [facility] Lipase 14 10 - 99 Units/L Blood 10/16/2024 9:50 PM CDT 10/16/2024 9:59 PM CDT Altaf Wilhelm SUPERVISOR COOK ROOM LAB BLOOD ORDERABLES Final Result Performing Organization Address [facility] Phone Number [facility] [address] [address] Department [place] [address] * (ABNORMAL) Comprehensive metabolic panel (10/16/2024 9:50 PM CDT) Pathologist [facility] Sodium 131(L) 135 - 145 mmol/L Potassium, pl 3.0(L) 3.3 - 4.9 mmol/L [facility] Chloride 100 97 - 110 mmol/L [facility] CO2 18(L) 22 - 32 mmol/L [facility] Anion gap 13 2 - 15 mmol/L [facility] BUN 9 6 - 25 mg/dL [facility] Creatinine 0.75 0.60 - 1.10 mg/dL [facility] Glucose 87 70 - 199 mg/dL [facility] Comment: Interpretive Data Fasting glucose >/= [...] CDT 10/16/2024 9:59 PM CDT Altaf Wilhelm SUPERVISOR COOK ROOM LAB BLOOD ORDERABLES Final Result Performing Organization Address [facility]/ZIP Co de Phone Number GRAC[facility] HODGSON [phone] [address] Department of [employer] [place], [place] [id number] * POCT glucose (10/16/2024 7:04 PM CDT) Glucose, POC 114 70 - 199 mg/dL POC Performer [phone] [facility] Blood 10/16/2024 7:04 PM CDT 10/16/2024 7:04 PM CDT Notinfile Unknown LAB POCT ORDERABLES - DEVICE F inal Result Performing Organization Address [facility] Co de Phone Number GRACIE HODGSON [phone] [address] Department [place] [address] * COLONOSCOPY (11/21/2021 9:21 AM CDT) Anatomical Region Laterality Modality Other Narrative Procedure Note Zenon Barcenas MD - 11/21/2021 9:21 AM CDT - [facility] Endoscopy Lab Patient Name: Camille Orozco Procedure [...] bowel preparation was evaluated using the BBPS ([place] Bowel Preparation Scale) with scores of:Right Colon [...] Insurance [employer] CHOICE MEDICARE PPO MEDICARE [facility] Address: [address] [address] [place] [address] IDAR MEDICARE [facility] Address: [address] [address] [place] [address] IDAR [facility] MEDICARE ADVANTAGE Advance Directives For more information, please contact: [phone] * Full Code (Latest Code Status on File) Date Activated Date Inactivated Comments 10/17/2024 1:21 AM 10/19/2024 8:35 PM * Full Code Date Activated Date Inactivated Comments 09/27/2021 11:16 PM 10/03/2021 7:15 PM Care Teams Superintendent Transmission Relationship Specialty Start Date End Date Mike Gautam, PCP - General 09/27/21
[2024-11-30 14:48] VITALS: BP 158/76; PULSE 87; RESP 18; O2SAT 100
[2024-11-30] MEDS: SODIUM CHLORIDE 0.9% IV 1,000 ML 999 ML IV CONT (14:52)
[2024-11-30] MEDS: MORPHINE SULFATE (*CRX) 4 MG/ML INJ IV PUSH (14:52)
[2024-11-30] MEDS: ONDANSETRON INJ 4 MG/2 ML VIAL IV PUSH (14:52)
[2024-11-30 15:21] LABS: Alanine Aminotransferase 17 U/L (6-35); Albumin Level 4.2 g/dL (3.5-5.1); Alkaline Phosphatase 73 U/L (38-126); Anion Gap 10 mmol/L (4-12); Aspartate Amino Transferase 31 U/L (14-36); Bilirubin,Total 0.6 mg/dL (0.2-1.3); Blood Urea Nitrogen 19 mg/dL (7-17); Calcium 9.4 mg/dL (8.4-10.2); Carbon Dioxide 23 mmol/L (22-30); Chloride 95 mmol/L (98-107); Estimated CRCL calculation 55 ml/min; Estimated Glomerular Filt Rate 59; Glucose 106 mg/dL (65-110); Lipase 79 U/L (23-300); Potassium 4.8 mmol/L (3.4-5.0); Sodium 128 mmol/L (137-145)
[2024-11-30] MEDS: metroNIDAZOLE 500 MG/ISO 100ML 500 MG/100 ML BAG 100 MG IVPB ×2 (17:24→22:15)
[2024-11-30] MEDS: levoFLOXacin 750 MG/D5W 150 ML 750 MG/150 ML BAG 100 MG IVPB (17:26)
[2024-11-30 17:51] VITALS: BP 163/79; PULSE 80; RESP 18; TEMP 36.9; O2SAT 98
[2024-11-30 18:28] VITALS: BMI 43.7
--- NOTE | 2024-11-30 18:35 | P.HP_ITS ---
H&P: HPI History of Present Illness Date/Time: 11/30/24 18:35 Chief Complaint: Nausea,Vomiting, Abdominal Pain Narrative: 69 y/o F with PMH of recurrent diverticulitis, inflammatory arthritis, diabetes, seizure disorder, LANA noncompliant with BiPAP, reflex sympathetic dystrophy, hypertension, former smoker, depression, and hyperlipidemia presents here with nausea, vomiting, and abdominal pain. The patient presents here from home on 11/30 for further evaluation of nausea, vomiting, and abdominal pain. She reports onset on Wednesday, 11/28. She believes this episode of suspected diverticulitis was precipitated by her consuming pickles. The patient reports she is meticulous about the food she consumes to avoid reoccurrence of diverticulitis, however she is legally blind and did not realize the pickles had seeds in them. She reports accompanying changes in stool - very small amount of stool with a small amount of liquid. Also endorsing chills. She has a longstanding history of recurrent diverticulitis with most recent occurrence in October of 2024. During this episode she was initially placed on oral antibiotics, however she return to the hospital and required admission for treatment. She has since followed up with GI, it was recommended she has a repeat colonoscopy, however she is high risk and referred to General Surgery. She has been able to schedule her colonoscopy for in December and has follow-up Teresa LAM on 12/07. When her symptoms started on Wednesday, she was started on antibiotic orally by her plaster caster which she reports has not improved her symptoms, has taken Flagyl since Wednesday and started the Levaquin yesterday. She denies accompanying fever. Initial VS at presentation: 98.4? F, HR 86, RR 16, 139/76, and 98% on RA. ED workup showed: No leukocytosis, hemoglobin 11.2, sodium 128 (previously 128 on 10/12/2024), renal function within normal limits, glucose 106, UA showed 1+ ketones / 1+ leuk esterase/ 6-[address] of the abdomen/pelvis showed redemonstration of mural thickening within the proximal sigmoid colon with surrounding inflammatory change and interloop fluid for which acute diverticulitis is suspected, follow-up resolution is recommended as malignancy may have similar appearance. Review of Systems Review of Systems: All systems reviewed & are unremarkable except as noted in HPI and below PMFSH Past Medical History Medical History Reflex sympathetic dystrophy Hyperlipidemia Essential hypertension Depression Vitamin D deficiency Diverticulitis Adenomatous colon polyp BPPV (benign paroxysmal positional vertigo) Post-menopausal Lump of breast, right Inflammatory arthritis Bilateral sacroiliitis Marijuana use Seizure disorder Anxiety Spinal stenosis Obstructive sleep apnea Noncompliant with BiPAP. Glaucoma Macular degeneration History of rheumatic fever as a child Gastroesophageal reflux disease Bilateral foot-drop Diverticulosis large intestine w/o perforation or abscess w/bleeding Former smoker Rectocele Prediabetes A1C 5.5% 09/2024 Surgical History Surgical History History of sinus surgery History of tonsillectomy History of bilateral cataract extraction History of bilateral breast reduction surgery History of colonoscopy with polypectomy History of laparoscopic cholecystectomy History of partial hysterectomy History of fusion of cervical spine (1999) History of repair of rectocele (12/08/19) Rectocele repair/posterior colporrhaphy and perineoplasty. Family History Family History Mother Diabetes mellitus Hypertension Parkinsons disease Heart attack Father Diabetes mellitus Hypertension Renal failure Heart attack Cerebrovascular accident Social History Social History Social History: The patient lives in her own home in [place]. A friend is currently staying with her. She has 2 grown children. Ambulates with a walker or cane due to footdrop and decreased mobility. 5 pack-year smoking history, quit 1977. She drinks 1 to 2 glasses of wine a week. Smokes marijuana couple of times a week. She designates her son Ousmane Orozco and her brother Mike Orozco as her surrogate decision makers and she wishes to be a full code. 1 cup caffeine daily Smoking status: Never smoker Smoking end date: 07/05/78 Alcohol intake: never Substance use: never Substance use type: does not use Do You Feel Safe in your Home?: Yes Lack of Transportation: No Lack of Food: Never True Current Housing: I Have Housing Concerned About Future Housing: No Difficulty Paying Gas/Electric Bills: No Difficulty Paying for Meds: No Currently Unemployed: No Education: Decline to Answer Difficulty w/ Childcare or Family Care: No Living arrangements: alone Spiritual care concerns: No Meds Home Medications and Allergies Home Medications ?Medication ?Instructions ?Recorded ?Confirmed ?Type carbamazepine 400 mg 400 mg PO HS 06/08/19 11/30/24 History tablet,extended release,12 hr (Tegretol XR) cholecalciferol (vitamin D3) 125 5,000 unit PO DAILY 06/08/19 11/30/24 History mcg (5,000 unit) capsule trazodone 100 mg tablet 100 mg PO QPM 06/08/19 11/30/24 History bimatoprost 0.01 % eye drops 1 drp ophthalmic (eye) HS 11/29/19 11/30/24 History (Lumigan) vitamins A,C,G-[id number] 2,148 1 tablet PO DAILY 11/29/19 11/30/24 History mcg-113 mg-45 mg-17.4 mg tablet (PreserVision AREDS) Rollator Walker with seat #1 ea 11/16/23 11/30/24 Rx lisinopril 40 mg tablet 40 mg PO DAILY #90 tabs 07/03/24 11/30/24 Rx furosemide 20 mg tablet (Lasix) 20 mg PO QAM #90 tabs 10/05/24 11/30/24 Rx naproxen 500 mg tablet See Rx Instructions .Route 10/05/24 11/30/24 Rx .COMPLEX #90 tabs rosuvastatin 40 mg tablet (Crestor) 40 mg PO HS #90 tabs 10/05/24 11/30/24 Rx tramadol 50 mg tablet 50 mg PO Q6H PRN pain #10 tabs 10/12/24 11/30/24 Rx duloxetine 30 mg capsule,delayed See Rx Instructions .Route 10/23/24 11/30/24 Rx release .COMPLEX #180 caps potassium chloride 10 mEq 10 meq PO DAILY #30 caps 10/23/24 11/30/24 Rx capsule,extended release levofloxacin 750 mg tablet 750 mg PO DAILY #7 tabs 11/29/24 11/30/24 Rx Allergies Allergy/AdvReac Type Severity Reaction Status Date / Time cephalexin (From Keflex) Allergy Itching Verified 11/30/24 14:46 Head nitrofurantoin (From Allergy Hives Verified 11/30/24 14:46 Macrobid) Penicillins AdvReac Unknown DIVERTICULI Verified 11/30/24 14:46 TIS diphenhydramine (From AdvReac Seizure Verified 11/30/24 14:46 Benadryl) Vital Signs Vital Signs - 24 hr 11/30/24 11:50 11/30/24 14:48 11/30/24 17:51 Temperature 98.4 F 98.5 F Pulse Rate 86 87 80 Respiratory Rate 16 18 18 Blood Pressure 139/76 158/76 H 163/79 H Pulse Oximetry 98 100 98 Oxygen Delivery Room Air Exam Const: General: comfortable and no acute distress Other: , female, nontoxic appearance HENMT: Face/Nose/Sinus: Normal nares present Mouth: Yes moist mucous membranes Eyes: General: appearance normal, both eyes and all related structures Sclera: sclerae normal Pupils: Equal, round and reactive pupils present EOM: EOMs intact bilaterally Other: +legally blind Resp: Effort & Inspection: normal respiratory effort Auscultation: clear to auscultation bilaterally Cardio: Rate: regular rate Rhythm: regular rhythm Other: S1-S2 present without murmur, rub, ectopy GI: Other: Abdomen soft, nondistended. Mild tenderness in the lower quadrants. Normoactive bowel sounds in upper quadrants, moderately reduced in the lower quadrants. Skin: General skin exam: normal color and no rashes or lesions noted Wounds: no wounds Neuro: Speech: normal speech Motor exam (neuro): 5/5 motor strength present throughout Sensory Exam: normal sensation Other: A&O x4 Extrem: General: normal to inspection Psych: Mental Status: mental status grossly normal Affect: normal affect Other: Good insight and judgment, pleasant H&P: Results Labs Labs: Short CBC 11/30/24 Range/Units 13:26 WBC 8.3 (4.5-10.0) K/mm3 Hgb 11.2 L (12.0-15.0) g/dL Hct 34.4 L (37.0-47.0) % Plt Count 260 (150-375) k/mm3 BMP 11/30/24 14:39 Sodium 128 L Potassium 4.8 Chloride 95 L Carbon Dioxide 23 BUN 19 H Creatinine 0.94 Glucose 106 Calcium 9.4 Liver Function 11/30/24 Range/Units 14:39 Total Bilirubin 0.6 (0.2-1.3) mg/dL AST 31 (14-36) U/L ALT 17 (6-35) U/L Alkaline Phosphatase 73 (38-126) U/L Albumin 4.2 (3.5-5.1) g/dL Urine 11/30/24 Range/Units 14:18 Urine Color Yellow (Yellow) Urine Appearance Clear (Clear) Urine pH 6.0 (5.0-9.0) Ur Specific [place] 1.011 (1.001-1.035) Urine Protein Negative (Negative) mg/dL Urine Glucose (UA) Negative (Negative) mg/dL Assessment and Plan Assessment and plan (1) Acute diverticulitis: Code(s): K57.92 - Diverticulitis of intestine, part unspecified, without perforation or abscess without bleeding Status: Acute Assessment and Plan: - hx of recurrent diverticulitis, most recent occurrence in October of 2024 requiring hospitalization - CT abdomen/pelvis: Redemonstration of mural thickening within the proximal sigmoid colon with surrounding inflammatory change and interloop fluid, for which acute diverticulitis is suspected. Follow-up to resolution is recommended as a malignancy may have a similar appearance. Given that these findings are similar to previous examination performed more than one month earlier, direct visualization is recommended, if not already performed. - started on IV Levaquin and Flagyl on 11/30 - analgesics and antiemetics p.r.n. - monitor CBC and electrolytes - patient's plaster caster, Silke, contacted by ED provider. Recommended IV Levaquin and Flagyl as well as a nonemergent consultation to General surgery. - NPO (2) Hyponatremia: Code(s): E87.1 - Hypo-osmolality and hyponatremia Status: Acute Assessment and Plan: - Na 128, previously 128 on 10/12/2024 - NS bolus x1L -> Ns at 100 mL/hr x1L - suspect mild hyponatremia secondary to dietary loss/nausea vomiting and poor p.o. intake - monitor (3) Essential (primary) hypertension: Code(s): I10 - Essential (primary) hypertension Status: Chronic Assessment and Plan: - chronic, /78 - continue home medications: Lisinopril - monitor Plan UA equivocal for infection, patient does not endorse any urinary symptoms. Reflex to culture, follow. Diet: NPO GI Prophylaxis: pantoprazole DVT Prophylaxis: SCDs IV fluids: 1L bolus -> 100 mL/hour x1L Lines/Tubes: peripheral IV Code Status: full code Quality VTE Prophylaxis VTE prophylaxis: mechanical ordered Hospitalist MIPS Advance Care Plan I have confirmed that the patient's Advanced Care Plan is present, code status is documented, or surrogate decision maker is listed in patient medical record.: Yes Medication Reconciliation I have utilized all available resources to obtain, update and review the patients current medications (includes all prescriptions, OTC, herbals, cannabis, and nutritional supplements).: Yes
[2024-11-30 18:53] VITALS: BP 150/78; PULSE 97; RESP 18; TEMP 37.2; O2SAT 97
[2024-11-30] MEDS: HYDROcodone/acetaminophen (*CRX) 5-325 MG TABLET 1 TAB PO (19:03)
[2024-11-30] MEDS: SODIUM CHLORIDE 0.9% IV 1,000 ML 100 ML IV CONT (19:04)
[2024-11-30 20:00] VITALS: BP 134/63; PULSE 87; RESP 18; TEMP 36.2; O2SAT 96
[2024-11-30 22:00] VITALS: PULSE 90; RESP 16; O2SAT 93
[2024-11-30] MEDS: traZODone HCL 50 MG TABLET 100 MG PO (22:14)
[2024-11-30] MEDS: DULoxetine HCL 30 MG CAPSULE.DR 60 MG PO (22:14)
--- NOTE | 2024-12-01 02:51 | ECG_ITS ---
Test Date: 2024-12-01 03:16:48 Measurements Intervals Eros Rate: 89 P: 62 ID: [id number] QRS: -6 QRSD: 94 T: 13 QT: 370 QTc: 452 Interpretive Statements SINUS RHYTHM MINIMAL VOLTAGE CRITERIA FOR LVH, CONSIDER NORMAL VARIANT [MEETS CRITERIA IN ONE OF: R(aVL), S(V1), R(V5), R(V5/V6)+S(V1)] No previous ECG available for comparison Electronically Signed On 12-01-2024 15:05:33 CDT by Himanshu Bang M.D.
[2024-12-01] MEDS: ONDANSETRON INJ 4 MG/2 ML VIAL IV PUSH (03:35)
[2024-12-01 04:45] VITALS: BP 159/63; PULSE 101; RESP 18; TEMP 36.5; O2SAT 99
[2024-12-01] MEDS: metroNIDAZOLE 500 MG/ISO 100ML 500 MG/100 ML BAG 100 MG IVPB ×3 (05:23→22:17)
[2024-12-01 06:26] LABS: Basophils Percent Auto 0.4 % (0.2-1.2); Eosinophils Absolute Auto 0.1 K/mm3 (0-0.3); Eosinophils Percent Auto 0.7 % (0-4.4); Hematocrit 30.1 % (37.0-47.0); Hemoglobin 9.8 g/dL (12.0-15.0); Immature Granulocyte Absolute 0.07 K/mm3 (0.00-0.031); Immature Granulocyte Percent A 0.9 % (0-0.5); Lymphocytes Absolute Auto 0.78 K/mm3 (0.9-3.2); Lymphocytes Percent Auto 10.1 % (18.3-44.2); Mean Corpuscular HGB Conc 32.6 g/dl (32-36); Mean Corpuscular Hemoglobin 31.2 pg (26-34); Mean Corpuscular Volume 95.9 fl (80-100); Monocytes Absolute Auto 0.7 K/mm3 (0.1-0.6); Monocytes Percent Auto 9.5 % (2.6-8.5); Neutrophils Percent Auto 78.4 % (45.5-73.1); Platelet Count Result 179 k/mm3 (150-375); Red Blood Count 3.14 M/mm3 (4.2-5.4); White Blood Count 7.7 K/mm3 (4.5-10.0)
[2024-12-01 06:39] LABS: Alanine Aminotransferase 17 U/L (6-35); Albumin Level 3.6 g/dL (3.5-5.1); Alkaline Phosphatase 67 U/L (38-126); Anion Gap 7 mmol/L (4-12); Aspartate Amino Transferase 33 U/L (14-36); Bilirubin,Total 0.3 mg/dL (0.2-1.3); Blood Urea Nitrogen 17 mg/dL (7-17); Calcium 8.9 mg/dL (8.4-10.2); Carbon Dioxide 23 mmol/L (22-30); Chloride 104 mmol/L (98-107); Estimated CRCL calculation 50 ml/min; Estimated Glomerular Filt Rate 53; Glucose 107 mg/dL (65-110); Magnesium 1.8 mg/dL (1.6-2.3); Sodium 134 mmol/L (137-145)
--- NOTE | 2024-12-01 07:35 | PM.IMPN ---
Progress Note: A&P Assessment and Plan (1) Acute diverticulitis: Code(s): K57.92 - Diverticulitis of intestine, part unspecified, without perforation or abscess without bleeding Status: Acute Assessment and Plan: hx of recurrent diverticulitis, most recent occurrence in October of [address] abdomen/pelvis: Redemonstration of mural thickening within the proximal sigmoid colon with surrounding inflammatory change and interloop fluid, for which acute diverticulitis is suspected. Follow-up to resolution is recommended as a malignancy may have a similar appearance. Given that these findings are similar to previous examination performed more than one month earlier, direct visualization is recommended, if not already performed. started on IV Levaquin and Flagyl on 11/30 Analgesics and antiemetics p.r.n. monitor CBC and electrolytes GI following Continue IV antibiotics, p.r.n. pain control, and IV fluid hydration NPO likely can advance as tolerated today if nausea subsides (2) Hyponatremia: Code(s): E87.1 - Hypo-osmolality and hyponatremia Status: Acute Assessment and Plan: - Na 128, previously 128 on 10/12/2024 - NS bolus x1L -> Ns at 100 mL/hr x1L - suspect mild hyponatremia secondary to dietary loss/nausea vomiting and poor p.o. intake - monitor - 12/01: Na improved, 134 today (3) Essential (primary) hypertension: Code(s): I10 - Essential (primary) hypertension Status: Chronic Assessment and Plan: - chronic, /63 - continue home medications: Lisinopril - monitor Plan UA equivocal for infection, patient does not endorse any urinary symptoms. Reflex to culture, follow. Diet: NPO GI Prophylaxis: pantoprazole DVT Prophylaxis: SCDs IV fluids: 1L bolus -> 100 mL/hour x1L Lines/Tubes: peripheral IV Code Status: full code Subjective Date/time seen: 12/01/24 07:35 Interval history: 69 y/o F with PMH of recurrent diverticulitis, inflammatory arthritis, diabetes, seizure disorder, LANA noncompliant with BiPAP, reflex sympathetic dystrophy, hypertension, former smoker, depression, and hyperlipidemia presents here with nausea, vomiting, and abdominal pain. 12/01/2024 Patient sitting comfortably bed at time examination. Denies any chest pain, shortness a breath, nausea/vomiting or abdominal pain at this time. GI and general surgery following, recommended continuing antibiotics supportive care with pain management/IV fluids, and ppi. Likely can start advancing diet as tolerated today. Patient reports significant relief of underlying nausea, denies any episodes of emesis since yesterday morning. 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 No other acute changes or concerns at this time. Urine culture still pending. Review of Systems Review of Systems: All systems reviewed & are unremarkable except as noted in HPI and below Exam Narrative: mild lower abdominal tenderness, mildly decreased bowel sounds in the lower quandrants, normal in upper. Const: General: comfortable and no acute distress Other: , female, nontoxic appearance HENMT: Face/Nose/Sinus: Normal nares present Mouth: Yes moist mucous membranes Eyes: General: appearance normal, both eyes and all related structures Sclera: sclerae normal Pupils: Equal, round and reactive pupils present EOM: EOMs intact bilaterally Other: +legally blind Resp: Effort & Inspection: normal respiratory effort Auscultation: clear to auscultation bilaterally Cardio: Rate: regular rate Rhythm: regular rhythm Other: S1-S2 present without murmur, rub, ectopy GI: Other: Abdomen soft, nondistended. Mild tenderness in the lower quadrants. Normoactive bowel sounds in upper quadrants, moderately reduced in the lower quadrants. Skin: General skin exam: normal color and no rashes or lesions noted Wounds: no wounds Neuro: Cranial nerves: Yes Equal, round and reactive pupils present Speech: normal speech Motor exam (neuro): 5/5 motor strength present throughout Sensory Exam: normal sensation Other: A&O x4 Extrem: General: normal to inspection Psych: Mental Status: mental status grossly normal Affect: normal affect Other: Good insight and judgment, pleasant Objective Data Vital Signs Vital Signs: Vital Signs - 24 hr 11/30/24 11:50 11/30/24 14:48 11/30/24 17:51 Temperature 98.4 F 98.5 F Pulse Rate 86 87 80 Respiratory Rate 16 18 18 Blood Pressure 139/76 158/76 H 163/79 H Pulse Oximetry 98 100 98 Oxygen Delivery Room Air Fraction of Inspired Oxygen 11/30/24 18:53 11/30/24 20:00 11/30/24 22:00 Temperature 99.0 F 97.2 F L Pulse Rate 97 87 90 Respiratory Rate 18 18 16 Blood Pressure 150/78 H 134/63 Pulse Oximetry 97 96 93 Oxygen Delivery Room Air Fraction of Inspired Oxygen 12/01/24 04:45 Temperature 97.7 F Pulse Rate 101 H Respiratory Rate 18 Blood Pressure 159/63 H Pulse Oximetry 99 Oxygen Delivery Fraction of Inspired Oxygen Intake/Output Intake/Output: Intake & Output 11/28/24 11/29/24 11/30/24 12/01/24 23:59 23:59 23:59 23:59 Intake Total 1200 0 Balance 1200 0 Meds/Results Medications: Active Medications Generic Name Dose Route Start Last Admin Trade Name Freq PRN Reason Stop Dose Admin Acetaminophen 650 mg 11/30/24 16:47 Acetaminophen 325 Mg Tablet PO Q4H PRN Mild Pain (1-3) or Fever Hydrocodone Bitart/Acetaminophen 1 tab 11/30/24 18:52 11/30/24 19:03 Hydrocodone/Acetaminophen (*Crx) 5-325 Mg Tablet PO 1 tab Q6H PRN Administration Pain Rated 4-6 Carbamazepine 400 mg 12/01/24 21:00 Carbamazepine Xr 200 Mg Tab.Er.12h PO HS DAKSHA Duloxetine HCl 60 mg 11/30/24 21:40 11/30/24 22:14 Duloxetine Hcl 30 Mg Capsule.Dr PO 60 mg HS DAKSHA Administration Furosemide 20 mg 12/01/24 09:00 Furosemide 20 Mg Tablet PO QAM DAKSHA Levofloxacin/Dextrose 750 mg in 150 mls @ 100 mls/hr 12/01/24 18:00 Levaquin 750 Mg/D5w 150 Ml IVPB Q24H DAKSHA Metronidazole 500 mg in 100 mls @ 100 mls/hr 11/30/24 22:00 12/01/24 05:23 Flagyl 500 Mg/Iso Soln 100 Ml IVPB 100 mls/hr Q8HR DAKSHA Administration Latanoprost 1 drop 12/01/24 21:00 Latanoprost 0.005% Op Soln 2.5 Ml Btl EACH EYE HS [facility] Lisinopril 40 mg 12/01/24 09:00 Lisinopril 20 Mg Tablet PO DAILY DAKSHA Miscellaneous Information 0 each 11/30/24 00:01 Duplicate With Acetaminophen Prn Pain 1-3 Hold Or Make Scheduled Med? XX 12/30/24 00:00 CLARIFY DAKSHA Miscellaneous Information 0 each 11/30/24 00:01 Tramadol Dupliate With [place] Prn Pain 4-6 Please D/C One Or Make Scheduled?? XX 12/30/24 00:00 CLARIFY DAKSHA Morphine Sulfate 2 mg 11/30/24 18:52 Morphine Sulfate (*Crx) 2 Mg/Ml Inj IV PUSH Q4H PRN Pain Rated 7-10 Multivitamins/Minerals 1 tablet 12/01/24 09:00 Opti-Gen Tab PO QAM [facility] Naproxen 500 mg 11/30/24 21:40 Naproxen 500 Mg Tablet PO DAILY PRN Pain Ondansetron HCl 4 mg 12/01/24 03:23 12/01/24 03:35 Ondansetron Inj 4 Mg/2 Ml Vial IV PUSH 4 mg Q6H PRN Administration Nausea And Vomiting Pantoprazole Sodium 40 mg 12/01/24 09:00 Pantoprazole 40 Mg Tablet PO QAM [facility] Potassium Chloride 10 meq 12/01/24 09:00 Potassium Chloride 10 Meq Er Tablet PO DAILY [facility] Rosuvastatin Calcium 40 mg 12/01/24 21:00 Rosuvastatin 20 Mg Tablet PO HS [facility] Tramadol HCl 50 mg 11/30/24 21:37 Tramadol Hcl (*Crx) 50 Mg Tablet PO Q6H PRN pain 4-6 Trazodone HCl 100 mg 11/30/24 22:05 11/30/24 22:14 Trazodone Hcl 50 Mg Tablet PO 100 mg HS [facility] Administration Vitamin D 125 mcg 12/01/24 09:00 Cholecalciferol (Vitamin D3) 125 Mcg (5,000 Units) Tablet PO DAILY [facility] Radiology Results: ITS Impressions Abdomen/Pelvis CT 11/30/24 15:57 IMPRESSION: Redemonstration of mural thickening within the proximal sigmoid colon with surrounding inflammatory change and interloop fluid, for which acute diverticulitis is suspected. Follow-up to resolution is recommended as a malignancy may have a similar appearance. Given that these findings are similar to previous examination performed more than one month earlier, direct visualization is recommended, if not already performed. Labs Labs: Laboratory Results - last 24 hr 11/30/24 11/30/24 11/30/24 13:26 14:18 14:39 WBC 8.3 RBC 3.67 L Hgb 11.2 L Hct 34.4 L MCV 93.7 MCH 30.5 MCHC 32.6 RDW 13.5 Plt Count 260 MPV 10.8 H Immature Gran % (Auto) 0.6 H Neut % (Auto) 71.6 Lymph % (Auto) 19.0 [place] % (Auto) 7.7 Eos % (Auto) 0.6 Baso % (Auto) 0.5 Lymph # (Auto) 1.57 [place] # (Auto) 0.6 Eos # (Auto) 0.1 Baso # (Auto) 0.0 Abs Immat Gran (auto) 0.05 H Absolute Neuts (auto) 5.9 Absolute Nucleated RBC 0.000 Nucleated RBC % 0.0 Sodium 128 L Potassium 4.8 Chloride 95 L Carbon Dioxide 23 Anion Gap 10 BUN 19 H Creatinine 0.94 Estim Creat Clear Calc 55 Estimated GFR 59 Glucose 106 Calcium 9.4 Magnesium Total Bilirubin 0.6 AST 31 ALT 17 Alkaline Phosphatase 73 Total Protein 7.0 Albumin 4.2 Lipase 79 Urine Color Yellow Urine Appearance Clear Urine pH 6.0 Ur Specific [place] 1.011 Urine Protein Negative Urine Glucose (UA) Negative Urine Ketones 1+ H Ur Blood (Man) Negative Urine Nitrate Negative Urine Bilirubin Negative Urine Urobilinogen 0.2 Leukocyte Esterase Rfl 1+ H Urine RBC 0-2 Urine WBC 6-10 H Ur Squamous Epith Cells Few Urine Bacteria None seen Urine Casts 0-2 12/01/24 06:05 WBC 7.7 RBC 3.14 L Hgb 9.8 L Hct 30.1 L MCV 95.9 MCH 31.2 MCHC 32.6 RDW 14.0 Plt Count 179 MPV 10.0 Immature Gran % (Auto) 0.9 H Neut % (Auto) 78.4 H Lymph % (Auto) 10.1 L [place] % (Auto) 9.5 H Eos % (Auto) 0.7 Baso % (Auto) 0.4 Lymph # (Auto) 0.78 L [place] # (Auto) 0.7 H Eos # (Auto) 0.1 Baso # (Auto) 0.0 Abs Immat Gran (auto) 0.07 H Absolute Neuts (auto) 6.0 Absolute Nucleated RBC 0.000 Nucleated RBC % 0.0 Sodium 134 L Potassium 4.0 Chloride 104 Carbon Dioxide 23 Anion Gap 7 BUN 17 Creatinine 1.04 H Estim Creat Clear Calc 50 Estimated GFR 53 L Glucose 107 Calcium 8.9 Magnesium 1.8 Total Bilirubin 0.3 AST 33 ALT 17 Alkaline Phosphatase 67 Total Protein 6.0 L Albumin 3.6 Lipase Urine Color Urine Appearance Urine pH Ur Specific [place] Urine Protein Urine Glucose (UA) Urine Ketones Ur Blood (Man) Urine Nitrate Urine Bilirubin Urine Urobilinogen Leukocyte Esterase Rfl Urine RBC Urine WBC Ur Squamous Epith Cells Urine Bacteria Urine Casts Quality VTE Prophylaxis VTE prophylaxis: mechanical ordered
--- NOTE | 2024-12-01 07:55 | P.CONGI_ITS ---
Assessment and Plan Assessment and plan (1) Abdominal pain: Qualifiers: Abdominal location: lower abdomen, unspecified Qualified Code(s): R 10.30 - Lower abdominal pain, unspecified Code(s): R10.9 - Unspecified abdominal pain Status: Acute (2) Acute diverticulitis: Code(s): K57.92 - Diverticulitis of intestine, part unspecified, without perforation or abscess without bleeding Status: Acute (3) Normocytic anemia: Code(s): D64.9 - Anemia, unspecified Status: Acute (4) Colon polyps: Qualifiers: Colon polyp type: adenomatous Colon location: unspecified part of colon Qualified Code(s): D12.6 - Benign neoplasm of colon, unspecified Code(s): K63.5 - Polyp of colon Status: Acute (5) Decreased appetite: Code(s): R63.0 - Anorexia Status: Acute (6) Weight loss: Code(s): R63.4 - Abnormal weight loss Status: Acute (7) Nausea: Code(s): R11.0 - Nausea Status: Acute Plan 1. Lower abdominal pain/acute recurrent diverticulitis/diarrhea/personal Hx of colon polyps: Last colonoscopy 02/17/2021 at which time a few TA polyps were removed. Patient was also noted to have diverticulosis and small internal hemorrhoids. Patient was hospitalized at [facility] at the beginning of October for diverticulitis. Patient with history of > 7 episodes of diverticulitis over the past 5 years most of them requiring hospitalization. She was seen by Dr. Snowden for a follow-up visit 10/25/2014 at which time outpatient surgical referral was placed and colonoscopy was scheduled. Prior to admission the patient was started on an oral course of Levaquin and Flagyl. Patient is currently scheduled for a colonoscopy December 20. Patient presented to the emergency room yesterday with complaints of lower abdominal pain. CT showed mural wall thickening within the proximal sigmoid colon with surrounding inflammatory changes and interloop fluid, for which acute diverticulitis is suspected. Prior to admission the patient was having multiple liquid stools daily. Since admission she has had 3 liquid stools with 1 yesterday and 2 this morning. Patient is unable to say if she has been having blood in her stools or black stools as she is legally blind. She is still having lower abdominal pain which has improved but not resolved. She states that this pain is crampy in nature. * We will likely need to delay her upcoming colonoscopy on December 20 this will be further reviewed by Dr. Snowden for recommendation * Surgery consulted * Continue antibiotics * Continue supportive care with pain management and IV fluids * keep patient NPO till seen by surgery but they will likely chose to continue with outpatient appt with Dr. Ring but patient can use water swabs to moisten her mouth 2. Nausea/appetite loss/weight loss: EGD history unknown. Admits to nausea without vomiting last night. Patient admits to weight loss recently, according to records at her last office visit in October or her weight was 239 lb in weight this admission 231 lb. She states that the nausea and appetite loss has been occurring since she was diagnosed with diverticulitis. * Continue supportive care with antiemetics * Continue PPI * If symptoms persist may consider outpatient EGD 3. Normocytic anemia: Labs on initial presentation showed WBCs 8.3, HGB 11, HCT 34, MCV 94 platelets 260. Labs today show wbc's 7.7, HGB 10, HCT 30, and platelets 179. No signs of active GI bleeding. * Primary care team to continue monitoring H&H and transfuse as needed to keep HGB > 7 Thank you very much for allowing me to share in the care of this very nice patient. This report may have been done utilizing a voice recognition system. Attempts have been made to correct errors. However, there may be uncorrected grammatical, spelling, and recognition errors present. GI Consult Note Consult date/time: 12/01/24 07:55 Reason for consult: acute diverticulitis HPI: Camille Orozco is a 69 year old female with PMSH of depression, bilateral breast reduction, cholecystectomy, partial hysterectomy, rectocele, history of rectal prolapse surgery which was unsuccessful, colon polyps, arthritis, type 2 diabetes, seizures, anxiety, LANA, spinal stenosis, glaucoma, legally blind, GERD and BPPV. She presented to the ER 11/30/2024 with complaints of lower abdominal pain. GI has been consulted for acute recurrent diverticulitis. Patient was last seen in the office by Dr. Snowden for 09/21/2024 following a hospital admission at [facility] at the beginning of October. At the time of her visit a colonoscopy was planned and a surgical referral was placed. Prior to her admission the patient was started on a course of oral Levaquin and Flagyl. Patient has had > 7 episodes of diverticulitis over the past 5 years many of them requiring hospitalization. Patient is currently scheduled for an outpatient colonoscopy on December 20. Patient states that prior to her admission she was having multiple liquid stools per day. She states that she has had 3 liquid bowel movements since admission 1 yesterday and 2 this morning. She is unable to say if she has noticed any blood or black colored stools as she is legally blind. Her lower abdominal pain has improved but not resolved. She is still having mild lower abdominal pain that is crampy in nature. She admits to nausea that was occurring last night but no vomiting. Denies abdominal bloating, odynophagia, dysphagia, reflux, regurgitation or early satiety. She does admit to a decreased appetite and unmeasured weight loss recently. She denies any constipation. She states she is scheduled for an outpatient surgical consult with Dr. Ring on December 07. She uses naproxen daily but denies any aspirin or anticoagulant use. Admits to marijuana use. Family history negative for CRC or IBD. ENDOSCOPY HISTORY: EGD: No know prior Hx of EGD COLONOSCOPY: 02/17/[address] Snowden for CRC screening Findings: Multiple diverticula were present in the descending colon and in the sigmoid colon. The diverticula were not actively bleeding, no inflammation but difficult to advance scope but difficult to advance scope but after maneuvering able to reach cecum. There was a single 4 mm polyp observed in the cecum. A cold snare polypectomy was performed. The polyp was completely excised. There was a single 4 mm polyp observed in the transverse colon. That was excised and retrieved Small size hemorrhoid was seen in the rectum. The hemorrhoid was not actively bleeding Bx results: A. CECAL POLYP, ENDOSCOPIC REMOVAL: - TUBULAR ADENOMA. B. TRANSVERSE COLON POLYP, ENDOSCOPIC REMOVAL: - TUBULAR ADENOMA LABS AND STOOL STUDIES: Labs 12/01/2024: Sodium 134, potassium 4.0, BUN 17, creatinine 1.04, GFR 53, calcium 8.9 WBC 8, Hgb 10, Hct 30 , MCV 96, platelets 179 Total bilirubin 0.3, AST 33, ALT 17, Alkaline Phos 67, albumin 3.6 and lipase 79 IMAGING: CT abd/pelvis w/contrast 11/30/2024: IMPRESSION: Remonstration of mural thickening within the proximal sigmoid colon with surrounding inflammatory change and interloop fluid, for which acute diverticulitis is suspected. Follow-up to resolution is recommended as a malignancy may have a similar appearance. Given that these findings are similar to previous examination performed more than one month earlier, direct visualization is recommended, if not already performed. CT abd/pelvis w/contrast 10/11/2024: IMPRESSION: 1. Persistent wall thickening along the sigmoid colon where there are numerous diverticula in this could represent either acute colitis or scarring related to chronic diverticulitis. CT abd/pelvis w/contrast 08/11/2022: IMPRESSION: 1. Wall thickening of the sigmoid colon, consistent with colitis. Review of Systems 2 Constitutional: Constitutional: Reports as per HPI Eyes: Eyes: Reports as per HPI ENT: Reports as per HPI Cardiovascular: Cardiovascular: Reports as per HPI, Denies chest pain and Denies dyspnea Respiratory: Respiratory: Denies cough and Denies dyspnea Gastrointestinal: Gastrointestinal: Reports as per HPI Musculoskeletal: Musculoskeletal: Reports as per HPI Integumentary/Breasts: Skin/Breast: Reports as per HPI Psychiatric: Psychiatric: Reports as per HPI Endocrine: Endocrine: Reports no additional endocrine complaints Hematologic/Lymphatic: Hematologic/Lymphatic: Reports no additional hematologic/lymphatic complaints [facility] Past Medical History Medical History Reflex sympathetic dystrophy Hyperlipidemia Essential hypertension Depression Vitamin D deficiency Diverticulitis Adenomatous colon polyp BPPV (benign paroxysmal positional vertigo) Post-menopausal Lump of breast, right Inflammatory arthritis Bilateral sacroiliitis Marijuana use Seizure disorder Anxiety Spinal stenosis Obstructive sleep apnea Noncompliant with BiPAP. Glaucoma Macular degeneration History of rheumatic fever as a child Gastroesophageal reflux disease Bilateral foot-drop Diverticulosis large intestine w/o perforation or abscess w/bleeding Former smoker Rectocele Prediabetes A1C 5.5% 09/2024 Surgical History Surgical History History of sinus surgery History of tonsillectomy History of bilateral cataract extraction History of bilateral breast reduction surgery History of colonoscopy with polypectomy History of laparoscopic cholecystectomy History of partial hysterectomy History of fusion of cervical spine (1999) History of repair of rectocele (12/08/19) Rectocele repair/posterior colporrhaphy and perineoplasty. Family History Family History Mother Diabetes mellitus Hypertension Parkinsons disease Heart attack Father Diabetes mellitus Hypertension Renal failure Heart attack Cerebrovascular accident Social History Social History Social History: The patient lives in her own home in [place]. A friend is currently staying with her. She has 2 grown children. Ambulates with a walker or cane due to footdrop and decreased mobility. 5 pack-year smoking history, quit 1977. She drinks 1 to 2 glasses of wine a week. Smokes marijuana couple of times a week. She designates her son Ousmane Orozco and her brother Mike Orozco as her surrogate decision makers and she wishes to be a full code. 1 cup caffeine daily Smoking status: Never smoker Smoking end date: 07/05/78 Alcohol intake: never Substance use: never Substance use type: does not use Do You Feel Safe in your Home?: Yes Lack of Transportation: No Lack of Food: Never True Current Housing: I Have Housing Concerned About Future Housing: No Difficulty Paying Gas/Electric Bills: No Difficulty Paying for Meds: No Currently Unemployed: No Education: Decline to Answer Difficulty w/ Childcare or Family Care: No Living arrangements: alone Spiritual care concerns: No Meds Home Medications and Allergies Home Medications ?Medication ?Instructions ?Recorded ?Confirmed ?Type carbamazepine 400 mg 400 mg PO HS 06/08/19 11/30/24 History tablet,extended release,12 hr (Tegretol XR) cholecalciferol (vitamin D3) 125 5,000 unit PO DAILY 06/08/19 11/30/24 History mcg (5,000 unit) capsule trazodone 100 mg tablet 100 mg PO QPM 06/08/19 11/30/24 History bimatoprost 0.01 % eye drops 1 drp ophthalmic (eye) HS 11/29/19 11/30/24 History (Lucie) vitamins A,C,M-kfgs-ehlzus 2,148 1 tablet PO DAILY 11/29/19 11/30/24 History mcg-113 mg-45 mg-17.4 mg tablet (PreserVision AREDS) Rollator Walker with seat #1 ea 11/16/23 11/30/24 Rx lisinopril 40 mg tablet 40 mg PO DAILY #90 tabs 07/03/24 11/30/24 Rx furosemide 20 mg tablet (Lasix) 20 mg PO QAM #90 tabs 10/05/24 11/30/24 Rx naproxen 500 mg tablet See Rx Instructions .Route 10/05/24 11/30/24 Rx .COMPLEX #90 tabs rosuvastatin 40 mg tablet (Crestor) 40 mg PO HS #90 tabs 10/05/24 11/30/24 Rx tramadol 50 mg tablet 50 mg PO Q6H PRN pain #10 tabs 10/12/24 11/30/24 Rx duloxetine 30 mg capsule,delayed See Rx Instructions .Route 10/23/24 11/30/24 Rx release .COMPLEX #180 caps potassium chloride 10 mEq 10 meq PO DAILY #30 caps 10/23/24 11/30/24 Rx capsule,extended release levofloxacin 750 mg tablet 750 mg PO DAILY #7 tabs 11/29/24 11/30/24 Rx Allergies Allergy/AdvReac Type Severity Reaction Status Date / Time cephalexin (From Keflex) Allergy Itching Verified 11/30/24 14:46 Head nitrofurantoin (From Allergy Hives Verified 11/30/24 14:46 Macrobid) Penicillins AdvReac Unknown DIVERTICULI Verified 11/30/24 14:46 TIS diphenhydramine (From AdvReac Seizure Verified 11/30/24 14:46 Benadryl) Vital Signs Vital Signs - 24 hr 11/30/24 11:50 11/30/24 14:48 11/30/24 17:51 Temperature 98.4 F 98.5 F Pulse Rate 86 87 80 Respiratory Rate 16 18 18 Blood Pressure 139/76 158/76 H 163/79 H Pulse Oximetry 98 100 98 Oxygen Delivery Room Air Fraction of Inspired Oxygen 11/30/24 18:53 11/30/24 20:00 11/30/24 22:00 Temperature 99.0 F 97.2 F L Pulse Rate 97 87 90 Respiratory Rate 18 18 16 Blood Pressure 150/78 H 134/63 Pulse Oximetry 97 96 93 Oxygen Delivery Room Air Fraction of Inspired Oxygen 21 12/01/24 04:45 Temperature 97.7 F Pulse Rate 101 H Respiratory Rate 18 Blood Pressure 159/63 H Pulse Oximetry 99 Oxygen Delivery Fraction of Inspired Oxygen Exam 2 Const: General: cooperative, healthy appearing, comfortable, no acute distress, well developed and obese Orientation/consciousness: oriented to person, oriented to place, oriented to time and patient oriented x3 HENMT: Head: normal to inspection, normocephalic and atraumatic Mouth: Yes Normal oral and palatal mucosa present and Yes moist mucous membranes Eyes: General: appearance normal, both eyes and all related structures C onjunctivae: conjunctivae normal Sclera: sclerae normal Pupils: Equal, round and reactive pupils present Neck: Neck: normal visual inspection Chest: Chest palpation & inspection: normal inspection of the chest Resp: Effort & Inspection: normal respiratory effort and able to speak in complete sentences Auscultation: clear to auscultation bilaterally Cardio: Jugular venous distension: no JVD Rate: regular rate Rhythm: r egular rhythm Heart sounds: S1 normal heart sound present and S2 normal heart sound present GI: Inspection: normal to inspection GI Palp: Yes Soft to palpation and Yes No hepatosplenomegaly present Auscultation: normal bowel sounds Rectal Exam: deferred Skin: General skin exam: normal color and no rashes or lesions noted Neuro: General: oriented to person, oriented to place, oriented to time and patient oriented x3 Cranial nerves: Yes Equal, round and reactive pupils present Speech: normal speech Extrem: General: normal to inspection and no clubbing, cyanosis or edema Psych: Appearance: grossly normal and well kempt Affect: normal affect Results Labs 12/01/24 06:05 12/01/24 06:05 Labs: Short CBC 11/30/24 12/01/24 Range/Units 13:26 06:05 WBC 8.3 7.7 (4.5-10.0) K/mm3 Hgb 11.2 L 9.8 L (12.0-15.0) g/dL Hct 34.4 L 30.1 L (37.0-47.0) % Plt Count 260 179 (150-375) k/mm3 BMP 11/30/24 12/01/24 14:39 06:05 Sodium 128 L 134 L Potassium 4.8 4.0 Chloride 95 L 104 Carbon Dioxide 23 23 BUN 19 H 17 Creatinine 0.94 1.04 H Glucose 106 107 Calcium 9.4 8.9 Liver Function 11/30/24 12/01/24 Range/Units 14:39 06:05 Total Bilirubin 0.6 0.3 (0.2-1.3) mg/dL AST 31 33 (14-36) U/L ALT 17 17 (6-35) U/L Alkaline Phosphatase 73 67 (38-126) U/L Albumin 4.2 3.6 (3.5-5.1) g/dL Urine 11/30/24 Range/Units 14:18 Urine Color Yellow (Yellow) Urine Appearance Clear (Clear) Urine pH 6.0 (5.0-9.0) Ur Specific [place] 1.011 (1.001-1.035) Urine Protein Negative (Negative) mg/dL Urine Glucose (UA) Negative (Negative) mg/dL
[2024-12-01] MEDS: CHOLECALCIFEROL (VITAMIN D3) 125 MCG (5,000 UNITS) TABLET PO (09:00)
[2024-12-01] MEDS: lisinopriL 20 MG TABLET 40 MG PO (09:00)
[2024-12-01] MEDS: FUROSEMIDE 20 MG TABLET PO (09:00)
[2024-12-01] MEDS: POTASSIUM CHLORIDE 10 MEQ ER TABLET PO (09:00)
[2024-12-01] MEDS: OPTI-GEN TAB 1 TABLET PO (09:00)
[2024-12-01] MEDS: PANTOPRAZOLE 40 MG TABLET PO (09:01)
--- NOTE | 2024-12-01 09:06 | P.CONGS_ITS ---
Assessment and Plan Assessment and plan (1) Acute diverticulitis: Code(s): K57.92 - Diverticulitis of intestine, part unspecified, without perforation or abscess without bleeding Status: Acute Assessment and Plan: Patient is stable, afebrile, normal WBC count. She states symptoms feel similar to previous diverticulitis flare ups. CT significant for findings representing acute diverticulitis. Direct visualization recommended. * continue IV levaquin and Flagyl * analgesics and antiemetics prn * monitor CBC and electrolytes * Continue treatment based on GI recommendations. General surgery will continue to follow, but no emergent surgical intervention necessary at this time. (2) Nausea & vomiting: Qualifiers: Vomiting type: unspecified Qualified Code(s): R11.2 - Nausea with vomiting, unspecified Code(s): R11.2 - Nausea with vomiting, unspecified Status: Acute (3) Abdominal pain: Qualifiers: Abdominal location: lower abdomen, unspecified Qualified Code(s): R 10.30 - Lower abdominal pain, unspecified Code(s): R10.9 - Unspecified abdominal pain Status: Acute (4) Colon cancer screening: Code(s): Z12.11 - Encounter for screening for malignant neoplasm of colon Status: Acute Assessment and Plan: Colonoscopy currently scheduled for December [address] Moore. History of Present Illness Consult details Consult date: 12/01/24 Narrative: Patient is a 69-year-old female with known history of diverticulitis who presented to the ER on 11/30 for lower abdominal pain with associated nausea and vomiting. Symptoms 1st started on Tuesday 11/28. She has been taking leftover Flagyl for which she was prescribed from a prior episode in October. She was also prescribed levofloxacin on 11/[address] Snowden in GI, whom she follows with for diverticulitis management. She states that symptoms feel similar to previous episodes of diverticulitis flare ups. Bowel movements have been minimal since symptoms started. She describes them as small amounts of formed stool mixed with liquid. She believes her last colonoscopy was roughly a year ago she is currently scheduled for a colonoscopy December [address] Moore. Patient has not had any abdominal surgeries, however, she does recall getting a procedure done for rectal prolapse. CT scan showed redemonstration of mural thickening within the proximal sigmoid colon with surrounding inflammatory change and interloop fluid. Acute diverticulitis suspected. Follow-up to resolution with direct visualization is recommended as malignancy may have a similar appearance. Since admission patient has not ran a fever. Normal white blood cell count. Currently NPO. IV Levaquin and Flagyl. [facility] Past Medical History Medical History Reflex sympathetic dystrophy Hyperlipidemia Essential hypertension Depression Vitamin D deficiency Diverticulitis Adenomatous colon polyp BPPV (benign paroxysmal positional vertigo) Post-menopausal Lump of breast, right Inflammatory arthritis Bilateral sacroiliitis Marijuana use Seizure disorder Anxiety Spinal stenosis Obstructive sleep apnea Noncompliant with BiPAP. Glaucoma Macular degeneration History of rheumatic fever as a child Gastroesophageal reflux disease Bilateral foot-drop Diverticulosis large intestine w/o perforation or abscess w/bleeding Former smoker Rectocele Prediabetes A1C 5.5% 09/2024 Surgical History Surgical History History of sinus surgery History of tonsillectomy History of bilateral cataract extraction History of bilateral breast reduction surgery History of colonoscopy with polypectomy History of laparoscopic cholecystectomy History of partial hysterectomy History of fusion of cervical spine (1999) History of repair of rectocele (12/08/19) Rectocele repair/posterior colporrhaphy and perineoplasty. Family History Family History Mother Diabetes mellitus Hypertension Parkinsons disease Heart attack Father Diabetes mellitus Hypertension Renal failure Heart attack Cerebrovascular accident Social History Social History Social History: The patient lives in her own home in [place]. A friend is currently staying with her. She has 2 grown children. Ambulates with a walker or cane due to footdrop and decreased mobility. 5 pack-year smoking history, quit 1977. She drinks 1 to 2 glasses of wine a week. Smokes marijuana couple of times a week. She designates her son Ousmane Orozco and her brother Mike Orozco as her surrogate decision makers and she wishes to be a full code. 1 cup caffeine daily Smoking status: Never smoker Smoking end date: 07/05/78 Alcohol intake: never Substance use: never Substance use type: does not use Do You Feel Safe in your Home?: Yes Lack of Transportation: No Lack of Food: Never True Current Housing: I Have Housing Concerned About Future Housing: No Difficulty Paying Gas/Electric Bills: No Difficulty Paying for Meds: No Currently Unemployed: No Education: Decline to Answer Difficulty w/ Childcare or Family Care: No Living arrangements: alone Spiritual care concerns: No Meds Home Medications and Allergies Home Medications ?Medication ?Instructions ?Recorded ?Confirmed ?Type carbamazepine 400 mg 400 mg PO HS 06/08/19 11/30/24 History tablet,extended release,12 hr (Tegretol XR) cholecalciferol (vitamin D3) 125 5,000 unit PO DAILY 06/08/19 11/30/24 History mcg (5,000 unit) capsule trazodone 100 mg tablet 100 mg PO QPM 06/08/19 11/30/24 History bimatoprost 0.01 % eye drops 1 drp ophthalmic (eye) HS 11/29/19 11/30/24 History ([place]) vitamins A,C,T-yeie-bcakgp 2,148 1 tablet PO DAILY 11/29/19 11/30/24 History mcg-113 mg-45 mg-17.4 mg tablet (PreserVision AREDS) Rollator Walker with seat #1 ea 11/16/23 11/30/24 Rx lisinopril 40 mg tablet 40 mg PO DAILY #90 tabs 07/03/24 11/30/24 Rx furosemide 20 mg tablet (Lasix) 20 mg PO QAM #90 tabs 10/05/24 11/30/24 Rx naproxen 500 mg tablet See Rx Instructions .Route 10/05/24 11/30/24 Rx .COMPLEX #90 tabs rosuvastatin 40 mg tablet (Crestor) 40 mg PO HS #90 tabs 10/05/24 11/30/24 Rx tramadol 50 mg tablet 50 mg PO Q6H PRN pain #10 tabs 10/12/24 11/30/24 Rx duloxetine 30 mg capsule,delayed See Rx Instructions .Route 10/23/24 11/30/24 Rx release .COMPLEX #180 caps potassium chloride 10 mEq 10 meq PO DAILY #30 caps 10/23/24 11/30/24 Rx capsule,extended release levofloxacin 750 mg tablet 750 mg PO DAILY #7 tabs 11/29/24 11/30/24 Rx Allergies Allergy/AdvReac Type Severity Reaction Status Date / Time cephalexin (From Keflex) Allergy Itching Verified 11/30/24 14:46 Head nitrofurantoin (From Allergy Hives Verified 11/30/24 14:46 Macrobid) Penicillins AdvReac Unknown DIVERTICULI Verified 11/30/24 14:46 TIS diphenhydramine (From AdvReac Seizure Verified 11/30/24 14:46 Benadryl) Vital Signs Vital Signs - 24 hr 11/30/24 11:50 11/30/24 14:48 11/30/24 17:51 Temperature 98.4 F 98.5 F Pulse Rate 86 87 80 Respiratory Rate 16 18 18 Blood Pressure 139/76 158/76 H 163/79 H Pulse Oximetry 98 100 98 Oxygen Delivery Room Air Fraction of Inspired Oxygen 11/30/24 18:53 11/30/24 20:00 11/30/24 22:00 Temperature 99.0 F 97.2 F L Pulse Rate 97 87 90 Respiratory Rate 18 18 16 Blood Pressure 150/78 H 134/63 Pulse Oximetry 97 96 93 Oxygen Delivery Room Air Fraction of Inspired Oxygen 21 12/01/24 04:45 Temperature 97.7 F Pulse Rate 101 H Respiratory Rate 18 Blood Pressure 159/63 H Pulse Oximetry 99 Oxygen Delivery Fraction of Inspired Oxygen Exam 2 GI: Inspection: non-distended GI Palp: Yes Soft to palpation, Yes Tenderness to palpation present (GI) (diffuse tenderness across lower abdomen) and No Guarding due to palpation present (GI) Auscultation: normal bowel sounds Results Labs 12/01/24 06:05 12/01/24 06:05 Labs: Abnormal lab results 11/30/24 11/30/24 11/30/24 Range/Units 13:26 14:18 14:39 RBC 3.67 L (4.2-5.4) M/mm3 Hgb 11.2 L (12.0-15.0) g/dL Hct 34.4 L (37.0-47.0) % MPV 10.8 H (7.4-10.4) fl Immature Gran % (Auto) 0.6 H (0-0.5) % Neut % (Auto) (45.5-73.1) % Lymph % (Auto) (18.3-44.2) % [place] % (Auto) (2.6-8.5) % Lymph # (Auto) (0.9-3.2) K/mm3 [place] # (Auto) (0.1-0.6) K/mm3 Abs Immat Gran (auto) 0.05 H (0.00-0.031) K/mm3 Sodium 128 L (137-145) mmol/L Chloride 95 L (98-107) mmol/L BUN 19 H (7-17) mg/dL Creatinine (0.7-1.0) mg/dL Estimated GFR (59 - ) Total Protein (6.3-8.2) g/dL Urine Ketones 1+ H (Negative) mg/dL Leukocyte Esterase Rfl 1+ H (Negative) JOSE/UL Urine WBC 6-10 H (0-3) /hpf 12/01/24 Range/Units 06:05 RBC 3.14 L (4.2-5.4) M/mm3 Hgb 9.8 L (12.0-15.0) g/dL Hct 30.1 L (37.0-47.0) % MPV (7.4-10.4) fl Immature Gran % (Auto) 0.9 H (0-0.5) % Neut % (Auto) 78.4 H (45.5-73.1) % Lymph % (Auto) 10.1 L (18.3-44.2) % [place] % (Auto) 9.5 H (2.6-8.5) % Lymph # (Auto) 0.78 L (0.9-3.2) K/mm3 [place] # (Auto) 0.7 H (0.1-0.6) K/mm3 Abs Immat Gran (auto) 0.07 H (0.00-0.031) K/mm3 Sodium 134 L (137-145) mmol/L Chloride (98-107) mmol/L BUN (7-17) mg/dL Creatinine 1.04 H (0.7-1.0) mg/dL Estimated GFR 53 L (59 - ) Total Protein 6.0 L (6.3-8.2) g/dL Urine Ketones (Negative) mg/dL Leukocyte Esterase Rfl (Negative) JOSE/UL Urine WBC (0-3) /hpf Diabetes panel 11/30/24 12/01/24 Range/Units 14:39 06:05 Sodium 128 L 134 L (137-145) mmol/L Potassium 4.8 4.0 (3.4-5.0) mmol/L Chloride 95 L 104 (98-107) mmol/L Carbon Dioxide 23 23 (22-30) mmol/L BUN 19 H 17 (7-17) mg/dL Creatinine 0.94 1.04 H (0.7-1.0) mg/dL Glucose 106 107 (65-110) mg/dL Calcium 9.4 8.9 (8.4-10.2) mg/dL AST 31 33 (14-36) U/L ALT 17 17 (6-35) U/L Alkaline Phosphatase 73 67 (38-126) U/L Total Protein 7.0 6.0 L (6.3-8.2) g/dL Albumin 4.2 3.6 (3.5-5.1) g/dL Calcium panel 11/30/24 12/01/24 Range/Units 14:39 06:05 Calcium 9.4 8.9 (8.4-10.2) mg/dL Albumin 4.2 3.6 (3.5-5.1) g/dL Pituitary panel 11/30/24 12/01/24 Range/Units 14:39 06:05 Sodium 128 L 134 L (137-145) mmol/L Potassium 4.8 4.0 (3.4-5.0) mmol/L Chloride 95 L 104 (98-107) mmol/L Carbon Dioxide 23 23 (22-30) mmol/L BUN 19 H 17 (7-17) mg/dL Creatinine 0.94 1.04 H (0.7-1.0) mg/dL Glucose 106 107 (65-110) mg/dL Calcium 9.4 8.9 (8.4-10.2) mg/dL Adrenal panel 11/30/24 12/01/24 Range/Units 14:39 06:05 Sodium 128 L 134 L (137-145) mmol/L Potassium 4.8 4.0 (3.4-5.0) mmol/L Chloride 95 L 104 (98-107) mmol/L Carbon Dioxide 23 23 (22-30) mmol/L BUN 19 H 17 (7-17) mg/dL Creatinine 0.94 1.04 H (0.7-1.0) mg/dL Glucose 106 107 (65-110) mg/dL Calcium 9.4 8.9 (8.4-10.2) mg/dL Total Bilirubin 0.6 0.3 (0.2-1.3) mg/dL AST 31 33 (14-36) U/L ALT 17 17 (6-35) U/L Alkaline Phosphatase 73 67 (38-126) U/L Total Protein 7.0 6.0 L (6.3-8.2) g/dL Albumin 4.2 3.6 (3.5-5.1) g/dL All other labs normal.
[2024-12-01 14:32] VITALS: BP 121/49; PULSE 88; RESP 17; TEMP 36.6; O2SAT 98
[2024-12-01] MEDS: levoFLOXacin 750 MG/D5W 150 ML 750 MG/150 ML BAG 100 MG IVPB (18:41)
[2024-12-01] MEDS: traZODone HCL 50 MG TABLET 100 MG PO (20:23)
[2024-12-01] MEDS: ROSUVASTATIN 20 MG TABLET 40 MG PO (20:23)
[2024-12-01] MEDS: DULoxetine HCL 30 MG CAPSULE.DR 60 MG PO (20:24)
[2024-12-01] MEDS: CARBAMAZEPINE XR 200 MG TAB.ER.12H 400 MG PO (20:24)
[2024-12-01] MEDS: LATANOPROST 0.005% OP SOLN 2.5 ML BTL 1 DROP EACH EYE (20:25)
[2024-12-01 21:58] VITALS: BP 134/69; PULSE 92; RESP 18; TEMP 35.9; O2SAT 100
[2024-12-02] MEDS: metroNIDAZOLE 500 MG/ISO 100ML 500 MG/100 ML BAG 100 MG IVPB (05:22)
[2024-12-02 06:00] VITALS: BP 119/92; PULSE 99; RESP 18; TEMP 36.3; O2SAT 99
[2024-12-02] MEDS: OPTI-GEN TAB 1 TABLET PO (10:58)
[2024-12-02] MEDS: PANTOPRAZOLE 40 MG TABLET PO (10:58)
[2024-12-02] MEDS: CHOLECALCIFEROL (VITAMIN D3) 125 MCG (5,000 UNITS) TABLET PO (10:58)
[2024-12-02] MEDS: lisinopriL 20 MG TABLET 40 MG PO (10:58)
[2024-12-02] MEDS: FUROSEMIDE 20 MG TABLET PO (10:58)
[2024-12-02] MEDS: POTASSIUM CHLORIDE 10 MEQ ER TABLET PO (11:17)
--- NOTE | 2024-12-02 12:03 | WPDGIPROGNO ---
Progress Note: A&P Assessment and Plan (1) Acute diverticulitis: Code(s): K57.92 - Diverticulitis of intestine, part unspecified, without perforation or abscess without bleeding Status: Acute Assessment and Plan: much better, pain almost gone she can go home and complete oral antibiotics colonoscopy ~ 6 weeks at least, will arrange then she can follow-up with surgery because recurrent diverticulitis and discussion about potential partial colectomy near future (2) Abdominal pain: Qualifiers: Abdominal location: lower abdomen, unspecified Qualified Code(s): R10.30 - Lower abdominal pain, unspecified Code(s): R10.9 - Unspecified abdominal pain Status: Acute Assessment and Plan: much better (3) Nausea & vomiting: Qualifiers: Vomiting type: unspecified Qualified Code(s): R11.2 - Nausea with vomiting, unspecified Code(s): R11.2 - Nausea with vomiting, unspecified Status: Acute Assessment and Plan: resolved (4) Normocytic anemia: Code(s): D64.9 - Anemia, unspecified Status: Acute Subjective Date/time seen: 12/02/24 12:03 Interval history: pain almost gone, she would like to go home today Review of Systems Review of Systems: All systems reviewed & are unremarkable except as noted in HPI and below Exam Const: General: comfortable and no acute distress HENMT: Face/Nose/Sinus: Normal nares present Eyes: General: appearance normal, both eyes and all related structures Neck: Neck: supple Resp: Auscultation: clear to auscultation bilaterally Cardio: Rate: regular rate Rhythm: regular rhythm GI: Inspection: non-distended GI Palp: Yes Soft to palpation and No Tenderness to palpation present (GI) Auscultation: normal bowel sounds Skin: General skin exam: normal color Neuro: Speech: normal speech Motor exam (neuro): 5/5 motor strength present throughout Extrem: General: normal to inspection Psych: Mental Status: mental status grossly normal Objective Data Vital Signs Vital Signs: Vital Signs - 24 hr 12/01/24 14:32 12/01/24 21:58 12/02/24 06:00 Temperature 97.8 F 96.6 F L 97.4 F L Pulse Rate 88 92 99 Respiratory Rate 17 18 18 Blood Pressure 121/49 L 134/69 119/92 H Pulse Oximetry 98 100 99 Intake/Output Intake/Output: Intake & Output 11/29/24 11/30/24 12/01/24 12/02/24 23:59 23:59 23:59 23:59 Intake Total 1200 1660 720 Balance 1200 1660 720 Meds/Results Medications: Active Medications Generic Name Dose Route Start Last Admin Trade Name Freq PRN Reason Stop Dose Admin Acetaminophen 650 mg 11/30/24 16:47 Acetaminophen 325 Mg Tablet PO Q4H PRN Mild Pain (1-3) or Fever Hydrocodone Bitart/Acetaminophen 1 tab 11/30/24 18:52 11/30/24 19:03 Hydrocodone/Acetaminophen (*Crx) 5-325 Mg Tablet PO 1 tab Q6H PRN Administration Pain Rated 4-6 Carbamazepine 400 mg 12/01/24 21:00 12/01/24 20:24 Carbamazepine Xr 200 Mg Tab.Er.12h PO 400 mg HS DAKSHA Administration Duloxetine HCl 60 mg 11/30/24 21:40 12/01/24 20:24 Duloxetine Hcl 30 Mg Capsule.Dr PO 60 mg HS DAKSHA Administration Furosemide 20 mg 12/01/24 09:00 12/02/24 10:58 Furosemide 20 Mg Tablet PO 20 mg QAM DAKSHA Administration Levofloxacin/Dextrose 750 mg in 150 mls @ 100 mls/hr 12/01/24 18:00 12/01/24 18:41 Levaquin 750 Mg/D5w 150 Ml IVPB 100 mls/hr Q24H DAKSHA Administration Metronidazole 500 mg in 100 mls @ 100 mls/hr 11/30/24 22:00 12/02/24 05:22 Flagyl 500 Mg/Iso Soln 100 Ml IVPB 100 mls/hr Q8HR DAKSHA Administration Latanoprost 1 drop 12/01/24 21:00 12/01/24 20:25 Latanoprost 0.005% Op Soln 2.5 Ml Btl EACH EYE 1 drop HS DAKSHA Administration Lisinopril 40 mg 12/01/24 09:00 12/02/24 10:58 Lisinopril 20 Mg Tablet PO 40 mg DAILY DAKSHA Administration Miscellaneous Information 0 each 11/30/24 00:01 Duplicate With Acetaminophen Prn Pain 1-3 Hold Or Make Scheduled Med? XX 12/30/24 00:00 CLARIFY DAKSHA Miscellaneous Information 0 each 11/30/24 00:01 Tramadol Dupliate With [place] Prn Pain 4-6 Please D/C One Or Make Scheduled?? XX 12/30/24 00:00 CLARIFY DAKSHA Morphine Sulfate 2 mg 11/30/24 18:52 Morphine Sulfate (*Crx) 2 Mg/Ml Inj IV PUSH Q4H PRN Pain Rated 7-10 Multivitamins/Minerals 1 tablet 12/01/24 09:00 12/02/24 10:58 Opti-Gen Tab PO 1 tablet QAM DAKSHA Administration Naproxen 500 mg 11/30/24 21:40 Naproxen 500 Mg Tablet PO DAILY PRN Pain Ondansetron HCl 4 mg 12/01/24 03:23 12/01/24 03:35 Ondansetron Inj 4 Mg/2 Ml Vial IV PUSH 4 mg Q6H PRN Administration Nausea And Vomiting Pantoprazole Sodium 40 mg 12/01/24 09:00 12/02/24 10:58 Pantoprazole 40 Mg Tablet PO 40 mg QAM DAKSHA Administration Potassium Chloride 10 meq 12/01/24 09:00 12/02/24 11:17 Potassium Chloride 10 Meq Er Tablet PO 10 meq DAILY DAKSHA Administration Rosuvastatin Calcium 40 mg 12/01/24 21:00 12/01/24 20:23 Rosuvastatin 20 Mg Tablet PO 40 mg HS DAKSHA Administration Tramadol HCl 50 mg 11/30/24 21:37 Tramadol Hcl (*Crx) 50 Mg Tablet PO Q6H PRN pain 4-6 Trazodone HCl 100 mg 11/30/24 22:05 12/01/24 20:23 Trazodone Hcl 50 Mg Tablet PO 100 mg HS DAKSHA Administration Vitamin D 125 mcg 12/01/24 09:00 12/02/24 10:58 Cholecalciferol (Vitamin D3) 125 Mcg (5,000 Units) Tablet PO 125 mcg DAILY DAKSHA Administration Radiology Results: ITS Impressions Abdomen/Pelvis CT 11/30/24 15:57 IMPRESSION: Redemonstration of mural thickening within the proximal sigmoid colon with surrounding inflammatory change and interloop fluid, for which acute diverticulitis is suspected. Follow-up to resolution is recommended as a malignancy may have a similar appearance. Given that these findings are similar to previous examination performed more than one month earlier, direct visualization is recommended, if not already performed.
--- NOTE | 2024-12-02 13:27 | WPDPN ---
Progress Note: A&P Assessment and Plan (1) Acute diverticulitis: Code(s): K57.92 - Diverticulitis of intestine, part unspecified, without perforation or abscess without bleeding Status: Acute Assessment and Plan: For responding to non operative management for her recurrent sigmoid acute diverticulitis. No fever and no leukocytosis now. Abdominal exam is benign without tenderness now. She is tolerating regular food. I think she be discharged from the hospital at the discretion of the hospitalist service. She no longer needs to be admitted to the hospital of from a surgical standpoint. She should complete a full 14 day course of antibiotics. Will need at least another 10 days worth of oral antibiotics at home. She has a colonoscopy set up with Dr. Moore which is now been delayed a little bit longer because of this acute episode of diverticulitis. She can follow-up Dr. Moore for the colonoscopy and then he can further discuss any need for subsequent elective sigmoid resection if it is indicated. Subjective Date/time seen: 12/02/24 13:27 Interval history: Patient seems to be doing well today. Denies having abdominal pain. Eating regular diet today without difficulty. No fever. No tachycardia. White blood cell count remains normal. Exam GI: Other: Abdomen is soft and nondistended. No tenderness to palpation today. Exam is benign. Objective Data Vital Signs Vital Signs: Vital Signs - 24 hr 12/01/24 14:32 12/01/24 21:58 12/02/24 06:00 Temperature 36.6 C 35.9 C L 36.3 C L Pulse Rate 88 92 99 Respiratory Rate 17 18 18 Blood Pressure 121/49 L 134/69 119/92 H Pulse Oximetry 98 100 99 Intake/Output Intake/Output: Intake & Output 11/29/24 11/30/24 12/01/24 12/02/24 23:59 23:59 23:59 23:59 Intake Total 1200 1660 960 Balance 1200 1660 960 Meds/Results Medications: Active Medications Generic Name Dose Route Start Last Admin Trade Name Freq PRN Reason Stop Dose Admin Acetaminophen 650 mg 11/30/24 16:47 Acetaminophen 325 Mg Tablet PO Q4H PRN Mild Pain (1-3) or Fever Hydrocodone Bitart/Acetaminophen 1 tab 11/30/24 18:52 11/30/24 19:03 Hydrocodone/Acetaminophen (*Crx) 5-325 Mg Tablet PO 1 tab Q6H PRN Administration Pain Rated 4-6 Carbamazepine 400 mg 12/01/24 21:00 12/01/24 20:24 Carbamazepine Xr 200 Mg Tab.Er.12h PO 400 mg HS DAKSHA Administration Duloxetine HCl 60 mg 11/30/24 21:40 12/01/24 20:24 Duloxetine Hcl 30 Mg Capsule.Dr PO 60 mg HS DAKSHA Administration Furosemide 20 mg 12/01/24 09:00 12/02/24 10:58 Furosemide 20 Mg Tablet PO 20 mg QAM DAKSHA Administration Levofloxacin/Dextrose 750 mg in 150 mls @ 100 mls/hr 12/01/24 18:00 12/01/24 18:41 Levaquin 750 Mg/D5w 150 Ml IVPB 100 mls/hr Q24H DAKSHA Administration Metronidazole 500 mg in 100 mls @ 100 mls/hr 11/30/24 22:00 12/02/24 05:22 Flagyl 500 Mg/Iso Soln 100 Ml IVPB 100 mls/hr Q8HR DAKSHA Administration Latanoprost 1 drop 12/01/24 21:00 12/01/24 20:25 Latanoprost 0.005% Op Soln 2.5 Ml Btl EACH EYE 1 drop HS DAKSHA Administration Lisinopril 40 mg 12/01/24 09:00 12/02/24 10:58 Lisinopril 20 Mg Tablet PO 40 mg DAILY DAKSHA Administration Miscellaneous Information 0 each 11/30/24 00:01 Duplicate With Acetaminophen Prn Pain 1-3 Hold Or Make Scheduled Med? XX 12/30/24 00:00 CLARIFY [facility] Miscellaneous Information 0 each 11/30/24 00:01 Tramadol Dupliate With [place] Prn Pain 4-6 Please D/C One Or Make Scheduled?? XX 12/30/24 00:00 CLARIFY [facility] Morphine Sulfate 2 mg 11/30/24 18:52 Morphine Sulfate (*Crx) 2 Mg/Ml Inj IV PUSH Q4H PRN Pain Rated 7-10 Multivitamins/Minerals 1 tablet 12/01/24 09:00 12/02/24 10:58 Opti-Gen Tab PO 1 tablet QAM DAKSHA Administration Naproxen 500 mg 11/30/24 21:40 Naproxen 500 Mg Tablet PO DAILY PRN Pain Ondansetron HCl 4 mg 12/01/24 03:23 12/01/24 03:35 Ondansetron Inj 4 Mg/2 Ml Vial IV PUSH 4 mg Q6H PRN Administration Nausea And Vomiting Pantoprazole Sodium 40 mg 12/01/24 09:00 12/02/24 10:58 Pantoprazole 40 Mg Tablet PO 40 mg QAM DAKSHA Administration Potassium Chloride 10 meq 12/01/24 09:00 12/02/24 11:17 Potassium Chloride 10 Meq Er Tablet PO 10 meq DAILY DAKSHA Administration Rosuvastatin Calcium 40 mg 12/01/24 21:00 12/01/24 20:23 Rosuvastatin 20 Mg Tablet PO 40 mg HS DAKSHA Administration Tramadol HCl 50 mg 11/30/24 21:37 Tramadol Hcl (*Crx) 50 Mg Tablet PO Q6H PRN pain 4-6 Trazodone HCl 100 mg 11/30/24 22:05 12/01/24 20:23 Trazodone Hcl 50 Mg Tablet PO 100 mg HS DAKSHA Administration Vitamin D 125 mcg 12/01/24 09:00 12/02/24 10:58 Cholecalciferol (Vitamin D3) 125 Mcg (5,000 Units) Tablet PO 125 mcg DAILY DAKSHA Administration Radiology Results: ITS Impressions Abdomen/Pelvis CT 11/30/24 15:57 IMPRESSION: Redemonstration of mural thickening within the proximal sigmoid colon with surrounding inflammatory change and interloop fluid, for which acute diverticulitis is suspected. Follow-up to resolution is recommended as a malignancy may have a similar appearance. Given that these findings are similar to previous examination performed more than one month earlier, direct visualization is recommended, if not already performed.
--- NOTE | 2024-12-02 14:05 | P.DS_ITS ---
DS: Admitting Diagnosis Discharge Date 12/02/2024 Admitting Diagnosis abdominal pain DS: Discharge Diagnosis Discharge Diagnosis (1) Acute diverticulitis: Code(s): K57.92 - Diverticulitis of intestine, part unspecified, without perforation or abscess without bleeding Status: Acute Assessment and Plan: * hx of recurrent diverticulitis, most recent occurrence in October of 2024 requiring hospitalization * CT abdomen/pelvis: * Redemonstration of mural thickening within the proximal sigmoid colon with surrounding inflammatory change and interloop fluid, for which acute diverticulitis is suspected. * Follow-up to resolution is recommended as a malignancy may have a similar appearance. * Given that these findings are similar to previous examination performed more than one month earlier, direct visualization is recommended, if not already performed. * started on IV Levaquin and Flagyl on 11/30 * Analgesics and antiemetics p.r.n. * monitor CBC and electrolytes * GI following * Continue IV antibiotics, p.r.n. pain control, and IV fluid hydration * NPO * likely can advance as tolerated today if nausea subsides * ok to dc today (2) Hyponatremia: Code(s): E87.1 - Hypo-osmolality and hyponatremia Status: Acute Assessment and Plan: - Na 128, previously 128 on 10/12/2024 - NS bolus x1L -> Ns at 100 mL/hr x1L - suspect mild hyponatremia secondary to dietary loss/nausea vomiting and poor p.o. intake - monitor - 12/01: Na improved, 134 today sodium much better ok to dc (3) Essential (primary) hypertension: Code(s): I10 - Essential (primary) hypertension Status: Chronic Assessment and Plan: - chronic, [id number] - continue home medications: Lisinopril - monitor DS: Summary Hospital Course Hospital Course: 69 year old female pmh diverticulitis, htn, hld seizures and bilateral foot drop recurrent divertucitis failed opd abx admitted for iv abx here much better tolerating diet ok to dc today Status at Discharge Cognitive/behavioral status at discharge: stable Time Spent with Patient Time attestation: Total time spent providing and/or coordinating discharge services:55 mins of day of dc Exam Narrative: mild lower abdominal tenderness, mildly decreased bowel sounds in the lower quandrants, normal in upper. Const: General: comfortable and no acute distress Other: , female, nontoxic appearance HENMT: Face/Nose/Sinus: Normal nares present Mouth: Yes moist mucous membranes Eyes: General: appearance normal, both eyes and all related structures Sclera: sclerae normal Pupils: Equal, round and reactive pupils present EOM: EOMs intact bilaterally Other: +legally blind Resp: Effort & Inspection: normal respiratory effort Auscultation: clear to auscultation bilaterally Cardio: Rate: regular rate Rhythm: regular rhythm Other: S1-S2 present without murmur, rub, ectopy GI: Other: Abdomen soft, nondistended. Mild tenderness in the lower quadrants. Normoactive bowel sounds in upper quadrants, moderately reduced in the lower quadrants. Skin: General skin exam: normal color and no rashes or lesions noted Wounds: no wounds Neuro: Cranial nerves: Yes Equal, round and reactive pupils present Speech: normal speech Motor exam (neuro): 5/5 motor strength present throughout Sensory Exam: normal sensation Other: A&O x4 Extrem: General: normal to inspection Psych: Mental Status: mental status grossly normal Affect: normal affect Other: Good insight and judgment, pleasant Discharge Plan Discharge Attending physician on discharge: Soheila Barr Consulting providers: Tyron Hdz; Jr Edouard; Ti Girard; Ranjit Salcedo; Lisa Hernandez; Cami Garcia; Katarzyna Monsivais; Cathy Riojas; Himanshu Bang; Paola Garcia Discharging Clinician: Soheila Barr Anticipated Discharge Date/Time: 12/02/24 14:01 Patient Disposition: Home Activity: no preference Diet: low fiber Discharge Instructions: complete 10 course of abx Patient Instructions: Antibiotic Form, Low Fiber Diet (GEN) Patient Language: Colombian Stand Alone Forms: General Discharge Information Follow-up/Referrals: Baljeet Moore DO [Physician] - (Patient is to follow-up Dr. Moore to get her colonoscopy done as scheduled.) Discharge Medications: New ondansetron 4 mg tablet,disintegrating 4 mg PO Q8H PRN (Reason: nausea and vomiting) Qty: 30 0RF Continued potassium chloride 10 mEq capsule, extended release 10 meq PO DAILY Qty: 30 0RF trazodone 100 mg tablet 100 mg PO HS cholecalciferol (vitamin D3) 5,000 unit capsule 5,000 unit PO DAILY PreserVision AREDS [id number] Tablet 1 tablet PO DAILY (DME) Rollator Walker with seat See Rx Instructions .Route .MEDSUPPLY Qty: 1 0RF Rx Instructions: As directed lisinopril 40 mg tablet 40 mg PO DAILY Qty: 90 1RF Rx Instructions: NEEDS APPOINTMENT IN OCTOBER naproxen 500 mg tablet See Rx Instructions .ROUTE .COMPLEX Qty: 90 1RF Dose Instruction: TAKE 1 TABLET DAILY NEEDED FOR PAIN. TAKE WITH FOOD Rx Instructions: TAKE 1 TABLET DAILY NEEDED FOR PAIN. TAKE WITH FOOD rosuvastatin [Crestor] 40 mg tablet 40 mg PO HS Qty: 90 1RF furosemide [Lasix] 20 mg tablet 20 mg PO QAM Qty: 90 1RF duloxetine 30 mg capsule,delayed release(DR/EC) See Rx Instructions .ROUTE .COMPLEX Qty: 180 1RF Dose Instruction: TAKE 2 CAPSULES EVERY EVENING Rx Instructions: TAKE 2 CAPSULES EVERY EVENING Discontinued levofloxacin 750 mg tablet 750 mg PO DAILY Qty: 7 0RF ondansetron HCl 4 mg tablet 4 mg PO Q8H PRN (Reason: nausea and vomiting) Qty: 90 0RF No Action carbamazepine PO QPM polyethylene glycol 3350 [Miralax] 17 gram powder in packet 17 g PO DAILY PRN (Reason: constipation) [facility] 8 mg iron-400 mcg-50 mcg tablet 1 tablet PO DAILY magnesium glycinate 100 mg magnesium capsule 220 mg PO HS All Day Allergy (cetirizine) 10 mg capsule 10 mg PO DAILY bimatoprost [Lumigan] 1 drp EACH EYE HS amoxicillin-pot clavulanate [Augmentin XR] 1,000-62.5 mg tablet extended release 12 hr 1 tablet PO Q12H Qty: 20 0RF Date of admission: 11/30/24 16:48 Primary Care Provider: Mike Gautam Admitting Provider: Sushila Edward Attending physician on admission: Soheila Barr Condition: Stable
== END 2024-12-02 15:15 | disposition home or self-care (01) ==
LOC: ANHED 16:31 → ANH3MEDSUR 12-01 06:47
PROVIDERS: Physician Assistant; Student in an Organized Health Care Education/Training Program; Admitting Provider Internal Medicine; Emergency Provider Emergency Medicine; PCP Internal Medicine; Visit Provider Family Medicine
DX: K57.32 Diverticulitis of large intestine without perforation or abscess without bleeding (principal); E87.1 Hypo-osmolality and hyponatremia; R11.2 Nausea with vomiting, unspecified; R63.0 Anorexia; R63.4 Abnormal weight loss; I10 Essential (primary) hypertension; D64.9 Anemia, unspecified; E78.5 Hyperlipidemia, unspecified; E55.9 Vitamin D deficiency, unspecified; G90.50 Complex regional pain syndrome I, unspecified; G40.909 Epilepsy, unspecified, not intractable, without status epilepticus; G47.33 Obstructive sleep apnea (adult) (pediatric); H40.9 Unspecified glaucoma; F41.9 Anxiety disorder, unspecified; F32.A Depression, unspecified; K21.9 Gastro-esophageal reflux disease without esophagitis; Z87.891 Personal history of nicotine dependence; F12.90 Cannabis use, unspecified, uncomplicated; Z68.41 Body mass index [BMI] 40.0-44.9, adult
CPT/HCPCS: 36415; 74177; 80053; 81001; 83690; 83735; 85025; 87086; 93005; 96361; 96365; 96366; 96367; 96375; 96376; 99285; A9270; G0378; J1836; J1956; J2270; J2405; J7030; Q9967

== ENCOUNTER 2024-12-08 10:07 | Inpatient (IN) | payer MEDICARE, MEDICAID, SELFPAY ==
--- NOTE | ~2024-12-08 | CT_ITS ---
EXAMINATION: CT abdomen pelvis w con DATE: 12/08/2024 11:10 INDICATION: Left abdominal pain TECHNIQUE: Computed tomography (CT) of the abdomen and pelvis was performed with 100 cc Omnipaque 350 intravenous contrast. The dose-length product was 1446.12 mGy-cm. Automated exposure control and ite rative reconstruction technique were employed. COMPARISON: CT dated 11/30/2024 FINDINGS: There is dependent atelectasis. Heart size normal. No significant pleural or pericardial ef fusion. Fatty infiltration of the liver. Status post cholecystectomy. The spleen, pancreas, adrenal g lands and right kidney are unremarkable. There is interloop fluid in the mesentery adjacent to the si gmoid colon. Multiple colonic diverticula. Findings compatible with acute diverticulitis with progres rolanda since prior examination. No abscess identified. No significant vascular abnormality. No lymphade nopathy. There is a small fat-containing umbilical hernia. Severe lower thoracic and lumbar spondylos is. IMPRESSION: 1. Progression of acute proximal sigmoid diverticulitis without evidence for abscess. Recommend follo w-up evaluation to exclude underlying colon mass when the patient's condition permits. Reviewed, dictated and finalized at location A. IMPRESSION: 1. Progression of acute proximal sigmoid diverticulitis without evidence for ab scess. Recommend follow-up evaluation to exclude underlying colon mass when the patient's condition permits.
--- OUTSIDE RECORDS SUMMARY | 2024-12-08 10:14 | XMS_ITS | Clinical Summary ---
Author Organization [facility] Address [address] [place] [address] Care Team Providers Care Inspector Machined Parts Name Role Phone Mike Gautam DO Primary Care Provider [phone] Source Comments [facility],non-owned Affiliates and Associated Physician Practices is amultiple site organization consisting of ambulatory clinics and hospital sitesin [place], [place], [place] and [place]. This disclosure is being madepursuant to the Care Everywhere program and may not contain all information available regarding this patient. 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 Gender Identity Not on file Sexual Orientation Not on file Plan of Treatment Health Maintenance Due Date Last Done Comments BONE DENSITY TESTING 1955 COLOGUARD (AGES 45-75) - COL ON CA SCREENING 1955 CT COLONOGRAPHY - COLON CA SCREENING [...] yrs (1 - 1-dose 75+ series) 2030 COLON MONITORING 11/22/2031 11/21/2021 COLONOSCOPY - COLON CA SCREENING 11/22/2031 11/22/19 [...] age to complete this topic Insurance MEDICARE [facility] Member Subscriber Plan / Payer (Ef fective 2015-Present) Name:Camille Sarabia Relation to Subscriber:Self Name:CAMILLE SARABIA Payer ID:[id number] (NAIC) Group ID:[id number] Type:Medicare-Managed Care Address: [employer] [facility] [address] [address] [place] [address] MEDICAID - OUT OF STATE MEDICAID [employer] [facility] [place] MEDICARE MEDICAID [employer] [facility] [place] Care Teams Inspector Machined Parts Relationship Specialty Start Date End Date Mike Gautam DO PCP - General 05/08/15
--- OUTSIDE RECORDS SUMMARY | 2024-12-08 10:15 | XMS_ITS | Referral Summary ---
Author Organization [facility] Address [address] [place] [address] Care Team Providers Care Scrap Wheeler Name Role Phone GrisMike tamez Primary Care Provider [phone]- [phone] Encounters Date Type Department Care Team Description 11/23/2024 Plan of Care Documentation [facility] Occupational Therapy [address] [place] [address] 11/22/2024 Plan of Care Documentation [facility] Physical Therapy [address] [place] [address] 11/22/2024 2:00 PM CDT Therapy [facility] Physical Therapy [address] [place] [address] Hailey Calderon, LUCRECIA Foot drop, right foot (Primary Dx); Foot drop, left foot; Spinal stenosis, unspecified spinal region 11/22/2024 1:00 PM CDT Therapy [facility] Occupational Therapy [address] [place] [address] Renetta Oleary OT Lymphedema, not elsewhere classified 10/16/2024 10:30 PM CDT - 10/19/2024 4:30 PM CDT Hospital Encounter Oncology [address] [place] [address] Donna Michael MD Perez Porcel, Jose Daniel, [...] (10/16/2021): Added automatically from request for surgery [id number] Diverticulitis 10/16/2021 Overview (10/16/2021): Added automatically from request for surgery [id number] Colitis 09/27/2021 Dystrophia unguium 02/21/2021 Epilepsy 05/13/2017 [...] drink = 0.6 oz pur e alcohol) [facility] Utilities Answer Date Recorded In [...] often do you attend chur ch or orthodoxy services? More than 4 times per year 10/17/2024 Do you belong to any clubs o r organizations such as christian groups, unions, fraternal or athletic groups, or [...] place to sleep or slept in a care home (including now)? No 09/29/2021 Housing Stability Vital Sign Answer Papito e Recorded In the last 12 months, was t here a time when you were not able to pay the mortgage or rent on time? No 10/17/2024 In the past 12 months, how m any times have you moved where you were living? 0 10/17/2024 At any time in the past 12 m [facility], were you homeless or living in a care home (including now)? No 10/17/2024 Personal Safety Answer Date Recorded Have you ever been in or are you currently in a harmful physical or emotional relationship or is someone making you feel afraid or unsafe? 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 Gender Identity Not on file Sexual Orientation [...] on file Medical Devices Implanted Type Area Oral Communication Instructor Device Identifier Shelf Expiration Date Model / Serial / Lot Integra Prong Earl [id number] Integra 5x4in Mesh Dressing Biological Bovine Collagen - [id number] Implanted:Qty: 1 on 09/29/2021 by Leo Boone Jr., MD at Right: Leg Integra [employer] Earl 06/03/2022 [id number] / / [id number] Procedures Procedure Name Priority Date/Time Associated Diagnosis Comments OK CRITICAL CARE ILL/INJURED PATIENT INIT 30-74 MIN [...] Recently Relevant to Health Maintenance Results * OK CRITICAL CARE ILL/INJURED PATIENT INIT 30-74 MIN [...] NP LAB BLOOD ORDERABLES Final R esult [facility] [address] Department [place] [address] * (ABNORMAL) Differential, auto (10/17/2024 5:09 AM CDT) Neutrophil abs 4.85 1.50 - 6.50 K/cumm Imm gran abs 0.05 0.00 - 0.10 K/cumm [facility] Lymphocyte abs 1.51 0.80 - 3.30 K/cumm [facility] Monocyte abs 0.83(H) 0.20 - 0.80 K/cumm [facility] Eosinophil abs 0.11 0.00 - 0.50 K/cumm [facility] Basophil abs 0.04 0.00 - 0.10 K/cumm [facility] Neutrophil pct 65.7 % [facility] Comment: Interpretive Data Percent cell count reference ranges are not reported, since discordance with absolute values may lead to misinterpretation of CBC data. Current Interpretive Data was last revised on 2017. Imm gran pct 0.7 % [facility] Comment: Interpretive Data Percent cell count reference ranges are not reported, since discordance with absolute values may lead to misinterpretation of CBC data. Current Interpretive Data was last revised on 2017. Lymphocyte pct 20.4 % [facility] Comment: Interpretive Data Percent cell count reference ranges are not reported, since discordance with absolute values may lead to misinterpretation of CBC data. Current Interpretive Data was last revised on 2017. Monocyte pct 11.2 % [facility] Comment: Interpretive Data Percent cell count reference ranges are not reported, since discordance with absolute values may lead to misinterpretation of CBC data. Current Interpretive Data was last revised on 2017. Eosinophil pct 1.5 % [facility] Comment: Interpretive Data Percent cell count [...] NP LAB BLOOD ORDERABLES Final R esult [facility] [address] Department [place] [address] * (ABNORMAL) CBC with auto differential (10/17/2024 5:09 AM CDT) WBC 7.39 3.80 - 9.90 K/cumm Hgb 10.5(L) 11.9 - 15.5 g/dL [facility] Hct 32.3(L) 35.6 - 45.5 % [facility] Plt 211 150 - 400 K/cumm [facility] MPV 10.1 9.1 - 12.3 fL [facility] RBC 3.43(L) 3.90 - 5.20 M/cumm [facility] MCV 94.2 81.3 - 96.4 fL [facility] MCH 30.6 27.1 - 33.3 pg [facility] MCHC 32.5 32.3 - 35.7 g/dL [facility] RDW CV 12.9 11.1 - 14.9 % [facility] RDW SD 44.6 35.7 - 48.1 fL [facility] NRBC abs 0.00 0.00 - 0.01 K/cumm [facility] Blood 10/17/2024 5:09 AM CDT 10/17/2024 5:28 AM CDT Willie Nevarez NP LAB [place]LOOD [place] [address] [address] Department [place] [address] * (ABNORMAL) Comprehensive metabolic panel (10/17/2024 5:09 [...] CDT 10/17/2024 5:29 AM CDT Willie Nevarez SAWMILL TALLY CLERK LAB BLOOD ORDERABLES Final R esult Performing Organization Address City/[facility] [place] [address] [address] Department [employer] [place] [address] * (ABNORMAL) Urinalysis reflex to microscopic and [...] tendency for uric acid stone formation. Source: [facility] [employer] Current Interpretive Data was last revised on [...] CDT 10/17/2024 4:13 AM CDT Altaf Wilhelm SAWMILL TALLY CLERK LAB MICROBIOLOGY - GENERAL ORDERABLES Final Result Performing Organization Address City/[facility]/ZIP Co de Phone Number [facility] [address] [address] [place] [address] * (ABNORMAL) Urinalysis, microscopic only (10/17/2024 4:06 AM CDT) WBC, ur >50(A) 0 - 5 /HPF RBC, ur 6-10(A) 0 - 2 /HPF [facility] Epithelial cells, squamous, ur 21-50(A) 0 - 5 /HPF [facility] Bacteria, ur Trace(A) [facility] Culture Reflex Comment Reflex to urine culture will be performed. [facility] Urine 10/17/2024 4:06 AM CDT 10/17/2024 4:13 AM CDT Altaf Wilhelm NP LAB URINE ORDERABLES Final Result Performing Organization Address [facility] de Phone Number [facility] [address] [employer] [place] [address] * Urine culture Urine (10/17/2024 4:06 AM CDT) Report Final Report: Less than 100,000 colonies/mL (clinically insignificant growth based on current clinical standards) Comment:Testing performed by : [facility], [address] [place]., [address] Organism (CLINICALLY INSIGNIFICANT GROWTH [facility] Urine 10/17/2024 4:06 AM CDT 10/17/2024 8:58 AM CDT Narrative [facility] - 10/18/2024 12:13 PM CDT Urine culture reflexed based upon urinalysis results. Testing performed by [facility] ([phone]) Altaf Wilhelm NP LAB MICROBIOLOGY - GENERAL ORDERABLES Final Result Performing Organization Address [facility] Co de Phone Number [facility] [address] [address] [facility] [employer] [place] [address] * CT Abdomen Pelvis W Contrast (10/16/2024 [...] neural compromise as detailed. Stat report by [facility] Electronically signed by: Fredy Haskins M.D. [...] neural compromise as detailed. Stat report by [facility] Electronically signed by: Fredy Haskins M.D. Donna Henley MD [facility] CT PROCEDURES Final Resul t * eGFR [...] NP LAB BLOOD ORDERABLES Final Result [facility] [address] [address] Department [place] [address] * Differential, auto (10/16/2024 9:50 PM CDT) Neutrophil abs 4.02 1.50 - 6.50 K/cumm Imm gran abs 0.04 0.00 - 0.10 K/cumm [facility] Lymphocyte abs 1.84 0.80 - 3.30 K/cumm [facility] Monocyte abs 0.66 0.20 - 0.80 K/cumm [facility] Eosinophil abs 0.12 0.00 - 0.50 K/cumm [facility] Basophil abs 0.02 0.00 - 0.10 K/cumm [facility] Neutrophil pct 59.9 % [facility] Comment: Interpretive Data Percent cell count [...] revised on 2017. Monocyte pct 9.9 % [facility] Comment: Interpretive Data Percent cell count reference ranges are not reported, since discordance with absolute values may lead to misinterpretation of CBC data. Current Interpretive Data was last revised on 2017. Eosinophil pct 1.8 % [facility] Comment: Interpretive Data Percent cell count reference ranges are not reported, since discordance with absolute values may lead to misinterpretation of CBC data. Current Interpretive Data was last revised on 2017. Basophil pct 0.3 % [facility] Comment: Interpretive Data Percent cell count reference ranges are not reported, since discordance with absolute values may lead to misinterpretation of CBC data. Current Interpretive Data was last revised on 2017. Blood 10/16/2024 9:50 PM CDT 10/16/2024 9:59 PM CDT us Altaf Wilhelm NP LAB BLOOD ORDERABLES Final Result [facility] [address] Department [place] [address] * (ABNORMAL) CBC with auto differential (10/16/2024 9:50 PM CDT) WBC 6.70 3.80 - 9.90 K/cumm Hgb 9.0(L) 11.9 - 15.5 g/dL [facility] Hct 27.6(L) 35.6 - 45.5 % [facility] Plt 169 150 - 400 K/cumm [facility] MPV 9.6 9.1 - 12.3 fL [facility] RBC 2.87(L) 3.90 - 5.20 M/cumm [facility] MCV 96.2 81.3 - 96.4 fL [facility] MCH 31.4 27.1 - 33.3 pg [facility] MCHC 32.6 32.3 - 35.7 g/dL [facility] RDW CV 13.1 11.1 - 14.9 % [facility] RDW SD 46.3 35.7 - 48.1 fL [facility] NRBC abs 0.00 0.00 - 0.01 K/cumm [facility] Blood 10/16/2024 9:50 PM CDT 10/16/2024 9:59 PM CDT Altaf Wilhelm SAWMILL TALLY CLERK LAB BLOOD ORDERABLES Final Result Performing Organization Address City/[facility] Co de Phone Number [facility] [address] [address] [facility] [employer] [place] [address] * Lipase (10/16/2024 9:50 PM CDT) Pathologist [facility] Lipase 14 10 - 99 Units/L Blood 10/16/2024 9:50 PM CDT 10/16/2024 9:59 PM CDT Altaf Wilhelm SAWMILL TALLY CLERK LAB BLOOD ORDERABLES Final Result Performing Organization Address [facility] Phone Number [facility] [address] [address] [employer] [place] [address] * (ABNORMAL) Comprehensive metabolic panel (10/16/2024 9:50 PM CDT) Pathologist [facility] Sodium 131(L) 135 - 145 mmol/L Potassium, pl 3.0(L) 3.3 - 4.9 mmol/L [facility] Chloride 100 97 - 110 mmol/L [facility] CO2 18(L) 22 - 32 mmol/L [facility] Anion gap 13 2 - 15 mmol/L [facility] BUN 9 6 - 25 mg/dL [facility] Creatinine 0.75 0.60 - 1.10 mg/dL [facility] Glucose 87 70 - 199 mg/dL [facility] Comment: Interpretive Data Fasting glucose >/= 126 [...] CDT 10/16/2024 9:59 PM CDT Altaf Wilhelm SAWMILL TALLY CLERK LAB BLOOD ORDERABLES Final Result Performing Organization Address [facility]/ZIP Co de Phone Number [facility] H[facility]GSON [address] [address] Department of [employer] [place], [place] [id number] * POCT glucose (10/16/2024 7:04 PM CDT) Glucose, POC 114 70 - 199 mg/dL POC Performer [phone] [facility] Blood 10/16/2024 7:04 PM CDT 10/16/2024 7:04 PM CDT Notinfile Unknown LAB POCT ORDERABLES - DEVICE F inal Result Performing Organization Address [facility] Co de Phone Number GRACIE HODGSON [address] [address] Department of [employer] [place] [address] * COLONOSCOPY (11/21/2021 9:21 AM CDT) Anatomical Region Laterality Modality Other Narrative Procedure Note Zenon Barcenas MD - 11/21/2021 9:21 AM CDT - Endoscopy Lab Patient Name: Camille Orozco Procedure [...] bowel preparation was evaluated using the BBPS ([place] Bowel Preparation Scale) with scores of:Right Colon [...] Insurance [employer]PA [employer] CHOICE MEDICARE PPO MEDICARE IDIL MEDICARE IDIL [facility] MEDICARE ADVANTAGE Advance Directives For more information, please contact: [phone] * Full Code (Latest Code Status on File) Date Activated Date Inactivated Comments 10/17/2024 1:21 AM 10/19/2024 8:35 PM * Full Code Date Activated Date Inactivated Comments 09/27/2021 11:16 PM 10/03/2021 7:15 PM Care Teams Scrap Wheeler Relationship Specialty Start Date End Date Mike Gautam, PCP - General 09/27/21
--- OUTSIDE RECORDS SUMMARY | 2024-12-08 10:15 | XMS_ITS | Clinical Summary ---
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 Epilepsy 05/13/2017 Foot-drop 05/13/2017 Hypercholesterolemia 05/13/2017 Neuropathy 05/13/2017 Hypertensive disorder 05/13/2017 Exudative age-related macular degeneration of le ft eye 05/08/2015 Retinal hemorrhage of left eye 03/27/2015 Encounters Date Type Department Care Team Description 11/23/2024 Plan of Care Documentation [facility] Occupational Therapy [address] [place] [id number] 11/22/2024 2:00 PM CDT Therapy [facility] Physical Therapy [address] [place] [id number] Hailey Calderon, LUCRECIA Foot drop, right foot (Primary Dx); Foot drop, left foot; Spinal stenosis, unspecified spinal region 11/22/2024 1:00 PM CDT Therapy [facility] Occupational Therapy [address] [place] [address] Renetta Oleary, OT Lymphedema, not elsewhere classified 11/22/2024 Plan of Care Documentation [facility] Physical Therapy [address] [place] [address] 10/16/2024 10:30 PM CDT - 10/19/2024 4:30 PM CDT Hospital Encounter [facility] Oncology [address] [place] [address] Donna Michael MD Perez Porcel, MD Twila [...] drink = 0.6 oz pur e alcohol) [facility] Utilities Answer Date Recorded In the past 12 months has [employer], oil, or water [employer] threatened to shut off services in your [...] week 10/17/2024 How often do you attend [facility] or yazdanism services? More than 4 times per year 10/17/2024 Do you belong to any clubs o r organizations such as temple groups, unions, fraternal or athletic groups, or [...] in a chcf (including now)? No 09/29/2021 Housing Stability Vital Sign Answer Papito e Recorded In the last 12 months, was t here a time when you were not able to pay the mortgage or rent on time? No 10/17/2024 In the past 12 months, how m any times have you moved where you were living? 0 10/17/2024 At any time in the past 12 m [facility], were you homeless or living in a chcf (including now)? No 10/17/2024 Personal Safety Answer Date Recorded Have you ever been in or are you currently in a harmful physical or emotional relationship or is someone making you feel afraid or unsafe? Denies 10/16/2024 Comments No Sex and Gender Information Value Date Recorded Sex Assigned at Not on file Legal Sex Female 12:14 AM ALIGNER Gender Identity Not on file Sexual Orientation [...] 11/21/2021, 09/21/2013 Medical Devices Implanted Type Area Calculating Machine Operator Device Identifier Shelf Expiration Date Model / Serial / Lot Integra SandataciStudy Edge Earl [id number] Integra 5x4in Mesh Dressing Biological Bovine Collagen - [id number] Implanted:Qty: 1 on 09/29/2021 by Leo Boone Jr., MD at [facility] Right: Leg Integra [employer] Earl 06/03/2022 [id number] / / [id number] Procedures Procedure Name Priority Date/Time Associated Diagnosis Comments MO CRITICAL CARE ILL/INJURED PATIENT INIT 30-74 MIN [...] Recently Relevant to Health Maintenance Results * MO CRITICAL CARE ILL/INJURED PATIENT INIT 30-74 MIN [...] BLOOD ORDERABLES Final R esult [facility] [address] [place] [address] * (ABNORMAL) Differential, auto (10/17/2024 5:09 AM CDT) Neutrophil abs 4.85 1.50 - 6.50 K/cumm Imm gran abs 0.05 0.00 - 0.10 K/cumm [facility] Lymphocyte abs 1.51 0.80 - 3.30 K/cumm [facility] Monocyte abs 0.83(H) 0.20 - 0.80 K/cumm [facility] Eosinophil abs 0.11 0.00 - 0.50 K/cumm [facility] Basophil abs 0.04 0.00 - 0.10 K/cumm [facility] Neutrophil pct 65.7 % [facility] Comment: Interpretive Data Percent cell count reference ranges are not reported, since discordance with absolute values may lead to misinterpretation of CBC data. Current Interpretive Data was last revised on 2017. Imm gran pct 0.7 % [facility] Comment: Interpretive Data Percent cell count reference ranges are not reported, since discordance with absolute values may lead to misinterpretation of CBC data. Current Interpretive Data was last revised on 2017. Lymphocyte pct 20.4 % [facility] Comment: Interpretive Data Percent cell count reference ranges are not reported, since discordance with absolute values may lead to misinterpretation of CBC data. Current Interpretive Data was last revised on 2017. Monocyte pct 11.2 % [facility] Comment: Interpretive Data Percent cell count reference ranges are not reported, since discordance with absolute values may lead to misinterpretation of CBC data. Current Interpretive Data was last revised on 2017. Eosinophil pct 1.5 % [facility] Comment: Interpretive Data Percent cell count reference ranges are not reported, since discordance with absolute values may lead to misinterpretation of CBC data. Current Interpretive Data was last revised on 2017. Basophil pct 0.5 % [facility] Comment: Interpretive Data Percent cell count reference ranges are not reported, since discordance with absolute values may lead to misinterpretation of CBC data. Current Interpretive Data was last revised on 2017. Blood 10/17/2024 5:09 AM CDT 10/17/2024 5:28 AM CDT us Willie Nevarez NP LAB BLOOD ORDERABLES Final R esult [facility] [address] [place] [address] * (ABNORMAL) CBC with auto differential (10/17/2024 5:09 AM CDT) Pathologist [facility] WBC 7.39 3.80 - 9.90 K/cumm Hgb 10.5(L) 11.9 - 15.5 g/dL [facility] Hct 32.3(L) 35.6 - 45.5 % [facility] Plt 211 150 - 400 K/cumm [facility] MPV 10.1 9.1 - 12.3 fL [facility] RBC 3.43(L) 3.90 - 5.20 M/cumm [facility] CH MCV 94.2 81.3 - 96.4 fL [facility] CH MCH 30.6 27.1 - 33.3 pg [facility] MCHC 32.5 32.3 - 35.7 g/dL [facility] RDW CV 12.9 11.1 - 14.9 % [facility] RDW SD 44.6 35.7 - 48.1 fL [facility] NRBC abs 0.00 0.00 - 0.01 K/cumm [facility] Blood 10/17/2024 5:09 AM CDT 10/17/2024 5:28 AM CDT Willie Nevarez NP LAB BLOOD ORDERABLES Final R esult [facility] [address] [place] [address] * (ABNORMAL) Comprehensive metabolic panel (10/17/2024 5:09 AM CDT) Pathologist [facility] Sodium 130(L) 135 - 145 mmol/L Potassium, pl 4.4 3.3 - 4.9 mmol/L [facility] Chloride 95(L) 97 - 110 mmol/L [facility] CO2 25 22 - 32 mmol/L [facility] Anion gap 10 2 - 15 mmol/L [facility] BUN 10 6 - 25 mg/dL [facility] Creatinine 1.10 0.60 - 1.10 mg/dL [facility] Glucose 111 70 - 199 mg/dL [facility] Comment: Interpretive Data Fasting glucose >/= [...] NP LAB BLOOD ORDERABLES Final R esult [facility] [id number] [place] [address] * (ABNORMAL) Urinalysis reflex to microscopic and [...] tendency for uric acid stone formation. Source: [facility] [employer] Current Interpretive Data was last revised on [...] GENERAL ORDERABLES Final Result Performing Organization Address [facility] Co de Phone Number [facility] [id number] [place] [address] * (ABNORMAL) Urinalysis, microscopic only (10/17/2024 4:06 AM CDT) WBC, ur >50(A) 0 - 5 /HPF RBC, ur 6-10(A) 0 - 2 /HPF [facility] Epithelial cells, squamous, ur 21-50(A) 0 - 5 /HPF [facility] Bacteria, ur Trace(A) [facility] Culture Reflex Comment Reflex to urine culture will be performed. [facility] Urine 10/17/2024 4:06 AM CDT 10/17/2024 4:13 AM CDT Altaf Wilhelm NP LAB URINE ORDERABLES Final Result Performing Organization Address [facility] Co de Phone Number [facility] [phone] [place] [address] * Urine culture Urine (10/17/2024 4:06 AM CDT) Report Final Report: Less than 100,000 colonies/mL (clinically insignificant growth based on current clinical standards) Comment:Testing performed by : [facility], [address] [place]., [address] Organism (CLINICALLY INSIGNIFICANT GROWTH [facility] Urine 10/17/2024 4:06 AM CDT 10/17/2024 8:58 AM CDT Narrative [facility] - 10/18/2024 12:13 PM CDT Urine culture reflexed based upon urinalysis results. Testing performed by [facility] Microbiology Laboratory ([phone]) us Altaf Wilhelm NP LAB MICROBIOLOGY - GENERAL ORDERABLES Final Result [facility] [address] [place] [address] * CT Abdomen Pelvis W Contrast (10/16/2024 [...] neural compromise as detailed. Stat report by [facility] Electronically signed by: Fredy Haskins M.D. [...] neural compromise as detailed. Stat report by [facility] Electronically signed by: Fredy Haskins M.D. [...] CDT 10/16/2024 9:59 PM CDT Altaf Wilhelm FOILING MACHINE OPERATOR LAB BLOOD ORDERABLES Final Result [facility] [address] [place] [address] * Differential, auto (10/16/2024 9:50 PM CDT) Neutrophil abs 4.02 1.50 - 6.50 K/cumm Imm gran abs 0.04 0.00 - 0.10 K/cumm [facility] Lymphocyte abs 1.84 0.80 - 3.30 K/cumm [facility] Monocyte abs 0.66 0.20 - 0.80 K/cumm [facility] Eosinophil abs 0.12 0.00 - 0.50 K/cumm [facility] Basophil abs 0.02 0.00 - 0.10 K/cumm [facility] Neutrophil pct 59.9 % [facility] Comment: Interpretive Data Percent cell count reference ranges are not reported, since discordance with absolute values may lead to misinterpretation of CBC data. Current Interpretive Data was last revised on 2017. Imm gran pct 0.6 % [facility] Comment: Interpretive Data Percent cell count reference ranges are not reported, since discordance with absolute values may lead to misinterpretation of CBC data. Current Interpretive Data was last revised on 2017. Lymphocyte pct 27.5 % [facility] Comment: Interpretive Data Percent cell count reference ranges are not reported, since discordance with absolute values may lead to misinterpretation of CBC data. Current Interpretive Data was last revised on 2017. Monocyte pct 9.9 % [facility] Comment: Interpretive Data Percent cell count reference ranges are not reported, since discordance with absolute values may lead to misinterpretation of CBC data. Current Interpretive Data was last revised on 2017. Eosinophil pct 1.8 % [facility] Comment: Interpretive Data Percent cell count reference ranges are not reported, since discordance with absolute values may lead to misinterpretation of CBC data. Current Interpretive Data was last revised on 2017. Basophil pct 0.3 % [facility] Comment: Interpretive Data Percent cell count reference ranges are not reported, since discordance with absolute values may lead to misinterpretation of CBC data. Current Interpretive Data was last revised on 2017. Blood 10/16/2024 9:50 PM CDT 10/16/2024 9:59 PM CDT us Altaf Wilhelm NP LAB BLOOD ORDERABLES Final Result [facility] [address] [place] [address] * (ABNORMAL) CBC with auto differential (10/16/2024 9:50 PM CDT) WBC 6.70 3.80 - 9.90 K/cumm Hgb 9.0(L) 11.9 - 15.5 g/dL [facility] Hct 27.6(L) 35.6 - 45.5 % [facility] Plt 169 150 - 400 K/cumm [facility] MPV 9.6 9.1 - 12.3 fL [facility] RBC 2.87(L) 3.90 - 5.20 M/cumm [facility] MCV 96.2 81.3 - 96.4 fL [facility] MCH 31.4 27.1 - 33.3 pg [facility] MCHC 32.6 32.3 - 35.7 g/dL [facility] CH RDW CV 13.1 11.1 - 14.9 % [facility] RDW SD 46.3 35.7 - 48.1 fL [facility] NRBC abs 0.00 0.00 - 0.01 K/cumm [facility] Blood 10/16/2024 9:50 PM CDT 10/16/2024 9:59 PM CDT Altaf Wilhelm FOILING MACHINE OPERATOR LAB BLOOD ORDERABLES Final Result [facility] [address] Department [facility] [employer] [place], [place] [id number] * Lipase (10/16/2024 9:50 PM CDT) [facility] Lipase 14 10 - 99 Units/L Blood 10/16/2024 9:50 PM CDT 10/16/2024 9:59 PM CDT Altaf Wilhelm FOILING MACHINE OPERATOR LAB BLOOD ORDERABLES Final Result [facility] [address] [place] [address] * (ABNORMAL) Comprehensive metabolic panel (10/16/2024 9:50 PM CDT) [facility] Sodium 131(L) 135 - 145 mmol/L [...] Wilhelm NP LAB BLOOD ORDERABLES Final Result [facility] [address] [place] [address] * POCT glucose (10/16/2024 7:04 PM CDT) [facility] Signature Glucose, POC 114 70 - 199 mg/dL POC Performer [id number] [facility] Blood 10/16/2024 7:04 PM CDT 10/16/2024 7:04 PM CDT us Notinfile Unknown LAB POCT ORDERABLES - DEVICE F inal Result [facility] [address] [facility] [place] [address] * COLONOSCOPY (11/21/2021 9:21 AM CDT) Anatomical Region Laterality Modality Other Narrative Procedure Note Zenon Barcenas MD - 11/21/2021 9:21 AM CDT [facility] Patient Name: Camille Orozco Procedure [...] bowel preparation was evaluated using the BBPS ([place] Bowel Preparation Scale) with scores of:Right Colon [...] [employer] CHOICE MEDICARE PPO MEDICARE IDPA IDPA [facility] MEDICARE ADVANTAGE Advance Directives For more information, please contact: [phone] * Full Code (Latest Code Status on File) Date Activated Date Inactivated Comments 10/17/2024 1:21 AM 10/19/2024 8:35 PM * Full Code Date Activated Date Inactivated Comments 09/27/2021 11:16 PM 10/03/2021 7:15 PM Care Teams Emblem Maker Relationship Specialty Start Date End Date Mike Gautam DO PCP - General 09/27/21
--- NOTE | 2024-12-08 10:22 | ECG_ITS ---
Test Date: 2024-12-08 12:02:10 Measurements Intervals [place] Rate: 86 P: 38 [place]: 186 QRS: -5 QRSD: 88 T: 17 QT: 342 QTc: 410 Interpretive Statements SINUS RHYTHM VOLTAGE CRITERIA FOR LVH BORDERLINE ECG Compared to ECG 12/01/2024 03:16:48 NO SIGNIFICANT CHANGE Electronically Signed On 12-08-2024 12:21:48 CDT by Sarabjit Childs D.O.
--- NOTE | 2024-12-08 10:23 | ED_ITS ---
HPI - Abdominal Pain General Chief Complaint: Abdominal Pain <Kailyn Villagomez APRN - Last Filed: 12/08/24 12:36> Stated Complaint: diverticulitis, abd pain, vomiting, can't pee <Kailyn Villagomez APRN - Last Filed: 12/08/24 12:36> Time Seen by Provider: 12/08/24 10:09 <Kailyn Villagomez APRN - Last Filed: 12/08/24 12:36> History of Present Illness HPI narrative: Patient is a 69-year-old female who presents to the ER with concerns for diverticulitis. She reports she was 1st diagnosed with diverticulitis at the end of October in a [facility]. Patient reports she was hospitalized again here at [place] for the same thing at the end of last month. She reports she was hospitalized for approximately 3-4 days and discharged home on oral antibiotics. Patient reports I have taken my antibiotics religiously. She endorses a history of high blood pressure, hyperlipidemia, diverticulitis, epilepsy, a bad back, and footdrop. Patient denies any recent fevers, urinary symptoms, chest pain or shortness of breath. She is concerned because she has had lower extremity edema recently. Patient reports she was supposed to get an echocardiogram tomorrow and is wondering if she can get it here if she gets admitted to the hospital. <Kailyn Villagomez APRN - Last Filed: 12/08/24 12:36> Related Data Home Medications: Home Medications ?Medication ?Instructions ?Recorded ?Confirmed ?Last Taken ?Type cholecalciferol (vitamin D3) 125 5,000 unit PO DAILY 06/08/19 12/08/24 12/07/24 History mcg (5,000 unit) capsule trazodone 100 mg tablet 100 mg PO HS 06/08/19 12/08/24 12/07/24 History vitamins A,C,X-ooti-orptgp 2,148 1 tablet PO DAILY 11/29/19 12/08/24 12/07/24 History mcg-113 mg-45 mg-17.4 mg tablet (PreserVision AREDS) bimatoprost .ROUTE 12/08/24 12/07/24 History carbamazepine PO QPM 12/08/24 12/07/24 History cetirizine 10 mg capsule (All Day 10 mg PO DAILY allergy symptoms 12/08/24 12/08/24 12/07/24 History Allergy (cetirizine)) magnesium glycinate 220 mg PO HS 12/08/24 12/08/24 12/07/24 History xqgaolbe-wzcy-lkpb 8 mg-folic 400 1 tablet PO DAILY 12/08/24 12/08/24 12/07/24 History mcg-K 50 mcg-lutein 300 mcg tablet ([facility]) polyethylene glycol 3350 17 gram 17 g PO DAILY PRN constipation 12/08/24 12/08/24 12/07/24 History oral powder packet (Miralax) <Kailyn Villagomez APRN - Last Filed: 12/08/24 12:36> Allergies/Adverse Reactions: Allergies Allergy/AdvReac Type Severity Reaction Status Date / Time cephalexin (From Keflex) Allergy Itching Verified 12/07/24 13:00 Head nitrofurantoin (From Allergy Hives Verified 12/07/24 13:00 Macrobid) diphenhydramine (From AdvReac Seizure Verified 12/07/24 13:00 Benadryl) <Kailyn Villagomez APRN - Last Filed: 12/08/24 12:36> Review of Systems 2 Review of Systems: All systems reviewed & are unremarkable except as noted in HPI and below <Kailyn Villagomez APRN - Last Filed: 12/08/24 12:36> [facility] Past Medical History Medical History: Medical History Diverticulitis Reflex sympathetic dystrophy Hyperlipidemia Essential hypertension Depression Vitamin D deficiency Adenomatous colon polyp BPPV (benign paroxysmal positional vertigo) Post-menopausal Lump of breast, right Inflammatory arthritis Bilateral sacroiliitis Marijuana use Seizure disorder Anxiety Spinal stenosis Obstructive sleep apnea Noncompliant with BiPAP. Glaucoma Macular degeneration History of rheumatic fever as a child Gastroesophageal reflux disease Bilateral foot-drop Diverticulosis large intestine w/o perforation or abscess w/bleeding Former smoker Rectocele Prediabetes A1C 5.5% 09/2024 <Kailyn Villagomez APRN - Last Filed: 12/08/24 12:36> Surgical History Surgical History: Surgical History History of sinus surgery History of tonsillectomy History of bilateral cataract extraction History of bilateral breast reduction surgery History of colonoscopy with polypectomy History of laparoscopic cholecystectomy History of partial hysterectomy History of fusion of cervical spine (1999) History of repair of rectocele (12/08/19) Rectocele repair/posterior colporrhaphy and perineoplasty. <Kailyn Villagomez APRN - Last Filed: 12/08/24 12:36> Family History Family History: Family History Mother Diabetes mellitus Hypertension Parkinsons disease Heart attack Father Diabetes mellitus Hypertension Renal failure Heart attack Cerebrovascular accident <Kailyn Villagomez APRN - Last Filed: 12/08/24 12:36> Social History Social History: Social History Social History: The patient lives in her own home in [place]. A friend is currently staying with her. She has 2 grown children. Ambulates with a walker or cane due to footdrop and decreased mobility. 5 pack-year smoking history, quit 1977. She drinks 1 to 2 glasses of wine a week. Smokes marijuana couple of times a week. She designates her son Ousmane Orozco and her brother Mike Orozco as her surrogate decision makers and she wishes to be a full code. 1 cup caffeine daily Years smoked: 9 Smoking status: Former smoker Tobacco type: cigarettes Smoking end date: 07/05/78 Alcohol intake: never Substance use: never Substance use type: does not use Do You Feel Safe in your Home?: Yes Lack of Transportation: No Lack of Food: Never True Current Housing: I Have Housing Concerned About Future Housing: No Difficulty Paying Gas/Electric Bills: No Difficulty Paying for Meds: No Currently Unemployed: No Education: Grade School Difficulty w/ Childcare or Family Care: No Living arrangements: alone Spiritual care concerns: No <Kailyn Villagomez APRN - Last Filed: 12/08/24 12:36> Exam 2 Narrative: GENERAL: Well appearing, well-nourished, non-toxic, in mild distress d/t pain HEAD: Normocephalic, atraumatic. NECK: Supple. No adenopathy, no masses. RESPIRATORY: Airway patent, respirations nonlabored. Clear to auscultation bilaterally, no rales, rhonchi, wheezing. CARDIOVASCULAR: Regular rate and rhythm without murmurs, rubs, or gallops. Peripheral pulses 2+ and equal bilaterally. ABDOMINAL: Soft, tender with palpation left upper and left lower quadrant, nondistended, no hepatosplenomegaly. Normoactive BS. MUSCULOSKELETAL: Moves all extremities. Strength/ROM intact without gross deformities. SKIN: Warm, dry, normal color. No rashes. NEURO: A&O X3. Speech clear. Cranial nerves II-XII intact. No ataxic movements. PSYCHIATRIC: Appropriate mood and affect. Normal interaction. <Kailyn Villagomez APRN - Last Filed: 12/08/24 12:36> Course [employer]/PA Physician Supervision This visit was performed by both a physician and an APC. I performed all aspects of the MDM as documented. <Shorty Saldana MD - Last Filed: 12/08/24 18:51> Vital Signs Vital signs: Vital Signs Temperature 98.1 F 12/08/24 10:40 Pulse Rate 92 12/08/24 10:40 Respiratory Rate 20 12/08/24 10:40 Blood Pressure 129/77 12/08/24 10:40 Pulse Oximetry 100 12/08/24 10:40 Oxygen Delivery Room Air 12/08/24 10:40 Temperature 97.7 F 12/08/24 18:03 Pulse Rate 87 12/08/24 18:03 Respiratory Rate 16 12/08/24 18:03 Blood Pressure 137/61 12/08/24 18:03 Pulse Oximetry 100 12/08/24 18:03 Oxygen Delivery Room Air 12/08/24 10:40 <Kailyn Villagomez APRN - Last Filed: 12/08/24 12:36> Vital Signs Temperature 98.1 F 12/08/24 10:40 Pulse Rate 92 12/08/24 10:40 Respiratory Rate 20 12/08/24 10:40 Blood Pressure 129/77 12/08/24 10:40 Pulse Oximetry 100 12/08/24 10:40 Oxygen Delivery Room Air 12/08/24 10:40 Temperature 97.7 F 12/08/24 18:03 Pulse Rate 87 12/08/24 18:03 Respiratory Rate 16 12/08/24 18:03 Blood Pressure 137/61 12/08/24 18:03 Pulse Oximetry 100 12/08/24 18:03 Oxygen Delivery Room Air 12/08/24 10:40 <Shorty Saldana MD - Last Filed: 12/08/24 18:51> MDM - Abdominal Pain MDM Narrative Medical decision making narrative: Patient is a 69-year-old female who presents to the ER with concerns for diverticulitis. She reports she was 1st diagnosed with diverticulitis at the end of October in a [facility]. Patient reports she was hospitalized again here at [place] for the same thing at the end of last month. She reports she was hospitalized for approximately 3-4 days and discharged home on oral antibiotics. Patient reports I have taken my antibiotics religiously. She endorses a history of high blood pressure, hyperlipidemia, diverticulitis, epilepsy, a bad back, and footdrop. Patient denies any recent fevers, urinary symptoms, chest pain or shortness of breath. She is concerned because she has had lower extremity edema recently. Patient reports she was supposed to get an echocardiogram tomorrow and is wondering if she can get it here if she gets admitted to the hospital. Labs Ordered: CBC, CMP, lipase, PTT, INR, UA, proBNP Imaging Ordered: CT abdomen pelvis Medications Ordered: 1 L normal saline IV bolus, morphine 4 mg IV, Zofran 4 mg IV Results: Pt's CT abdomen/pelvis scan indicates 1. Progression of acute proximal sigmoid diverticulitis without evidence for abscess. Recommend follow-up evaluation to exclude underlying colon mass when the patient's condition permits. Diagnosis: diverticulitis Consults: 1230- Spoke with GI, Dr. Watkins, who reports he will consult pt when she is admitted to the hospital. He has no further recommendations at this time. Patient Education/Shared MDM: Results of lab work and imaging shared with patient. She endorses improvement of symptoms following medication administration. It was advised pt be admitted to the hospital for further evaluation and treatment. Pt verbalized understanding and is in agreement with plan. 1140- Spoke with hospitalist, Dr. López, who was in agreement with plan for admission. Pt will be admitted to the medical/surgical floor. She endorses sciatica pain at time of re-examination and says she takes Naproxen at home for pain control. Will prescribed pt Toradol prior to admission. <Kailyn Villagomez APRN - Last Filed: 12/08/24 12:36> Differential Diagnosis Differential diagnosis: Likely abdominal pain, acute appendicitis, diverticulitis, gastroenteritis and small bowel obstruction <Kailyn Villagomez APRN - Last Filed: 12/08/24 12:36> Lab Data Attestation: I reviewed the patient's lab results. <Kailyn Villagomez APRN - Last Filed: 12/08/24 12:36> Result diagrams: 12/08/24 10:58 12/08/24 17:11 <Kailyn Villagomez APRN - Last Filed: 12/08/24 12:36> Labs: Lab Results 12/08/24 12/08/24 12/08/24 Range/Units 10:58 11:03 11:57 WBC 8.0 (4.5-10.0) K/mm3 RBC 3.42 L (4.2-5.4) M/mm3 Hgb 10.5 L (12.0-15.0) g/dL Hct 32.2 L (37.0-47.0) % MCV 94.2 (80-100) fl MCH 30.7 (26-34) pg MCHC 32.6 (32-36) g/dl RDW 14.5 (11.5-14.5) % Plt Count 209 (150-375) k/mm3 MPV 9.9 (7.4-10.4) fl Immature Gran % (Auto) 0.6 H (0-0.5) % Neut % (Auto) 76.2 H (45.5-73.1) % Lymph % (Auto) 10.6 L (18.3-44.2) % Ferry % (Auto) 11.4 H (2.6-8.5) % Eos % (Auto) 0.8 (0-4.4) % Baso % (Auto) 0.4 (0.2-1.2) % Lymph # (Auto) 0.84 L (0.9-3.2) K/mm3 Ferry # (Auto) 0.9 H (0.1-0.6) K/mm3 Eos # (Auto) 0.1 (0-0.3) K/mm3 Baso # (Auto) 0.0 (0.0-0.1) K/mm3 Abs Immat Gran (auto) 0.05 H (0.00-0.031) K/mm3 Absolute Neuts (auto) 6.1 (1.3-6.7) K/mm3 Absolute Nucleated RBC 0.000 (0.0-0.012) K/mm3 Nucleated RBC % 0.0 (0.0-0.2) % PT 14.0 (11.1-14.7) Seconds INR 1.1 APTT 24.3 (22.3-36.8) Seconds Sodium 132 L (137-145) mmol/L Potassium 4.3 (3.4-5.0) mmol/L Chloride 99 (98-107) mmol/L Carbon Dioxide 27 (22-30) mmol/L Anion Gap 6 (4-12) mmol/L BUN 25 H (7-17) mg/dL Creatinine 0.88 1.00 (0.7-1.0) mg/dL Estim Creat Clear Calc 59 52 ml/min Estimated GFR > 60 55 L (59 - ) Glucose 137 H (65-110) mg/dL Lactic Acid 1.1 (0.7-2.0) mmol/L Calcium 9.2 (8.4-10.2) mg/dL Total Bilirubin 0.4 (0.2-1.3) mg/dL AST 25 (14-36) U/L ALT 15 (6-35) U/L Alkaline Phosphatase 53 (38-126) U/L Troponin I < 0.012 (0.000-0.034) ng/mL C-Reactive Protein 2.5 H (<1.0) mg/dL NT-Pro-B Natriuret Pep 79 (19.9-100) pg/mL Total Protein 6.5 (6.3-8.2) g/dL Albumin 4.0 (3.5-5.1) g/dL Lipase 43 (23-300) U/L Urine Color Yellow (Yellow) Urine Appearance Clear (Clear) Urine pH 7.5 (5.0-9.0) Ur Specific [place] 1.022 (1.001-1.035) Urine Protein Negative (Negative) mg/dL Urine Glucose (UA) Negative (Negative) mg/dL Urine Ketones Negative (Negative) mg/dL Ur Blood (Man) Negative (Negative) Urine Nitrate Negative (Negative) Urine Bilirubin Negative (Negative) Urine Urobilinogen 0.2 (<2.0) mg/dL Add Ur Microanalysis Reviewed Leukocyte Esterase Rfl 1+ H (Negative) JOSE/UL Urine RBC 0-2 (0-2) /hpf Urine WBC 0-5 (0-3) /hpf Ur Squamous Epith Cells None seen (Few) /hpf Urine Bacteria None seen /hpf Urine Casts 0-2 <Kailyn Villagomez, [employer] - Last Filed: 12/08/24 12:36> Lab Results 12/08/24 12/08/24 12/08/24 Range/Units 10:58 11:03 11:57 WBC 8.0 (4.5-10.0) K/mm3 RBC 3.42 L (4.2-5.4) M/mm3 Hgb 10.5 L (12.0-15.0) g/dL Hct 32.2 L (37.0-47.0) % MCV 94.2 (80-100) fl MCH 30.7 (26-34) pg MCHC 32.6 (32-36) g/dl RDW 14.5 (11.5-14.5) % Plt Count 209 (150-375) k/mm3 MPV 9.9 (7.4-10.4) fl Immature Gran % (Auto) 0.6 H (0-0.5) % Neut % (Auto) 76.2 H (45.5-73.1) % Lymph % (Auto) 10.6 L (18.3-44.2) % Ferry % (Auto) 11.4 H (2.6-8.5) % Eos % (Auto) 0.8 (0-4.4) % Baso % (Auto) 0.4 (0.2-1.2) % Lymph # (Auto) 0.84 L (0.9-3.2) K/mm3 Ferry # (Auto) 0.9 H (0.1-0.6) K/mm3 Eos # (Auto) 0.1 (0-0.3) K/mm3 Baso # (Auto) 0.0 (0.0-0.1) K/mm3 Abs Immat Gran (auto) 0.05 H (0.00-0.031) K/mm3 Absolute Neuts (auto) 6.1 (1.3-6.7) K/mm3 Absolute Nucleated RBC 0.000 (0.0-0.012) K/mm3 Nucleated RBC % 0.0 (0.0-0.2) % PT 14.0 (11.1-14.7) Seconds INR 1.1 APTT 24.3 (22.3-36.8) Seconds Sodium 132 L (137-145) mmol/L Potassium 4.3 (3.4-5.0) mmol/L Chloride 99 (98-107) mmol/L Carbon Dioxide 27 (22-30) mmol/L Anion Gap 6 (4-12) mmol/L BUN 25 H (7-17) mg/dL Creatinine 0.88 1.00 (0.7-1.0) mg/dL Estim Creat Clear Calc 59 52 ml/min Estimated GFR > 60 55 L (59 - ) Glucose 137 H (65-110) mg/dL Lactic Acid 1.1 (0.7-2.0) mmol/L Calcium 9.2 (8.4-10.2) mg/dL Total Bilirubin 0.4 (0.2-1.3) mg/dL AST 25 (14-36) U/L ALT 15 (6-35) U/L Alkaline Phosphatase 53 (38-126) U/L Troponin I < 0.012 (0.000-0.034) ng/mL C-Reactive Protein 2.5 H (<1.0) mg/dL NT-Pro-B Natriuret Pep 79 (19.9-100) pg/mL Total Protein 6.5 (6.3-8.2) g/dL Albumin 4.0 (3.5-5.1) g/dL Lipase 43 (23-300) U/L Urine Color Yellow (Yellow) Urine Appearance Clear (Clear) Urine pH 7.5 (5.0-9.0) Ur Specific [place] 1.022 (1.001-1.035) Urine Protein Negative (Negative) mg/dL Urine Glucose (UA) Negative (Negative) mg/dL Urine Ketones Negative (Negative) mg/dL Ur Blood (Man) Negative (Negative) Urine Nitrate Negative (Negative) Urine Bilirubin Negative (Negative) Urine Urobilinogen 0.2 (<2.0) mg/dL Add Ur Microanalysis Reviewed Leukocyte Esterase Rfl 1+ H (Negative) JOSE/UL Urine RBC 0-2 (0-2) /hpf Urine WBC 0-5 (0-3) /hpf Ur Squamous Epith Cells None seen (Few) /hpf Urine Bacteria None seen /hpf Urine Casts 0-2 <Shorty Saldana MD - Last Filed: 12/08/24 18:51> Imaging Data Attestation: I personally reviewed and interpreted this imaging study as follows: < Kailyn Villagomez APRN - Last Filed: 12/08/24 12:36> Radiologist's impression: ITS Impressions Abdomen/Pelvis CT 12/08/24 11:25 IMPRESSION: 1. Progression of acute proximal sigmoid diverticulitis without evidence for abscess. Recommend follow-up evaluation to exclude underlying colon mass when the patient's condition permits. <Kailyn Villagomez APRN - Last Filed: 12/08/24 12:36> ITS Impressions Abdomen/Pelvis CT 12/08/24 11:25 IMPRESSION: 1. Progression of acute proximal sigmoid diverticulitis without evidence for abscess. Recommend follow-up evaluation to exclude underlying colon mass when the patient's condition permits. <Shorty Saldana MD - Last Filed: 12/08/24 18:51> Discharge Plan Discharge Clinical Impression: Diverticulitis Abdominal pain Qualifiers: Abdominal location: lower abdomen, unspecified Qualified Code(s): R10.30 - Lower abdominal pain, unspecified <Kailyn Villagomez APRN - Last Filed: 12/08/24 12:36> Patient Disposition: Still a Patient <Kailyn Villagomez APRN - Last Filed: 12/08/24 12:36> Condition: Stable <Kailyn Villagomez APRN - Last Filed: 12/08/24 12:36>
[2024-12-08 10:40] VITALS: BP 129/77; PULSE 92; RESP 20; TEMP 36.7; O2SAT 100
[2024-12-08] MEDS: ONDANSETRON INJ 4 MG/2 ML VIAL IV PUSH ×2 (10:56→18:11)
[2024-12-08] MEDS: SODIUM CHLORIDE 0.9% IV 1,000 ML 999 ML IV CONT ×2 (10:57→12:42)
[2024-12-08] MEDS: MORPHINE SULFATE (*CRX) 4 MG/ML INJ IV PUSH ×4 (10:57→20:29)
[2024-12-08 11:04] LABS: Estimated CRCL calculation 52 ml/min; Estimated Glomerular Filt Rate 55
[2024-12-08 11:16] LABS: Basophils Percent Auto 0.4 % (0.2-1.2); Eosinophils Absolute Auto 0.1 K/mm3 (0-0.3); Eosinophils Percent Auto 0.8 % (0-4.4); Hematocrit 32.2 % (37.0-47.0); Hemoglobin 10.5 g/dL (12.0-15.0); Immature Granulocyte Absolute 0.05 K/mm3 (0.00-0.031); Immature Granulocyte Percent A 0.6 % (0-0.5); Lymphocytes Absolute Auto 0.84 K/mm3 (0.9-3.2); Lymphocytes Percent Auto 10.6 % (18.3-44.2); Mean Corpuscular HGB Conc 32.6 g/dl (32-36); Mean Corpuscular Hemoglobin 30.7 pg (26-34); Mean Corpuscular Volume 94.2 fl (80-100); Mean Platelet Volume 9.9 fl (7.4-10.4); Monocytes Absolute Auto 0.9 K/mm3 (0.1-0.6); Monocytes Percent Auto 11.4 % (2.6-8.5); Neutrophils Absolute Auto 6.1 K/mm3 (1.3-6.7); Neutrophils Percent Auto 76.2 % (45.5-73.1); Platelet Count Result 209 k/mm3 (150-375); Red Blood Count 3.42 M/mm3 (4.2-5.4); Red Cell Distribution Width 14.5 % (11.5-14.5)
[2024-12-08 11:23] LABS: Alanine Aminotransferase 15 U/L (6-35); Alkaline Phosphatase 53 U/L (38-126); Anion Gap 6 mmol/L (4-12); Aspartate Amino Transferase 25 U/L (14-36); Bilirubin,Total 0.4 mg/dL (0.2-1.3); Blood Urea Nitrogen 25 mg/dL (7-17); Calcium 9.2 mg/dL (8.4-10.2); Carbon Dioxide 27 mmol/L (22-30); Chloride 99 mmol/L (98-107); Estimated CRCL calculation 59 ml/min; Estimated Glomerular Filt Rate > 60; Glucose 137 mg/dL (65-110); Lipase 43 U/L (23-300); Potassium 4.3 mmol/L (3.4-5.0); Sodium 132 mmol/L (137-145); Total Protein 6.5 g/dL (6.3-8.2)
[2024-12-08 11:26] LABS: INR 1.1
[2024-12-08 11:27] LABS: Partial Thromboplastin Time 24.3 Seconds (22.3-36.8)
[2024-12-08 11:33] LABS: NT Pro B Type Natriuretic Pept 79 pg/mL (19.9-100); Troponin I < 0.012 ng/mL (0.000-0.034)
[2024-12-08 12:23] LABS: Lactic Acid Reflex 1.1 mmol/L (0.7-2.0)
[2024-12-08 12:27] LABS: CRP 2.5 mg/dL (<1.0)
[2024-12-08 12:43] LABS: Add Urine Microscopic? YES; Appearance Urine Clear (Clear); Bacteria Urine None Seen /hpf; Bilirubin Urine Negative (Negative); Blood Urine Negative (Negative); Color Urine Yellow (Yellow); Glucose Urine UA Negative (Negative); Ketones Urine Negative (Negative); Leukocyte Esterase Ur 1+ LEU/UL (Negative); Need Manual Microscopic Reviewed; Nitrate Urine Negative (Negative); Non Pathogenic Casts 0-2; Protein Urine Negative (Negative); RBC Urine 0-2 /hpf (0-2); Specific Grav Ur 1.022 (1.001-1.035); Squamous Epithelial Cell Urine None Seen /hpf (Few); Urobilinogen Urine 0.2 mg/dL (<2.0); WBC Urine 0-5 /hpf (0-3); pH Urine 7.5 (5.0-9.0)
[2024-12-08 13:36] VITALS: BP 112/66; PULSE 86; RESP 16; O2SAT 98
[2024-12-08] MEDS: metroNIDAZOLE 500 MG/ISO 100ML 500 MG/100 ML BAG 100 MG IVPB (13:36)
--- NOTE | 2024-12-08 14:05 | PC.NURSE ---
Pt. able to ambulate to bathroom with walker.
[2024-12-08] MEDS: SODIUM CHLORIDE 0.9% IV 200 ML 999 ML IV CONT (14:42)
[2024-12-08] MEDS: KETOROLAC 15 MG/ML VIAL (*BKC) IV PUSH (14:42)
--- NOTE | 2024-12-08 15:00 | ADMGEN ---
This patient, Camille Orozco, was admitted to 3 Med Surg Room 328-01. Patient/family oriented to hospital policies and general routines including ID bracelet, bed and alarms, visiting hours, pain management, procedures, bathroom and other care routines, personal items, smoking policy, room service/diet, and visiting hours. Information on how to activate the Rapid Response Team has been discussed. Patient/Family are encouraged to report perceived risks to care and to ask questions if they do not understand what they are told or what they should do.
--- NOTE | 2024-12-08 15:27 | WPDGICN ---
Assessment and Plan Assessment and plan (1) Diverticulitis: Code(s): K57.92 - Diverticulitis of intestine, part unspecified, without perforation or abscess without bleeding Status: Acute Assessment and Plan: This patient is presenting with either a recurrence or smoldering diverticulitis, given her recent discharge. We'll be initiating stronger antibiotic coverage with Zosyn. Regarding allergies, the patient reports no history of allergic reactions to medications. Her previous understanding that penicillins might cause diverticulitis appears to be a misconception. We'll continue antibiotic treatment until she's asymptomatic, at which point she'll likely be discharged on a different oral antibiotic regimen (? Augmentin). Her last colonoscopy was in 2020, revealing a small polyp. Once this acute episode completely resolves, we'll discuss with surgery the necessity of a repeat colonoscopy before proceeding with an elective sigmoidectomy. GI Consult Note Consult date/time: 12/08/24 15:27 Reason for consult: recurrent diverticulitis HPI: Camille Orozco is a 69-year-old female who was recently discharged on December 02, 2024, after an episode of acute diverticulitis. She responded well to initial treatment and was discharged on a course of levofloxacin and metronidazole. Unfortunately, approximately 24 hours ago, while still on antibiotics, she developed severe abdominal pain, nausea, and general malaise. A follow-up CT scan of the abdomen showed a progression of acute diverticulitis compared to prior imaging, though notably, there are no abscesses or fluid collections. This current presentation is significant given her history of recurrent diverticulitis; she has experienced at least seven flare-ups in the past five years, with most requiring hospitalization. Her current white blood cell count is 8.0 and her CRP is 2.5. Review of Systems Review of Systems: All systems reviewed & are unremarkable except as noted in HPI and below PMFSH Past Medical History Medical History Diverticulitis Reflex sympathetic dystrophy Hyperlipidemia Essential hypertension Depression Vitamin D deficiency Adenomatous colon polyp BPPV (benign paroxysmal positional vertigo) Post-menopausal Lump of breast, right Inflammatory arthritis Bilateral sacroiliitis Marijuana use Seizure disorder Anxiety Spinal stenosis Obstructive sleep apnea Noncompliant with BiPAP. Glaucoma Macular degeneration History of rheumatic fever as a child Gastroesophageal reflux disease Bilateral foot-drop Diverticulosis large intestine w/o perforation or abscess w/bleeding Former smoker Rectocele Prediabetes A1C 5.5% 09/2024 Surgical History Surgical History History of sinus surgery History of tonsillectomy History of bilateral cataract extraction History of bilateral breast reduction surgery History of colonoscopy with polypectomy History of laparoscopic cholecystectomy History of partial hysterectomy History of fusion of cervical spine (1999) History of repair of rectocele (12/08/19) Rectocele repair/posterior colporrhaphy and perineoplasty. Family History Family History Mother Diabetes mellitus Hypertension Parkinsons disease Heart attack Father Diabetes mellitus Hypertension Renal failure Heart attack Cerebrovascular accident Social History Social History Social History: The patient lives in her own home in [place]. A friend is currently staying with her. She has 2 grown children. Ambulates with a walker or cane due to footdrop and decreased mobility. 5 pack-year smoking history, quit 1977. She drinks 1 to 2 glasses of wine a week. Smokes marijuana couple of times a week. She designates her son Ousmane Orozco and her brother Mike Orozco as her surrogate decision makers and she wishes to be a full code. 1 cup caffeine daily Smoking status: Never smoker Smoking end date: 07/05/78 Alcohol intake: never Substance use: never Substance use type: does not use Do You Feel Safe in your Home?: Yes Lack of Transportation: No Lack of Food: Never True Current Housing: I Have Housing Concerned About Future Housing: No Difficulty Paying Gas/Electric Bills: No Difficulty Paying for Meds: No Currently Unemployed: No Education: Decline to Answer Difficulty w/ Childcare or Family Care: No Living arrangements: alone Spiritual care concerns: No Meds Home Medications and Allergies Home Medications ?Medication ?Instructions ?Recorded ?Confirmed ?Type cholecalciferol (vitamin D3) 125 5,000 unit PO DAILY 06/08/19 12/08/24 History mcg (5,000 unit) capsule trazodone 100 mg tablet 100 mg PO QPM 06/08/19 12/08/24 History vitamins A,C,A-bwrc-zrzwqv 2,148 1 tablet PO DAILY 11/29/19 12/08/24 History mcg-113 mg-45 mg-17.4 mg tablet (PreserVision AREDS) Rollator Walker with seat #1 ea 11/16/23 12/08/24 Rx lisinopril 40 mg tablet 40 mg PO DAILY #90 tabs 07/03/24 12/08/24 Rx furosemide 20 mg tablet (Lasix) 20 mg PO QAM #90 tabs 10/05/24 12/08/24 Rx naproxen 500 mg tablet See Rx Instructions .Route 10/05/24 12/08/24 Rx .COMPLEX #90 tabs rosuvastatin 40 mg tablet (Crestor) 40 mg PO HS #90 tabs 10/05/24 12/08/24 Rx duloxetine 30 mg capsule,delayed See Rx Instructions .Route 10/23/24 12/08/24 Rx release .COMPLEX #180 caps potassium chloride 10 mEq 10 meq PO DAILY #30 caps 10/23/24 12/08/24 Rx capsule,extended release levofloxacin 750 mg tablet 750 mg PO DAILY #10 tabs 12/02/24 12/08/24 Rx metronidazole 500 mg tablet 500 mg PO Q8H #30 tabs 12/02/24 12/08/24 Rx ondansetron 4 mg disintegrating 4 mg PO Q8H PRN nausea and 12/02/24 12/08/24 Rx tablet vomiting #30 tabs Allergies Allergy/AdvReac Type Severity Reaction Status Date / Time cephalexin (From Keflex) Allergy Itching Verified 12/07/24 13:00 Head nitrofurantoin (From Allergy Hives Verified 12/07/24 13:00 Macrobid) Penicillins AdvReac Unknown DIVERTICULI Verified 12/07/24 13:00 TIS diphenhydramine (From AdvReac Seizure Verified 12/07/24 13:00 Benadryl) Vital Signs Vital Signs - 24 hr 12/08/24 10:40 12/08/24 13:36 Temperature 98.1 F Pulse Rate 92 86 Respiratory Rate 20 16 Blood Pressure 129/77 112/66 Pulse Oximetry 100 98 Oxygen Delivery Room Air Exam Narrative: alert and oriented x3. Lung zone cardiovascular: Normal. Abdomen: Soft, tender in suprapubic and left lower quadrant areas, positive rebound. Rest of the exam within normal limits. Results Labs 12/08/24 10:58 12/08/24 11:03 Labs: Short CBC 12/08/24 Range/Units 10:58 WBC 8.0 (4.5-10.0) K/mm3 Hgb 10.5 L (12.0-15.0) g/dL Hct 32.2 L (37.0-47.0) % Plt Count 209 (150-375) k/mm3 BMP 12/08/24 12/08/24 10:58 11:03 Sodium 132 L Potassium 4.3 Chloride 99 Carbon Dioxide 27 BUN 25 H Creatinine 0.88 1.00 Glucose 137 H Calcium 9.2 Cardiac Enzymes 12/08/24 Range/Units 10:58 Troponin I < 0.012 (0.000-0.034) ng/mL Liver Function 12/08/24 Range/Units 10:58 Total Bilirubin 0.4 (0.2-1.3) mg/dL AST 25 (14-36) U/L ALT 15 (6-35) U/L Alkaline Phosphatase 53 (38-126) U/L Albumin 4.0 (3.5-5.1) g/dL Urine 12/08/24 Range/Units 11:57 Urine Color Yellow (Yellow) Urine Appearance Clear (Clear) Urine pH 7.5 (5.0-9.0) Ur Specific [place] 1.022 (1.001-1.035) Urine Protein Negative (Negative) mg/dL Urine Glucose (UA) Negative (Negative) mg/dL
--- NOTE | 2024-12-08 15:59 | P.HP_ITS ---
H&P: HPI History of Present Illness Date/Time: 12/08/24 15:59 Chief Complaint: Abdominal pain Narrative: 69-year-old female past medical history of diverticulitis, hypertension, hyperlipidemia, seizures, LANA, bilateral foot drop presents the hospital with abdominal pain and vomiting. Patient states that she has been taking her medication as prescribed however Due to patient not tolerating oral antibiotics due to severe vomiting she will be admitted to the hospital for IV antibiotics. Patient was recently admitted for recurring diverticulitis on 11/30/2024 where she was seen by GI after 5 days of hospitalization patient was discharged on oral antibiotics. Was recommended to follow-up with colonoscopy on 12/20/2024, follow-up with surgery after that. In the ED patient's hemoglobin is 10.5 with baseline being about 12, sodium of 132, BUN of 25, creatinine of 1, C-reactive protein of 2.5, UA shows 1+ leukocyte esterase. CT abdomen pelvis show Progression of acute proximal sigmoid diverticulitis without evidence for abscess. Recommend follow-up evaluation to exclude underlying colon mass when the patient's condition permits. Review of Systems Review of Systems: 12 systems were reviewed and are negativ e except for as per HPI. [facility] Past Medical History Medical History Diverticulitis Reflex sympathetic dystrophy Hyperlipidemia Essential hypertension Depression Vitamin D deficiency Adenomatous colon polyp BPPV (benign paroxysmal positional vertigo) Post-menopausal Lump of breast, right Inflammatory arthritis Bilateral sacroiliitis Marijuana use Seizure disorder Anxiety Spinal stenosis Obstructive sleep apnea Noncompliant with BiPAP. Glaucoma Macular degeneration History of rheumatic fever as a child Gastroesophageal reflux disease Bilateral foot-drop Diverticulosis large intestine w/o perforation or abscess w/bleeding Former smoker Rectocele Prediabetes A1C 5.5% 09/2024 Surgical History Surgical History History of sinus surgery History of tonsillectomy History of bilateral cataract extraction History of bilateral breast reduction surgery History of colonoscopy with polypectomy History of laparoscopic cholecystectomy History of partial hysterectomy History of fusion of cervical spine (1999) History of repair of rectocele (12/08/19) Rectocele repair/posterior colporrhaphy and perineoplasty. Family History Family History Mother Diabetes mellitus Hypertension Parkinsons disease Heart attack Father Diabetes mellitus Hypertension Renal failure Heart attack Cerebrovascular accident Social History Social History Social History: The patient lives in her own home in [place]. A friend is currently staying with her. She has 2 grown children. Ambulates with a walker or cane due to footdrop and decreased mobility. 5 pack-year smoking history, quit 1977. She drinks 1 to 2 glasses of wine a week. Smokes marijuana couple of times a week. She designates her son Ousmane Orozco and her brother Mike Orozco as her surrogate decision makers and she wishes to be a full code. 1 cup caffeine daily Years smoked: 9 Smoking status: Former smoker Tobacco type: cigarettes Smoking end date: 07/05/78 Alcohol intake: never Substance use: never Substance use type: does not use Do You Feel Safe in your Home?: Yes Lack of Transportation: No Lack of Food: Never True Current Housing: I Have Housing Concerned About Future Housing: No Difficulty Paying Gas/Electric Bills: No Difficulty Paying for Meds: No Currently Unemployed: No Education: Grade School Difficulty w/ Childcare or Family Care: No Living arrangements: alone Spiritual care concerns: No Meds Home Medications and Allergies Home Medications ?Medication ?Instructions ?Recorded ?Confirmed ?Type cholecalciferol (vitamin D3) 125 5,000 unit PO DAILY 06/08/19 12/08/24 History mcg (5,000 unit) capsule trazodone 100 mg tablet 100 mg PO HS 06/08/19 12/08/24 History vitamins A,C,B-dhgu-rhfjzp 2,148 1 tablet PO DAILY 11/29/19 12/08/24 History mcg-113 mg-45 mg-17.4 mg tablet (PreserVision AREDS) Rollator Walker with seat #1 ea 11/16/23 12/08/24 Rx lisinopril 40 mg tablet 40 mg PO DAILY #90 tabs 07/03/24 12/08/24 Rx furosemide 20 mg tablet (Lasix) 20 mg PO QAM #90 tabs 10/05/24 12/08/24 Rx naproxen 500 mg tablet See Rx Instructions .Route 10/05/24 12/08/24 Rx .COMPLEX #90 tabs rosuvastatin 40 mg tablet (Crestor) 40 mg PO HS #90 tabs 10/05/24 12/08/24 Rx duloxetine 30 mg capsule,delayed See Rx Instructions .Route 10/23/24 12/08/24 Rx release .COMPLEX #180 caps potassium chloride 10 mEq 10 meq PO DAILY #30 caps 10/23/24 12/08/24 Rx capsule,extended release levofloxacin 750 mg tablet 750 mg PO DAILY #10 tabs 12/02/24 12/08/24 Rx metronidazole 500 mg tablet 500 mg PO Q8H #30 tabs 12/02/24 12/08/24 Rx ondansetron 4 mg disintegrating 4 mg PO Q8H PRN nausea and 12/02/24 12/08/24 Rx tablet vomiting #30 tabs bimatoprost .ROUTE 12/08/24 History carbamazepine PO QPM 12/08/24 History cetirizine 10 mg capsule (All Day 10 mg PO DAILY allergy symptoms 12/08/24 12/08/24 History Allergy (cetirizine)) magnesium glycinate 220 mg PO HS 12/08/24 12/08/24 History edjjzqdh-ckar-djlp 8 mg-folic 400 1 tablet PO DAILY 12/08/24 12/08/24 History mcg-K 50 mcg-lutein 300 mcg tablet ([facility]) polyethylene glycol 3350 17 gram 17 g PO DAILY PRN constipation 12/08/24 12/08/24 History oral powder packet (Miralax) Allergies Allergy/AdvReac Type Severity Reaction Status Date / Time cephalexin (From Keflex) Allergy Itching Verified 12/07/24 13:00 Head nitrofurantoin (From Allergy Hives Verified 12/07/24 13:00 Macrobid) diphenhydramine (From AdvReac Seizure Verified 12/07/24 13:00 Benadryl) Vital Signs Vital Signs - 24 hr 12/08/24 10:40 12/08/24 13:36 Temperature 98.1 F Pulse Rate 92 86 Respiratory Rate 20 16 Blood Pressure 129/77 112/66 Pulse Oximetry 100 98 Oxygen Delivery Room Air Exam Narrative: General: well appearing, appears stated age. HEENT: normocephalic, atraumatic. Mucous membranes moist. EOMI, PERRLA, bilateral sclera anicteric, no conjunctival injection. Neck supple without JVD, lymphadenopathy, or bruit. Respiratory: clear to ascultation bilaterally. No rales/rhonic/wheezes. Cardiovascular: Regular rate and rhythm, normal S1-S2 upon ascultation. No murmurs, rubs, or clicks. PMI is nondisplaced, capillary refill less than 3 second. Abdomen: Soft, round, no pulsatile masses, nondistended and nontender. No rebound, no guarding. No CVA tenderness, no hepatosplenomegaly. Bowel sounds present to all four quadrants. No high pitch or tinkling sounds, resonant to percussion. Extremities: No cyanosis, clubbing, or edema present. Pulses are palpable 2/2. Active ROM to all four extremities. Neuro: Alert and orientated x 4. PERRLA. Cranial nerves 2-12 intact without focal deficit. Skin: Warm, dry, and intact, without rash, erythema, or lesion. Psych: pleasant, cooperative, normal speech, normal affect, no hallucinations, no dysarthia H&P: Results Labs Labs: Short CBC 12/08/24 Range/Units 10:58 WBC 8.0 (4.5-10.0) K/mm3 Hgb 10.5 L (12.0-15.0) g/dL Hct 32.2 L (37.0-47.0) % Plt Count 209 (150-375) k/mm3 BMP 12/08/24 12/08/24 10:58 11:03 Sodium 132 L Potassium 4.3 Chloride 99 Carbon Dioxide 27 BUN 25 H Creatinine 0.88 1.00 Glucose 137 H Calcium 9.2 Cardiac Enzymes 12/08/24 Range/Units 10:58 Troponin I < 0.012 (0.000-0.034) ng/mL Liver Function 12/08/24 Range/Units 10:58 Total Bilirubin 0.4 (0.2-1.3) mg/dL AST 25 (14-36) U/L ALT 15 (6-35) U/L Alkaline Phosphatase 53 (38-126) U/L Albumin 4.0 (3.5-5.1) g/dL Urine 12/08/24 Range/Units 11:57 Urine Color Yellow (Yellow) Urine Appearance Clear (Clear) Urine pH 7.5 (5.0-9.0) Ur Specific [place] 1.022 (1.001-1.035) Urine Protein Negative (Negative) mg/dL Urine Glucose (UA) Negative (Negative) mg/dL Assessment and Plan Assessment and plan (1) Acute diverticulitis: Code(s): K57.92 - Diverticulitis of intestine, part unspecified, without perforation or abscess without bleeding Status: Acute Assessment and Plan: GI [facility]. GI would prefer Zosyn NPO IV fluids for hydration Pain management and bowel protocol Blood cultures pending (2) Nausea & vomiting: Qualifiers: Vomiting type: unspecified Qualified Code(s): R11.2 - Nausea with vomiting, unspecified Code(s): R11.2 - Nausea with vomiting, unspecified Status: Acute Assessment and Plan: Likely cause from antibiotics IVF for hydration Zofran (3) Essential (primary) hypertension: Code(s): I10 - Essential (primary) hypertension Status: Chronic Assessment and Plan: Blood pressure currently soft will hold lisinopril (4) Normocytic anemia: Code(s): D64.9 - Anemia, unspecified Status: Acute Assessment and Plan: No signs of acute bleeding Daily CBC Transfuse for hemoglobin less than 7 no need for transfusion at this time (5) Seizure disorder: Code(s): G40.909 - Epilepsy, unspecified, not intractable, without status epilepticus Status: Acute Assessment and Plan: Patient does not dose order pharmacy she consulted at will have to contact family On carbamazepine (6) Bilateral foot-drop: Code(s): M21.371 - Foot drop, right foot; M21.372 - Foot drop, left foot Status: Acute Assessment and Plan: Chronic no new issue (7) Obstructive sleep apnea: Code(s): G47.33 - Obstructive sleep apnea (adult) (pediatric) Status: Chronic Assessment and Plan: No home CPAP Quality VTE Prophylaxis VTE prophylaxis: mechanical ordered and pharmacologic ordered Hospitalist MIPS Advance Care Plan I have confirmed that the patient's Advanced Care Plan is present, code status is documented, or surrogate decision maker is listed in patient medical record.: Yes Medication Reconciliation I have utilized all available resources to obtain, update and review the patients current medications (includes all prescriptions, OTC, herbals, cannabis, and nutritional supplements).: Yes
[2024-12-08] MEDS: PIPERACILLN/TAZ 3.375GM/NS50ML 3.375 GM/50 ML BAG IVPB ×2 (16:16→21:35)
[2024-12-08] MEDS: SODIUM CHLORIDE 0.9% IV 1,000 ML 125 ML IV CONT (16:16)
[2024-12-08 17:29] LABS: Anion Gap 7 mmol/L (4-12); Blood Urea Nitrogen 23 mg/dL (7-17); Calcium 9.1 mg/dL (8.4-10.2); Carbon Dioxide 26 mmol/L (22-30); Chloride 101 mmol/L (98-107); Estimated CRCL calculation 54 ml/min; Estimated Glomerular Filt Rate 57; Glucose 125 mg/dL (65-110); Potassium 4.6 mmol/L (3.4-5.0); Sodium 134 mmol/L (137-145)
[2024-12-08 17:59] VITALS: BMI 45.9
[2024-12-08 18:03] VITALS: BP 137/61; PULSE 87; RESP 16; TEMP 36.5; O2SAT 100
[2024-12-08] MEDS: DULoxetine HCL 30 MG CAPSULE.DR 60 MG BY MOUTH (18:17)
[2024-12-08] MEDS: BISACODYL 5 MG TABLET EC PO (18:18)
--- NOTE | 2024-12-08 18:41 | PC.NURSE ---
Pt states she takes lumigan eye drops for glaucoma and tegretol for her history of seizures. She was unable to provide the doses for these, and they were not listed in the external pharmacy list. She is unsure which pharmacy she filled these two medications at last. I have called [facility], [facility], [facility], [facility], and [facility] pharmacies, none of which have any record of these two medications. Pt has been updated on these findings, and she has been instructed to provide us the medication bottles to verify so she can continue these medications while inpatient.
[2024-12-08] MEDS: ROSUVASTATIN 20 MG TABLET 40 MG PO (20:28)
[2024-12-08] MEDS: traZODone HCL 50 MG TABLET 100 MG PO (20:28)
[2024-12-08 22:00] VITALS: BP 106/33; PULSE 100; RESP 18; TEMP 36.4; O2SAT 96
--- NOTE | 2024-12-09 | ECHO_ITS ---
Patient Info Name: Camille Orozco Age: 69 years : 1955 Gender: Female Ht: 61 in Wt: 243 lbs BSA: 2.25 m2 HR: 82 bpm BP: 102 / 51 mmHg Technical Quality: Good Exam Date: 12/09/2024 2:23 PM Patient Status: I Admit Date: 12/09/2024 Exam Type: CA echo doppler color flow Complete two-dimensional, color flow and Doppler transthoracic echocardiogram is performed. Staff Referring Physician: Kailyn Villagomez Rn Camp: Trisha Infante Attending Provider: Kenya López MD Summary 1. Complete two-dimensional, color flow and Doppler transthoracic echocardiogram is performed. 2. Left ventricular chamber dimension is mildly enlarged. 3. Left ventricular systolic function is normal, estimated at 55-60. 4. The left ventricular diastolic function is abnormal. 5. E/e' 10 is mildly elevated. 6. Left atrial chamber dimension is moderately enlarged. 7. There is mild aortic valve sclerosis. 8. There is mild tricuspid valve regurgitation. 9. No pulmonary hypertension, estimated pulmonary arterial systolic pressure is 28 mmHg. Left Ventricle E/e' 10 is mildly elevated. Left ventricular chamber dimension is mildly enlarged. Left ventricular systolic function is normal, estimated at 55-60. The left ventricular diastolic function is abnormal. Right Ventricle Right ventricular chamber dimension is normal. Right ventricular systolic function is normal and with normal TAPSE 2.0 cm. Left Atria Left atrial chamber dimension is moderately enlarged. Right Atria Right atrial chamber dimension is normal. Aortic Valve The aortic valve is trileaflet. There is mild aortic valve sclerosis. There is no aortic valve stenosis. There is no aortic valve regurgitation. Pulmonic Valve There is no pulmonic regurgitation. Mitral Valve There is no mitral valve stenosis. There is no mitral valve regurgitation. Tricuspid Valve There is mild tricuspid valve regurgitation. No pulmonary hypertension, estimated pulmonary arterial systolic pressure is 28 mmHg. Pericardium/Pleural There is no pericardial effusion. Inferior Vena Cava Normal inferior vena cava with >50% collapse upon inspiration consistent with normal right atrial pressure, 5 mmHg. Aorta The aortic root size at the sinus of Valsalva is normal. Left Ventricular Outflow Tract Name Value Normal LVOT 2D LVOT Diameter 2.0 cm LVOT Doppler LVOT Peak Velocity 102 cm/s LVOT Peak Gradient 4 mmHg LVOT Mean Gradient 2 mmHg LVOT VTI 23 cm LVOT VTI/AV VTI Ratio 0.6 LVOT Stroke Volume 71 ml LVOT CO 13.2 l/min LVOT CI 5.9 l/min/m2 Pulmonic Valve Name Value Normal PV Doppler PV Peak Velocity 100 cm/s PV Peak Gradient 4 mmHg Mitral Valve Name Value Normal MV Diastolic Function MV E Peak Velocity 110 cm/s MV A Peak Velocity 79 cm/s MV E/A 1.4 MV Decel Time (PW) 164 ms MV Annular TDI MV E/e' (Septal) 9.1 MV E/e' (Lateral) 12.7 MV E/e' (Average) 10.9 Tricuspid Valve Name Value Normal TV Regurgitation Doppler TR Peak Velocity 238 cm/s TR Peak Gradient 21 mmHg Estimated PAP/RSVP RA Pressure 5 mmHg <=5 PA Systolic Pressure 28 mmHg <36 RV Systolic Pressure 28 mmHg <36 TV Annular TDI TV Lateral Johana s' Velocity 14.7 cm/s >=9.5 Aorta Name Value Normal Ascending Aorta Ao Root Diameter (MM) 3.2 cm Ao Root Diam Index (MM) 1.4 cm/m2 Aortic Valve Name Value Normal AV Doppler AV Peak Velocity 170 cm/s AV Peak Gradient 12 mmHg AV Mean Gradient 7 mmHg AV VTI 41 cm AV Area (Cont Eq VTI) 1.7 cm2 >=3.0 AV Area (Cont Eq Froylan) 1.8 cm2 AV DI (Froylan) 0.60 AV Regurgitation 2D LVOT Area 3.0 cm2 Ventricles Name Value Normal LV Dimensions 2D/MM IVS Diastolic Thickness (2D) 1.0 cm 0.6-1.0 LVID Diastole (2D) 4.9 cm 3.8-5.2 LVIW Diastolic Thickness (2D) 1.0 cm 0.6-0.9 LVID Systole (2D) 3.3 cm 2.2-3.5 LVOT Diameter 2.0 cm LV Mass (2D Cubed) 170.54 g 67.00-162.00 LV Mass Index (2D Cubed) 76 g/m2 43-95 Relative Wall Thickness (2D) 0.41 <=0.42 LV Fractional Shortening/Ejection Fraction 2D/MM LV Fractional Shortening (2D) 33 % 27-45 LV EF (2D Teichholz) 61 % LV Diastolic Volume (4C MOD) 106 ml LV EF (4C MOD) 54 % LV Diastolic Volume (2C MOD) 105 ml LV EF (2C MOD) 66 % LV Diastolic Volume (BP MOD) 106 ml 46-106 LV Diastolic Volume Index (BP MOD) 47 ml/m2 29-61 LV Systolic Volume (BP MOD) 42 ml 14-42 LV Systolic Volume Index (BP MOD) 19 ml/m2 8-24 LV EF (BP MOD) 60 % 54-74 LV Diastolic Length (4C) 7.6 cm LV Systolic Length (4C) 6.3 cm LV Stroke Volume (4C MOD) 57 ml RV Dimensions 2D/MM RVID Diastole (2D) 4.3 cm 2.1-3.5 Atria Name Value Normal LA Dimensions LA Dimension (MM) 0.0 cm 2.7-3.8 LA Volume (4C A-L) 56 ml LA Volume (BP A-L) 59 ml RA Dimensions RA Systolic Major [place] Length (4C) 4.1 cm 2.2-2.8 RA Area (4C) 12.7 cm2 <=18.0 Report Signatures
[2024-12-09] MEDS: SODIUM CHLORIDE 0.9% IV 1,000 ML 125 ML IV CONT ×2 (02:53→13:50)
[2024-12-09] MEDS: PIPERACILLN/TAZ 3.375GM/NS50ML 3.375 GM/50 ML BAG IVPB ×4 (03:00→22:06)
[2024-12-09] MEDS: MORPHINE SULFATE (*CRX) 4 MG/ML INJ IV PUSH (03:05)
[2024-12-09 06:00] VITALS: BP 102/51; PULSE 89; RESP 18; TEMP 36.3; O2SAT 97
[2024-12-09 06:01] LABS: Basophils Percent Auto 0.4 % (0.2-1.2); Eosinophils Absolute Auto 0.1 K/mm3 (0-0.3); Eosinophils Percent Auto 1.3 % (0-4.4); Hematocrit 28.8 % (37.0-47.0); Hemoglobin 8.9 g/dL (12.0-15.0); Immature Granulocyte Absolute 0.04 K/mm3 (0.00-0.031); Immature Granulocyte Percent A 0.6 % (0-0.5); Lymphocytes Absolute Auto 1.12 K/mm3 (0.9-3.2); Lymphocytes Percent Auto 16.7 % (18.3-44.2); Mean Corpuscular HGB Conc 30.9 g/dl (32-36); Mean Corpuscular Hemoglobin 30.6 pg (26-34); Mean Platelet Volume 10.1 fl (7.4-10.4); Monocytes Percent Auto 14.5 % (2.6-8.5); Neutrophils Absolute Auto 4.5 K/mm3 (1.3-6.7); Neutrophils Percent Auto 66.5 % (45.5-73.1); Platelet Count Result 196 k/mm3 (150-375); Red Blood Count 2.91 M/mm3 (4.2-5.4); Red Cell Distribution Width 15.1 % (11.5-14.5); White Blood Count 6.7 K/mm3 (4.5-10.0)
--- NOTE | 2024-12-09 08:29 | P.PNIM_ITS ---
Progress Note: A&P Assessment and Plan (1) Acute diverticulitis: Code(s): K57.92 - Diverticulitis of intestine, part unspecified, without perforation or abscess without bleeding Status: Acute Assessment and Plan: patient with recurrent diverticulitis recently discharged on Flagyl and Levaquin failed outpatient therapy CT abdomen showing advancement of diverticulitis GI has been consulted will continue with IV Zosyn and advance diet as tolerated. GI has already plan for outpatient colonoscopy once acute infectious processes resolved with plans for possible surgery of sigmoidectomy * continue IV Zosyn * full liquid diet * IV fluids D/C with oral intake * Pain management IV Dilaudid changed from morphine morphine cause abdominal spasms * Blood cultures pending * PPI * Monitor electrolytes especially potassium magnesium replenish to keep mag >2.0 and K+ >4.0 * C-diff pending patient has been multiple ABX with diarrhea and previous c-diff HX (2) Nausea & vomiting: Qualifiers: Vomiting type: unspecified Qualified Code(s): R11.2 - Nausea with vomiting, unspecified Code(s): R11.2 - Nausea with vomiting, unspecified Status: Acute Assessment and Plan: SEE ABOVE * continue antiemetics (3) Essential (primary) hypertension: Code(s): I10 - Essential (primary) hypertension Status: Chronic Assessment and Plan: Blood pressure currently soft due to dehydration with nausea and vomiting will hold lisinopril Lasix will resume when BP tolerates * BP monitoring per unit protocol (4) Normocytic anemia: Code(s): D64.9 - Anemia, unspecified Status: Acute Assessment and Plan: No signs of acute bleeding chronic anemia and some dilution from IV fluids * trend daily * Transfuse PRBC Hgb <7.0 (5) Seizure disorder: Code(s): G40.909 - Epilepsy, unspecified, not intractable, without status epilepticus Status: Acute Assessment and Plan: * continued carbamazepine 400 mg HS (6) Obstructive sleep apnea: Code(s): G47.33 - Obstructive sleep apnea (adult) (pediatric) Status: Chronic Assessment and Plan: history of sleep apnea but patient does not currently wears CPAP at home * oxygen p.r.n. maintain 92% (7) Lymphedema: Code(s): I89.0 - Lymphedema, not elsewhere classified Status: Acute Assessment and Plan: Patient with BLE edema no previous echo will evaluate cardiac currently receiving aggressive IV hydration for diverticulitis * Echo pending * elevate legs when at rest * added compression stockings/sandie wraps 06/15 (8) Cellulitis of left leg: Code(s): L03.116 - Cellulitis of left lower limb Status: Acute Assessment and Plan: LLE with area of erythema and warmth * Coverage with IV zosyn * Blood cultures NGTD Plan Code status: Full code per patient DVT prophylaxis: SCD Stress ulcer prophylaxis: Protonix 40 daily PT/OT notes: ambulatory Disposition: patient continues admission to the medical unit on IV Zosyn for recurrent diverticulitis will continue with current treatment and advance diet as tolerated plan for follow up outpatient with GI once acute infectious episode has resolved for colonoscopy and possible surgery. Time Spent With Patient Time with patient: 15 - 25 minutes Subjective Date/time seen: 12/09/24 08:29 Interval history: patient is a 69-year-old female admitted to the hospital for diverticulitis that failed outpatient therapy and recent recurrence GI has been consulted will continue with IV Zosyn and advance diet as tolerated. 12/09/2024: Patient reporting diarrhea x5 and ABD tenderness. Patient denied SOB and CP no further N/V GI placed full liquid diet. Noted BLE swelling and LLE erythema and warmth. Review of Systems Review of Systems: 12 systems were reviewed and are negativ e except for as per HPI. All systems reviewed & are unremarkable except as noted in HPI and below Exam Narrative: General: NAD Respiratory: Clear to auscultation Cardiovascular: RRR Abdomen: Soft, tenderness, Bowel sounds all 4Q Extremities: BLE swelling Neuro: Alert and orientated x 4. Skin: LLE with erythema warmth Psych: pleasant, cooperative Objective Data Vital Signs Vital Signs: Vital Signs - 24 hr 12/08/24 10:40 12/08/24 13:36 12/08/24 18:03 Temperature 98.1 F 97.7 F Pulse Rate 92 86 87 Respiratory Rate 20 16 16 Blood Pressure 129/77 112/66 137/61 Pulse Oximetry 100 98 100 Oxygen Delivery Room Air 12/08/24 20:00 12/08/24 22:00 12/09/24 06:00 Temperature 97.6 F 97.4 F L Pulse Rate 100 89 Respiratory Rate 18 18 Blood Pressure 106/33 L 102/51 L Pulse Oximetry 96 97 Oxygen Delivery Room Air Intake/Output Intake/Output: Intake & Output 12/06/24 12/07/24 12/08/24 12/09/24 23:59 23:59 23:59 23:59 Intake Total 2450 1000 Balance 2450 1000 Meds/Results Medications: Active Medications Generic Name Dose Route Start Last Admin Trade Name Freq PRN Reason Stop Dose Admin Bisacodyl 5 mg 12/08/24 16:30 12/08/24 18:18 Bisacodyl 5 Mg Tablet Ec PO 5 mg DAILY DAKSHA Administration Carbamazepine 400 mg 12/09/24 21:00 Carbamazepine 200 Mg Tablet PO QHS DAKSHA Duloxetine HCl 60 mg 12/08/24 18:00 12/08/24 18:17 Duloxetine Hcl 30 Mg Capsule.Dr BY MOUTH 60 mg EVENING DAKSHA Administration Enoxaparin Sodium 40 mg 12/09/24 09:00 Enoxaparin 40 Mg/0.4 Ml Syringe SUB-Q DAILY DAKSHA Hydromorphone HCl 0.5 mg 12/09/24 08:27 Hydromorphone Hcl Inj (*Crx) 2 Mg/Ml Vial IV PUSH Q3H PRN Pain Rated 7-10 Sodium Chloride 1,000 mls @ 125 mls/hr 12/08/24 12:30 12/09/24 02:53 Normal Saline Iv IV CONT 125 mls/hr .Q8H DAKSHA Administration Piperacillin/Tazobactam/Dextrose 3.375 gm in 50 mls @ 100 mls/hr 12/08/24 16:00 12/09/24 03:00 Zosyn 3.375 Gm/Ns 50 Ml IVPB 100 mls/hr Q6H DAKSHA Administration Loratadine 10 mg 12/09/24 21:00 Loratadine 10 Mg Tablet PO QHS DAKSHA Ondansetron HCl 4 mg 12/08/24 16:27 12/08/24 18:11 Ondansetron Inj 4 Mg/2 Ml Vial IV PUSH 4 mg Q4H PRN Administration Nausea And Vomiting Pantoprazole Sodium 40 mg 12/09/24 09:00 Pantoprazole Sodium Iv 40 Mg Vial IV PUSH QAM DAKSHA Polyethylene Glycol 17 gm 12/09/24 09:00 Polyethylene Glycol 3350 17 Gm Powd.Pack PO DAILY DAKSHA Rosuvastatin Calcium 40 mg 12/08/24 21:00 12/08/24 20:28 Rosuvastatin 20 Mg Tablet PO 40 mg HS DAKSHA Administration Trazodone HCl 100 mg 12/08/24 21:00 12/08/24 20:28 Trazodone Hcl 50 Mg Tablet PO 100 mg HS DAKSHA Administration Radiology Results: ITS Impressions Abdomen/Pelvis CT 12/08/24 11:25 IMPRESSION: 1. Progression of acute proximal sigmoid diverticulitis without evidence for abscess. Recommend follow-up evaluation to exclude underlying colon mass when the patient's condition permits. Labs Labs: Laboratory Results - last 24 hr 12/08/24 12/08/24 12/08/24 10:58 11:03 11:57 WBC 8.0 RBC 3.42 L Hgb 10.5 L Hct 32.2 L MCV 94.2 MCH 30.7 MCHC 32.6 RDW 14.5 Plt Count 209 MPV 9.9 Immature Gran % (Auto) 0.6 H Neut % (Auto) 76.2 H Lymph % (Auto) 10.6 L [place] % (Auto) 11.4 H Eos % (Auto) 0.8 Baso % (Auto) 0.4 Lymph # (Auto) 0.84 L [place] # (Auto) 0.9 H Eos # (Auto) 0.1 Baso # (Auto) 0.0 Abs Immat Gran (auto) 0.05 H Absolute Neuts (auto) 6.1 Absolute Nucleated RBC 0.000 Nucleated RBC % 0.0 PT 14.0 INR 1.1 APTT 24.3 Sodium 132 L Potassium 4.3 Chloride 99 Carbon Dioxide 27 Anion Gap 6 BUN 25 H Creatinine 0.88 1.00 Estim Creat Clear Calc 59 52 Estimated GFR > 60 55 L Glucose 137 H Lactic Acid 1.1 Calcium 9.2 Total Bilirubin 0.4 AST 25 ALT 15 Alkaline Phosphatase 53 Troponin I < 0.012 C-Reactive Protein 2.5 H NT-Pro-B Natriuret Pep 79 Total Protein 6.5 Albumin 4.0 Lipase 43 Urine Color Yellow Urine Appearance Clear Urine pH 7.5 Ur Specific [place] 1.022 Urine Protein Negative Urine Glucose (UA) Negative Urine Ketones Negative Ur Blood (Man) Negative Urine Nitrate Negative Urine Bilirubin Negative Urine Urobilinogen 0.2 Add Ur Microanalysis Reviewed Leukocyte Esterase Rfl 1+ H Urine RBC 0-2 Urine WBC 0-5 Ur Squamous Epith Cells None seen Urine Bacteria None seen Urine Casts 0-2 12/08/24 12/09/24 17:11 05:23 WBC 6.7 RBC 2.91 L Hgb 8.9 L Hct 28.8 L MCV 99.0 D MCH 30.6 MCHC 30.9 L RDW 15.1 H Plt Count 196 MPV 10.1 Immature Gran % (Auto) 0.6 H Neut % (Auto) 66.5 Lymph % (Auto) 16.7 L [place] % (Auto) 14.5 H Eos % (Auto) 1.3 Baso % (Auto) 0.4 Lymph # (Auto) 1.12 [place] # (Auto) 1.0 H Eos # (Auto) 0.1 Baso # (Auto) 0.0 Abs Immat Gran (auto) 0.04 H Absolute Neuts (auto) 4.5 Absolute Nucleated RBC 0.000 Nucleated RBC % 0.0 PT INR APTT Sodium 134 L Potassium 4.6 Chloride 101 Carbon Dioxide 26 Anion Gap 7 BUN 23 H Creatinine 0.97 Estim Creat Clear Calc 54 Estimated GFR 57 L Glucose 125 H Lactic Acid Calcium 9.1 Total Bilirubin AST ALT Alkaline Phosphatase Troponin I C-Reactive Protein NT-Pro-B Natriuret Pep Total Protein Albumin Lipase Urine Color Urine Appearance Urine pH Ur Specific [place] Urine Protein Urine Glucose (UA) Urine Ketones Ur Blood (Man) Urine Nitrate Urine Bilirubin Urine Urobilinogen Add Ur Microanalysis Leukocyte Esterase Rfl Urine RBC Urine WBC Ur Squamous Epith Cells Urine Bacteria Urine Casts Quality VTE Prophylaxis VTE prophylaxis: mechanical ordered -Patient's previous records reviewed on admission -ER notes reviewed in detail on admission -discussed all findings and current treatment plan with patient/Family/POA -Consultations reviewed for recommendations -Patient's disposition for safe discharge discussed with dependency case manager Dictation performed by [employer] direct speech recognition software, therefore catalogue and special products manager variants and typographical errors may occur. Hospitalist MIPS Advance Care Plan I have confirmed that the patient's Advanced Care Plan is present, code status is documented, or surrogate decision maker is listed in patient medical record.: Yes Medication Reconciliation I have utilized all available resources to obtain, update and review the patients current medications (includes all prescriptions, OTC, herbals, cannabis, and nutritional supplements).: Yes The patient is not eligible for med reconciliation; the patient is in a emergent medical situation where delaying treatment would jeopardize the patients health.: No
[2024-12-09 09:41] LABS: Magnesium 2.2 mg/dL (1.6-2.3)
--- NOTE | 2024-12-09 10:15 | WPDGIPROGNO ---
Progress Note: A&P Assessment and Plan (1) Diverticulitis: Code(s): K57.92 - Diverticulitis of intestine, part unspecified, without perforation or abscess without bleeding Status: Acute Assessment and Plan: Patient with smoldering acute diverticulitis, now getting treated with Zosyn given her worsening by clinical and imaging criteria. Since she had bowel movements, will start progressing her diet starting with a liquid diet today and advancing tomorrow. Anticipated at least 2 more days of antibiotics. Subjective Date/time seen: 12/09/24 10:15 Interval history: The patient is doing better, she achieved a few bowel movements, experiencing relief of her constant pain compared to yesterday. Exam Narrative: Abdomen: paper twister tender, rebound tenderness present in left flank and left lower quadrant. Rest of the exam unchanged. Objective Data Vital Signs Vital Signs: Vital Signs - 24 hr 12/08/24 10:40 12/08/24 13:36 12/08/24 18:03 Temperature 98.1 F 97.7 F Pulse Rate 92 86 87 Respiratory Rate 20 16 16 Blood Pressure 129/77 112/66 137/61 Pulse Oximetry 100 98 100 Oxygen Delivery Room Air 12/08/24 20:00 12/08/24 22:00 12/09/24 06:00 Temperature 97.6 F 97.4 F L Pulse Rate 100 89 Respiratory Rate 18 18 Blood Pressure 106/33 L 102/51 L Pulse Oximetry 96 97 Oxygen Delivery Room Air Intake/Output Intake/Output: Intake & Output 12/06/24 12/07/24 12/08/24 12/09/24 23:59 23:59 23:59 23:59 Intake Total 2450 1000 Balance 2450 1000 Meds/Results Medications: Active Medications Generic Name Dose Route Start Last Admin Trade Name Freq PRN Reason Stop Dose Admin Bisacodyl 5 mg 12/08/24 16:30 12/08/24 18:18 Bisacodyl 5 Mg Tablet Ec PO 5 mg DAILY DAKSHA Administration Carbamazepine 400 mg 12/09/24 21:00 Carbamazepine 200 Mg Tablet PO QHS DAKSHA Duloxetine HCl 60 mg 12/08/24 18:00 12/08/24 18:17 Duloxetine Hcl 30 Mg Capsule.Dr BY MOUTH 60 mg EVENING DAKSHA Administration Enoxaparin Sodium 40 mg 12/09/24 09:00 Enoxaparin 40 Mg/0.4 Ml Syringe SUB-Q DAILY DAKSHA Hydromorphone HCl 0.5 mg 12/09/24 08:27 Hydromorphone Hcl Inj (*Crx) 2 Mg/Ml Vial IV PUSH Q3H PRN Pain Rated 7-10 Sodium Chloride 1,000 mls @ 125 mls/hr 12/08/24 12:30 12/09/24 02:53 Normal Saline Iv IV CONT 125 mls/hr .Q8H DAKSHA Administration Piperacillin/Tazobactam/Dextrose 3.375 gm in 50 mls @ 100 mls/hr 12/08/24 16:00 12/09/24 03:00 Zosyn 3.375 Gm/Ns 50 Ml IVPB 100 mls/hr Q6H DAKSHA Administration Loratadine 10 mg 12/09/24 21:00 Loratadine 10 Mg Tablet PO QHS DAKSHA Ondansetron HCl 4 mg 12/08/24 16:27 12/08/24 18:11 Ondansetron Inj 4 Mg/2 Ml Vial IV PUSH 4 mg Q4H PRN Administration Nausea And Vomiting Polyethylene Glycol 17 gm 12/09/24 09:00 Polyethylene Glycol 3350 17 Gm Powd.Pack PO DAILY DAKSHA Rosuvastatin Calcium 40 mg 12/08/24 21:00 12/08/24 20:28 Rosuvastatin 20 Mg Tablet PO 40 mg HS DAKSHA Administration Trazodone HCl 100 mg 12/08/24 21:00 12/08/24 20:28 Trazodone Hcl 50 Mg Tablet PO 100 mg HS DAKSHA Administration Radiology Results: ITS Impressions Abdomen/Pelvis CT 12/08/24 11:25 IMPRESSION: 1. Progression of acute proximal sigmoid diverticulitis without evidence for abscess. Recommend follow-up evaluation to exclude underlying colon mass when the patient's condition permits. Labs Labs: Laboratory Results - last 24 hr 12/08/24 12/08/24 12/08/24 10:58 11:03 11:57 WBC 8.0 RBC 3.42 L Hgb 10.5 L Hct 32.2 L MCV 94.2 MCH 30.7 MCHC 32.6 RDW 14.5 Plt Count 209 MPV 9.9 Immature Gran % (Auto) 0.6 H Neut % (Auto) 76.2 H Lymph % (Auto) 10.6 L [place] % (Auto) 11.4 H Eos % (Auto) 0.8 Baso % (Auto) 0.4 Lymph # (Auto) 0.84 L [place] # (Auto) 0.9 H Eos # (Auto) 0.1 Baso # (Auto) 0.0 Abs Immat Gran (auto) 0.05 H Absolute Neuts (auto) 6.1 Absolute Nucleated RBC 0.000 Nucleated RBC % 0.0 PT 14.0 INR 1.1 APTT 24.3 Sodium 132 L Potassium 4.3 Chloride 99 Carbon Dioxide 27 Anion Gap 6 BUN 25 H Creatinine 0.88 1.00 Estim Creat Clear Calc 59 52 Estimated GFR > 60 55 L Glucose 137 H Lactic Acid 1.1 Calcium 9.2 Magnesium Total Bilirubin 0.4 AST 25 ALT 15 Alkaline Phosphatase 53 Troponin I < 0.012 C-Reactive Protein 2.5 H NT-Pro-B Natriuret Pep 79 Total Protein 6.5 Albumin 4.0 Lipase 43 Urine Color Yellow Urine Appearance Clear Urine pH 7.5 Ur Specific [place] 1.022 Urine Protein Negative Urine Glucose (UA) Negative Urine Ketones Negative Ur Blood (Man) Negative Urine Nitrate Negative Urine Bilirubin Negative Urine Urobilinogen 0.2 Add Ur Microanalysis Reviewed Leukocyte Esterase Rfl 1+ H Urine RBC 0-2 Urine WBC 0-5 Ur Squamous Epith Cells None seen Urine Bacteria None seen Urine Casts 0-2 12/08/24 12/09/24 12/09/24 17:11 05:22 05:23 WBC 6.7 RBC 2.91 L Hgb 8.9 L Hct 28.8 L MCV 99.0 D MCH 30.6 MCHC 30.9 L RDW 15.1 H Plt Count 196 MPV 10.1 Immature Gran % (Auto) 0.6 H Neut % (Auto) 66.5 Lymph % (Auto) 16.7 L [place] % (Auto) 14.5 H Eos % (Auto) 1.3 Baso % (Auto) 0.4 Lymph # (Auto) 1.12 [place] # (Auto) 1.0 H Eos # (Auto) 0.1 Baso # (Auto) 0.0 Abs Immat Gran (auto) 0.04 H Absolute Neuts (auto) 4.5 Absolute Nucleated RBC 0.000 Nucleated RBC % 0.0 PT INR APTT Sodium 134 L Potassium 4.6 Chloride 101 Carbon Dioxide 26 Anion Gap 7 BUN 23 H Creatinine 0.97 Estim Creat Clear Calc 54 Estimated GFR 57 L Glucose 125 H Lactic Acid Calcium 9.1 Magnesium 2.2 Total Bilirubin AST ALT Alkaline Phosphatase Troponin I C-Reactive Protein NT-Pro-B Natriuret Pep Total Protein Albumin Lipase Urine Color Urine Appearance Urine pH Ur Specific [place] Urine Protein Urine Glucose (UA) Urine Ketones Ur Blood (Man) Urine Nitrate Urine Bilirubin Urine Urobilinogen Add Ur Microanalysis Leukocyte Esterase Rfl Urine RBC Urine WBC Ur Squamous Epith Cells Urine Bacteria Urine Casts
[2024-12-09] MEDS: ENOXAPARIN 40 MG/0.4 ML SYRINGE SUB-Q (10:27)
[2024-12-09 14:00] VITALS: BP 119/53; PULSE 102; RESP 20; TEMP 37.5; O2SAT 98
--- NOTE | 2024-12-09 14:00 | PC.NURSE ---
On 12/09/24, the GLUER, [Amanda Drew ], provided care and completed [facility] documentation on this patient. I have reviewed the GLUER's documentation and agree with the findings.
[2024-12-09] MEDS: ONDANSETRON INJ 4 MG/2 ML VIAL IV PUSH (14:56)
[2024-12-09 16:19] LABS: Toxigenic C. Diff NEGATIVE (NEGATIVE)
[2024-12-09] MEDS: DULoxetine HCL 30 MG CAPSULE.DR 60 MG BY MOUTH (16:55)
[2024-12-09] MEDS: traZODone HCL 50 MG TABLET 100 MG PO (20:38)
[2024-12-09] MEDS: LORATADINE 10 MG TABLET PO (20:39)
[2024-12-09] MEDS: LATANOPROST 0.005% OP SOLN 2.5 ML BTL 1 DROP EACH EYE (20:39)
[2024-12-09] MEDS: ROSUVASTATIN 20 MG TABLET 40 MG PO (20:39)
[2024-12-09] MEDS: carBAMazepine 200 MG TABLET 400 MG PO (20:39)
[2024-12-09 22:00] VITALS: BP 119/45; PULSE 91; RESP 18; TEMP 37; O2SAT 98
[2024-12-10] MEDS: PIPERACILLN/TAZ 3.375GM/NS50ML 3.375 GM/50 ML BAG IVPB ×3 (05:27→21:22)
[2024-12-10 06:00] VITALS: BP 118/49; PULSE 88; RESP 18; TEMP 36.9; O2SAT 99
[2024-12-10 06:03] LABS: Hematocrit 27.4 % (37.0-47.0); Hemoglobin 8.5 g/dL (12.0-15.0); Mean Corpuscular Hemoglobin 30.8 pg (26-34); Mean Corpuscular Volume 99.3 fl (80-100); Mean Platelet Volume 9.7 fl (7.4-10.4); Platelet Count Result 171 k/mm3 (150-375); Red Blood Count 2.76 M/mm3 (4.2-5.4); Red Cell Distribution Width 14.8 % (11.5-14.5)
[2024-12-10 06:39] LABS: Alanine Aminotransferase 14 U/L (6-35); Albumin Level 2.9 g/dL (3.5-5.1); Alkaline Phosphatase 52 U/L (38-126); Anion Gap 5 mmol/L (4-12); Aspartate Amino Transferase 30 U/L (14-36); Bilirubin,Total 0.2 mg/dL (0.2-1.3); Blood Urea Nitrogen 16 mg/dL (7-17); Calcium 8.4 mg/dL (8.4-10.2); Carbon Dioxide 25 mmol/L (22-30); Chloride 105 mmol/L (98-107); Estimated CRCL calculation 49 ml/min; Estimated Glomerular Filt Rate 49; Glucose 96 mg/dL (65-110); Magnesium 2.1 mg/dL (1.6-2.3); Sodium 135 mmol/L (137-145); Total Protein 5.4 g/dL (6.3-8.2)
--- NOTE | 2024-12-10 08:44 | P.PNIM_ITS ---
Progress Note: A&P Assessment and Plan (1) Acute diverticulitis: Code(s): K57.92 - Diverticulitis of intestine, part unspecified, without perforation or abscess without bleeding Status: Acute Assessment and Plan: patient with recurrent diverticulitis recently discharged on Flagyl and Levaquin failed outpatient therapy CT abdomen showing advancement of diverticulitis GI has been consulted will continue with IV Zosyn and advance diet as tolerated. GI has already plan for outpatient colonoscopy once acute infectious processes resolved with plans for possible surgery of sigmoidectomy. * continue IV Zosyn * full liquid diet advance as tolerated * IV fluids D/C with oral intake * Pain management IV Dilaudid changed from morphine morphine cause abdominal spasms * Blood cultures NGTD x 48hrs * PPI * Monitor electrolytes especially potassium magnesium replenish to keep mag >2.0 and K+ >4.0 * C-diff negative * Plan to D/C on 10 day Augmentin (2) Nausea & vomiting: Qualifiers: Vomiting type: unspecified Qualified Code(s): R11.2 - Nausea with vomiting, unspecified Code(s): R11.2 - Nausea with vomiting, unspecified Status: Acute Assessment and Plan: SEE ABOVE * continue antiemetics (3) Essential (primary) hypertension: Code(s): I10 - Essential (primary) hypertension Status: Chronic Assessment and Plan: Blood pressure currently soft due to dehydration with nausea and vomiting will hold lisinopril Lasix will resume when BP tolerates * BP monitoring per unit protocol (4) Normocytic anemia: Code(s): D64.9 - Anemia, unspecified Status: Acute Assessment and Plan: No signs of acute bleeding chronic anemia and some dilution from IV fluids * trend daily * Transfuse PRBC Hgb <7.0 (5) Seizure disorder: Code(s): G40.909 - Epilepsy, unspecified, not intractable, without status epilepticus Status: Acute Assessment and Plan: * continued carbamazepine 400 mg HS (6) Obstructive sleep apnea: Code(s): G47.33 - Obstructive sleep apnea (adult) (pediatric) Status: Chronic Assessment and Plan: history of sleep apnea but patient does not currently wears CPAP at home * oxygen p.r.n. maintain 92% (7) Lymphedema: Code(s): I89.0 - Lymphedema, not elsewhere classified Status: Acute Assessment and Plan: Patient with BLE edema no previous echo will evaluate cardiac currently receiving aggressive IV hydration for diverticulitis Echo Left ventricle d iastolic function is abnormal LVEF 55-60%, mild TR * elevate legs when at rest * added compression stockings/sandie wraps 06/15 (8) Cellulitis of left leg: Code(s): L03.116 - Cellulitis of left lower limb Status: Acute Assessment and Plan: LLE with area of erythema and warmth improving * Coverage with IV zosyn * Blood cultures NGTD Plan Code status: Full code per patient DVT prophylaxis: SCD Stress ulcer prophylaxis: Protonix 40 daily PT/OT notes: ambulatory Disposition: patient continues admission to the medical unit on IV Zosyn for recurrent diverticulitis will continue with current treatment and advance diet as tolerated plan for follow up outpatient with GI once acute infectious episode has resolved for colonoscopy and possible surgery. Time Spent With Patient Time with patient: 15 - 25 minutes Subjective Date/time seen: 12/10/24 08:44 Interval history: patient is a 69-year-old female admitted to the hospital for diverticulitis that failed outpatient therapy and recent recurrence GI has been consulted will continue with IV Zosyn and advance diet as tolerated. 12/10/2024: Patient still with LLQ tenderness and pain only able to tolerate minimal liquid diet. Afebrile and normal leukocytosis. Review of Systems Review of Systems: 12 systems were reviewed and are negativ e except for as per HPI. All systems reviewed & are unremarkable except as noted in HPI and below Exam Narrative: General: NAD Respiratory: Clear to auscultation Cardiovascular: RRR Abdomen: Soft, tenderness, Bowel sounds all 4Q Extremities: BLE swelling Neuro: Alert and orientated x 4. Skin: LLE with erythema warmth Psych: pleasant, cooperative Objective Data Vital Signs Vital Signs: Vital Signs - 24 hr 12/09/24 14:00 12/09/24 20:00 12/09/24 22:00 Temperature 99.5 F 98.6 F Pulse Rate 102 H 91 Respiratory Rate 20 18 Blood Pressure 119/53 L 119/45 L Pulse Oximetry 98 98 Oxygen Delivery Room Air 12/10/24 06:00 Temperature 98.5 F Pulse Rate 88 Respiratory Rate 18 Blood Pressure 118/49 L Pulse Oximetry 99 Oxygen Delivery Intake/Output Intake/Output: Intake & Output 12/07/24 12/08/24 12/09/24 12/10/24 23:59 23:59 23:59 23:59 Intake Total 2450 3380 420 Balance 2450 3380 420 Meds/Results Medications: Active Medications Generic Name Dose Route Start Last Admin Trade Name Freq PRN Reason Stop Dose Admin Bisacodyl 5 mg 12/09/24 14:07 Bisacodyl 5 Mg Tablet Ec PO DAILY PRN Constipation Carbamazepine 400 mg 12/09/24 21:00 12/09/24 20:39 Carbamazepine 200 Mg Tablet PO 400 mg QHS DAKSHA Administration Duloxetine HCl 60 mg 12/08/24 18:00 12/09/24 16:55 Duloxetine Hcl 30 Mg Capsule.Dr BY MOUTH 60 mg EVENING DAKSHA Administration Enoxaparin Sodium 40 mg 12/09/24 09:00 12/09/24 10:27 Enoxaparin 40 Mg/0.4 Ml Syringe SUB-Q 40 mg DAILY DAKSHA Administration Hydromorphone HCl 0.5 mg 12/09/24 08:27 Hydromorphone Hcl Inj (*Crx) 2 Mg/Ml Vial IV PUSH Q3H PRN Pain Rated 7-10 Piperacillin/Tazobactam/Dextrose 3.375 gm in 50 mls @ 100 mls/hr 12/08/24 16:0 0 12/10/24 05:27 Zosyn 3.375 Gm/Ns 50 Ml IVPB 100 mls/hr Q6H DAKSHA Administration Latanoprost 1 drop 12/09/24 21:00 12/09/24 20:39 Latanoprost 0.005% Op Soln 2.5 Ml Btl EACH EYE 1 drop HS DAKSHA Administration Loratadine 10 mg 12/09/24 21:00 12/09/24 20:39 Loratadine 10 Mg Tablet PO 10 mg QHS DAKSHA Administration Miscellaneous Information 0 each 12/09/24 00:01 Clarify Which To Use 1st, Miralax Or Bisacodyl XX 01/08/25 00:00 CLARIFY DAKSHA Ondansetron HCl 4 mg 12/08/24 16:27 12/09/24 14:56 Ondansetron Inj 4 Mg/2 Ml Vial IV PUSH 4 mg Q4H PRN Administration Nausea And Vomiting Perflutren Lipid Microsphere 0 ml 12/09/24 14:06 Perflutren Lipid Microspheres 1.5 Ml Vial Diluted To 10 Ml Total Volume IV PUSH 12/12/24 14:06 ONCE PRN adequate visualization Protocol Polyethylene Glycol 17 gm 12/09/24 14:07 Polyethylene Glycol 3350 17 Gm Powd.Pack PO DAILY PRN constipation Rosuvastatin Calcium 40 mg 12/08/24 21:00 12/09/24 20:39 Rosuvastatin 20 Mg Tablet PO 40 mg HS DAKSHA Administration Trazodone HCl 100 mg 12/08/24 21:00 12/09/24 20:38 Trazodone Hcl 50 Mg Tablet PO 100 mg HS DAKSHA Administration Radiology Results: ITS Impressions Abdomen/Pelvis CT 12/08/24 11:25 IMPRESSION: 1. Progression of acute proximal sigmoid diverticulitis without evidence for abscess. Recommend follow-up evaluation to exclude underlying colon mass when the patient's condition permits. Labs Labs: Laboratory Results - last 24 hr 12/09/24 12/09/24 12/10/24 05:22 14:50 05:51 WBC 5.0 RBC 2.76 L Hgb 8.5 L Hct 27.4 L MCV 99.3 MCH 30.8 MCHC 31.0 L RDW 14.8 H Plt Count 171 MPV 9.7 Sodium 135 L Potassium 4.0 Chloride 105 Carbon Dioxide 25 Anion Gap 5 BUN 16 Creatinine 1.10 H Estim Creat Clear Calc 49 Estimated GFR 49 L Glucose 96 Calcium 8.4 Magnesium 2.2 2.1 Total Bilirubin 0.2 AST 30 ALT 14 Alkaline Phosphatase 52 Total Protein 5.4 L Albumin 2.9 L C. difficile (PCR) Negative Quality VTE Prophylaxis VTE prophylaxis: mechanical ordered -Patient's previous records reviewed on admission -ER notes reviewed in detail on admission -discussed all findings and current treatment plan with patient/Family/POA -Consultations reviewed for recommendations -Patient's disposition for safe discharge discussed with case making machine operator Dictation performed by i[employer] direct speech recognition software, therefore pesticide applicator variants and typographical errors may occur. Hospitalist MIPS Advance Care Plan I have confirmed that the patient's Advanced Care Plan is present, code status is documented, or surrogate decision maker is listed in patient medical record.: Yes Medication Reconciliation I have utilized all available resources to obtain, update and review the patients current medications (includes all prescriptions, OTC, herbals, cannabis, and nutritional supplements).: Yes The patient is not eligible for med reconciliation; the patient is in a emergent medical situation where delaying treatment would jeopardize the patients health.: No
[2024-12-10] MEDS: ENOXAPARIN 40 MG/0.4 ML SYRINGE SUB-Q (10:32)
--- NOTE | 2024-12-10 11:15 | WPDGIPROGNO ---
Progress Note: A&P Assessment and Plan (1) Diverticulitis: Code(s): K57.92 - Diverticulitis of intestine, part unspecified, without perforation or abscess without bleeding Status: Acute Assessment and Plan: Patient with acute diverticulitis, which is recurrent. Receiving intravenous antibiotics and will anticipate discharge only when pain and tenderness are significantly improved. Plan to discharge on a ten-day course of Augmentin possibly early This week. Subjective Date/time seen: 12/10/24 11:15 Interval history: Feeling much better than yesterday, still having some pain in the left lower q Exam Narrative: Compared to yesterday's, there is less tenderness to deep palpation in both suprapubic and left lower quadrant areas, however there is still some rebound present. The rest of the examination is unchanged. Objective Data Vital Signs Vital Signs: Vital Signs - 24 hr 12/09/24 14:00 12/09/24 20:00 12/09/24 22:00 Temperature 99.5 F 98.6 F Pulse Rate 102 H 91 Respiratory Rate 20 18 Blood Pressure 119/53 L 119/45 L Pulse Oximetry 98 98 Oxygen Delivery Room Air 12/10/24 06:00 Temperature 98.5 F Pulse Rate 88 Respiratory Rate 18 Blood Pressure 118/49 L Pulse Oximetry 99 Oxygen Delivery Intake/Output Intake/Output: Intake & Output 12/07/24 12/08/24 12/09/24 12/10/24 23:59 23:59 23:59 23:59 Intake Total 2450 3380 470 Balance 2450 3380 470 Meds/Results Medications: Active Medications Generic Name Dose Route Start Last Admin Trade Name Freq PRN Reason Stop Dose Admin Bisacodyl 5 mg 12/09/24 14:07 Bisacodyl 5 Mg Tablet Ec PO DAILY PRN Constipation Carbamazepine 400 mg 12/09/24 21:00 12/09/24 20:39 Carbamazepine 200 Mg Tablet PO 400 mg QHS DAKSHA Administration Duloxetine HCl 60 mg 12/08/24 18:00 12/09/24 16:55 Duloxetine Hcl 30 Mg Capsule.Dr BY MOUTH 60 mg EVENING DAKSHA Administration Enoxaparin Sodium 40 mg 12/09/24 09:00 12/10/24 10:32 Enoxaparin 40 Mg/0.4 Ml Syringe SUB-Q 40 mg DAILY DAKSHA Administration Hydromorphone HCl 0.5 mg 12/09/24 08:27 Hydromorphone Hcl Inj (*Crx) 2 Mg/Ml Vial IV PUSH Q3H PRN Pain Rated 7-10 Piperacillin/Tazobactam/Dextrose 3.375 gm in 50 mls @ 100 mls/hr 12/08/24 16:00 12/10/24 05:57 Zosyn 3.375 Gm/Ns 50 Ml IVPB Infused Q6H DAKSHA Infusion Latanoprost 1 drop 12/09/24 21:00 12/09/24 20:39 Latanoprost 0.005% Op Soln 2.5 Ml Btl EACH EYE 1 drop HS DAKSHA Administration Loratadine 10 mg 12/09/24 21:00 12/09/24 20:39 Loratadine 10 Mg Tablet PO 10 mg QHS DAKSHA Administration Miscellaneous Information 0 each 12/09/24 00:01 Clarify Which To Use 1st, Miralax Or Bisacodyl XX 01/08/25 00:00 CLARIFY DAKSHA Ondansetron HCl 4 mg 12/08/24 16:27 12/09/24 14:56 Ondansetron Inj 4 Mg/2 Ml Vial IV PUSH 4 mg Q4H PRN Administration Nausea And Vomiting Perflutren Lipid Microsphere 0 ml 12/09/24 14:06 Perflutren Lipid Microspheres 1.5 Ml Vial Diluted To 10 Ml Total Volume IV PUSH 12/12/24 14:06 ONCE PRN adequate visualization Protocol Polyethylene Glycol 17 gm 12/09/24 14:07 Polyethylene Glycol 3350 17 Gm Powd.Pack PO DAILY PRN constipation Rosuvastatin Calcium 40 mg 12/08/24 21:00 12/09/24 20:39 Rosuvastatin 20 Mg Tablet PO 40 mg HS DAKSHA Administration Trazodone HCl 100 mg 12/08/24 21:00 12/09/24 20:38 Trazodone Hcl 50 Mg Tablet PO 100 mg HS DAKSHA Administration Radiology Results: ITS Impressions Abdomen/Pelvis CT 12/08/24 11:25 IMPRESSION: 1. Progression of acute proximal sigmoid diverticulitis without evidence for abscess. Recommend follow-up evaluation to exclude underlying colon mass when the patient's condition permits. Labs Labs: Laboratory Results - last 24 hr 12/09/24 12/10/24 14:50 05:51 WBC 5.0 RBC 2.76 L Hgb 8.5 L Hct 27.4 L MCV 99.3 MCH 30.8 MCHC 31.0 L RDW 14.8 H Plt Count 171 MPV 9.7 Sodium 135 L Potassium 4.0 Chloride 105 Carbon Dioxide 25 Anion Gap 5 BUN 16 Creatinine 1.10 H Estim Creat Clear Calc 49 Estimated GFR 49 L Glucose 96 Calcium 8.4 Magnesium 2.1 Total Bilirubin 0.2 AST 30 ALT 14 Alkaline Phosphatase 52 Total Protein 5.4 L Albumin 2.9 L C. difficile (PCR) Negative
[2024-12-10 14:00] VITALS: BP 129/52; PULSE 82; RESP 16; TEMP 36.7; O2SAT 100
[2024-12-10] MEDS: DULoxetine HCL 30 MG CAPSULE.DR 60 MG BY MOUTH (18:27)
[2024-12-10 21:09] VITALS: BP 154/78; PULSE 96; RESP 20; TEMP 36.2; O2SAT 97
[2024-12-10] MEDS: LORATADINE 10 MG TABLET PO (21:18)
[2024-12-10] MEDS: ROSUVASTATIN 20 MG TABLET 40 MG PO (21:18)
[2024-12-10] MEDS: carBAMazepine 200 MG TABLET 400 MG PO (21:18)
[2024-12-10] MEDS: traZODone HCL 50 MG TABLET 100 MG PO (21:18)
[2024-12-10] MEDS: LATANOPROST 0.005% OP SOLN 2.5 ML BTL 1 DROP EACH EYE (21:19)
[2024-12-11 05:11] VITALS: BP 161/81; PULSE 107; RESP 18; TEMP 36.4; O2SAT 97
[2024-12-11] MEDS: PIPERACILLN/TAZ 3.375GM/NS50ML 3.375 GM/50 ML BAG IVPB ×4 (05:29→21:35)
[2024-12-11 06:25] LABS: Hemoglobin 8.4 g/dL (12.0-15.0); Mean Corpuscular HGB Conc 32.3 g/dl (32-36); Mean Corpuscular Hemoglobin 30.9 pg (26-34); Mean Corpuscular Volume 95.6 fl (80-100); Mean Platelet Volume 9.9 fl (7.4-10.4); Platelet Count Result 187 k/mm3 (150-375); Red Blood Count 2.72 M/mm3 (4.2-5.4); Red Cell Distribution Width 14.6 % (11.5-14.5); White Blood Count 4.4 K/mm3 (4.5-10.0)
[2024-12-11 06:42] LABS: Alanine Aminotransferase 12 U/L (6-35); Albumin Level 2.9 g/dL (3.5-5.1); Alkaline Phosphatase 44 U/L (38-126); Anion Gap 4 mmol/L (4-12); Aspartate Amino Transferase 21 U/L (14-36); Bilirubin,Total 0.2 mg/dL (0.2-1.3); Blood Urea Nitrogen 15 mg/dL (7-17); Calcium 8.3 mg/dL (8.4-10.2); Carbon Dioxide 24 mmol/L (22-30); Chloride 105 mmol/L (98-107); Estimated CRCL calculation 61 ml/min; Estimated Glomerular Filt Rate > 60; Glucose 98 mg/dL (65-110); Potassium 3.9 mmol/L (3.4-5.0); Sodium 133 mmol/L (137-145); Total Protein 5.4 g/dL (6.3-8.2)
[2024-12-11] MEDS: ENOXAPARIN 40 MG/0.4 ML SYRINGE SUB-Q (09:24)
--- NOTE | 2024-12-11 10:49 | P.CDI_ITS ---
CDI Query Clarification Request Patient with a BMI of 45.9 please provide a diagnosis to accompany this finding: * Overweight * Obesity * Morbid Obesity * Other/Unknown <Angélica Miller RN - Last Filed: 12/11/24 10:50> Clarified Diagnosis Clarified Diagnosis: Morbid obesity <Anastasiya Minor APRN - Last Filed: 12/11/24 15:07>
[2024-12-11 13:56] VITALS: BP 151/68; PULSE 78; RESP 16; TEMP 37.1; O2SAT 98
--- NOTE | 2024-12-11 14:15 | WPDGIPROGNO ---
Progress Note: A&P Assessment and Plan (1) Acute diverticulitis: Code(s): K57.92 - Diverticulitis of intestine, part unspecified, without perforation or abscess without bleeding Status: Acute Assessment and Plan: Patient with smoldering acute diverticulitis continues to improve on IV Zosyn. Given her positive clinical response, a transition to oral Augmentin is being considered for tomorrow, facilitating an early discharge. She will complete a total of 10 days of antibiotic therapy.total of 10 days. Subjective Date/time seen: 12/11/24 14:15 Interval history: The patient feels gradually better, no spontaneous abdominal pain. She has difficulty urinating, which she experienced before in her prior diverticulitis episodes. Exam Narrative: Abdomen: Soft , less tenderness in the left lower quadrant compared to prior days, still some rebound tenderness. Objective Data Vital Signs Vital Signs: Vital Signs - 24 hr 12/10/24 20:00 12/10/24 21:09 12/11/24 05:11 Temperature 97.2 F L 97.5 F L Pulse Rate 96 107 H Respiratory Rate 20 18 Blood Pressure 154/78 H 161/81 H Pulse Oximetry 97 97 Oxygen Delivery Room Air 12/11/24 08:00 12/11/24 13:56 Temperature 98.7 F Pulse Rate 78 Respiratory Rate 16 Blood Pressure 151/68 H Pulse Oximetry 98 Oxygen Delivery Room Air Intake/Output Intake/Output: Intake & Output 12/08/24 12/09/24 12/10/24 12/11/24 23:59 23:59 23:59 23:59 Intake Total 2450 3380 1320 810 Balance 2450 3380 1320 810 Meds/Results Medications: Active Medications Generic Name Dose Route Start Last Admin Trade Name Freq PRN Reason Stop Dose Admin Bisacodyl 5 mg 12/09/24 14:07 Bisacodyl 5 Mg Tablet Ec PO DAILY PRN Constipation Carbamazepine 400 mg 12/09/24 21:00 12/10/24 21:18 Carbamazepine 200 Mg Tablet PO 400 mg QHS DAKSHA Administration Duloxetine HCl 60 mg 12/08/24 18:00 12/10/24 18:27 Duloxetine Hcl 30 Mg Capsule.Dr BY MOUTH 60 mg EVENING DAKSHA Administration Enoxaparin Sodium 40 mg 12/09/24 09:00 12/11/24 09:24 Enoxaparin 40 Mg/0.4 Ml Syringe SUB-Q 40 mg DAILY DAKSHA Administration Hydromorphone HCl 0.5 mg 12/09/24 08:27 Hydromorphone Hcl Inj (*Crx) 2 Mg/Ml Vial IV PUSH Q3H PRN Pain Rated 7-10 Piperacillin/Tazobactam/Dextrose 3.375 gm in 50 mls @ 100 mls/hr 12/08/24 16:00 12/11/24 10:31 Zosyn 3.375 Gm/Ns 50 Ml IVPB 100 mls/hr Q6H DAKSHA Administration Latanoprost 1 drop 12/09/24 21:00 12/10/24 21:19 Latanoprost 0.005% Op Soln 2.5 Ml Btl EACH EYE 1 drop HS DAKSHA Administration Loratadine 10 mg 12/09/24 21:00 12/10/24 21:18 Loratadine 10 Mg Tablet PO 10 mg QHS DAKSHA Administration Miscellaneous Information 0 each 12/09/24 00:01 Clarify Which To Use 1st, Miralax Or Bisacodyl XX 01/08/25 00:00 CLARIFY DAKSHA Ondansetron HCl 4 mg 12/08/24 16:27 12/09/24 14:56 Ondansetron Inj 4 Mg/2 Ml Vial IV PUSH 4 mg Q4H PRN Administration Nausea And Vomiting Perflutren Lipid Microsphere 0 ml 12/09/24 14:06 Perflutren Lipid Microspheres 1.5 Ml Vial Diluted To 10 Ml Total Volume IV PUSH 12/12/24 14:06 ONCE PRN adequate visualization Protocol Polyethylene Glycol 17 gm 12/09/24 14:07 Polyethylene Glycol 3350 17 Gm Powd.Pack PO DAILY PRN constipation Rosuvastatin Calcium 40 mg 12/08/24 21:00 12/10/24 21:18 Rosuvastatin 20 Mg Tablet PO 40 mg HS DAKSHA Administration Sodium Chloride 10 ml 12/11/24 14:00 Saline Lock Flush IV PUSH Q8HR DAKSHA Sodium Chloride 10 ml 12/11/24 12:53 Saline Lock Flush IV PUSH PRN PRN Flush Sodium Chloride 20 ml 12/11/24 12:53 Saline Lock Flush IV PUSH PRN PRN after blood draws Trazodone HCl 100 mg 12/08/24 21:00 12/10/24 21:18 Trazodone Hcl 50 Mg Tablet PO 100 mg HS DAKSHA Administration Radiology Results: ITS Impressions Abdomen/Pelvis CT 12/08/24 11:25 IMPRESSION: 1. Progression of acute proximal sigmoid diverticulitis without evidence for abscess. Recommend follow-up evaluation to exclude underlying colon mass when the patient's condition permits. Labs Labs: Laboratory Results - last 24 hr 12/11/24 05:56 WBC 4.4 L RBC 2.72 L Hgb 8.4 L Hct 26.0 L MCV 95.6 MCH 30.9 MCHC 32.3 RDW 14.6 H Plt Count 187 MPV 9.9 Sodium 133 L Potassium 3.9 Chloride 105 Carbon Dioxide 24 Anion Gap 4 BUN 15 Creatinine 0.88 Estim Creat Clear Calc 61 Estimated GFR > 60 Glucose 98 Calcium 8.3 L Magnesium 2.0 Total Bilirubin 0.2 AST 21 ALT 12 Alkaline Phosphatase 44 Total Protein 5.4 L Albumin 2.9 L
--- NOTE | 2024-12-11 14:24 | P.PNIM_ITS ---
Progress Note: A&P Assessment and Plan (1) Acute diverticulitis: Code(s): K57.92 - Diverticulitis of intestine, part unspecified, without perforation or abscess without bleeding Status: Acute Assessment and Plan: patient with recurrent diverticulitis recently discharged on Flagyl and Levaquin failed outpatient therapy CT abdomen showing advancement of diverticulitis GI has been consulted will continue with IV Zosyn and advance diet as tolerated. GI has already plan for outpatient colonoscopy once acute infectious processes resolved with plans for possible surgery of sigmoidectomy. * continue IV Zosyn * full liquid diet will advance today * IV fluids D/C with oral intake * Pain management IV Dilaudid changed from morphine morphine cause abdominal spasms * Blood cultures NGTD x 48hrs * PPI * Monitor electrolytes especially potassium magnesium replenish to keep mag >2.0 and K+ >4.0 * C-diff negative * Plan to D/C on 10 day Augmentin hopefully tomorrow 12/12/2024 if tolerating full diet (2) Nausea & vomiting: Qualifiers: Vomiting type: unspecified Qualified Code(s): R11.2 - Nausea with vomiting, unspecified Code(s): R11.2 - Nausea with vomiting, unspecified Status: Acute Assessment and Plan: SEE ABOVE * continue antiemetics (3) Essential (primary) hypertension: Code(s): I10 - Essential (primary) hypertension Status: Chronic Assessment and Plan: Blood pressure currently soft due to dehydration with nausea and vomiting will hold lisinopril Lasix will resume when BP tolerates * BP monitoring per unit protocol (4) Normocytic anemia: Code(s): D64.9 - Anemia, unspecified Status: Acute Assessment and Plan: No signs of acute bleeding chronic anemia and some dilution from IV fluids * trend daily * Transfuse PRBC Hgb <7.0 (5) Seizure disorder: Code(s): G40.909 - Epilepsy, unspecified, not intractable, without status epilepticus Status: Acute Assessment and Plan: * continued carbamazepine 400 mg HS (6) Obstructive sleep apnea: Code(s): G47.33 - Obstructive sleep apnea (adult) (pediatric) Status: Chronic Assessment and Plan: history of sleep apnea but patient does not currently wears CPAP at home * oxygen p.r.n. maintain 92% (7) Lymphedema: Code(s): I89.0 - Lymphedema, not elsewhere classified Status: Acute Assessment and Plan: Patient with BLE edema no previous echo will evaluate cardiac currently receiving aggressive IV hydration for diverticulitis Echo Left ventricle diastolic function is abnormal LVEF 55-60%, mild TR * elevate legs when at rest * added compression stockings/sandie wraps 06/15 * SCD's (8) Cellulitis of left leg: Code(s): L03.116 - Cellulitis of left lower limb Status: Acute Assessment and Plan: LLE with area of erythema and warmth improving * Coverage with IV zosyn * Blood cultures NGTD Plan Code status: Full code per patient DVT prophylaxis: SCD Stress ulcer prophylaxis: Protonix 40 daily PT/OT notes: ambulatory Disposition: patient continues admission to the medical unit on IV Zosyn for recurrent diverticulitis will continue with current treatment and advance diet as tolerated plan for follow up outpatient with GI once acute infectious episode has resolved for colonoscopy and possible surgery. Time Spent With Patient Time with patient: 15 - 25 minutes Subjective Date/time seen: 12/11/24 14:24 Interval history: patient is a 69-year-old female admitted to the hospital for diverticulitis that failed outpatient therapy and recent recurrence GI has been consulted will continue with IV Zosyn and advance diet as tolerated. 12/11/2024: Patient ABD pain improved today able to tolerate her full liquid diet will advance today. Still some diarrhea c-diff was negative. Hopefully if she can tolerate diet can discharge tomorrow on oral Augmentin. Review of Systems Review of Systems: 12 systems were reviewed and are negativ e except for as per HPI. All systems reviewed & are unremarkable except as noted in HPI and below Exam Narrative: General: NAD Respiratory: Clear to auscultation Cardiovascular: RRR Abdomen: Soft, mild tenderness, Bowel sounds all 4Q Extremities: BLE swelling Neuro: Alert and orientated x 4. Skin: LLE with erythema warmth Psych: pleasant, cooperative Objective Data Vital Signs Vital Signs: Vital Signs - 24 hr 12/10/24 20:00 12/10/24 21:09 12/11/24 05:11 Temperature 97.2 F L 97.5 F L Pulse Rate 96 107 H Respiratory Rate 20 18 Blood Pressure 154/78 H 161/81 H Pulse Oximetry 97 97 Oxygen Delivery Room Air 12/11/24 08:00 12/11/24 13:56 Temperature 98.7 F Pulse Rate 78 Respiratory Rate 16 Blood Pressure 151/68 H Pulse Oximetry 98 Oxygen Delivery Room Air Intake/Output Intake/Output: Intake & Output 12/08/24 12/09/24 12/10/24 12/11/24 23:59 23:59 23:59 23:59 Intake Total 2450 3380 1320 810 Balance 2450 3380 1320 810 Meds/Results Medications: Active Medications Generic Name Dose Route Start Last Admin Trade Name Freq PRN Reason Stop Dose Admin Bisacodyl 5 mg 12/09/24 14:07 Bisacodyl 5 Mg Tablet Ec PO DAILY PRN Constipation Carbamazepine 400 mg 12/09/24 21:00 12/10/24 21:18 Carbamazepine 200 Mg Tablet PO 400 mg QHS DAKSHA Administration Duloxetine HCl 60 mg 12/08/24 18:00 12/10/24 18:27 Duloxetine Hcl 30 Mg Capsule.Dr BY MOUTH 60 mg EVENING DAKSHA Administration Enoxaparin Sodium 40 mg 12/09/24 09:00 12/11/24 09:24 Enoxaparin 40 Mg/0.4 Ml Syringe SUB-Q 40 mg DAILY DAKSHA Administration Hydromorphone HCl 0.5 mg 12/09/24 08:27 Hydromorphone Hcl Inj (*Crx) 2 Mg/Ml Vial IV PUSH Q3H PRN Pain Rated 7-10 Piperacillin/Tazobactam/Dextrose 3.375 gm in 50 mls @ 100 mls/hr 12/08/24 16:00 12/11/24 10:31 Zosyn 3.375 Gm/Ns 50 Ml IVPB 100 mls/hr Q6H DAKSHA Administration Latanoprost 1 drop 12/09/24 21:00 12/10/24 21:19 Latanoprost 0.005% Op Soln 2.5 Ml Btl EACH EYE 1 drop HS DAKSHA Administration Loratadine 10 mg 12/09/24 21:00 12/10/24 21:18 Loratadine 10 Mg Tablet PO 10 mg QHS DAKSHA Administration Miscellaneous Information 0 each 12/09/24 00:01 Clarify Which To Use 1st, Miralax Or Bisacodyl XX 01/08/25 00:00 CLARIFY DAKSHA Ondansetron HCl 4 mg 12/08/24 16:27 12/09/24 14:56 Ondansetron Inj 4 Mg/2 Ml Vial IV PUSH 4 mg Q4H PRN Administration Nausea And Vomiting Perflutren Lipid Microsphere 0 ml 12/09/24 14:06 Perflutren Lipid Microspheres 1.5 Ml Vial Diluted To 10 Ml Total Volume IV PUSH 12/12/24 14:06 ONCE PRN adequate visualization Protocol Polyethylene Glycol 17 gm 12/09/24 14:07 Polyethylene Glycol 3350 17 Gm Powd.Pack PO DAILY PRN constipation Rosuvastatin Calcium 40 mg 12/08/24 21:00 12/10/24 21:18 Rosuvastatin 20 Mg Tablet PO 40 mg HS DAKSHA Administration Sodium Chloride 10 ml 12/11/24 14:00 Saline Lock Flush IV PUSH Q8HR DAKSHA Sodium Chloride 10 ml 12/11/24 12:53 Saline Lock Flush IV PUSH PRN PRN Flush Sodium Chloride 20 ml 12/11/24 12:53 Saline Lock Flush IV PUSH PRN PRN after blood draws Trazodone HCl 100 mg 12/08/24 21:00 12/10/24 21:18 Trazodone Hcl 50 Mg Tablet PO 100 mg HS DAKSHA Administration Radiology Results: ITS Impressions Abdomen/Pelvis CT 12/08/24 11:25 IMPRESSION: 1. Progression of acute proximal sigmoid diverticulitis without evidence for abscess. Recommend follow-up evaluation to exclude underlying colon mass when the patient's condition permits. Labs Labs: Laboratory Results - last 24 hr 12/11/24 05:56 WBC 4.4 L RBC 2.72 L Hgb 8.4 L Hct 26.0 L MCV 95.6 MCH 30.9 MCHC 32.3 RDW 14.6 H Plt Count 187 MPV 9.9 Sodium 133 L Potassium 3.9 Chloride 105 Carbon Dioxide 24 Anion Gap 4 BUN 15 Creatinine 0.88 Estim Creat Clear Calc 61 Estimated GFR > 60 Glucose 98 Calcium 8.3 L Magnesium 2.0 Total Bilirubin 0.2 AST 21 ALT 12 Alkaline Phosphatase 44 Total Protein 5.4 L Albumin 2.9 L Quality VTE Prophylaxis VTE prophylaxis: mechanical ordered -Patient's previous records reviewed on admission -ER notes reviewed in detail on admission -discussed all findings and current treatment plan with patient/Family/POA -Consultations reviewed for recommendations -Patient's disposition for safe discharge discussed with manager of case Dictation performed by [employer] direct speech recognition software, therefore seat trimmer variants and typographical errors may occur. Hospitalist MIPS Advance Care Plan I have confirmed that the patient's Advanced Care Plan is present, code status is documented, or surrogate decision maker is listed in patient medical record.: Yes Medication Reconciliation I have utilized all available resources to obtain, update and review the patients current medications (includes all prescriptions, OTC, herbals, cannabis, and nutritional supplements).: Yes The patient is not eligible for med reconciliation; the patient is in a emergent medical situation where delaying treatment would jeopardize the patients health.: No
[2024-12-11] MEDS: SALINE LOCK FLUSH 10 ML IV PUSH ×2 (14:37→21:36)
[2024-12-11] MEDS: DULoxetine HCL 30 MG CAPSULE.DR 60 MG BY MOUTH (17:31)
[2024-12-11 21:08] VITALS: BP 165/69; PULSE 83; RESP 18; TEMP 36.8; O2SAT 99
[2024-12-11] MEDS: carBAMazepine 200 MG TABLET 400 MG PO (21:34)
[2024-12-11] MEDS: traZODone HCL 50 MG TABLET 100 MG PO (21:35)
[2024-12-11] MEDS: ROSUVASTATIN 20 MG TABLET 40 MG PO (21:35)
[2024-12-11] MEDS: LATANOPROST 0.005% OP SOLN 2.5 ML BTL 1 DROP EACH EYE (21:35)
[2024-12-11] MEDS: LORATADINE 10 MG TABLET PO (21:35)
[2024-12-12 05:09] VITALS: BP 158/85; PULSE 100; RESP 20; TEMP 36.7; O2SAT 94
[2024-12-12] MEDS: PIPERACILLN/TAZ 3.375GM/NS50ML 3.375 GM/50 ML BAG IVPB ×2 (05:17→09:35)
[2024-12-12] MEDS: SALINE LOCK FLUSH 10 ML IV PUSH (05:18)
[2024-12-12 06:07] LABS: Hematocrit 27.9 % (37.0-47.0); Hemoglobin 8.9 g/dL (12.0-15.0); Mean Corpuscular HGB Conc 31.9 g/dl (32-36); Mean Corpuscular Hemoglobin 30.6 pg (26-34); Mean Corpuscular Volume 95.9 fl (80-100); Mean Platelet Volume 9.6 fl (7.4-10.4); Platelet Count Result 214 k/mm3 (150-375); Red Blood Count 2.91 M/mm3 (4.2-5.4); Red Cell Distribution Width 14.6 % (11.5-14.5); White Blood Count 4.6 K/mm3 (4.5-10.0)
[2024-12-12 06:22] LABS: Alanine Aminotransferase 14 U/L (6-35); Albumin Level 3.1 g/dL (3.5-5.1); Alkaline Phosphatase 42 U/L (38-126); Anion Gap 5 mmol/L (4-12); Aspartate Amino Transferase 23 U/L (14-36); Bilirubin,Total 0.2 mg/dL (0.2-1.3); Blood Urea Nitrogen 14 mg/dL (7-17); Calcium 8.7 mg/dL (8.4-10.2); Carbon Dioxide 26 mmol/L (22-30); Chloride 106 mmol/L (98-107); Estimated CRCL calculation 56 ml/min; Estimated Glomerular Filt Rate 58; Glucose 125 mg/dL (65-110); Magnesium 1.9 mg/dL (1.6-2.3); Sodium 137 mmol/L (137-145); Total Protein 5.8 g/dL (6.3-8.2)
--- NOTE | 2024-12-12 08:16 | WPDGIPROGNO ---
Progress Note: A&P Assessment and Plan (1) Acute diverticulitis: Code(s): K57.92 - Diverticulitis of intestine, part unspecified, without perforation or abscess without bleeding Status: Acute Assessment and Plan: Patient with acute diverticulitis, responding well to Zosyn intravenously, ready to be discharged. As discussed yesterday, recommended Augmentin 1 g twice a day for 10 more days. a colonoscopy might be done no sooner than 8 weeks from now. she should also have be followed by surgery. Subjective Date/time seen: 12/12/24 08:16 Interval history: The patient feels better, almost no abdominal serafin Exam Narrative: Abdomen: Minimal tenderness to deep palpation. Rest of the exam unchanged. Objective Data Vital Signs Vital Signs: Vital Signs - 24 hr 12/11/24 13:56 12/11/24 15:55 12/11/24 20:00 Temperature 98.7 F Pulse Rate 78 Respiratory Rate 16 Blood Pressure 151/68 H Pulse Oximetry 98 Oxygen Delivery Room Air Room Air 12/11/24 21:08 12/12/24 05:09 Temperature 98.2 F 98.0 F Pulse Rate 83 100 Respiratory Rate 18 20 Blood Pressure 165/69 H 158/85 H Pulse Oximetry 99 94 Oxygen Delivery Intake/Output Intake/Output: Intake & Output 12/09/24 12/10/24 12/11/24 12/12/24 23:59 23:59 23:59 23:59 Intake Total 3380 1320 1140 550 Balance 3380 1320 1140 550 Meds/Results Medications: Active Medications Generic Name Dose Route Start Last Admin Trade Name Freq PRN Reason Stop Dose Admin Bisacodyl 5 mg 12/09/24 14:07 Bisacodyl 5 Mg Tablet Ec PO DAILY PRN Constipation Carbamazepine 400 mg 12/09/24 21:00 12/11/24 21:34 Carbamazepine 200 Mg Tablet PO 400 mg QHS DAKSHA Administration Duloxetine HCl 60 mg 12/08/24 18:00 12/11/24 17:31 Duloxetine Hcl 30 Mg Capsule.Dr BY MOUTH 60 mg EVENING DAKSHA Administration Enoxaparin Sodium 40 mg 12/09/24 09:00 12/11/24 09:24 Enoxaparin 40 Mg/0.4 Ml Syringe SUB-Q 40 mg DAILY DAKSHA Administration Hydromorphone HCl 0.5 mg 12/09/24 08:27 Hydromorphone Hcl Inj (*Crx) 2 Mg/Ml Vial IV PUSH Q3H PRN Pain Rated 7-10 Piperacillin/Tazobactam/Dextrose 3.375 gm in 50 mls @ 100 mls/hr 12/08/24 16:00 12/12/24 05:17 Zosyn 3.375 Gm/Ns 50 Ml IVPB 100 mls/hr Q6H DAKSHA Administration Latanoprost 1 drop 12/09/24 21:00 12/11/24 21:35 Latanoprost 0.005% Op Soln 2.5 Ml Btl EACH EYE 1 drop HS DAKSHA Administration Loratadine 10 mg 12/09/24 21:00 12/11/24 21:35 Loratadine 10 Mg Tablet PO 10 mg QHS DAKSHA Administration Miscellaneous Information 0 each 12/09/24 00:01 Clarify Which To Use 1st, Miralax Or Bisacodyl XX 01/08/25 00:00 CLARIFY DAKSHA Ondansetron HCl 4 mg 12/08/24 16:27 12/09/24 14:56 Ondansetron Inj 4 Mg/2 Ml Vial IV PUSH 4 mg Q4H PRN Administration Nausea And Vomiting Perflutren Lipid Microsphere 0 ml 12/09/24 14:06 Perflutren Lipid Microspheres 1.5 Ml Vial Diluted To 10 Ml Total Volume IV PUSH 12/12/24 14:06 ONCE PRN adequate visualization Protocol Polyethylene Glycol 17 gm 12/09/24 14:07 Polyethylene Glycol 3350 17 Gm Powd.Pack PO DAILY PRN constipation Rosuvastatin Calcium 40 mg 12/08/24 21:00 12/11/24 21:35 Rosuvastatin 20 Mg Tablet PO 40 mg HS DAKSHA Administration Sodium Chloride 10 ml 12/11/24 14:00 12/12/24 05:18 Saline Lock Flush IV PUSH 10 ml Q8HR DAKSHA Administration Sodium Chloride 10 ml 12/11/24 12:53 Saline Lock Flush IV PUSH PRN PRN Flush Sodium Chloride 20 ml 12/11/24 12:53 Saline Lock Flush IV PUSH PRN PRN after blood draws Trazodone HCl 100 mg 12/08/24 21:00 12/11/24 21:35 Trazodone Hcl 50 Mg Tablet PO 100 mg HS DAKSHA Administration Radiology Results: ITS Impressions Abdomen/Pelvis CT 12/08/24 11:25 IMPRESSION: 1. Progression of acute proximal sigmoid diverticulitis without evidence for abscess. Recommend follow-up evaluation to exclude underlying colon mass when the patient's condition permits. Labs Labs: Laboratory Results - last 24 hr 12/12/24 05:53 WBC 4.6 RBC 2.91 L Hgb 8.9 L Hct 27.9 L MCV 95.9 MCH 30.6 MCHC 31.9 L RDW 14.6 H Plt Count 214 MPV 9.6 Sodium 137 Potassium 4.0 Chloride 106 Carbon Dioxide 26 Anion Gap 5 BUN 14 Creatinine 0.96 Estim Creat Clear Calc 56 Estimated GFR 58 L Glucose 125 H Calcium 8.7 Magnesium 1.9 Total Bilirubin 0.2 AST 23 ALT 14 Alkaline Phosphatase 42 Total Protein 5.8 L Albumin 3.1 L
[2024-12-12] MEDS: ENOXAPARIN 40 MG/0.4 ML SYRINGE SUB-Q (09:35)
--- NOTE | 2024-12-12 12:57 | P.DS_ITS ---
DS: Admitting Diagnosis Discharge Date 12/12/2024 Admitting Diagnosis Acute diverticulitis DS: Discharge Diagnosis Discharge Diagnosis (1) Acute diverticulitis: Code(s): K57.92 - Diverticulitis of intestine, part unspecified, without perforation or abscess without bleeding Status: Acute (2) Nausea & vomiting: Qualifiers: Vomiting type: unspecified Qualified Code(s): R11.2 - Nausea with vomiting, unspecified Code(s): R11.2 - Nausea with vomiting, unspecified Status: Acute (3) Essential (primary) hypertension: Code(s): I10 - Essential (primary) hypertension Status: Chronic (4) Normocytic anemia: Code(s): D64.9 - Anemia, unspecified Status: Acute (5) Seizure disorder: Code(s): G40.909 - Epilepsy, unspecified, not intractable, without status epilepticus Status: Acute (6) Obstructive sleep apnea: Code(s): G47.33 - Obstructive sleep apnea (adult) (pediatric) Status: Chronic (7) Lymphedema: Code(s): I89.0 - Lymphedema, not elsewhere classified Status: Acute (8) Cellulitis of left leg: Code(s): L03.116 - Cellulitis of left lower limb Status: Acute DS: Summary Hospital Course Reason for hospitalization: Acute diverticulitis Hospital Course: Admission: Patient was a 69-year-old female past medical history of diverticulitis, hypertension, hyperlipidemia, seizures, LANA, bilateral foot drop presents the hospital with abdominal pain and vomiting. Patient states that she has been taking her medication as prescribed however Due to patient not tolerating oral antibiotics due to severe vomiting she will be admitted to the hospital for IV antibiotics. Patient was recently admitted for recurring diverticulitis on 11/30/2024 where she was seen by GI after 5 days of hospitalization patient was discharged on oral antibiotics. Was recommended to follow-up with colonoscopy on 12/20/2024, follow-up with surgery after that. In the ED patient's hemoglobin is 10.5 with baseline being about 12, sodium of 132, BUN of 25, creatinine of 1, C-reactive protein of 2.5, UA shows 1+ leukocyte esterase. CT abdomen pelvis show Progression of acute proximal sigmoid diverticulitis without evidence for abscess. Recommend follow-up evaluation to exclude underlying colon mass when the patient's condition permits. Hospital course: Patient was admitted to the medical unit and initiated on IV Zosyn with a consult to GI she was placed NPO for the 1st initial few days due to progressive worsening acute diverticulitis that failed outpatient therapy. Patient was improving with IV Zosyn and we began to advance diet as tolerated until patient could tolerate full diet. Patient did mild cellulitis of left lower extremity which was ordered being treated with the IV Zosyn and had full improvement he does have a history of lymphedema. Patient remained afebrile and leukocytosis resolved patient on time of discharge denied abdominal pain and tolerating oral intake. Per GI his request patient was discharged on Augmentin 1 g b.i.d. for 10 more days. It is planned for her to follow-up with GI outpatient she will need a repeat colonoscopy preferably 8-10 weeks after acute infectious episode and possible discussion for surgical sigmoidectomy. Patient was instructed to continue with a low-fiber diet until infectious episode is resolved and then to slowly reintroduce fibers into her diet and advanced back to a high-fiber diet. Patient was evaluated by PT/OT she has chronic bilateral footdrop which time she agreed to home health for continued PT/OT. Patient was discharged home with home health transported via family. Status at Discharge Functional status at discharge: uses cane/walker Time Spent with Patient Time attestation: Total time spent providing and/or coordinating discharge services: Time spent: Greater than 30 minutes Exam Narrative: General: NAD Respiratory: Clear to auscultation Cardiovascular: RRR Abdomen: Soft, mild tenderness, Bowel sounds all 4Q Extremities: BLE swelling Neuro: Alert and orientated x 4. Skin: LLE with erythema warmth Psych: pleasant, cooperative DS: Data Data Completed and Pending Labs on day of discharge: Labs from last 24 hours 12/12/24 05:53 WBC 4.6 RBC 2.91 L Hgb 8.9 L Hct 27.9 L MCV 95.9 MCH 30.6 MCHC 31.9 L RDW 14.6 H Plt Count 214 MPV 9.6 Sodium 137 Potassium 4.0 Chloride 106 Carbon Dioxide 26 Anion Gap 5 BUN 14 Creatinine 0.96 Estim Creat Clear Calc 56 Estimated GFR 58 L Glucose 125 H Calcium 8.7 Magnesium 1.9 Total Bilirubin 0.2 AST 23 ALT 14 Alkaline Phosphatase 42 Total Protein 5.8 L Albumin 3.1 L Preliminary micro results at discharge 12/08/24 12:16 Blood Culture - Preliminary Blood 12/08/24 11:57 Blood Culture - Preliminary Blood Imaging Radiologist's impression: Radiology Results: ITS Impressions Abdomen/Pelvis CT 11/30/24 15:57 IMPRESSION: Redemonstration of mural thickening within the proximal sigmoid colon with surrounding inflammatory change and interloop fluid, for which acute diverticulitis is suspected. Follow-up to resolution is recommended as a malignancy may have a similar appearance. Given that these findings are similar to previous examination performed more than one month earlier, direct visualization is recommended, if not already performed. Discharge Plan Discharge Attending physician on discharge: Kenya López Consulting providers: Anastasiya Minor Discharging Clinician: Anastasiya Minor Anticipated Discharge Date/Time: 12/12/24 12:46 Patient Disposition: Home with Home Health Service Activity: as tolerated Diet: other - see discharge instructions Discharge Instructions: 1). Diverticulitis: * I have prescribed Augmentin for 10 more days please take as indicated incomplete therapy even if feeling better * E gastroenterologists information has been provided please call for follow-up appointment with him for repeat colonoscopy after acute infectious episode has resolved typically around 8 weeks post infection * Recommended 5 to 6 smaller meals Low fiber diet until acute infectious period is resolved then introduce fiber back into diet and advance to a high fiber diet. 2). Constipation: * May use stool softener OTC Colace and Senna * Miralax as needed * Encourage hydration and activity 3). Anemia * Continue taking your iron supplement as prescribed 2). Care Coordination: Patient to have [facility] for PT/OT eval and treat, and care home. Their phone number is [phone] if you have any questions; they will contact you to schedule their first visit. How can you care for yourself at home? ? Keep track of any new symptoms or changes in your symptoms. ? Rest until you feel better. ? Be safe with medicines. Take your medicines exactly as prescribed. Call your doctor if you think you are having a problem with your medicine. ? Do not drive after taking a prescription pain medicine. ? Ensure to follow-up with primary care physician as indicated and provide updated medication list provided to you at discharge. When should you call for help? Call 911 anytime you think you may need emergency care. For example, call if: ? You passed out (lost consciousness). Call your doctor now or seek immediate medical care if: ? You have new symptoms like fever, difficulty breathing, Chest pain, vomiting, or rash. ? You have new or different pain. ? You are confused and are having trouble thinking clearly. ? Your symptoms are getting worse. Watch closely for changes in your health, and be sure to contact your doctor if: ? You do not get better as expected. Patient Instructions: Antibiotic Form, Diverticulitis (DC), High Fiber Diet (DC), Low Fiber Diet (DC) Patient Language: Arabic Stand Alone Forms: General Discharge Information Follow-up/Referrals: Darren Watkins MD [Physician] - Call for Appointment Discharge Medications: New amoxicillin-pot clavulanate [Augmentin XR] 1,000-62.5 mg tablet extended release 12 hr 1 tablet PO Q12H Qty: 20 0RF Continued potassium chloride 10 mEq capsule, extended release 10 meq PO DAILY Qty: 30 0RF trazodone 100 mg tablet 100 mg PO HS cholecalciferol (vitamin D3) 5,000 unit capsule 5,000 unit PO DAILY ondansetron 4 mg tablet,disintegrating 4 mg PO Q8H PRN (Reason: nausea and vomiting) Qty: 30 0RF PreserVision AREDS [id number] Tablet 1 tablet PO DAILY carbamazepine PO QPM polyethylene glycol 3350 [Miralax] 17 gram powder in packet 17 g PO DAILY PRN (Reason: constipation) [employer] Mature 8 mg iron-400 mcg-50 mcg tablet 1 tablet PO DAILY magnesium glycinate 100 mg magnesium capsule 220 mg PO HS All Day Allergy (cetirizine) 10 mg capsule 10 mg PO DAILY bimatoprost [Lumigan] 1 drp EACH EYE HS (DME) Rollator Walker with seat See Rx Instructions .Route .MEDSUPPLY Qty: 1 0RF Rx Instructions: As directed lisinopril 40 mg tablet 40 mg PO DAILY Qty: 90 1RF Rx Instructions: NEEDS APPOINTMENT IN OCTOBER naproxen 500 mg tablet See Rx Instructions .ROUTE .COMPLEX Qty: 90 1RF Dose Instruction: TAKE 1 TABLET DAILY NEEDED FOR PAIN. TAKE WITH FOOD Rx Instructions: TAKE 1 TABLET DAILY NEEDED FOR PAIN. TAKE WITH FOOD rosuvastatin [Crestor] 40 mg tablet 40 mg PO HS Qty: 90 1RF duloxetine 30 mg capsule,delayed release(DR/EC) See Rx Instructions .ROUTE .COMPLEX Qty: 180 1RF Dose Instruction: TAKE 2 CAPSULES EVERY EVENING Rx Instructions: TAKE 2 CAPSULES EVERY EVENING Held furosemide [Lasix] 20 mg tablet 20 mg PO QAM Qty: 90 1RF Hold Instructions: Resume on 12/15/24. Until tolerating full diet Discontinued levofloxacin 750 mg tablet 750 mg PO DAILY Qty: 10 2RF metronidazole 500 mg tablet 500 mg PO Q8H Qty: 30 2RF Date of admission: 12/09/24 13:48 Primary Care Provider: Mike Gautam Admitting Provider: Kenya López Attending physician on admission: Kenya López Condition: Stable Quality VTE Prophylaxis VTE prophylaxis: mechanical ordered -Patient's previous records reviewed on admission -ER notes reviewed in detail on admission -discussed all findings and current treatment plan with patient/Family/POA -Consultations reviewed for recommendations -Patient's disposition for safe discharge discussed with correctional case manager Dictation performed by [employer] direct speech recognition software, therefore marketing automation analyst variants and typographical errors may occur. Hospitalist MIPS Heart Failure (Exclusion) Patient has history of Heart Transplant or Left Ventricular Assistive Device?: No IF YES, STOP HERE Heart Failure (Qualifier) Patient has current or prior documentation of LVEF less than or equal to 40%, or mod/servere depressed LVSF?: No IF NO, STOP HERE
== END 2024-12-12 14:35 | disposition home health service (06) | DRG 392 ==
LOC: ANHED 12:34 → ANH3MEDSUR 14:14
PROVIDERS: Nurse Practitioner Gerontology; Admitting Provider Family Medicine; Emergency Provider Registered Nurse; PCP Internal Medicine; Visit Provider Nurse Practitioner Family
DX: K57.32 Diverticulitis of large intestine without perforation or abscess without bleeding (principal); L03.116 Cellulitis of left lower limb; Z68.42 Body mass index [BMI] 45.0-49.9, adult; I10 Essential (primary) hypertension; I89.0 Lymphedema, not elsewhere classified; D64.9 Anemia, unspecified; E78.5 Hyperlipidemia, unspecified; E66.01 Morbid (severe) obesity due to excess calories; E55.9 Vitamin D deficiency, unspecified; K21.9 Gastro-esophageal reflux disease without esophagitis; M21.372 Foot drop, left foot; M21.371 Foot drop, right foot; G47.33 Obstructive sleep apnea (adult) (pediatric); G40.909 Epilepsy, unspecified, not intractable, without status epilepticus; H81.10 Benign paroxysmal vertigo, unspecified ear; H35.30 Unspecified macular degeneration; H40.9 Unspecified glaucoma; F12.90 Cannabis use, unspecified, uncomplicated; F32.A Depression, unspecified; F41.9 Anxiety disorder, unspecified; Z87.891 Personal history of nicotine dependence; Z86.0101 Personal history of adenomatous and serrated colon polyps; Z98.1 Arthrodesis status
CPT/HCPCS: 36415; 36569; 74177; 80048; 80053; 81001; 83605; 83690; 83735; 83880; 84484; 85025; 85027; 85610; 85730; 86140; 87040; 87086; 87493; 93005; 93306; 96361; 96365; 96367; 96372; 96375; 96376; 97161; 97165; 99285; A9270; C1751; G0378; J0696; J1650; J1836; J1885; J2270; J2405; J2543; J7030; Q9967

== ENCOUNTER 2024-12-21 14:35 | Outpatient (NON) | payer MEDICARE, MEDICAID, SELFPAY ==
--- OUTSIDE RECORDS SUMMARY | 2024-12-21 14:48 | XMS_ITS | Clinical Summary ---
Author Organization [facility] MessageCastliving[facility] and [facility] services[facility]BLPath [facility] Address [address] [place] [address] Care Team Providers Care Attorney General Name Role Phone Mike Gautam DO Primary Care Provider [phone] Allergies Active Allergy Reactions Criticality Noted Date [...] (10/16/2021): Added automatically from request for surgery [id number] Diverticulitis 10/16/2021 Overview (10/16/2021): Added automatically from request for surgery [id number] Colitis 09/27/2021 Dystrophia unguium 02/21/2021 Epilepsy 05/13/2017 Foot-drop 05/13/2017 Hypercholesterolemia 05/13/2017 Neuropathy 05/13/2017 Hypertensive disorder 05/13/2017 Exudative age-related macular degeneration of le ft eye 05/08/2015 Retinal hemorrhage of left eye 03/27/2015 Encounters Date Type Department Care Team Description 11/23/2024 Plan of Care Documentation [facility] Occupational Therapy [address] [place] [id number] 11/22/2024 2:00 PM CDT Therapy [facility] Physical Therapy [address] [place] [address] Hailey Calderon, LUCRECIA Foot drop, right foot (Primary Dx); Foot drop, left foot; Spinal stenosis, unspecified spinal region 11/22/2024 1:00 PM CDT Therapy [facility] Occupational Therapy [address] [place] [address] Renetta Oleary, OT Lymphedema, not elsewhere classified 11/22/2024 Plan of Care Documentation [facility] Physical Therapy [address] [place] [address]47 10/16/2024 10:30 PM CDT - 10/19/2024 4:30 PM CDT Hospital Encounter [facility] Oncology [address] [place] [address] Donna Michael MD Perez Porcel, MD Twila [...] drink = 0.6 oz pur e alcohol) [facility] Utilities Answer Date Recorded In the past 12 months has [employer], oil, or water [employer] threatened to shut off services in your [...] week 10/17/2024 How often do you attend [facility] or scientology services? More than 4 times per year 10/17/2024 Do you belong to any clubs o r organizations such as lutheran groups, unions, fraternal or athletic groups, or [...] place to sleep or slept in a halfway (including now)? No 09/29/2021 Housing Stability Vital Sign Answer Papito e Recorded In the last 12 months, was t here a time when you were not able to pay the mortgage or rent on time? No 10/17/2024 In the past 12 months, how m any times have you moved where you were living? 0 10/17/2024 At any time in the past 12 m [facility], were you homeless or living in a halfway (including now)? No 10/17/2024 Personal Safety Answer Date Recorded Have you ever been in or are you currently in a harmful physical or emotional relationship or is someone making you feel afraid or unsafe? Denies 10/16/2024 Comments No Sex and Gender Information Value Date Recorded Sex Assigned at Not on file Legal Sex Female 12:14 AM [employer] Gender Identity Not on file Sexual Orientation [...] 09/21/2013 Medical Devices Implanted Type Area Credit Union Teller Device Identifier Shelf Expiration Date Model / Serial / Lot Integra [employer] Earl [id number] Integra 5x4in Mesh Dressing Biological Bovine Collagen - [id number] Implanted:Qty: 1 on 09/29/2021 by Leo Boone Jr., MD at [facility] Right: Leg Integra [employer] Earl 06/03/2022 [id number] / / [id number] Procedures Procedure Name Priority Date/Time Associated Diagnosis Comments MA CRITICAL CARE ILL/INJURED PATIENT INIT 30-74 MIN [...] Recently Relevant to Health Maintenance Results * MA CRITICAL CARE ILL/INJURED PATIENT INIT 30-74 MIN [...] BLOOD ORDERABLES Final R esult [facility] [address] Department [place] [address] * (ABNORMAL) Differential, auto (10/17/2024 5:09 AM CDT) Neutrophil abs 4.85 1.50 - 6.50 K/cumm Imm gran abs 0.05 0.00 - 0.10 K/cumm [facility] Lymphocyte abs 1.51 0.80 - 3.30 K/cumm [facility] Monocyte abs 0.83(H) 0.20 - 0.80 K/cumm [facility] Eosinophil abs 0.11 0.00 - 0.50 K/cumm [facility] Basophil abs 0.04 0.00 - 0.10 K/cumm [facility] Neutrophil pct 65.7 % [facility] Comment: Interpretive Data Percent cell count reference ranges are not reported, since discordance with absolute values may lead to misinterpretation of CBC data. Current Interpretive Data was last revised on 2017. Imm gran pct 0.7 % [facility] Comment: Interpretive Data Percent cell count reference ranges are not reported, since discordance with absolute values may lead to misinterpretation of CBC data. Current Interpretive Data was last revised on 2017. Lymphocyte pct 20.4 % [facility] Comment: Interpretive Data Percent cell count reference ranges are not reported, since discordance with absolute values may lead to misinterpretation of CBC data. Current Interpretive Data was last revised on 2017. Monocyte pct 11.2 % [facility] Comment: Interpretive Data Percent cell count reference ranges are not reported, since discordance with absolute values may lead to misinterpretation of CBC data. Current Interpretive Data was last revised on 2017. Eosinophil pct 1.5 % [facility] Comment: Interpretive Data Percent cell count reference ranges are not reported, since discordance with absolute values may lead to misinterpretation of CBC data. Current Interpretive Data was last revised on 2017. Basophil pct 0.5 % [facility] Comment: Interpretive Data Percent cell count reference ranges are not reported, since discordance with absolute values may lead to misinterpretation of CBC data. Current Interpretive Data was last revised on 2017. Blood 10/17/2024 5:09 AM CDT 10/17/2024 5:28 AM CDT us Willie Nevarez NP LAB BLOOD ORDERABLES Final R esult [facility]SON [address] Department [place] [address] * (ABNORMAL) CBC with auto differential (10/17/2024 5:09 AM CDT) Pathologist [facility] WBC 7.39 3.80 - 9.90 K/cumm Hgb 10.5(L) 11.9 - 15.5 g/dL [facility] Hct 32.3(L) 35.6 - 45.5 % [facility] Plt 211 150 - 400 K/cumm [facility] MPV 10.1 9.1 - 12.3 fL [facility] RBC 3.43(L) 3.90 - 5.20 M/cumm [facility] CH MCV 94.2 81.3 - 96.4 fL [facility] CH MCH 30.6 27.1 - 33.3 pg CERNER MCHC 32.5 32.3 - 35.7 g/dL [facility] RDW CV 12.9 11.1 - 14.9 % [facility] RDW SD 44.6 35.7 - 48.1 fL [facility] NRBC abs 0.00 0.00 - 0.01 K/cumm [facility] Blood 10/17/2024 5:09 AM CDT 10/17/2024 5:28 AM CDT Willie Nevarez NP LAB BLOOD ORDERABLES Final R esult [facility] [address] Department [place] [address] * (ABNORMAL) Comprehensive metabolic panel (10/17/2024 5:09 AM CDT) Pathologist [facility] Sodium 130(L) 135 - 145 mmol/L Potassium, pl 4.4 3.3 - 4.9 mmol/L [facility] Chloride 95(L) 97 - 110 mmol/L [facility] CO2 25 22 - 32 mmol/L [facility] Anion gap 10 2 - 15 mmol/L [facility] BUN 10 6 - 25 mg/dL [facility] Creatinine 1.10 0.60 - 1.10 mg/dL [facility] Glucose 111 70 - 199 mg/dL [facility] Comment: Interpretive Data Fasting glucose >/= 126 [...] NP LAB BLOOD ORDERABLES Final R esult [facility] [address] Department [place] [address] * (ABNORMAL) Urinalysis reflex to microscopic and [...] tendency for uric acid stone formation. Source: [facility] [employer] Current Interpretive Data was last revised on [...] GENERAL ORDERABLES Final Result Performing Organization Address [facility] [employer] Phone Number GRAC[facility] HODGSON [address] [place] [address] * (ABNORMAL) Urinalysis, microscopic only (10/17/2024 4:06 AM CDT) WBC, ur >50(A) 0 - 5 /HPF RBC, ur 6-10(A) 0 - 2 /HPF [facility] Epithelial cells, squamous, ur 21-50(A) 0 - 5 /HPF [facility] Bacteria, ur Trace(A) [facility] Culture Reflex Comment Reflex to urine culture will be performed. [facility] Urine 10/17/2024 4:06 AM CDT 10/17/2024 4:13 AM CDT Altaf Wilhelm NP LAB URINE ORDERABLES Final Result Performing Organization Address [facility]/[employer] Phone Number GRACIE HODGSON [address] [place] [address] * Urine culture Urine (10/17/2024 4:06 AM CDT) Report Final Report: Less than 100,000 colonies/mL (clinically insignificant growth based on current clinical standards) Comment:Testing performed by : [facility], [address] [place]., [address] Organism (CLINICALLY INSIGNIFICANT GROWTH [facility] Urine 10/17/2024 4:06 AM CDT 10/17/2024 8:58 AM CDT Narrative [facility] - 10/18/2024 12:13 PM CDT Urine culture reflexed based upon urinalysis results. Testing performed by [facility] Microbiology Laboratory ([phone]) us Altaf Wilhelm NP LAB MICROBIOLOGY - GENERAL ORDERABLES Final Result [facility] [address] Department [place] [address] * CT Abdomen Pelvis W Contrast (10/16/2024 [...] neural compromise as detailed. Stat report by [facility] Electronically signed by: Fredy Haskins M.D. Narrative [...] neural compromise as detailed. Stat report by [facility] Electronically signed by: Fredy Haskins M.D. Donna [...] CDT 10/16/2024 9:59 PM CDT Altaf Wilhelm BRISTLE MACHINE OPERATOR LAB BLOOD ORDERABLES Final Result [facility] [address] Department [place] [address] * Differential, auto (10/16/2024 9:50 PM CDT) Neutrophil abs 4.02 1.50 - 6.50 K/cumm Imm gran abs 0.04 0.00 - 0.10 K/cumm [facility] Lymphocyte abs 1.84 0.80 - 3.30 K/cumm [facility] Monocyte abs 0.66 0.20 - 0.80 K/cumm [facility] Eosinophil abs 0.12 0.00 - 0.50 K/cumm [facility] Basophil abs 0.02 0.00 - 0.10 K/cumm [facility] Neutrophil pct 59.9 % [facility] Comment: Interpretive Data Percent cell count reference ranges are not reported, since discordance with absolute values may lead to misinterpretation of CBC data. Current Interpretive Data was last revised on 2017. Imm gran pct 0.6 % [facility] Comment: Interpretive Data Percent cell count reference ranges are not reported, since discordance with absolute values may lead to misinterpretation of CBC data. Current Interpretive Data was last revised on 2017. Lymphocyte pct 27.5 % [facility] Comment: Interpretive Data Percent cell count reference ranges are not reported, since discordance with absolute values may lead to misinterpretation of CBC data. Current Interpretive Data was last revised on 2017. Monocyte pct 9.9 % [facility] Comment: Interpretive Data Percent cell count reference ranges are not reported, since discordance with absolute values may lead to misinterpretation of CBC data. Current Interpretive Data was last revised on 2017. Eosinophil pct 1.8 % [facility] Comment: Interpretive Data Percent cell count reference ranges are not reported, since discordance with absolute values may lead to misinterpretation of CBC data. Current Interpretive Data was last revised on 2017. Basophil pct 0.3 % [facility] Comment: Interpretive Data Percent cell count reference ranges are not reported, since discordance with absolute values may lead to misinterpretation of CBC data. Current Interpretive Data was last revised on 2017. Blood 10/16/2024 9:50 PM CDT 10/16/2024 9:59 PM CDT us Altaf Wilhelm NP LAB BLOOD ORDERABLES Final Result [facility] [address] Department [place] [address] * (ABNORMAL) CBC with auto differential (10/16/2024 9:50 PM CDT) WBC 6.70 3.80 - 9.90 K/cumm Hgb 9.0(L) 11.9 - 15.5 g/dL [facility] Hct 27.6(L) 35.6 - 45.5 % [facility] Plt 169 150 - 400 K/cumm [facility] MPV 9.6 9.1 - 12.3 fL [facility] RBC 2.87(L) 3.90 - 5.20 M/cumm [facility] MCV 96.2 81.3 - 96.4 fL [facility] MCH 31.4 27.1 - 33.3 pg [facility] MCHC 32.6 32.3 - 35.7 g/dL [facility] CH RDW CV 13.1 11.1 - 14.9 % [facility] RDW SD 46.3 35.7 - 48.1 fL [facility] NRBC abs 0.00 0.00 - 0.01 K/cumm [facility] Blood 10/16/2024 9:50 PM CDT 10/16/2024 9:59 PM CDT Altaf Wilhelm BRISTLE MACHINE OPERATOR LAB BLOOD ORDERABLES Final Result [facility] [address] Department of [employer] [place], [place] [id number] * Lipase (10/16/2024 9:50 PM CDT) [facility] Lipase 14 10 - 99 Units/L Blood 10/16/2024 9:50 PM CDT 10/16/2024 9:59 PM CDT Altaf Wilhelm BRISTLE MACHINE OPERATOR LAB BLOOD ORDERABLES Final Result [facility] [address] Department [place] [address] * (ABNORMAL) Comprehensive metabolic panel (10/16/2024 9:50 PM CDT) [facility] Sodium 131(L) 135 - 145 mmol/L [...] Wilhelm NP LAB BLOOD ORDERABLES Final Result [facility] [address] [address] Department [place] [address] * POCT glucose (10/16/2024 7:04 PM CDT) [facility] Signature Glucose, POC 114 70 - 199 mg/dL POC Performer [id number] [facility] CH Blood 10/16/2024 7:04 PM CDT 10/16/2024 7:04 PM CDT us Notinfile Unknown LAB POCT ORDERABLES - DEVICE F inal Result [facility] [address] [facility] Department [place] [address] * COLONOSCOPY (11/21/2021 9:21 AM CDT) Anatomical Region Laterality Modality Other Narrative Procedure Note Zenon Barecnas MD - 11/21/2021 9:21 AM CDT [facility] Endoscopy Lab Patient Name: Camille Orozco [...] bowel preparation was evaluated using the BBPS ([place] Bowel Preparation Scale) with scores of:Right Colon [...] [employer] CHOICE MEDICARE PPO MEDICARE IDPA IDPA [facility] MEDICARE ADVANTAGE Advance Directives For more information, please contact: [phone] * Full Code (Latest Code Status on File) Date Activated Date Inactivated Comments 10/17/2024 1:21 AM 10/19/2024 8:35 PM * Full Code Date Activated Date Inactivated Comments 09/27/2021 11:16 PM 10/03/2021 7:15 PM Care Teams Attorney General Relationship Specialty Start Date End Date Mike Gautam DO PCP - General 09/27/21
--- OUTSIDE RECORDS SUMMARY | 2024-12-21 14:48 | XMS_ITS | Clinical Summary ---
Author Organization [facility] Address [address] [place] [address] Care Team Providers Care Technical Asst Name Role Phone Mike Gautam DO Primary Care Provider [phone] Source Comments [facility],non-owned Affiliates and Associated Physician Practices is amultiple site organization consisting of ambulatory clinics and hospital sitesin [place], [place], [place] and [place]. This disclosure is being madepursuant to the Care Everywhere program and may not contain all information available regarding this patient. 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
--- OUTSIDE RECORDS SUMMARY | 2024-12-21 14:48 | XMS_ITS | Data Portability ---
Author Organization [place] [facility], Main Office Address [address] [place] [address] Assessment Encounter Date Assessment Date Assessment LastModified by Organization Details LastModified Time 02/08/2024 02/08/2024 This note is dictated and transcribed by [employer]. Marine Architect variances may occur. Despite proofreading, typographical errors may occur. Occasional wrong-word or 'qqrtk-i-trfk' substitutions may have occurred due to the inherent limitations of voice recording. Read the chart carefully and recognize, using context, where substitutions have occurred. Not available 02/08/2024 14:43:06 08/01/2024 08/01/2024 This note is dictated and transcribed by [employer]. Marine Architect variances may occur. Despite proofreading, typographical errors may occur. Occasional wrong-word or 'wvwdt-b-oozz' substitutions may have occurred due to the inherent limitations of voice recording. Read the chart carefully and recognize, using context, where substitutions have occurred. Not available 08/01/2024 16:24:11 11/14/2024 11/14/2024 This note is dictated and transcribed by [employer]. Marine Architect variances may occur. Despite proofreading, typographical errors may occur. Occasional wrong-word or 'ahenk-w-lore' substitutions may have occurred due to the inherent limitations of voice recording. Read the chart carefully and recognize, using context, where substitutions have occurred. Not available 12/04/2024 14:05:51 Plan of Treatment Reminders Order Date Submit [...] By Organization Details Last Modified Time 08/05/2023 [id number] paronychia: care instructions Not available 08/05/2023 15:04:50 02/08/2024 [id number] diabetic foot care education Not available 02/08/2024 14:43:17 Reason for Referral None Reported. Problems Name Problem SNOMED Code Status Onset Date Resolution Date Notes Provider Name and Address Organization Details Recorded Time Paronychia of toe of right foot 4342816847104 9102 Active 2019 Not Available [facility] 3 19:30:16 Hyperchole sterolemia 82381528 Active 2016 Not Available [facility] 3 19:30:16 Pressure injury of heel 346856414 Active 2018 Not Available [facility] 3 19:30:16 Foot callus 401188912 Active 2021 Not Available [facility] 3 19:30:17 Unable to cut own toenails 149889733 Active 2017 Not Available [facility] 3 19:30:17 Hypertensi ve disorder 63039654 Active 2016 Not Available [facility] 3 19:30:17 Neuropathy 828357897 Active 2016 Not Available [facility] 3 19:30:17 Foot-drop 6988407 Active 2016 Not Available [facility] 3 19:30:17 Foot-drop 1654041 Active 2021 Not Available [facility] 3 19:30:17 Epilepsy 88921396 Active 2016 Not Available [facility] 3 19:30:17 Dystrophia unguium 68958220 Active 2020 Not Available [facility] 3 19:30:18 Diabetes mellitus 84971208 Active 2022 Victor Hugo Robison [facility] [address] [facility], [facility] [address], [place], [address] , [facility] [employer] [facility] 3 09:26:45 Problem Notes None recorded. Procedures Surgical History Date Name Laterality Status Provider Name and Address Organization Details Recorded Time 5 Nail Debridement completed Victor Hugo Robison DPM [address], [address], [place], [address], [employer] 11/14/2024 14:38:23 5 Nail Debridement completed Victor Hugo Robison DPM [address], [address], [place], [address], [employer] 08/01/2024 16:23:57 4 Nail Debridement completed Victor Hugo Robison DPM [address], [address], [place], [address], [employer] 02/08/2024 14:42:11 4 Partial Nail [employer] Matrixectomy-Ri ght completed Victor Hugo Robison DPM [address], [address], [place], [address], [employer] 08/05/2023 15:02:42 3 Nail Debridement completed Victor Hugo Robison DPM [address], [address], [place], [address], [employer] 12/07/2022 09:23:03 Imaging Results None recorded. Procedure Notes None recorded. Medical Equipment None Reported. Allergies Allergen ID Allergen Name Allergen Category Reaction Reaction Severity Criticality Documentation Date Start Date Code Code System Note Provider Name and Address Organization Details Recorded Time 35573 Product containin g penicilli n (product) medicatio n Not available Not available Not available 09/02/2022 11827 8001 SNOMED Not Available [facility] 3 19:32:45 Medications Name Sig Start Date [...] Not Available No t Available Afluria Qd (36 mos up)(PF)60 mcg (15 mcg x4)/0.5 [...] Updated DateTime 5 157.48 cm 44.6 kg/m2 402149. 54 g 89 /min 14 /min 98 % 98 % 132 mm[Hg] 73 mm[Hg] Jaye Chauhan [employer] [facility] 5 15:52:27 Date Recorded Heart rate Respiratory rate Oxygen saturation Oxygen saturation in Arterial blood by Pulse oximetry Systolic blood pressure Diastolic blood pressure Provider Name and Address Organization Details Last Updated DateTime 4 87 /min 14 /min 98 % 98 % 118 mm[Hg] 66 mm[Hg] Jaye Chauhan [employer] [facility] 4 14:41:27 Date Recorded Body height Body mass index (BMI) Body weight Heart rate Respiratory rate Body temperature Oxygen saturation Oxygen saturation in Arterial blood by Pulse oximetry Systolic blood pressure Diastolic blood pressure Provider Name and Address Organization Details Last Updated DateTime 4 157.48 cm 44.6 kg/m2 542609. 54 g 87 /min 16 /min 98 [degF] 98 % 98 % 118 mm[Hg] 66 mm[Hg] Cathy [facility] [employer] [facility] 4 15:23:18 Date Recorded Body height Body mass index (BMI) Body weight Body temperature Oxygen saturation Oxygen saturation in Arterial blood by Pulse oximetry Heart rate Systolic blood pressure Diastolic blood pressure Provider Name and Address Organization Details Last Updated DateTime 5 157.48 cm 44.6 kg/m2 458741. 54 g 97.7 [degF] 94 % 94 % 80 /min 128 mm[Hg] 77 mm[Hg] Jhonnyelmo Montgomery [facility] [employer] [facility] 5 14:06:29 Date Recorded Body height Body mass index (BMI) Body weight Heart rate Oxygen saturation Oxygen saturation in Arterial blood by Pulse oximetry Systolic blood pressure Diastolic blood pressure Provider Name and Address Organization Details Last Updated DateTime 4 157.48 cm 44.6 kg/m2 651515. 54 g 86 /min 99 % 99 % 120 mm[Hg] 68 mm[Hg] Nicholas Crump [facility] [employer] [facility] 4 14:28:02 Social History None recorded. Functional Status None recorded. Mental Status None recorded. Family History Nothing Reported. Medical History No medical history recorded. Gynecological HistoryNo gynecological history recorded. Obstetrics History GPAL:G 0 P 0 0 0 0 Past Encounters Encounter ID Performer Location Encounter Start Date Encounter Closed Date Diagnosis/Indication Diagnosis SNOMED-CT Code Diagnosis ICD10 Code Diagnosis Note [id number] [facility] [address] [address] 02/06/2021 00:00:00 02/21/2021 13:56:12 [id number] [facility] [address] [address] 09/02/2021 00:00:00 09/02/2021 09:48:24 [id number] [facility] [address] [address] 04/16/2022 00:00:00 04/16/2022 10:33:39 [id number] Victor Hugo Robison DPM [facility] [address] [place] [address] 12/07/2022 08:54:11 12/07/2022 09:35:34 Diabetes mellitus 98848412 E11.9 continue with PCP recommenda tionsCheck feet daily for wounds infectionC ontinue bracingFol low-up in 3 months for routine foot care Paronychia of toe of right foot 0802729096 4303062 L03.031 bilateral cornersSla nt back procedure performedF ollow-up as needed Dystrophia unguium 07682 009 L60.3 Nails 1 through 10 were debrided with sharp mechanical debridemen t without incident. Nails were debrided and greater than 50% length and thickness where needed. Foot callus 134926816 L8 4 right sub 5th mildContin ue supportive shoe gearFollow -up as needed [id number] Victor Hugo Robison DPM [place] [address] [address] 07/29/2023 09:01:17 08/04/2023 08:00:54 Paronychia of toe of right foot 1447634518 7647102 L03.031 Dystrophia unguium 16726 009 L60.3 Unable to cut own toenails 351430104 Z74.1 [id number] Victor Hugo Robison DPM [place] [address] [address] 08/05/2023 14:36:30 08/05/2023 15:30:35 Paronychia of toe of right foot 1549247206 6389710 L03.031 lateralpar tial matrix todaywound care and dressing instructio n reviewedmo nitor for infection if presents seek medical attention immediatel yfollow up in 2 weeks [id number] Victor Hugo Robison DPM [facility] [address] [place] [address] 08/10/2023 15:07:03 08/17/2023 14:36:53 Paronychia of toe of right foot 5177889195 3954339 L03.031 lateralpar tial matrix - healedwoun d care and dressing instructio n reviewedmo nitor for infection if presents seek medical attention immediatel yfollow up as needed [id number] Victor Hugo Robison DPM [facility] [address] [place] [address] 02/08/2024 14:22:18 02/08/2024 14:57:06 Diabetes mellitus 85315336 E11.9 continue with PCP recommenda tionsCheck feet daily for wounds infectionC ontinue bracingFol low-up in 3 months for routine foot care Dystrophia unguium 48699 009 L60.3 nails debrided without incident Foot-drop 7988917 M21.37 1 M21.372 Continue bracing [id number] Victor Hugo Robison DPM [facility] [address] [place] [address] 08/01/2024 15:43:20 08/02/2024 16:38:07 Diabetes mellitus 51060993 E11.9 continue with PCP recommenda tionsCheck feet daily for wounds infectionC ontinue bracingFol low-up in 3 months for routine foot care Dystrophia unguium 32212 009 L60.3 nails debrided without incident [id number] Victor Hugo Robison DPM [facility] [address] [place] [id number] 11/14/2024 13:45:40 12/05/2024 15:46:56 Diabetes mellitus 71652070 E11.9 continue with PCP recommenda tionsCheck feet daily for wounds infectionC ontinue bracingFol low-up in 3 months for routine foot care Dystrophia unguium 05064 009 L60.3 nails debrided without incident Health Concerns Section Related Observation LastModified by Organization Detai ls LastModified Time None Recorded Concern Status LastModified by Organization Details LastModified Time None Recorded Advance Directives Directive None Recorded Payers Insurance Date Sequence Insurance Name Policy Number Policy Garcia Covered Member ID Garcia Member ID Guarantor Name 11/21/2024 1 [place] Camille Linda Pam [id number] Camille Orozco 12/05/2024 2 [facility] ON OR AFTER 06/04/2020 (MEDICAID REPLACEMENT - HMO) Camille Orozco [id number] Camille Orozco 11/21/2024 [facility] (MEDICAID HMO) Camille Orozco [id number] Camille Linda Pam 12/05/2024 1 [facility] (MEDICARE REPLACEMENT/AD VANTAGE - PPO) [id number] Camille Orozco [id number] Camille Orozco Notes Date Note Type Note Provider Name and Address Organization Details Recorded Time 08/05/2023 text/html Patient returns to the office for toenail procedure. Denies any infection. Patient understands all risks, benefits, complications and elects to continue. No guarantees given. Victor Hugo Robison DPM [address], [address], [place], [address], [employer] 08/05/2023 15:29:47 08/10/2023 text/html Patient is 68-year-old female, who returns the office for follow-up on lateral partial matrix ectomy of the great toenail, which is healed. Patient said she is not having any signs of infection. Patient states she did have some mild discomfort but that has resolved. Patient denies any of the complaints. Victor Hugo Robison DPM [address], [address], [place], [address], [employer] 08/10/2023 16:14:20 02/08/2024 text/html . Patient is [...] toenails cut. Victor Hugo Robison DPM [address], [place], [address], [employer] 02/08/2024 14:43:29 08/01/2024 text/html . Patient is [...] other complaints. Victor Hugo Robison DPM [address], [place], [address], [employer] 08/01/2024 16:24:30 11/14/2024 text/html . Patient is a 69-year-old female diabetic who returns for diabetic foot care she denies any new complaints. Patient continues to use an AFO to the right lower extremity she denies any open wounds. Patient denies any other complaints. Victor Hugo Robison DPM [address], [place], [address], [employer] 12/04/2024 14:06:25 OBGyn Episode No OBEpisode recorded.
--- OUTSIDE RECORDS SUMMARY | 2024-12-21 14:49 | XMS_ITS | Referral Summary ---
Author Organization [facility] Address [address] [place] [address] Care Team Providers Care Qa Tester Name Role Phone GrisMike tamez Primary Care Provider +1- [phone] Encounters Date Type Department Care Team Description 11/23/2024 Plan of Care Documentation [facility] Occupational Therapy [address] [place] [address] 11/22/2024 Plan of Care Documentation [facility] Physical Therapy [address] [place] [address] 11/22/2024 2:00 PM CDT Therapy [facility] Physical Therapy [address] [place] [address] Hailey Calderon, LUCRECIA Foot drop, right foot (Primary Dx); Foot drop, left foot; Spinal stenosis, unspecified spinal region 11/22/2024 1:00 PM CDT Therapy [facility] Occupational Therapy [address] [place] [address] Renetta Oleary OT Lymphedema, not elsewhere classified 10/16/2024 10:30 PM CDT - 10/19/2024 4:30 PM CDT Hospital Encounter [facility] Oncology [address] [place] [address] Donna Michael MD Perez Porcel, Jose Daniel, [...] (10/16/2021): Added automatically from request for surgery [id number] Diverticulitis 10/16/2021 Overview (10/16/2021): Added automatically from request for surgery [id number] Colitis 09/27/2021 Dystrophia unguium 02/21/2021 Epilepsy 05/13/2017 [...] drink = 0.6 oz pur e alcohol) [facility] Utilities Answer Date Recorded In the [...] often do you attend chur ch or uatsdin services? More than 4 times per year 10/17/2024 Do you belong to any clubs o r organizations such as cheondoism groups, unions, fraternal or athletic groups, or [...] place to sleep or slept in a skilled nursing (including now)? No 09/29/2021 Housing Stability Vital Sign Answer Papito e Recorded In the last 12 months, was t here a time when you were not able to pay the mortgage or rent on time? No 10/17/2024 In the past 12 months, how m any times have you moved where you were living? 0 10/17/2024 At any time in the past 12 m [facility], were you homeless or living in a skilled nursing (including now)? No 10/17/2024 Personal Safety Answer Date Recorded Have you ever been in or are you currently in a harmful physical or emotional relationship or is someone making you feel afraid or unsafe? Denies 10/16/2024 Comments No Sex and Gender Information Value Date Recorded Sex Assigned at Not on file Legal Sex Female 12:14 AM STUDENT SERVICES REP Gender Identity Not on file Sexual Orientation [...] on file Medical Devices Implanted Type Area Clam Treader Device Identifier Shelf Expiration Date Model / Serial / Lot Integra KDPOF Earl [id number] Integra 5x4in Mesh Dressing Biological Bovine Collagen - [id number] Implanted:Qty: 1 on 09/29/2021 by Leo Boone Jr., MD at [facility] Right: Leg Integra [employer] Earl 06/03/2022 [id number] / / [id number] Procedures Procedure Name Priority Date/Time Associated Diagnosis Comments MD CRITICAL CARE ILL/INJURED PATIENT INIT 30-74 MIN [...] Recently Relevant to Health Maintenance Results * MD CRITICAL CARE ILL/INJURED PATIENT INIT 30-74 MIN [...] NP LAB BLOOD ORDERABLES Final R esult [facility] [address] Department [place] [address] * (ABNORMAL) Differential, auto (10/17/2024 5:09 AM CDT) Neutrophil abs 4.85 1.50 - 6.50 K/cumm Imm gran abs 0.05 0.00 - 0.10 K/cumm [facility] Lymphocyte abs 1.51 0.80 - 3.30 K/cumm [facility] Monocyte abs 0.83(H) 0.20 - 0.80 K/cumm [facility] Eosinophil abs 0.11 0.00 - 0.50 K/cumm [facility] Basophil abs 0.04 0.00 - 0.10 K/cumm [facility] Neutrophil pct 65.7 % [facility] Comment: Interpretive Data Percent cell count reference ranges are not reported, since discordance with absolute values may lead to misinterpretation of CBC data. Current Interpretive Data was last revised on 2017. Imm gran pct 0.7 % [facility] Comment: Interpretive Data Percent cell count reference ranges are not reported, since discordance with absolute values may lead to misinterpretation of CBC data. Current Interpretive Data was last revised on 2017. Lymphocyte pct 20.4 % [facility] Comment: Interpretive Data Percent cell count reference ranges are not reported, since discordance with absolute values may lead to misinterpretation of CBC data. Current Interpretive Data was last revised on 2017. Monocyte pct 11.2 % [facility] Comment: Interpretive Data Percent cell count reference ranges are not reported, since discordance with absolute values may lead to misinterpretation of CBC data. Current Interpretive Data was last revised on 2017. Eosinophil pct 1.5 % [facility] Comment: Interpretive Data Percent cell count reference [...] NP LAB BLOOD ORDERABLES Final R esult [facility] [address] [address] Department [place] [address] * (ABNORMAL) CBC with auto differential (10/17/2024 5:09 AM CDT) WBC 7.39 3.80 - 9.90 K/cumm Hgb 10.5(L) 11.9 - 15.5 g/dL [facility] Hct 32.3(L) 35.6 - 45.5 % [facility] Plt 211 150 - 400 K/cumm [facility] MPV 10.1 9.1 - 12.3 fL [facility] RBC 3.43(L) 3.90 - 5.20 M/cumm [facility] MCV 94.2 81.3 - 96.4 fL [facility] MCH 30.6 27.1 - 33.3 pg [facility] MCHC 32.5 32.3 - 35.7 g/dL [facility] RDW CV 12.9 11.1 - 14.9 % [facility] RDW SD 44.6 35.7 - 48.1 fL [facility] NRBC abs 0.00 0.00 - 0.01 K/cumm [facility] Blood 10/17/2024 5:09 AM CDT 10/17/2024 5:28 AM CDT Willie Nevarez NP LAB [place] [address] [address] Department [place] [address] * (ABNORMAL) Comprehensive metabolic panel (10/17/2024 5:09 [...] CDT 10/17/2024 5:29 AM CDT Willie Nevarez LOSS PREVENTION CONSULTANT LAB BLOOD ORDERABLES Final R esult Performing Organization Address City/[facility] [place] [address] [address] [place] [address] * (ABNORMAL) Urinalysis reflex to microscopic and [...] for uric acid stone formation. Source: [facility] [employer] Current Interpretive Data was last revised on [...] CDT 10/17/2024 4:13 AM CDT Altaf Wilhelm LOSS PREVENTION CONSULTANT LAB MICROBIOLOGY - GENERAL ORDERABLES Final Result Performing Organization Address City/[facility]/ZIP Co de Phone Number [facility] [address] [address] [place] [address] * (ABNORMAL) Urinalysis, microscopic only (10/17/2024 4:06 AM CDT) WBC, ur >50(A) 0 - 5 /HPF RBC, ur 6-10(A) 0 - 2 /HPF [facility] Epithelial cells, squamous, ur 21-50(A) 0 - 5 /HPF [facility] Bacteria, ur Trace(A) [facility] Culture Reflex Comment Reflex to urine culture will be performed. [facility] Urine 10/17/2024 4:06 AM CDT 10/17/2024 4:13 AM CDT Altaf Wilhelm NP LAB URINE ORDERABLES Final Result Performing Organization Address [facility] de Phone Number [facility] [address] [address] [employer] [address] * Urine culture Urine (10/17/2024 4:06 AM CDT) Report Final Report: Less than 100,000 colonies/mL (clinically insignificant growth based on current clinical standards) Comment:Testing performed by : [facility], [address] [place]., [address] Organism (CLINICALLY INSIGNIFICANT GROWTH [facility] Urine 10/17/2024 4:06 AM CDT 10/17/2024 8:58 AM CDT Narrative [facility] - 10/18/2024 12:13 PM CDT Urine culture reflexed based upon urinalysis results. Testing performed by [facility] Microbiology Laboratory ([phone]) Altaf Wilhelm NP LAB MICROBIOLOGY - GENERAL ORDERABLES Final Result Performing Organization Address [facility] Co de Phone Number [facility] [address] [address] [facility] [employer] [address] * CT Abdomen Pelvis W Contrast (10/16/2024 [...] neural compromise as detailed. Stat report by [facility] Electronically signed by: Fredy Haskins M.D. [...] neural compromise as detailed. Stat report by [facility] Electronically signed by: Fredy Haskins M.D. Donna Henley MD [facility] CT PROCEDURES Final Resul t * eGFR [...] NP LAB BLOOD ORDERABLES Final Result [facility] [address] [address] Department [place] [address] * Differential, auto (10/16/2024 9:50 PM CDT) Neutrophil abs 4.02 1.50 - 6.50 K/cumm Imm gran abs 0.04 0.00 - 0.10 K/cumm [facility] Lymphocyte abs 1.84 0.80 - 3.30 K/cumm [facility] Monocyte abs 0.66 0.20 - 0.80 K/cumm [facility] Eosinophil abs 0.12 0.00 - 0.50 K/cumm [facility] Basophil abs 0.02 0.00 - 0.10 K/cumm [facility] Neutrophil pct 59.9 % [facility] Comment: Interpretive Data Percent cell [...] revised on 2017. Monocyte pct 9.9 % [facility] Comment: Interpretive Data Percent cell count reference ranges are not reported, since discordance with absolute values may lead to misinterpretation of CBC data. Current Interpretive Data was last revised on 2017. Eosinophil pct 1.8 % [facility] Comment: Interpretive Data Percent cell count reference ranges are not reported, since discordance with absolute values may lead to misinterpretation of CBC data. Current Interpretive Data was last revised on 2017. Basophil pct 0.3 % [facility] Comment: Interpretive Data Percent cell count reference ranges are not reported, since discordance with absolute values may lead to misinterpretation of CBC data. Current Interpretive Data was last revised on 2017. Blood 10/16/2024 9:50 PM CDT 10/16/2024 9:59 PM CDT us Altaf Wilhelm NP LAB BLOOD ORDERABLES Final Result [facility] [address] [address] Department [place] [address] * (ABNORMAL) CBC with auto differential (10/16/2024 9:50 PM CDT) WBC 6.70 3.80 - 9.90 K/cumm Hgb 9.0(L) 11.9 - 15.5 g/dL [facility] Hct 27.6(L) 35.6 - 45.5 % [facility] Plt 169 150 - 400 K/cumm [facility] MPV 9.6 9.1 - 12.3 fL [facility] RBC 2.87(L) 3.90 - 5.20 M/cumm [facility] MCV 96.2 81.3 - 96.4 fL [facility] MCH 31.4 27.1 - 33.3 pg [facility] MCHC 32.6 32.3 - 35.7 g/dL [facility] RDW CV 13.1 11.1 - 14.9 % [facility] RDW SD 46.3 35.7 - 48.1 fL [facility] NRBC abs 0.00 0.00 - 0.01 K/cumm [facility] Blood 10/16/2024 9:50 PM CDT 10/16/2024 9:59 PM CDT Altaf Wilhelm LOSS PREVENTION CONSULTANT LAB BLOOD ORDERABLES Final Result Performing Organization Address City/[facility] Co de Phone Number [facility] [address] [address] [facility] [employer] [address] * Lipase (10/16/2024 9:50 PM CDT) Pathologist [facility] Lipase 14 10 - 99 Units/L Blood 10/16/2024 9:50 PM CDT 10/16/2024 9:59 PM CDT Altaf Wilhelm LOSS PREVENTION CONSULTANT LAB BLOOD ORDERABLES Final Result Performing Organization Address [facility] Phone Number [facility] [address] [address] [employer] [address] * (ABNORMAL) Comprehensive metabolic panel (10/16/2024 9:50 PM CDT) Pathologist [facility] Sodium 131(L) 135 - 145 mmol/L Potassium, pl 3.0(L) 3.3 - 4.9 mmol/L [facility] Chloride 100 97 - 110 mmol/L [facility] CO2 18(L) 22 - 32 mmol/L [facility] Anion gap 13 2 - 15 mmol/L [facility] BUN 9 6 - 25 mg/dL [facility] Creatinine 0.75 0.60 - 1.10 mg/dL [facility] Glucose 87 70 - 199 mg/dL [facility] Comment: Interpretive Data Fasting glucose >/= [...] CDT 10/16/2024 9:59 PM CDT Altaf Wilhelm LOSS PREVENTION CONSULTANT LAB BLOOD ORDERABLES Final Result Performing Organization Address [facility]/ZIP Co de Phone Number [facility] [address] [address] Department of [employer] [place], [place] [id number] * POCT glucose (10/16/2024 7:04 PM CDT) Glucose, POC 114 70 - 199 mg/dL POC Performer [phone] [facility] Blood 10/16/2024 7:04 PM CDT 10/16/2024 7:04 PM CDT Notinfile Unknown LAB POCT ORDERABLES - DEVICE F inal Result Performing Organization Address [facility] Co de Phone Number [facility] [address] [address] Department [place] [employer] [address] * COLONOSCOPY (11/21/2021 9:21 AM CDT) Anatomical Region Laterality Modality Other Narrative Procedure Note Zenon Barcenas MD - 11/21/2021 9:21 AM CDT - [facility] Endoscopy Lab Patient Name: Camille [...] bowel preparation was evaluated using the BBPS ([place] Bowel Preparation Scale) with scores of:Right Colon [...] Insurance IDPA HUMANA CHOICE MEDICARE PPO MEDICARE IDVA MEDICARE IDVA [facility] MEDICARE ADVANTAGE Advance Directives For more information, please contact: [phone] * Full Code (Latest Code Status on File) Date Activated Date Inactivated Comments 10/17/2024 1:21 AM 10/19/2024 8:35 PM * Full Code Date Activated Date Inactivated Comments 09/27/2021 11:16 PM 10/03/2021 7:15 PM Care Teams Qa Tester Relationship Specialty Start Date End Date Mike Gautam, PCP - General 09/27/21
[2024-12-21 15:27] LABS: Toxigenic C. Diff NEGATIVE (NEGATIVE)
== END 2024-12-21 14:36 | disposition home or self-care (01) ==
LOC: HOME HLTH 14:36
PROVIDERS: Nurse Practitioner Family; PCP Internal Medicine; Visit Provider Internal Medicine
DX: R19.7 Diarrhea, unspecified (principal); I10 Essential (primary) hypertension; I89.0 Lymphedema, not elsewhere classified; K57.92 Diverticulitis of intestine, part unspecified, without perforation or abscess without bleeding; L03.116 Cellulitis of left lower limb
CPT/HCPCS: 87493

== ENCOUNTER 2025-03-21 12:24 | Outpatient (CLI) | payer MEDICARE, MEDICAID, SELFPAY ==
[2025-03-21 13:26] LABS: Hematocrit 34.6 % (37.0-47.0); Hemoglobin 10.5 g/dL (12.0-15.0)
[2025-03-21 13:38] LABS: INR 1.0; Prothrombin Time 13.2 Seconds (11.1-14.7)
[2025-03-21 13:39] LABS: Partial Thromboplastin Time 24.5 Seconds (22.3-36.8)
[2025-03-21 13:44] LABS: Anion Gap 3 mmol/L (4-12); Blood Urea Nitrogen 24 mg/dL (7-17); Calcium 8.8 mg/dL (8.4-10.2); Carbon Dioxide 30 mmol/L (22-30); Chloride 103 mmol/L (98-107); Estimated Glomerular Filt Rate 53; Glucose 109 mg/dL (65-110); Potassium 4.9 mmol/L (3.4-5.0); Sodium 136 mmol/L (137-145)
[2025-03-22 13:09] LABS: Carbamazepine (Tegretol) 8.1 ug/mL (4.0-12.0)
== END 2025-03-21 12:25 | disposition home or self-care (01) ==
LOC: ANHSURGERY 12:32
PROVIDERS: Anesthesiology; PCP Internal Medicine; Visit Provider Surgery
DX: R94.4 Abnormal results of kidney function studies (principal); K43.9 Ventral hernia without obstruction or gangrene; G40.909 Epilepsy, unspecified, not intractable, without status epilepticus; D64.9 Anemia, unspecified; Z51.81 Encounter for therapeutic drug level monitoring; Z79.899 Other long term (current) drug therapy
CPT/HCPCS: 36415; 80048; 80156; 85014; 85018; 85610; 85730; 86850; 86900; 86901

== ENCOUNTER 2025-03-27 00:40 | Day surgery (SDC) | payer MEDICARE, MEDICAID, SELFPAY ==
[2025-03-20 09:34] VITALS: BMI 41.8
--- NOTE | 2025-03-20 11:03 | PC.NURSE ---
Report to the Outpatient Waiting Room, entrance under the green pavilion located off [facility], at time __9:00AM___ on date __03/27/25___. Planned Procedure Time: __11:00AM____.? Time changes happen often and if your time is changed the preop area will call you the afternoon before. - You and your visitor will be asked to self-screen and do not enter if you have any COVID symptoms. Please call surgeon if you need to reschedule. - A mask is optional within the hospital at this time. Patients may have clear liquids (water, carbonated beverages, clear teas, apple juice) until 3 hours prior to surgery (8:00AM) with a maximum of 20 ounces. - No food from midnight until time of surgery and no smoking, or chewing tobacco (or any form of nicotine). No chewing gum, candy or mints. Take only the following medications with a SIP of water on the morning of surgery: ____NONE DO NOT STOP ANY OF YOUR OTHER PRESCRIPTION MEDICATIONS PRIOR TO SURGERY EXCEPT THE FOLLOWING Hold all vitamins and supplements for 3 days per anesthesiologist. LAST DOSE 03/23/25 Medications to discontinue per physician NONE Date to take last dose Please no make-up, nail zambian, hairspray, perfume, deodorant, or body powder the day of surgery.? No jewelry (including any body piercings) or valuables the day of surgery, leave them at home.? Please take a shower or bath the night before, or the morning of, surgery with an antibacterial soap.? Wear comfortable, loose fitting clothing.? - Jewelry must be removed prior to entering the operating room.? Rings and piercings that are not removed may be cut off. - The hospital will not accept responsibility for valuables.? - Please leave all valuables, including medications, at home the day of surgery. If you are going home after surgery, a licensed route delivery driver must drive you home.? - NO public transportation without another adult if you receive anesthesia. - We recommend that an adult stay with you for 24 hours following discharge. - We also recommend that you do not drive, make important decision, drink alcoholic beverages, or take any drugs that were not prescribed by your health care provider for at least 24 hours after your discharge time. Follow any additional instructions given to you from your surgeon. Telephone instructions given to ____PATIENT and asked if any additional questions and then verbalized understanding. Patient advised to call surgeon office or pre surgery nurse liaison [phone] if any additional questions.
[2025-03-27] VITALS (23 sets, daily range): BP systolic 123–158; BP diastolic 50–87; PULSE 71–89; RESP 11–20; TEMP 36.6–37.2; O2SAT 91–100
--- OUTSIDE RECORDS SUMMARY | 2025-03-27 00:43 | XMS_ITS | Clinical Summary ---
Author Organization [facility] Address [address] [place] [address] Care Team Providers Care Booking Prizer Name Role Phone Mike Gautam DO Primary Care Provider [phone] [phone] Source Comments [facility],non-owned Affiliates and Associated Physician Practices is amultiple site organization consisting of ambulatory clinics and hospital sitesin [place], [place], [place] and [place]. This disclosure is being madepursuant to the Care Everywhere program and may not contain all information available regarding this patient. 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 Gender Identity Not on file Sexual Orientation Not on file Plan of Treatment Health Maintenance Due Date Last Done Comments BONE DENSITY TESTING 1955 COLOGUARD (AGES 45-75) - COL ON CA SCREENING 1955 CT COLONOGRAPHY - COLON CA SCREENING 1955 FIT - COLON CA SCREENING 1955 FLEX SIG - COLON CA SCREENING 1955 LIPID TESTING 1955 MAMMOGRAM 1955 HEPATITIS C SCREENING 01/30/1973 DTAP/TDAP/TD VACCINES (1 - Tdap) 1974 PNEUMOCOCCAL VACCINE 50+ (1 of 1 - PCV) 2005 ZOSTER VACCINE (1 of 2) 2005 DEPRESSION SCREENING 07/05/2024 COVID-19 VACCINE (1 - 2023-2 5 season) 2025 INFLUENZA VACCINE (#1) 2025 Respiratory Syncytial Virus (RSV) Vaccine Pt: [...] age to complete this topic Insurance MEDICARE [facility] [place] [address] MEDICAID - OUT OF STATE MEDICAID AETNA [facility] [place] MEDICARE MEDICAID AETNA [facility] [place] MED[place] - [place] Care Teams Booking Prizer Relationship Specialty Start Date End Date Mike Gautam DO PCP - General 05/08/15
--- OUTSIDE RECORDS SUMMARY | 2025-03-27 00:43 | XMS_ITS | Clinical Summary ---
Author Organization [facility] Address [address] [place] [address] Care Team Providers Care Fish Cutter Name Role Phone Mike Gautam DO Primary Care Provider [phone]- [phone] Allergies Active Allergy Reactions Criticality Noted Date [...] (10/16/2021): Added automatically from request for surgery [id number] Diverticulitis 10/16/2021 Overview (10/16/2021): Added automatically from request for surgery [id number] Colitis 09/27/2021 Dystrophia unguium 02/21/2021 Epilepsy 05/13/2017 [...] 0.6 oz pur e alcohol) [facility] Utilities Answer Date Recorded In the past 12 months has th e electric, gas, oil, or water company threatened to shut off services in your home? No 10/17/2024 Social Connection and Isolation Panel Answer Date Recorded In a typical week, how many times do you talk on the phone with family, friends, or neighbors? More than three times a week 10/17/2024 How often do you get togethe r with friends or relatives? More than three times a week 10/17/2024 How often do you attend chur ch or hindu services? More than 4 times per year 10/17/2024 Do you belong to any clubs o r organizations such as sikhism groups, unions, fraternal or athletic groups, or [...] place to sleep or slept in a fpc (including now)? No 09/29/2021 Housing Stability Vital Sign Answer Papito e Recorded In the last 12 months, was t here a time when you were not able to pay the mortgage or rent on time? No 10/17/2024 In the past 12 months, how m any times have you moved where you were living? 0 10/17/2024 At any time in the past 12 m [facility], were you homeless or living in a fpc (including now)? No 10/17/2024 Personal Safety Answer Date Recorded Have you ever been in or are you currently in a harmful physical or emotional relationship or is someone making you feel afraid or unsafe? 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 Gender Identity Not on file Sexual Orientation [...] 06/07/2012 Depression Screening 10/16/2022 10/16/2021 Covid-19 Vaccine (4 - 2024-2 6 season) 2025 07/28/2021, 09/28/2020, 08/30/2020 Influenza Vaccine (#1) 2025 , 03/08/2020, 03/13/2019, Additional history exists eGFR 10/17/2025 [...] 11/21/2021, 09/21/2013 Medical Devices Implanted Type Area Substitute Crossing Guard Device Identifier Shelf Expiration Date Model / Serial / Lot Integra ANDA Networkscipocketfungames Earl [id number] Integra 5x4in Mesh Dressing Biological Bovine Collagen - [id number] Implanted:Qty: 1 on 09/29/2021 by Leo Boone Jr., MD at [facility] Right: Leg Integra [employer] 06/03/2022 [id number] / / [id number] Procedures Procedure Name Priority Date/Time Associated Diagnosis Comments EGFR Routine 10/17/2024 5:09 AM CDT COLONOSCOPY 11/21/2021 9:21 AM CDT from Last 3 Months or Most Recently Relevant to Health Maintenance Results * (ABNORMAL) eGFR (10/17/2024 5:09 AM CDT) [...] LAB BLOOD ORDERABLES Final R esult [facility] [address] [address] [place] [address] * COLONOSCOPY (11/21/2021 9:21 AM CDT) Anatomical Region Laterality Modality Other Narrative Procedure Note Zenon Barcenas MD - 11/21/2021 9:21 AM CDT [facility] Endoscopy Lab Patient Name: Camille [...] PHD (Anesthesia Staff), Nina Hedrick RN, Beena Kathleen, JOSEPH Referring MD: Mike Gautam, Medicines: Monitored Anesthesia Care Complications: No immediate [...] bowel preparation was evaluated using the BBPS ([place] Bowel Preparation Scale) with scores of:Right Colon [...] Insurance IDPA HUMANA CHOICE MEDICARE PPO MEDICARE IDPA MEDICARE IDPA IDPA [facility] MEDICARE ADVANTAGE Advance Directives For more information, please contact: [phone] * Full Code (Latest Code Status on File) Date Activated Date Inactivated Comments 10/17/2024 1:21 AM 10/19/2024 8:35 PM * Full Code Date Activated Date Inactivated Comments 09/27/2021 11:16 PM 10/03/2021 7:15 PM Care Teams Fish Cutter Relationship Specialty Start Date End Date Mike Gautam DO PCP - General 09/27/21
[2025-03-27] MEDS: ACETAMINOPHEN 500 MG TABLET 1000 MG PO (09:59)
[2025-03-27] MEDS: SCOPOLAMINE 1 MG PATCH 1 PATCH TRANSDERM (10:03)
[2025-03-27] MEDS: LACTATED RINGERS 1,000 ML 30 ML IV CONT ×2 (10:05→12:57)
[2025-03-27] MEDS: KETOROLAC 15 MG/ML VIAL (*BKC) IV PUSH (10:10)
--- NOTE | 2025-03-27 10:57 | WPDHPUPDATE1 ---
History and Physical Update Update Date/Time: 03/27/25 10:57 History and Physical has been reviewed, including an updated exam of the patient. There are NO changes in the patient's condition. Risks, benefits, and alternatives have been discussed and questions answered. Patient agrees to proceed with procedure.
--- NOTE | 2025-03-27 11:16 | WPDANESEPPF ---
Anes - Initial Pre Proc Eval Procedure: Operation Date: 03/27/25 11:00 Proposed Procedures p Laparoscopic Ventral Hernia Repair with Mesh, Da Ant Assisted - Baljeet Moore DO Date/Time: 03/27/25 11:16 Surgeon: Baljeet Moore DO Pre Op Diagnosis: ventral hernia 2cm Patient Data Age: 70 Gender: F Height: 1.56 m Weight: 102.6 kg Last Vital Signs Temp 98.9 F 03/27/25 09:00 Pulse 77 03/27/25 09:00 Resp 16 03/27/25 09:00 BP 130/73 03/27/25 09:00 Pulse Ox 100 03/27/25 09:00 O2 Del Method Room Air 03/27/25 09:00 Allergies Allergy/AdvReac Type Severity Reaction Status Date / Time diphenhydramine (From Allergy LOWERED Verified 03/27/25 09:41 Benadryl) SEIZURE THRESHOLD/SEIZURE ACTIVITY nitrofurantoin (From Allergy Hives Verified 03/27/25 09:41 Macrobid) cephalexin (From Keflex) AdvReac Itching Verified 03/27/25 09:41 Head Home Medications ?Medication ?Instructions ?Recorded ?Confirmed ?Type cholecalciferol (vitamin D3) 125 5,000 unit PO DAILY 06/08/19 03/27/25 History mcg (5,000 unit) capsule vitamins A,C,J-zilg-nytmzn 2,148 1 tablet PO DAILY 11/29/19 03/27/25 History mcg-113 mg-45 mg-17.4 mg tablet (PreserVision AREDS) Rollator Walker with seat #1 ea 11/16/23 03/20/25 Rx lisinopril 40 mg tablet 40 mg PO DAILY #90 tabs 07/03/24 03/27/25 Rx furosemide 20 mg tablet (Lasix) 20 mg PO QAM #90 tabs 10/05/24 03/27/25 Rx rosuvastatin 40 mg tablet (Crestor) 40 mg PO HS #90 tabs 10/05/24 03/27/25 Rx duloxetine 30 mg capsule,delayed See Rx Instructions .Route 10/23/24 03/27/25 Rx release .COMPLEX #180 caps potassium chloride 10 mEq 10 meq PO DAILY #30 caps 10/23/24 03/27/25 Rx capsule,extended release bimatoprost 1 drp EACH EYE HS 12/08/24 03/27/25 History carbamazepine 400 mg PO QPM 12/08/24 03/27/25 History cetirizine 10 mg capsule (All Day 10 mg PO DAILY allergy symptoms 12/08/24 03/27/25 History Allergy (cetirizine)) magnesium glycinate 220 mg PO HS 12/08/24 03/27/25 History ktmrzcrk-zkdh-rdxj 8 mg-folic 400 1 tablet PO DAILY 12/08/24 03/27/25 History mcg-K 50 mcg-lutein [facility] polyethylene glycol 3350 17 gram 17 g PO DAILY PRN constipation 12/08/24 03/27/25 History oral powder packet (Miralax) trazodone 100 mg tablet 100 mg PO HS #90 tabs 01/09/25 03/27/25 Rx carbamazepine 400 mg 400 mg PO HS 03/20/25 03/20/25 History tablet,extended release,12 hr ferrous sulfate 325 mg (65 mg 325 mg PO DAILY 03/20/25 03/27/25 History iron) tablet Patient hx anesthesia problems: post op nausea/vomiting Family hx anesthesia problems: none Results Review: All pre-operative results and documents have been reviewed as part of the pre-operative evaluation. [facility] Past Medical History Medical History Nausea Nausea & vomiting Paralysis of left vocal cord Counseling regarding end of life decision making Diverticulitis Reflex sympathetic dystrophy Hyperlipidemia Essential hypertension Depression Vitamin D deficiency Adenomatous colon polyp BPPV (benign paroxysmal positional vertigo) Post-menopausal Lump of breast, right Inflammatory arthritis Bilateral sacroiliitis Marijuana use Seizure disorder Anxiety Spinal stenosis Obstructive sleep apnea Noncompliant with BiPAP. Glaucoma Macular degeneration History of rheumatic fever as a child Gastroesophageal reflux disease Bilateral foot-drop Diverticulosis large intestine w/o perforation or abscess w/bleeding Former smoker Rectocele Prediabetes A1C 5.5% 09/2024 Surgical History Surgical History History of sinus surgery History of tonsillectomy History of bilateral cataract extraction History of bilateral breast reduction surgery History of colonoscopy with polypectomy History of laparoscopic cholecystectomy History of partial hysterectomy History of fusion of cervical spine (1999) History of repair of rectocele (12/08/19) Rectocele repair/posterior colporrhaphy and perineoplasty. Family History Family History Mother Diabetes mellitus Hypertension Parkinsons disease Heart attack Father Diabetes mellitus Hypertension Renal failure Heart attack Cerebrovascular accident Social History Social History Social History: The patient lives in her own home in [place]. A friend is currently staying with her. She has 2 grown children. Ambulates with a walker or cane due to footdrop and decreased mobility. 5 pack-year smoking history, quit 1977. She drinks 1 to 2 glasses of wine a week. Smokes marijuana couple of times a week. She designates her son Ousmane Orozco and her brother Mike Orozco as her surrogate decision makers and she wishes to be a full code. 1 cup caffeine daily Years smoked: 9 Smoking status: Former smoker Tobacco type: cigarettes Smoking end date: 07/05/78 Alcohol intake: never Substance use: current Substance use type: marijuana Other substance usage details: marijuana once a month Do You Feel Safe in your Home?: Yes Lack of Transportation: No Lack of Food: Never True Current Housing: I Have Housing Concerned About Future Housing: No Difficulty Paying Gas/Electric Bills: No Difficulty Paying for Meds: No Currently Unemployed: No Education: Grade School Difficulty w/ Childcare or Family Care: No Living arrangements: alone Spiritual care concerns: No Anes - Eval Final PreProcedure Day of Procedure 03/27/25 11:16 Patient weight: morbidly obese Heart: regular rate and rhythm Lungs: clear to auscultation Airway: Mallampati scale class III Neurological: alert and oriented Last oral intake: >/= 8 hours ASA classification: III Emergent: no Anesthetic plan: proceed Anesthesia type and monitoring: general ETT and standard monitoring Results Review: All pre-operative results and documents have been reviewed as part of the pre-operative evaluation. Informed Consent: The patient's anesthetic plan and its attendant risks and benefits were discussed with the patient/family/POA. Questions were solicited and answers provided to the satisfaction of the patient/family/POA.
[2025-03-27] MEDS: ceFAZolin 2 GM in SODIUM CHLORIDE 0.9% IV 50 ML 100 ML IVPB (11:22)
[2025-03-27] MEDS: BUPIVACAINE/EPINEPHRINE 0.5% 30 ML VIAL INFILTRATE (12:09)
--- NOTE | 2025-03-27 12:57 | P.OP_ITS ---
Procedure Note - Detailed Date of Procedure 03/27/25 Pre-op Diagnosis ventral hernia 2cm Post-op Diagnosis Other (2cm umbilical hernia) Procedure Performed Laparoscopic 2 cm umbilical hernia repair with mesh, da Ant assisted Surgeon Baljeet Moore DO Anesthesia General and Local (0.5% bupivacaine with epinephrine) Indications This is a 70-year-old woman who presented with a painful lump just above her umbilicus. This is been present for several months and has been increasingly painful. She has prior CTs which have demonstrated a small fat containing hernia in this region. I discussed surgical options with the patient and decision was made to proceed with robotic assisted laparoscopic ventral hernia repair with mesh. Findings The patient was found to have a 2 cm umbilical hernia containing preperitoneal fat. A robotic assisted laparoscopic 2 cm umbilical hernia repair with mesh was performed. A robotic intraperitoneal onlay mesh technique was utilized. The preperitoneal fat and hernia sac were excised and discarded. The hernia defect was then closed using 0 Stratafix running absorbable suture, and then a Ventralight ST 15 cm x 10 cm mesh was placed and secured circumferentially. Patient did have a few lower midline adhesions that appeared to be omentum adherent to the lower midline abdominal wall. These came down easily with scissors with electrocautery. No other intra-abdominal abnormalities were noted. Description of Procedure Procedure as well as risks, benefits, and alternatives were discussed with the patient. Written consent was obtained and placed in chart prior to procedure. Patient was brought back to surgical suite. She was placed supine on operating table. Time-out was done to confirm patient and procedure. She was then intubated by the anesthesia department. A bump was placed under her left hip, and the bed was flexed slightly to extend the space between her costal margin and iliac crest. Her abdomen was prepped and draped in sterile fashion using chlorhexidine prep. A 5 millimeter incision was made in the left upper quadrant, and a 5 millimeter Optiview trocar was advanced through the abdominal layers under direct visualization. Once inside the abdominal cavity, carbon dioxide insufflation was used to create a pneumoperitoneum. Her abdomen was inspected. An 8 millimeter incision was made in the left lower quadrant, and an 8 millimete r robotic trocar was placed under direct visualization. Another 8 millimeter incision was made in the left lateral abdomen, and an 8 millimeter robotic trocar was placed under direct visualization. 0.5% bupivacaine with epinephrine was infiltrated around each port site. The 5 millimeter port was removed, and an 8 mm robotic trocar was placed under direct visualization. The robotic arms were brought up to the patient's bedside and secured to the ports. The camera and instruments were inserted, and I then moved over to the robotic console and took control of the camera and instruments. After careful thorough inspection of the abdominal cavity, I began my dissection at the hernia. The hernia sac and surrounding preperitoneal fat was carefully excised using scissors with electrocautery. There were some lower midline omental adhesions that were also taken down using scissors with electrocautery. The falciform ligament was then also taken down several cm cephalad to allow wide enough space for mesh placement. I then measured the hernia size. The hernia measured 2 cm. The fascia was closed using an 0- Stratafix running suture in a vertical fashion. A Ventralight ST 15 cm x 10 cm mesh was then placed within the abdominal cavity. This was oriented vertically with the mesh centered on the hernia defect. The mesh was then secured at the center and 4 corners using 3-0 Vicryl simple interrupted sutures. The entire perimeter of the mesh was then secured to the abdominal wall using 2-0 Stratafix running absorbable suture. The repair was inspected, and one final inspection w as made around the abdominal cavity. The robotic instruments were then removed, and the robotic arms were disengaged from the trocars. The ports were then removed under direct visualization, the camera was removed, and the pneumoperitoneum was released. The skin of the incisions was then approximated using 4-0 Monocryl subcuticular suture. Exofin glue was then applied on top. The patient was then awakened from anesthesia, extubated, and transferred to recovery. Implants Ventralight ST 15 cm x 10 cm mesh Estimated Blood Loss 5 Complications No immediate complications Condition Stable Disposition Observation [facility] Billing Surgery - Charge Forward: Surgery Billing
[2025-03-27] MEDS: fentaNYL CITRATE INJ (*CRX) 100 MCG/2 ML VIAL 25 MCG IV PUSH ×8 (13:21→13:50)
--- NOTE | 2025-03-27 13:45 | SUR.PHASEI ---
1257 - lower left side of lip swollen with with scant amount of dry blood. Dr. Shetty aware
[2025-03-27] MEDS: HYDROmorphone HCL INJ (*CRX) 1 MG/ML SYR 0.5 MG IV PUSH ×4 (13:55→15:50)
--- NOTE | 2025-03-27 14:23 | SUR.PHASEI ---
1415 -Dr. Moore called and aware of pt's pain level. Dr. Moore stated that he would admit her overnight as OPER.
--- NOTE | 2025-03-27 16:58 | ADMGEN ---
This patient, Camille Orozco, was admitted to 2 Medical Room 259-01. Patient/family oriented to hospital policies and general routines including ID bracelet, bed and alarms, visiting hours, pain management, procedures, bathroom and other care routines, personal items, smoking policy, room service/diet, and visiting hours. Information on how to activate the Rapid Response Team has been discussed. Patient/Family are encouraged to report perceived risks to care and to ask questions if they do not understand what they are told or what they should do.
[2025-03-27] MEDS: HYDROcodone/acetaminophen (*CRX) 10-325 MG TABLET 1 TAB PO (17:21)
[2025-03-27] MEDS: LACTATED RINGERS 1,000 ML 100 ML IV CONT (17:23)
[2025-03-27] MEDS: IBUPROFEN 400 MG TABLET 800 MG PO (21:03)
[2025-03-27] MEDS: MAGNESIUM OXIDE 200 MG TABLET PO (21:04)
[2025-03-27] MEDS: ROSUVASTATIN 20 MG TABLET 40 MG PO (21:04)
[2025-03-27] MEDS: HYDROcodone/acetaminophen (*CRX) 5-325 MG TABLET 1 TAB PO (22:12)
[2025-03-28 01:56] VITALS: BP 111/55; PULSE 76; RESP 14; TEMP 37; O2SAT 93
[2025-03-28 05:04] LABS: Hematocrit 29.9 % (37.0-47.0); Hemoglobin 9.3 g/dL (12.0-15.0); Mean Corpuscular HGB Conc 31.1 g/dl (32-36); Mean Corpuscular Hemoglobin 30.6 pg (26-34); Mean Corpuscular Volume 98.4 fl (80-100); Platelet Count Result 172 k/mm3 (150-375); Red Blood Count 3.04 M/mm3 (4.2-5.4); White Blood Count 7.6 K/mm3 (4.5-10.0)
[2025-03-28 05:29] LABS: Anion Gap 3 mmol/L (4-12); Blood Urea Nitrogen 25 mg/dL (7-17); Calcium 8.2 mg/dL (8.4-10.2); Carbon Dioxide 27 mmol/L (22-30); Chloride 100 mmol/L (98-107); Estimated CRCL calculation 56 ml/min; Estimated Glomerular Filt Rate 60; Glucose 91 mg/dL (65-110); Potassium 4.6 mmol/L (3.4-5.0); Sodium 130 mmol/L (137-145)
[2025-03-28] MEDS: IBUPROFEN 400 MG TABLET 800 MG PO ×2 (05:45→14:20)
[2025-03-28 06:33] VITALS: BP 123/40; PULSE 67; RESP 20; TEMP 36.9; O2SAT 95
[2025-03-28 09:01] VITALS: BP 131/58; PULSE 71
[2025-03-28] MEDS: FUROSEMIDE 20 MG TABLET PO (09:06)
[2025-03-28] MEDS: POTASSIUM CHLORIDE 10 MEQ ER TABLET PO (09:06)
[2025-03-28] MEDS: ENOXAPARIN 40 MG/0.4 ML SYRINGE SUB-Q (09:07)
--- NOTE | 2025-03-28 13:48 | P.PNGS_ITS ---
Progress Note: A&P Assessment and Plan (1) Encounter for follow-up examination after completed treatment for conditions other than malignant neoplasm: Code(s): Z09 - Encounter for follow-up examination after completed treatment for conditions other than malignant neoplasm Status: Acute Assessment and Plan: * Patient was placed in outpatient extended recovery after surgery yesterday due to difficulty with pain control. She has been doing well once her pain was adequately controlled with a combination of p.o. and IV pain medications. She has now been tolerating her pain using p.o. pain meds. Will discharge home today. Discharge instructions discussed with patient. Follow-up in office in 2 weeks. (2) Other specified postprocedural states: Code(s): Z98.890 - Other specified postprocedural states Status: Acute Subjective Subjective Date/Time Seen: 03/28/25 13:48 Interval history: Pain well controlled overnight and this morning. Up ambulating with assistance. Urinating without difficulty. Tolerating diet. Exam GI: Inspection: non-distended and incision (intact with glue) GI Palp: Yes Tenderness to palpation present (GI) (incisional) Auscultation: normal bowel sounds Objective Data Vital Signs Vital Signs: Vital Signs - 24 hr 03/27/25 13:55 03/27/25 14:10 03/27/25 14:25 Temperature Pulse Rate 72 87 82 Respiratory Rate 14 16 14 Blood Pressure 134/61 151/56 H 148/72 H Pulse Oximetry 100 98 100 Oxygen Delivery Nasal Cannula Nasal Cannula Nasal Cannula Oxygen Flow Rate 2 2 2 Fraction of Inspired Oxygen 03/27/25 14:40 03/27/25 14:55 03/27/25 15:10 Temperature Pulse Rate 76 79 74 Respiratory Rate 18 20 16 Blood Pressure 145/76 H 158/74 H 154/74 H Pulse Oximetry 100 99 100 Oxygen Delivery Nasal Cannula Nasal Cannula Nasal Cannula Oxygen Flow Rate 2 2 2 Fraction of Inspired Oxygen 03/27/25 15:25 03/27/25 15:40 03/27/25 15:55 Temperature Pulse Rate 77 82 83 Respiratory Rate 11 L 16 16 Blood Pressure 156/73 H 157/75 H 157/75 H Pulse Oximetry 98 100 98 Oxygen Delivery Nasal Cannula Nasal Cannula Nasal Cannula Oxygen Flow Rate 2 2 2 Fraction of Inspired Oxygen 03/27/25 16:10 03/27/25 16:25 03/27/25 16:40 Temperature Pulse Rate 83 82 80 Respiratory Rate 18 16 16 Blood Pressure 124/72 134/87 134/80 Pulse Oximetry 100 100 100 Oxygen Delivery Nasal Cannula Nasal Cannula Nasal Cannula Oxygen Flow Rate 2 2 2 Fraction of Inspired Oxygen 03/27/25 16:46 03/27/25 16:48 03/27/25 17:03 Temperature 98 F 98.1 F Pulse Rate 89 77 78 Respiratory Rate 20 16 16 Blood Pressure 132/53 L 134/57 L 144/55 H Pulse Oximetry 100 98 98 Oxygen Delivery Nasal Cannula Oxygen Flow Rate 2 Fraction of Inspired Oxygen 03/27/25 17:33 03/27/25 20:00 03/27/25 21:22 Temperature 98.5 F Pulse Rate 80 78 Respiratory Rate 16 20 Blood Pressure 139/50 L Pulse Oximetry 100 91 Oxygen Delivery Room Air Room Air Oxygen Flow Rate Fraction of Inspired Oxygen 21 03/27/25 23:54 03/28/25 01:56 03/28/25 06:33 Temperature 97.9 F 98.6 F 98.4 F Pulse Rate 88 76 67 Respiratory Rate 16 14 20 Blood Pressure 123/54 L 111/55 L 123/40 L Pulse Oximetry 95 93 95 Oxygen Delivery Oxygen Flow Rate Fraction of Inspired Oxygen 03/28/25 09:00 03/28/25 09:01 Temperature Pulse Rate 71 Respiratory Rate Blood Pressure 131/58 L Pulse Oximetry Oxygen Delivery Room Air Oxygen Flow Rate Fraction of Inspired Oxygen Intake/Output Intake/Output: Intake & Output 03/25/25 03/26/25 03/27/25 03/28/25 23:59 23:59 23:59 23:59 Intake Total 1150 1790 Output Total 425 1000 Balance 725 790 Meds/Results Medications: Active Medications Generic Name Dose Route Start Last Admin Trade Name Freq PRN Reason Stop Dose Admin Hydrocodone Bitart/Acetaminophen 1 tab 03/27/25 16:48 03/27/25 22:12 Hydrocodone/Acetaminophen (*Crx) 5-325 Mg Tablet PO 1 tab Q4H PRN Administration Pain Rated 4-6 Hydrocodone Bitart/Acetaminophen 1 tab 03/27/25 16:48 03/27/25 17:21 Hydrocodone/Acetaminophen (*Crx) 10-325 Mg Tablet PO 1 tab Q4H PRN Administration Pain Rated 7-10 Carbamazepine 200 mg 03/29/25 21:00 Carbamazepine Xr 200 Mg Tab.Er.12h PO 04/26/25 20:59 HS DAKSHA Duloxetine HCl 60 mg 03/27/25 18:00 03/27/25 17:21 Duloxetine Hcl 30 Mg Capsule.Dr PO 60 mg QPM DAKSHA Administration Enoxaparin Sodium 40 mg 03/28/25 09:00 03/28/25 09:07 Enoxaparin 40 Mg/0.4 Ml Syringe SUB-Q 40 mg DAILY DAKSHA Administration Furosemide 20 mg 03/28/25 09:00 03/28/25 09:06 Furosemide 20 Mg Tablet PO 20 mg QAM DAKSHA Administration Hydromorphone HCl 1 mg 03/27/25 16:48 Hydromorphone Hcl Inj (*Crx) 1 Mg/Ml Syr IV PUSH Q2H PRN Breakthrough Pain Rated 7-10 or NPO Hydromorphone HCl 0.5 mg 03/27/25 16:48 Hydromorphone Hcl Inj (*Crx) 1 Mg/Ml Syr IV PUSH Q2H PRN Breakthrough Pain Rated 4-6 or NPO Ibuprofen 800 mg 03/27/25 22:00 03/28/25 05:45 Ibuprofen 400 Mg Tablet PO 800 mg Q8HR DAKSHA Administration Lisinopril 40 mg 03/28/25 09:00 03/28/25 09:06 Lisinopril 20 Mg Tablet PO 40 mg DAILY DAKSHA Administration Magnesium Oxide 200 mg 03/27/25 21:00 03/27/25 21:04 Magnesium Oxide 200 Mg Tablet PO 04/26/25 20:59 200 mg HS DAKSHA Administration Miscellaneous Information 1 each 03/27/25 00:01 Bimatoprost Drops Please Clarify Strength. If 0.01% Can Patient Bring From Home? XX 04/26/25 00:00 CLARIFY DAKSHA Naloxone HCl 0.1 mg 03/27/25 16:48 Naloxone Hcl 0.4 Mg/Ml Vial IV PUSH Q2M PRN Opiate Reversal Non-Formulary Medication 1 drop 03/27/25 21:00 Bimatoprost EACH EYE 04/26/25 20:59 HS [facility] Ondansetron HCl 4 mg 03/27/25 16:48 Ondansetron Inj 4 Mg/2 Ml Vial IV PUSH Q4H PRN Nausea And Vomiting Polyethylene Glycol 17 gm 03/27/25 16:48 03/28/25 09:06 Polyethylene Glycol 3350 17 Gm Powd.Pack PO 17 gm DAILY PRN Administration Constipation Potassium Chloride 10 meq 03/28/25 09:00 03/28/25 09:06 Potassium Chloride 10 Meq Er Tablet PO 04/27/25 08:59 10 meq DAILY DAKSHA Administration Rosuvastatin Calcium 40 mg 03/27/25 21:00 03/27/25 21:04 Rosuvastatin 20 Mg Tablet PO 40 mg HS DAKSHA Administration Trazodone HCl 100 mg 03/27/25 21:00 03/27/25 21:03 Trazodone Hcl 50 Mg Tablet PO 100 mg HS DAKSHA Administration Labs Labs: Laboratory Results - last 24 hr 03/28/25 04:51 WBC 7.6 RBC 3.04 L Hgb 9.3 L Hct 29.9 L MCV 98.4 MCH 30.6 MCHC 31.1 L RDW 13.5 Plt Count 172 MPV 9.4 Sodium 130 L Potassium 4.6 Chloride 100 Carbon Dioxide 27 Anion Gap 3 L BUN 25 H Creatinine 0.92 Estim Creat Clear Calc 56 Estimated GFR 60 Glucose 91 Calcium 8.2 L
[2025-03-28 14:09] VITALS: BP 126/57; PULSE 77; RESP 19; TEMP 36.3; O2SAT 98
== END 2025-03-28 15:46 | disposition home or self-care (01) ==
LOC: ANHSURGERY 11:12 → ANH2MED 16:50
PROVIDERS: PCP Internal Medicine; Visit Provider Surgery
PROC: (CPT 49591; principal; 2025-03-27 11:00)
DX: K42.9 Umbilical hernia without obstruction or gangrene (principal); F12.90 Cannabis use, unspecified, uncomplicated; Z87.891 Personal history of nicotine dependence; E66.01 Morbid (severe) obesity due to excess calories; Z68.41 Body mass index [BMI] 40.0-44.9, adult
CPT/HCPCS: 49591; S2900; 36415; 80048; 85027; J0690; A9270; C1781; J1100; J1171; J1650; J1885; J2003; J2405; J2704; J3010; J7120

== ENCOUNTER 2025-04-30 10:00 | Outpatient (RCR) | payer MEDICARE, MEDICAID, SELFPAY ==
--- NOTE | 2025-04-30 10:00 | BUOTOPEVAL ---
Assessment and note entered by Niurka Rios OT Evaluation Information Assessment Status Evaluation ICD-10 Condition Codes (OT) Lymphedema I89.0 Onset May 2024 Subjective Information Pt. presents with caregiver Loree, pt. stating that last May, after losing weight, her caregiver noticed increased swelling in LE. Pt. reports persistent symptoms. Pt. is unclear regarding specifics of treatment, reports recently going through lymphedema at other facilities, but did not have short stretch compression bandaging. Pt. reports she has received velcro garments and compression pump, but does not know how to to use them and reports she did not understand she should be wearing them daily. Reports that she has Caregiver M-F. Pt. arrives using cane, often holding caregiver or wall, but states she uses a rollator at home. Pt. has bilateral AFOs due to foot drop, but reports she does not need to always wear them. Pt. reports history of falls. Reported Pain Level Pain Score 0: Self Report Assessment OT Clinical Summary Pt. is 70 year old F, referred for B LE lymphedema , L > R, presenting with stage 1/2 lymphedema with firm tissue with hemosiderin staining, reporting previously more swollen and hardened tissue. Pt. reports history of lymphedema treatments, but can not recall the treatment or knowledge regarding management of condition based on received treatment. Pt. will benefit from skilled OT services for intensive phase of complete decongestive treatment including manual lymph drainage, use of vasopneumatic compression pump, and short stretch compression bandaging. Pt. will require structured education for planning and strategies for management of condition, building a routine for slef manual lymph drainage, use of home compression pump, and management and day time and night time garment wearing schedule. Concerns for pt.'s safety due to low vision, history of falls, possible memory deficits, and limted hours of caregiver support. Plan of Care Interventions Therapeutic Exercise,Manual Therapy,Therapeutic Activities,Sensory Integrative Techniques,Other Other Interventions vasoneumatic compression OT Services Indicated Yes Treatment Frequency and 3x/ week for 10 visits Duration These treatments will address the objective and functional deficits as defined above. The patient will be advanced safely and appropriately in order for the patient to progress towards his/her prior level of function. Additional exercises will be introduced and as well as a comprehensive home exercise program upon discharge, if needed, ?to ensure carryover of functional gains achieved in the clinic. This treatment plan has been reviewed and agreement upon by the patient.
--- NOTE | 2025-05-01 16:51 | OPREHPOC ---
Outpatient Therapy Plan of Care This is a Multidisciplinary Plan of Care that may contain components documented by all disciplines (PT, OT, and ST.) OT Problem 1 OT Problem #1 Knowledge Deficit OT Goal 1 Goal / Goal Update Pt. will demonstrate independence with HEP Pt. will demonstrate knowledge and independence necessary for maintenance phase of complete decongestive treatment, including maintaining wear schedule of appropriate compression garments Target Visit 20 OT Problem 2 OT Problem #2 Pain OT Goal 1 Goal / Goal Update Pt. will report < 2/10 pain in LE for 5/7 days per week Target Visit 20 OT Problem 3 OT Problem #3 Impaired Lymphatic System OT Goal 1 Goal / Goal Update Pt. will demonstrate B LE volume reduction of > 50 cm, with decreased display of signs and symptoms of lymphedema Target Visit 20
--- NOTE | 2025-05-01 16:53 | OTOPEVAL1 ---
Assessment and note entered by Niurka Rios, OT Reported Pain Level Pain Score 0: Self Report Assessment OT Clinical Summary Pt. is 70 year old F, referred for B LE lymphedema , L > R, presenting with stage 1/2 lymphedema with firm tissue with hemosiderin staining, reporting previously more swollen and hardened tissue. Pt. reports history of lymphedema treatments, but can not recall the treatment or knowledge regarding management of condition based on received treatment. Pt. will benefit from skilled OT services for intensive phase of complete decongestive treatment including manual lymph drainage, use of vasopneumatic compression pump, and short stretch compression bandaging. Pt. will require structured education for planning and strategies for management of condition, building a routine for slef manual lymph drainage, use of home compression pump, and management and day time and night time garment wearing schedule. Concerns for pt.'s safety due to low vision, history of falls, possible memory deficits, and limted hours of caregiver support. These treatments will address the objective and functional deficits as defined above. The patient will be advanced safely and appropriately in order for the patient to progress towards his/her prior level of function. Additional exercises will be introduced and as well as a comprehensive home exercise program upon discharge, if needed, ?to ensure carryover of functional gains achieved in the clinic. This treatment plan has been reviewed and agreement upon by the patient.
--- NOTE | 2025-05-07 12:09 | OTOPDC ---
Assessment and note entered by Niurka Rios, OT Evaluation Information Assessment Status Discharge - Pt Not Present Assessment OT Clinical Summary Pt. is 70 year old F, referred for B LE lymphedema , L > R, presenting with stage 1/2 lymphedema with firm tissue with hemosiderin staining, reporting previously more swollen and hardened tissue. Pt. initial evaluation 04/30/25 reporting at that time a history of lymphedema treatments, but could not recall the treatment or knowledge regarding management of condition based on received treatment. Pt. called today to clarify treatment options, and confirmed having necessary resources including home compression pump which she reports she has been using daily, and new compression garments, which she had during evaluation stated she did not know how to manage or follow wearing schedule, today reporting she is aware of how to manage. Pt. offered by therapist option to attend fewer treatments in clinic to ensure pt.'s knowledge, capacity, and compliance, but pt. declined need for additional treatments. Discharging on this date with pt. agreement. Plan of Care OT Services Indicated No
== END 2025-05-07 15:14 | disposition home or self-care (01) ==
LOC: ANHOT 10:00
PROVIDERS: PCP Internal Medicine; Visit Provider Clinical Nurse Specialist
DX: I89.0 Lymphedema, not elsewhere classified (principal)
CPT/HCPCS: 97165

== ENCOUNTER 2025-05-15 12:34 | Outpatient (CLI) | payer MEDICARE, MEDICAID, SELFPAY ==
--- OUTSIDE RECORDS SUMMARY | 2025-05-15 12:39 | XMS_ITS | Clinical Summary ---
[facility] Organization [facility] Address [address] [place] [address] Care Team Providers Care Cnc Lathe Machine Operator Name Role Phone Mike Gautam DO Primary Care Provider [phone]- [phone] Allergies Active Allergy Reactions Criticality Noted Date [...] (10/16/2021): Added automatically from request for surgery [id number] Diverticulitis 10/16/2021 Overview (10/16/2021): Added automatically from request for surgery [id number] Colitis 09/27/2021 Dystrophia unguium 02/21/2021 Epilepsy 05/13/2017 [...] drink = 0.6 oz pur e alcohol) [facility] Utilities Answer Date Recorded In [...] often do you attend chur ch or methodist services? More than 4 times per year 10/17/2024 Do you belong to any clubs o r organizations such as amish groups, unions, fraternal or athletic groups, or [...] place to sleep or slept in a intermediate (including now)? No 09/29/2021 Housing Stability Vital Sign Answer Papito e Recorded In the last 12 months, was t here a time when you were not able to pay the mortgage or rent on time? No 10/17/2024 In the past 12 months, how m any times have you moved where you were living? 0 10/17/2024 At any time in the past 12 m [facility], were you homeless or living in a intermediate (including now)? No 10/17/2024 Personal Safety Answer Date Recorded Have you ever been in or are you currently in a harmful physical or emotional relationship or is someone making you feel afraid or unsafe? 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 Gender Identity Not on file Sexual Orientation [...] 11/21/2021, 09/21/2013 Medical Devices Implanted Type Area Art Education Professor Device Identifier Shelf Expiration Date Model / Serial / Lot Integra Gru[employer] Waste [employer] Earl [id number] Integra 5x4in Mesh Dressing Biological Bovine Collagen - [id number] Implanted:Qty: 1 on 09/29/2021 by Leo Boone Jr., MD at [facility] Right: Leg Integra [employer] Earl 06/03/2022 [id number] / / [id number] Procedures Procedure Name Priority Date/Time Associated Diagnosis [...] LAB BLOOD ORDERABLES Final R esult GRACIE [address]asmussen [place] [address] * COLONOSCOPY (11/21/2021 9:21 AM CDT) Anatomical Region Laterality Modality Other Narrative Procedure Note Zenon Barcenas MD - 11/21/2021 9:21 AM CDT [facility] End[facility] Patient Name: Camille [...] bowel preparation was evaluated using the BBPS ([place] Bowel Preparation Scale) with scores of:Right Colon [...] Insurance HU[employer]NA CHOICE MEDICARE PPO MEDICARE IDPA MEDICARE IDPA IDPA [facility] MEDICARE ADVANTAGE Advance Directives For more information, please contact: [phone] * Full Code (Latest Code Status on File) Date Activated Date Inactivated Comments 10/17/2024 1:21 AM 10/19/2024 8:35 PM * Full Code Date Activated Date Inactivated Comments 09/27/2021 11:16 PM 10/03/2021 7:15 PM Care Teams Cnc Lathe Machine Operator Relationship Specialty Start Date End Date Mike Gautam DO PCP - General 09/27/21
--- OUTSIDE RECORDS SUMMARY | 2025-05-15 12:39 | XMS_ITS | Clinical Summary ---
Author Organization [facility] Address [address] [place] [address] Care Team Providers Care Sample Preparation Supervisor Name Role Phone Mike Gautam DO Primary Care Provider [phone] Source Comments [facility],non-owned Affiliates and Associated Physician Practices is amultiple site organization consisting of ambulatory clinics and hospital sitesin [place], [place], [place] and [place]. This disclosure is being madepursuant to the Care Everywhere program and may not contain all information available regarding this patient. 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 Gender Identity Not on file Sexual Orientation [...] age to complete this topic Insurance MEDICARE [facility] Member Subscriber Plan / Payer (Ef fective 2015-Present) Name:Camille Sarabia Relation to Subscriber:Self Name:CAMILLE SARABIA Payer ID:[id number] (NAIC) Group ID:[id number] Type:Medicare-Managed Care Address: [employer]istant [facility] [address] [address] [place] [address] MEDICAID - OUT OF STATE MEDICAID AETNA [facility] [place] MEDICARE MEDICAID AETNA [facility] [place] Care Teams Sample Preparation Supervisor Relationship Specialty Start Date End Date Mike Gautam DO PCP - General 05/08/15
--- OUTSIDE RECORDS SUMMARY | 2025-05-15 12:39 | XMS_ITS | Data Portability ---
Author Organization [facility] [employer], Main Office Address [address] [place] [address] Assessment Encounter Date Assessment Date Assessment LastModified by Organization Details LastModified Time 02/08/2024 02/08/2024 This note is dictated and transcribed by [employer]. Medic Technician variances may occur. Despite proofreading, typographical errors may occur. Occasional wrong-word or 'rosms-m-ydwc' substitutions may have occurred due to the inherent limitations of voice recording. Read the chart carefully and recognize, using context, where substitutions have occurred. Not available 02/08/2024 14:43:06 08/01/2024 08/01/2024 This note is dictated and transcribed by [employer]. Medic Technician variances may occur. Despite proofreading, typographical errors may occur. Occasional wrong-word or 'jpziq-j-lnbm' substitutions may have occurred due to the inherent limitations of voice recording. Read the chart carefully and recognize, using context, where substitutions have occurred. Not available 08/01/2024 16:24:11 11/14/2024 11/14/2024 This note is dictated and transcribed by [employer]. Medic Technician variances may occur. Despite proofreading, typographical errors may occur. Occasional wrong-word or 'cxtuh-f-zpyc' substitutions may have occurred due to the inherent limitations of voice recording. Read the chart carefully and recognize, using context, where substitutions have occurred. Not available 12/04/2024 14:05:51 Plan of Treatment Reminders Order Date Submit Date Provider Last Modified By Organization Details Last Modified Time Details Appointments None record ed. Lab None record ed. Referral None record ed. Procedures None record ed. Surgeries None record ed. Imaging None record ed. Medication Orders None record ed. Patient TargetsNo targets recorded. Patient Instructions Encounter Date Encounter Id Patient Instructions Last Modified By Organization Details Last Modified Time 08/05/2023 [id number] paronychia: care instructions Not available 08/05/2023 15:04:50 02/08/2024 [id number] diabetic foot care education Not available 02/08/2024 14:43:17 Reason for Referral None Reported. Problems Name Problem SNOMED Code Status Onset Date Resolution Date Notes Provider Name and Address Organization Details Recorded Time Hyperchole sterolemia 81490200 Active 2016 Not Available [facility] 3 19:30:16 Hypertensi ve disorder 32913360 Active 2016 Not Available [facility] 3 19:30:17 Neuropathy 844122842 Active 2016 Not Available [facility] 3 19:30:17 Foot-drop 2368184 Active 2016 Not Available [facility] 3 19:30:17 Epilepsy 52886986 Active 2016 Not Available [facility] 3 19:30:17 Unable to cut own toenails 794759399 Active 2017 Not Available [facility] 3 19:30:17 Pressure injury of heel 036220858 Active 2018 Not Available [facility] 3 19:30:16 Paronychia of toe of right foot 8290975740320 9102 Active 2019 Not Available [facility] 3 19:30:16 Dystrophia unguium 70962678 Active 2020 Not Available [facility] 3 19:30:18 Foot-drop 2212097 Active 2021 Not Available [facility] 3 19:30:17 Foot callus 597225878 Active 2021 Not Available [facility] 3 19:30:17 Diabetes mellitus 89335155 Active 2022 Victor Hugo Robison, VIR[facility] [address], [facility] [address], [place], [address] , [facility] [employer] [facility] 3 09:26:45 Problem Notes None recorded. Procedures Surgical History Date Name Laterality Status Provider Name and Address Organization Details Recorded Time 5 Nail Debridement completed Victor Hugo Robison DPM [address], [address], [place], [address], [employer] 11/14/2024 14:38:23 5 Nail Debridement completed Victor Hugo Robison DPM [address], [address], [place], [address], [employer] 08/01/2024 16:23:57 4 Nail Debridement completed Victor Hugo Robison DPM [address], [address], [place], [address], [employer] 02/08/2024 14:42:11 4 Partial Nail Avulsion Chemical Matrixectomy-Ri ght completed Victor Hugo Robison DPM [address], [address], [place], [address], [employer] 08/05/2023 15:02:42 3 Nail Debridement completed Victor Hugo Robison DPM [address], [address], [place], [address], [employer] 12/07/2022 09:23:03 Imaging Results None recorded. Procedure Notes None recorded. Medical Equipment None Reported. Allergies Allergen ID Allergen Name Allergen Category Reaction Reaction Severity Criticality Documentation Date Start Date Code Code System Note Provider Name and Address Organization Details Recorded Time 21448 Product containin g penicilli n (product) medicatio n Not available Not available Not available 09/02/2022 62609 8001 SNOMED Not Available [facility] 3 19:32:45 Medications Name Sig Start [...] active Not Available Not Available Not Available ibuprofen 800 mg tablet TAKE 1 TABLET BY MOUTH EVERY 8 HOURS NEEDED FOR PAIN active Not Available Not Available No t Available fluconazole 150 mg tablet TAKE ONE TABLET BY MOUTH A ONE-TIME DOSE ON DAY 1 OF THERAPY active Not Available Not Available No t Available hydrocodone 5 mg-acetamin ophen 325 mg tablet TAKE 1 TO 2 TABLETS BY MOUTH EVERY 4 HOURS NEEDED FOR PAIN . DO NOT EXCEED 8 PER 24 HOURS active Not Available Not Available No t Available Nystop 100,000 unit/gram topical powder active Not Available Not Available Not Available naltrexone 50 mg tablet active Not Available Not Available Not Available ondansetron HCl 4 mg tablet TAKE 1 TABLET BY MOUTH EVERY 8 HOURS NEEDED FOR NAUSEA [...] tablet TAKE 1 TABLET BY MOUTH EVERY 8 HOURS active Not Available Not Available No [...] No t Available trazodone 100 mg tablet TAKE 1 TABLET BY MOUTH ONCE DAILY WITH SUPPER active Not Available Not Available No t Available dicyclomine 20 mg tablet TAKE 1 [...] completed Not Available Not Available Not Available amoxicillin -potassium clavulanate 1,000 mg-62.5 mg tablet,ext. rel 12hr TAKE 1 TABLET BY MOUTH EVERY 12 HOURS active Not Available Not Available No t Available cyclobenzap rine 5 mg tablet TAKE [...] 0.01 % eye drops INSTILL 1 DROP INTO EACH EYE AT BEDTIME active Not Available Not Available [...] active Not Available Not Available Not Available Linzess 72 mcg capsule TAKE 1 CAPSULE BY MOUTH ONCE DAILY active Not Available Not Available No t Available Fluvirin 45 mcg (15 mcg x [...] in Arterial blood by Pulse oximetry Systolic And Diastolic Provider Name and Address Organization Details Last Updated DateTime 5 157.48 cm 44.6 kg/m2 125580. 54 g 89 /min 14 /min 98 % 98 % 132/73 mm[Hg] Jaye Capps [place] [facility] 5 15:52:27 Date Recorded Heart rate Respiratory rate Oxygen saturation Oxygen saturation in Arterial blood by Pulse oximetry Systolic And Diastolic Provider Name and Address Organization Details Last Updated DateTime 4 87 /min 14 /min 98 % 98 % 118/66 mm[Hg] Jaye Chauhan [facility] [employer] [facility] 4 14:41:27 Date Recorded Body height Body mass index (BMI) Body weight Heart rate Respiratory rate Body temperature Oxygen saturation Oxygen saturation in Arterial blood by Pulse oximetry Systolic And Diastolic Provider Name and Address Organization Details Last Updated DateTime 4 157.48 cm 44.6 kg/m2 605267. 54 g 87 /min 16 /min 98 [degF] 98 % 98 % 118/66 mm[Hg] Cathy Cristinanshaw [facility] [employer] [facility] 4 15:23:18 Date Recorded Body height Body mass index (BMI) Body weight Body temperature Oxygen saturation Oxygen saturation in Arterial blood by Pulse oximetry Heart rate Systolic And Diastolic Provider Name and Address Organization Details Last Updated DateTime 5 157.48 cm 44.6 kg/m2 751031. 54 g 97.7 [degF] 94 % 94 % 80 /min 128/77 mm[Hg] Jhonny Montgomery [facility] [employer] [facility] 5 14:06:29 Date Recorded Body height Body mass index (BMI) Body weight Heart rate Oxygen saturation Oxygen saturation in Arterial blood by Pulse oximetry Systolic And Diastolic Provider Name and Address Organization Details Last Updated DateTime 4 157.48 cm 44.6 kg/m2 687221. 54 g 86 /min 99 % 99 % 120/68 mm[Hg] Nicholas Crump [facility] [employer] [facility] 4 14:28:02 Social History None recorded. Functional Status None recorded. Mental Status None recorded. Family History Nothing Reported. Medical History No medical history recorded. Gynecological HistoryNo gynecological history recorded. Obstetrics History GPAL:G 0 P 0 0 0 0 Past Encounters Encounter ID Performer Location Encounter Start Date Encounter Closed Date Diagnosis/Indication Diagnosis SNOMED-CT Code Diagnosis ICD10 Code Diagnosis IMO Codes Diagnosis Note [id number] [facility] [place] [address] [facility] [address] [place] [address] 02/06/2021 00:00:00 02/21/2021 13:56:12 [id number] Victor Hugo Robison DPM [facility] [place] [address] [address] 09/02/2021 00:00:00 09/02/2021 09:48:24 [id number] Victor Hugo Robison DPM [facility] [place] [address] [address] 04/16/2022 00:00:00 04/16/2022 10:33:39 [id number] Victor Hugo Robison DPM [facility] [place] [address] [place] [address] 12/07/2022 08:54:11 12/07/2022 09:35:34 Diabetes mellitus 35292484 E11.9 continue with PCP recommenda tionsCheck feet daily for wounds infectionC ontinue bracingFol low-up in 3 months for routine foot care Paronychia of toe of right foot 4440886977 6183750 L03.031 bilateral cornersSla nt back procedure performedF ollow-up as needed Dystrophia unguium 39478 009 L60.3 Nails 1 through 10 were debrided with sharp mechanical debridemen t without incident. Nails were debrided and greater than 50% length and thickness where needed. Foot callus 729604246 L8 4 right sub 5th mildContin ue supportive shoe gearFollow -up as needed [id number] Victor Hugo Robison DPM [facility] [place] [address] [address] 07/29/2023 09:01:17 08/04/2023 08:00:54 Paronychia of toe of right foot 6519871469 4845781 L03.031 Dystrophia unguium 37761 009 L60.3 Unable to cut own toenails 648550832 Z74.1 [id number] Victor Hugo Robison DPM [facility] [place] [address] [address] 08/05/2023 14:36:30 08/05/2023 15:30:35 Paronychia of toe of right foot 3765538518 6030048 L03.031 lateralpar tial matrix todaywound care and dressing instructio n reviewedmo nitor for infection if presents seek medical attention immediatel yfollow up in 2 weeks [id number] Victor Hugo Robison DPM [facility] [place] [address] [place] [address] 08/10/2023 15:07:03 08/17/2023 14:36:53 Paronychia of toe of right foot 1510770801 9557635 L03.031 lateralpar tial matrix - healedwoun d care and dressing instructio n reviewedmo nitor for infection if presents seek medical attention immediatel yfollow up as needed [id number] Victor Hugo Robison DPM [facility] [place] [address] [place] [address] 02/08/2024 14:22:18 02/08/2024 14:57:06 Diabetes mellitus 53280568 E11.9 continue with PCP recommenda tionsCheck feet daily for wounds infectionC ontinue bracingFol low-up in 3 months for routine foot care Dystrophia unguium 19550 009 L60.3 nails debrided without incident Foot-drop 6850221 M21.37 1 M21.372 Continue bracing [id number] Victor Hugo Robison DPM [facility] [place] [address] [place] [address] 08/01/2024 15:43:20 08/02/2024 16:38:07 Diabetes mellitus 49111882 E11.9 continue with PCP recommenda tionsCheck feet daily for wounds infectionC ontinue bracingFol low-up in 3 months for routine foot care Dystrophia unguium 06639 009 L60.3 nails debrided without incident [id number] Victor Hugo Robison DPM [facility] [place] [address] [place] [id number] 11/14/2024 13:45:40 12/05/2024 15:46:56 Diabetes mellitus 00381976 E11.9 continue with PCP recommenda tionsCheck feet daily for wounds infectionC ontinue bracingFol low-up in 3 months for routine foot care Dystrophia unguium 26937 009 L60.3 nails debrided without incident Health Concerns Section Related Observation LastModified by Organization Detai ls LastModified Time None Recorded Concern Status LastModified by Organization Details LastModified Time None Recorded Advance Directives Directive None Recorded Payers Insurance Date Sequence Insurance Name Policy Number Policy Garcia Covered Member ID Garcia Member ID Guarantor Name 11/21/2024 1 [place] Camille Orozco [id number] Camille Orozco 04/07/2025 2 A[employer] [place] - DOS ON OR AFTER 2020 (MEDICAID REPLACEMENT - HMO) Camille Orozco [id number] Camille Orozco 04/07/2025 [facility] (MEDICAID HMO) Camille Orozco [id number] Camille Orozco 04/07/2025 1 [facility] (MEDICARE REPLACEMENT/AD VANTAGE - PPO) [id number] Camille Orozco [id number] Camille Orozco Notes Date Note Type Note Provider Name and Address Organization Details Recorded Time 08/05/2023 text/html Patient returns to the office for toenail procedure. Denies any infection. Patient understands all risks, benefits, complications and elects to continue. No guarantees given. Victor Hugo Robison DPM [address], [facility] [employer], [place], [address], [employer] 08/05/2023 15:29:47 08/10/2023 text/html Patient is 68-year-old female, who returns the office for follow-up on lateral partial matrix ectomy of the great toenail, which is healed. Patient said she is not having any signs of infection. Patient states she did have some mild discomfort but that has resolved. Patient denies any of the complaints. Victor Hugo Robison DPM [address], [address], [place], [address], [employer] 08/10/2023 16:14:20 02/08/2024 text/html . Patient is [...] Hugo Robison DPM [address], [address], [place], [address], [employer] 02/08/2024 14:43:29 08/01/2024 text/html . Patient is [...] Robison DPM [address], [address], [place], [address], [employer] 08/01/2024 16:24:30 11/14/2024 text/html . Patient is a 69-year-old female diabetic who returns for diabetic foot care she denies any new complaints. Patient continues to use an AFO to the right lower extremity she denies any open wounds. Patient denies any other complaints. Victor Hugo Robison DPM [address], [address], [place], [address], [employer] 12/04/2024 14:06:25 OBGyn Episode No OBEpisode recorded.
[2025-05-15 13:27] LABS: Hematocrit 34.0 % (37.0-47.0); Hemoglobin 10.7 g/dL (12.0-15.0); Immature Granulocyte Percent A 0.4 % (0-0.5); Immature Reticulocyte Fraction 9.4 % (3.0-15.9); Lymphocytes Absolute Auto 1.98 K/mm3 (0.9-3.2); Mean Corpuscular HGB Conc 31.5 g/dl (32-36); Mean Corpuscular Hemoglobin 30.5 pg (26-34); Mean Corpuscular Volume 96.9 fl (80-100); Nucleated Red Blood Cells Absolute Auto 0.000 K/mm3 (0.0-0.012); Nucleated Red Blood Cells Perc 0.0 % (0.0-0.2); Platelet Count Result 213 k/mm3 (150-375); Red Blood Count 3.51 M/mm3 (4.2-5.4); Reticulocyte Hemoglobin Conten 34.3 pg (28.2-36.6); Reticulocytes Absolute 0.04 10^6/uL (0.02-0.10); White Blood Count 6.7 K/mm3 (4.5-10.0)
[2025-05-15 13:41] LABS: Alanine Aminotransferase 12 U/L (6-35); Albumin Level 4.3 g/dL (3.5-5.1); Alkaline Phosphatase 83 U/L (38-126); Anion Gap 7 mmol/L (4-12); Aspartate Amino Transferase 23 U/L (14-36); Bilirubin,Total 0.3 mg/dL (0.2-1.3); Blood Urea Nitrogen 37 mg/dL (7-17); Calcium 9.1 mg/dL (8.4-10.2); Carbon Dioxide 28 mmol/L (22-30); Chloride 101 mmol/L (98-107); Estimated Glomerular Filt Rate 49; Glucose 100 mg/dL (65-110); Potassium 4.5 mmol/L (3.4-5.0); Sodium 136 mmol/L (137-145); Total Protein 7.3 g/dL (6.3-8.2)
[2025-05-15 15:09] LABS: Hemoglobin A1C 5.6 % (<5.7)
[2025-05-15 17:03] LABS: Iron 94 ug/dL (37-170)
[2025-05-15 17:12] LABS: Percent Iron Saturation 49 % (20-50)
[2025-05-15 17:40] LABS: Ferritin 173.00 ng/mL (11.1-264)
[2025-05-15 18:24] LABS: Vitamin B12 933.0 pg/mL (239-931)
== END 2025-05-15 12:35 | disposition home or self-care (01) ==
PROVIDERS: PCP Internal Medicine; Visit Provider Clinical Nurse Specialist
DX: E11.69 Type 2 diabetes mellitus with other specified complication (principal); E66.9 Obesity, unspecified; I10 Essential (primary) hypertension; D64.9 Anemia, unspecified; R74.8 Abnormal levels of other serum enzymes
CPT/HCPCS: 36415; 80053; 82607; 82728; 83036; 83540; 83550; 85025; 85046

== ENCOUNTER 2025-06-18 00:21 | Day surgery (SDC) | payer MEDICARE, MEDICAID, SELFPAY ==
[2025-02-08 12:20] VITALS: BMI 44.0
--- NOTE | 2025-02-22 08:55 | SUR.PREOP ---
Camille did not arrive for her procedure. RN called the manager critical care unit and she stated that the patient informed her she had already canceled this procedure. Patient is not coming in today.
[2025-05-29 14:36] VITALS: BMI 42.5
--- OUTSIDE RECORDS SUMMARY | 2025-06-18 00:25 | XMS_ITS | Clinical Summary ---
Author Organization [facility] Address [address] [place] [address] Care Team Providers Care [place] Attacher Name Role Phone Mike Gautam DO Primary Care Provider [phone]- [phone] Source Comments [facility],non-owned Affiliates and Associated Physician Practices is amultiple site organization consisting of ambulatory clinics and hospital sitesin [place], [place], [place] and [place]. This disclosure is being madepursuant to the Care Everywhere program and may not contain all information available regarding this patient. 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
--- OUTSIDE RECORDS SUMMARY | 2025-06-18 00:25 | XMS_ITS | Clinical Summary ---
Author Organization [facility] Address [address] [place] [address] Care Team Providers Care Label Tacker Name Role Phone Mike Gautam DO Primary Care Provider [phone] Allergies Active Allergy Reactions Criticality Noted Date [...] (10/16/2021): Added automatically from request for surgery [id number] Diverticulitis 10/16/2021 Overview (10/16/2021): Added automatically from request for surgery [id number] Colitis 09/27/2021 Dystrophia unguium 02/21/2021 Epilepsy 05/13/2017 [...] drink = 0.6 oz pur e alcohol) [facility] Utilities Answer Date Recorded In the [...] often do you attend chur ch or advent services? 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 Gender Identity Not on file Sexual [...] 11/21/2021, 09/21/2013 Medical Devices Implanted Type Area Film And Video Graphics Designer Device Identifier Shelf Expiration Date Model / Serial / Lot Integra COTA [employer] [id number] Integra 5x4in Mesh Dressing Biological Bovine Collagen - [id number] Implanted:Qty: 1 on 09/29/2021 by Leo Boone Jr., MD at [facility] Right: Leg Integra [employer] 06/03/2022 [id number] / / [id number] Procedures Procedure Name Priority Date/Time Associated Diagnosis [...] LAB BLOOD ORDERABLES Final R esult GRACIE [id number] [address] Rasmussen Department [place] [address] * COLONOSCOPY (11/21/2021 9:21 AM CDT) Anatomical Region Laterality Modality Other Narrative Procedure Note Zenon Barcenas MD - 11/21/2021 9:21 AM CDT [facility] Patient Name: Camille Orozco Procedure [...] bowel preparation was evaluated using the BBPS (Buckner Bowel Preparation Scale) with scores of:Right Colon [...] Maintenance Insurance [employer] CHOICE MEDICARE PPO MEDICARE [facility] Address: [address] [address] [place] [address] IDPA MEDICARE [facility] Address: [address] [address] IDPA IDPA [facility] MEDICARE [facility] Address: [address] [address] [place] [address] Advance Directives For more information, please contact: [phone] * Full Code (Latest Code Status on File) Date Activated Date Inactivated Comments 10/17/2024 1:21 AM 10/19/2024 8:35 PM * Full Code Date Activated Date Inactivated Comments 09/27/2021 11:16 PM 10/03/2021 7:15 PM Care Teams Label Tacker Relationship Specialty Start Date End Date Mike Gautam DO PCP - General 09/27/21
[2025-06-18 11:59] VITALS: BP 156/79; PULSE 87; RESP 20; TEMP 36.4; O2SAT 100
--- NOTE | 2025-06-18 12:12 | WPDANESEPPF ---
Anes - Initial Pre Proc Eval Procedure: Operation Date: 06/18/25 13:00 Proposed Procedures p Colonoscopy - Jr Edouard MD Date/Time: 06/18/25 12:12 Surgeon: Jr Edouard MD Pre Op Diagnosis: constipation, diverticulitosis, Patient Data Age: 70 Gender: F Height: 1.55 m Weight: 103.2 kg Last Vital Signs Temp 97.6 F 06/18/25 11:59 Pulse 87 06/18/25 11:59 Resp 20 06/18/25 11:59 BP 156/79 H 06/18/25 11:59 Pulse Ox 100 06/18/25 11:59 O2 Del Method Room Air 06/18/25 11:59 Allergies Allergy/AdvReac Type Severity Reaction Status Date / Time diphenhydramine (From Allergy LOWERED Verified 06/18/25 11:57 Benadryl) SEIZURE THRESHOLD/SEIZURE ACTIVITY nitrofurantoin (From Allergy Hives Verified 06/18/25 11:57 Macrobid) cephalexin (From Keflex) AdvReac Itching Verified 06/18/25 11:57 Head Home Medications ?Medication ?Instructions ?Recorded ?Confirmed ?Type cholecalciferol (vitamin D3) 125 5,000 unit PO DAILY 06/08/19 06/18/25 History mcg (5,000 unit) capsule vitamins A,C,K-dkms-lornxa 2,148 1 tablet PO DAILY 11/29/19 06/18/25 History mcg-113 mg-45 mg-17.4 mg tablet (PreserVision AREDS) lisinopril 40 mg tablet 40 mg PO DAILY #90 tabs 07/03/24 06/18/25 Rx duloxetine 30 mg capsule,delayed See Rx Instructions .Route 10/23/24 06/18/25 Rx release .COMPLEX #180 caps bimatoprost 1 drp EACH EYE HS 12/08/24 06/18/25 History carbamazepine 400 mg PO QPM 12/08/24 05/21/25 History cetirizine 10 mg capsule (All Day 10 mg PO DAILY allergy symptoms 12/08/24 06/18/25 History Allergy (cetirizine)) magnesium glycinate 220 mg PO HS 12/08/24 06/18/25 History dwdwsdtr-ggwq-mzjd 8 mg-folic 400 1 tablet PO DAILY 12/08/24 06/18/25 History mcg-K 50 mcg-lutein 300 mcg tablet ([facility]) polyethylene glycol 3350 17 gram 17 g PO DAILY PRN constipation 12/08/24 05/21/25 History oral powder packet (Miralax) trazodone 100 mg tablet 100 mg PO HS #90 tabs 01/09/25 06/18/25 Rx carbamazepine 400 mg 400 mg PO HS 03/20/25 06/18/25 History tablet,extended release,12 hr ferrous sulfate 325 mg (65 mg 325 mg PO DAILY 03/20/25 06/18/25 History iron) tablet rosuvastatin 40 mg tablet (Crestor) 40 mg PO HS #90 tabs 04/17/25 06/18/25 Rx furosemide 20 mg tablet (Lasix) 20 mg PO QAM #90 tabs 05/09/25 06/18/25 Rx ollator walker with #1 ea 05/11/25 05/29/25 Rx seat/adjustable height triamcinolone acetonide 0.1 % 1 applic topical BID #15 grams 05/30/25 06/18/25 Rx topical cream Patient hx anesthesia problems: none Family hx anesthesia problems: none Results Review: All pre-operative results and documents have been reviewed as part of the pre-operative evaluation. [facility] Past Medical History Medical History Encounter for follow-up examination after completed treatment for conditions other than malignant neoplasm Swelling of both lower extremities Encounter for surgical aftercare following surgery on the digestive system Hypokalemia Acute diverticulitis Weight loss Decreased appetite Cellulitis of left leg Nausea Nausea & vomiting Paralysis of left vocal cord Counseling regarding end of life decision making Diverticulitis Reflex sympathetic dystrophy Hyperlipidemia Essential hypertension Depression Vitamin D deficiency Adenomatous colon polyp BPPV (benign paroxysmal positional vertigo) Post-menopausal Lump of breast, right Inflammatory arthritis Bilateral sacroiliitis Marijuana use Seizure disorder Anxiety Spinal stenosis Obstructive sleep apnea Noncompliant with BiPAP. Glaucoma Macular degeneration History of rheumatic fever as a child Gastroesophageal reflux disease Bilateral foot-drop Diverticulosis large intestine w/o perforation or abscess w/bleeding Former smoker Rectocele Prediabetes A1C 5.5% 09/2024 Surgical History Surgical History Hx of ventral hernia repair Laparoscopic 2 cm umbilical hernia repair with mesh, da Ant assisted performed on 03/27/25 History of sinus surgery History of tonsillectomy History of bilateral cataract extraction History of bilateral breast reduction surgery History of colonoscopy with polypectomy History of laparoscopic cholecystectomy History of partial hysterectomy History of fusion of cervical spine (1999) History of repair of rectocele (12/08/19) Rectocele repair/posterior colporrhaphy and perineoplasty. Family History Family History Mother Diabetes mellitus Hypertension Parkinsons disease Heart attack Father Diabetes mellitus Hypertension Renal failure Heart attack Cerebrovascular accident Social History Social History Social History: The patient lives in her own home in [place]. A friend is currently staying with her. She has 2 grown children. Ambulates with a walker or cane due to footdrop and decreased mobility. 5 pack-year smoking history, quit 1977. She drinks 1 to 2 glasses of wine a week. Smokes marijuana couple of times a week. She designates her son Ousmane Orozco and her brother Mike Orozco as her surrogate decision makers and she wishes to be a full code. 1 cup caffeine daily Years smoked: 9 Smoking status: Former smoker Tobacco type: cigarettes Smoking end date: 01/03/80 Alcohol intake: never Substance use: current Substance use type: marijuana Other substance usage details: Once a month Lack of Transportation: No Lack of Food: Never True Current Housing: I Have Housing Concerned About Future Housing: No Difficulty Paying Gas/Electric Bills: No Difficulty Paying for Meds: No Currently Unemployed: No Education: Grade School Difficulty w/ Childcare or Family Care: No Living arrangements: alone Spiritual care concerns: No Anes - Eval Final PreProcedure Day of Procedure 06/18/25 12:12 Patient weight: morbidly obese Lungs: normal air movement Airway: Mallampati scale class II and special considerations (Missing several teeth upper and lower post aspect. ) Neurological: alert and oriented Last oral intake: >/= 8 hours ASA classification: III Emergent: no Anesthetic plan: proceed Anesthesia type and monitoring: general GIVS and standard monitoring Results Review: All pre-operative results and documents have been reviewed as part of the pre-operative evaluation. Pt w some nausea, treated in preop w IV pepid/zofran. Seizure disorder on her current meds, none in 30 years, cannabis use disorder, difficult to quantitate. Informed Consent: The patient's anesthetic plan and its attendant risks and benefits were discussed with the patient/family/POA. Questions were solicited and answers provided to the satisfaction of the patient/family/POA.
[2025-06-18] MEDS: ONDANSETRON INJ 4 MG/2 ML VIAL IV PUSH (12:48)
[2025-06-18] MEDS: FAMOTIDINE 20 MG/2 ML VIAL IV PUSH (12:49)
[2025-06-18] MEDS: LACTATED RINGERS 1,000 ML 150 ML IV CONT (12:52)
--- NOTE | 2025-06-18 13:46 | PM.HPGS ---
History of Present Illness History of Present Illness Consent: Risks, benefits, and alternatives have been discussed and questions answered. Patient agrees to proceed with procedure. Chief complaint: constipation, diverticulitosis, Narrative: Camille Orozco is a 70 year old female with diverticulitis 12/2024, last colonoscopy 2020 Review of Systems Review of Systems: All systems reviewed & are unremarkable except as noted in HPI and below PMFSH Past Medical History Medical History (Updated 06/18/25 @ 13:47 by Jr Edouard MD) History of diverticulitis Encounter for follow-up examination after completed treatment for conditions other than malignant neoplasm Swelling of both lower extremities Encounter for surgical aftercare following surgery on the digestive system Hypokalemia Acute diverticulitis Weight loss Decreased appetite Cellulitis of left leg Nausea Nausea & vomiting Paralysis of left vocal cord Counseling regarding end of life decision making Diverticulitis Reflex sympathetic dystrophy Hyperlipidemia Essential hypertension Depression Vitamin D deficiency Adenomatous colon polyp BPPV (benign paroxysmal positional vertigo) Post-menopausal Lump of breast, right Inflammatory arthritis Bilateral sacroiliitis Marijuana use Seizure disorder Anxiety Spinal stenosis Obstructive sleep apnea Noncompliant with BiPAP. Glaucoma Macular degeneration History of rheumatic fever as a child Gastroesophageal reflux disease Bilateral foot-drop Diverticulosis large intestine w/o perforation or abscess w/bleeding Former smoker Rectocele Prediabetes A1C 5.5% 09/2024 Surgical History Surgical History Hx of ventral hernia repair Laparoscopic 2 cm umbilical hernia repair with mesh, da Ant assisted performed on 03/27/25 History of sinus surgery History of tonsillectomy History of bilateral cataract extraction History of bilateral breast reduction surgery History of colonoscopy with polypectomy History of laparoscopic cholecystectomy History of partial hysterectomy History of fusion of cervical spine (1999) History of repair of rectocele (12/08/19) Rectocele repair/posterior colporrhaphy and perineoplasty. Family History Family History Mother Diabetes mellitus Hypertension Parkinsons disease Heart attack Father Diabetes mellitus Hypertension Renal failure Heart attack Cerebrovascular accident Social History Social History Social History: The patient lives in her own home in [place]. A friend is currently staying with her. She has 2 grown children. Ambulates with a walker or cane due to footdrop and decreased mobility. 5 pack-year smoking history, quit 1977. She drinks 1 to 2 glasses of wine a week. Smokes marijuana couple of times a week. She designates her son Ousmane Orozco and her brother Mike Orozco as her surrogate decision makers and she wishes to be a full code. 1 cup caffeine daily Years smoked: 9 Smoking status: Former smoker Tobacco type: cigarettes Smoking end date: 01/03/80 Alcohol intake: never Substance use: current Substance use type: marijuana Other substance usage details: Once a month Lack of Transportation: No Lack of Food: Never True Current Housing: I Have Housing Concerned About Future Housing: No Difficulty Paying Gas/Electric Bills: No Difficulty Paying for Meds: No Currently Unemployed: No Education: Grade School Difficulty w/ Childcare or Family Care: No Living arrangements: alone Spiritual care concerns: No Meds Home Medications and Allergies Home Medications ?Medication ?Instructions ?Recorded ?Confirmed ?Type cholecalciferol (vitamin D3) 125 5,000 unit PO DAILY 06/08/19 06/18/25 History mcg (5,000 unit) capsule vitamins A,C,E-nyru-gyzmne 2,148 1 tablet PO DAILY 11/29/19 06/18/25 History mcg-113 mg-45 mg-17.4 mg tablet (PreserVision AREDS) lisinopril 40 mg tablet 40 mg PO DAILY #90 tabs 07/03/24 06/18/25 Rx duloxetine 30 mg capsule,delayed See Rx Instructions .Route 10/23/24 06/18/25 Rx release .COMPLEX #180 caps bimatoprost 1 drp EACH EYE HS 12/08/24 06/18/25 History carbamazepine 400 mg PO QPM 12/08/24 05/21/25 History cetirizine 10 mg capsule (All Day 10 mg PO DAILY allergy symptoms 12/08/24 06/18/25 History Allergy (cetirizine)) magnesium glycinate 220 mg PO HS 12/08/24 06/18/25 History xzseumqr-vbyi-sgqy 8 mg-folic 400 1 tablet PO DAILY 12/08/24 06/18/25 History mcg-K 50 mcg-lutein 300 mcg tablet ([facility]) polyethylene glycol 3350 17 gram 17 g PO DAILY PRN constipation 12/08/24 05/21/25 History oral powder packet (Miralax) trazodone 100 mg tablet 100 mg PO HS #90 tabs 01/09/25 06/18/25 Rx carbamazepine 400 mg 400 mg PO HS 03/20/25 06/18/25 History tablet,extended release,12 hr ferrous sulfate 325 mg (65 mg 325 mg PO DAILY 03/20/25 06/18/25 History iron) tablet rosuvastatin 40 mg tablet (Crestor) 40 mg PO HS #90 tabs 04/17/25 06/18/25 Rx furosemide 20 mg tablet (Lasix) 20 mg PO QAM #90 tabs 05/09/25 06/18/25 Rx ollator walker with #1 ea 05/11/25 05/29/25 Rx seat/adjustable height triamcinolone acetonide 0.1 % 1 applic topical BID #15 grams 05/30/25 06/18/25 Rx topical cream Allergies Allergy/AdvReac Type Severity Reaction Status Date / Time diphenhydramine (From Allergy LOWERED Verified 06/18/25 11:57 Benadryl) SEIZURE THRESHOLD/SEIZURE ACTIVITY nitrofurantoin (From Allergy Hives Verified 06/18/25 11:57 Macrobid) cephalexin (From Keflex) AdvReac Itching Verified 06/18/25 11:57 Head Vital Signs Vital Signs - 24 hr 06/18/25 11:59 Temperature 97.6 F Pulse Rate 87 Respiratory Rate 20 Blood Pressure 156/79 H Pulse Oximetry 100 Oxygen Delivery Room Air Exam Const: General: comfortable and no acute distress HENMT: Face/Nose/Sinus: Normal nares present Eyes: General: appearance normal, both eyes and all related structures Neck: Neck: no JVD Resp: Auscultation: clear to auscultation bilaterally Cardio: Rate: regular rate Rhythm: regular rhythm GI: Inspection: non-distended GI Palp: Yes Soft to palpation Skin: General skin exam: normal color Extrem: General: normal to inspection Psych: Mental Status: mental status grossly normal Assessment and Plan Assessment and plan (1) History of diverticulitis: Code(s): Z87.19 - Personal history of other diseases of the digestive system Status: Acute Assessment and Plan: colonoscopy
[2025-06-18 14:08] VITALS: BP 142/66; PULSE 80; RESP 21; O2SAT 99
[2025-06-18 14:18] VITALS: BP 152/65; PULSE 77; RESP 20; O2SAT 99
[2025-06-18 14:28] VITALS: BP 140/63; PULSE 80; RESP 19; O2SAT 99
== END 2025-06-18 14:50 | disposition home or self-care (01) ==
PROVIDERS: PCP Internal Medicine; Referring Provider Internal Medicine Gastroenterology; Visit Provider Internal Medicine Gastroenterology
PROC: 0DJD8ZZ Inspection of Lower Intestinal Tract, Via Natural or Artificial Opening Endoscopic (ICD-10-PCS; CPT 45378; principal; 2025-06-18 13:00)
DX: Z09 Encounter for follow-up examination after completed treatment for conditions other than malignant neoplasm (principal); K57.30 Diverticulosis of large intestine without perforation or abscess without bleeding; K64.8 Other hemorrhoids; E78.5 Hyperlipidemia, unspecified; I10 Essential (primary) hypertension; K21.9 Gastro-esophageal reflux disease without esophagitis; R73.03 Prediabetes; E55.9 Vitamin D deficiency, unspecified; G47.33 Obstructive sleep apnea (adult) (pediatric); E87.6 Hypokalemia; J38.01 Paralysis of vocal cords and larynx, unilateral; M21.372 Foot drop, left foot; M21.371 Foot drop, right foot; F32.A Depression, unspecified; F41.9 Anxiety disorder, unspecified; M06.4 Inflammatory polyarthropathy; G40.909 Epilepsy, unspecified, not intractable, without status epilepticus; F12.90 Cannabis use, unspecified, uncomplicated; E66.01 Morbid (severe) obesity due to excess calories; Z68.41 Body mass index [BMI] 40.0-44.9, adult; Z98.890 Other specified postprocedural states; Z90.49 Acquired absence of other specified parts of digestive tract; Z98.1 Arthrodesis status; Z86.0100 Personal history of colon polyps, unspecified; Z87.891 Personal history of nicotine dependence; Z82.49 Family history of ischemic heart disease and other diseases of the circulatory system
CPT/HCPCS: 45378; J2003; J2405; J2704; J7120